=== PATIENT | male | born 1950 | race Caucasian/White ===

== ENCOUNTER 2016-07-24 13:29 | Emergency (ER) | payer OTHER ==
[2016-07-24] MEDS ORDERED: NS 0.9% 1000 ML* 1,000 ML IV ONE (14:58)
[2016-07-24] MEDS ORDERED: Diltiazem IV* 5 MG/ML 5 ML VIAL (for loading dose/IV Push) (25 MG) IV SLOW PU ONE (15:00)
[2016-07-24 15:14] LABS: Hematocrit 42 % (42-52); Hemoglobin 13.7 g/dl (14.0-18.0); Mean Corpuscular HGB Conc 32 g/dl (31-36); Mean Corpuscular Hemoglobin 31 pg (27-31); Mean Corpuscular Volume 95 fL (80-94); Mean Platelet Volume 9 um3 (7.4-10.4); Red Blood Count 4.46 10^6/ul (4.0-5.4); Red Cell Distribution Width 14 % (10.5-15); White Blood Count 9.9 10^3/ul (3.5-10.8)
[2016-07-24 15:31] LABS: Albumin 3.5 g/dL (3.2-5.2); BUN/Creatinine Ratio 18.1 (8-20); Calcium 9.2 mg/dL (8.6-10.3); EGFR African American 141.3 (>60); EGFR Non-African American 109.9 (>60); Globulin 2.9 g/dL (2-4); Magnesium 1.6 mg/dL (1.9-2.7); Total Bilirubin 0.6 mg/dL (0.2-1.0); Total Protein 6.4 g/dL (6.4-8.9)
--- NOTE | 2016-07-24 15:35 | RAD ---
HISTORY: Palpitation COMPARISONS: July 25, 2015 VIEWS: 2: Frontal dual-energy and lateral views of the chest. FINDINGS: CARDIOMEDIASTINAL SILHOUETTE: The cardiomediastinal silhouette is normal. HOME: The home are normal. PLEURA: The costophrenic angles are sharp. No pleural abnormalities are noted. LUNG PARENCHYMA: There is hyperinflation with flattening of the diaphragm and expansion of the AP diameter of the chest. There is a 0.7 cm nodular density of the left midlung field between the posterior aspects of the eighth and ninth ribs. ABDOMEN: The upper abdomen is clear. There is no subphrenic gas. BONES AND SOFT TISSUES: No bone or soft tissue abnormalities are noted. OTHER: None. IMPRESSION: 1. HYPERINFLATION, CONSISTENT WITH COPD. 2. 0.7 CM NODULE OF THE LEFT MIDLUNG. RECOMMEND FURTHER EVALUATION WITH CT OF THE CHEST IN THE NONACUTE SETTING.
[2016-07-24 15:53] LABS: T4 7.7 mcg/mL (6.09-12.23)
[2016-07-24 15:54] LABS: TSH (Thyroid Stimulating Horm) 0.51 mcIU/mL (0.34-5.60)
[2016-07-24] MEDS ORDERED: Magnesium Oxide TAB* 400 MG PO ONE (16:07)
[2016-07-24] MEDS ORDERED: Rivaroxaban TAB(*) 10 MG PO ONE (16:07)
[2016-07-24 17:01] VITALS: BP 139/100
--- NOTE | 2016-07-25 11:07 | ED ---
Khadijah Sanchez Auryana, scribed for Cameron Main MD on 07/24/16 at 1648 . Palpitations / Dysrhythmia - HPI Summary HPI Summary: 66 y/o male presents to ED with increased heart rate and atrial fibrillation. Patient arrived at the hospital today for a scheduled colonoscopy, but was brought to the ER due to increased HR. (when nurses observed patient's increased heart rate). PMHx of AFIB and COPD. Patient also has chronic SOB and cough. He denies any ABD pain and lower leg edema. Patient is on (takes) 2L Oxygen at home and (takes) is on blood thinners - reports none in last 6 days in preparation for his colonoscopy. SHx is significant for tobacco use. (Patient is a smoker.) - History of Current Complaint Chief Complaint: EDDysrhythmPalp Time Seen by Provider: 07/24/16 14:42 Hx Obtained From: Patient Onset/Duration: Sudden Onset Severity Initially: Moderate Severity Currently: Mild Character: Irregular Associated Signs & Symptoms: Shortness of Breath - CHRONIC - Allergy/Home Medications Allergies/Adverse Reactions: Allergies Allergy/AdvReac Type Severity Reaction Status Date / Time No Known Allergies Allergy Verified 07/11/15 11:13 Home Medications: Home Medications Diltiazem HCl Coated Beads [Cartia Xt] 240 mg PO DAILY 07/24/16 [History Confirmed 07/24/16] PMH/Surg Hx/FS Hx/Imm Hx Endocrine/Hematology History: Denies: Hx Diabetes, Hx Thyroid Disease Cardiovascular History: Reports: Hx Atrial Fibrillation, Hx Congestive Heart Failure Denies: Hx Peripheral Vascular Disease Respiratory History: Reports: Hx Chronic Obstructive Pulmonary Disease (COPD) - 2L O2 Cannula Musculoskeletal History: Denies: Hx Arthritis, Hx Osteoporosis Neurological History: Denies: Hx Headaches, Hx Seizures, Hx Transient Ischemic Attacks (TIA) Psychiatric History: Denies: Hx Anxiety, Hx Depression - Surgical History Surgery Procedure, Year, and Place: right knee as a child Infectious Disease History: No Infectious Disease History: Denies: Traveled Outside the [place] in Last 30 Days - Family History Known Family History: Positive: Hypertension, Diabetes, Other - Lung cancer, breast cancer - Social History Occupation: Unemployed Lives: With Family - Lives with sister Alcohol Use: None Substance Use Type: Reports: None Hx Tobacco Use: Yes Smoking Status (MU): Former Smoker Review of Systems Constitutional: Negative Negative: Fever Eyes: Negative ENT: Negative Cardiovascular: Negative Positive: Shortness Of Breath Gastrointestinal: Negative Negative: Abdominal Pain Genitourinary: Negative Musculoskeletal: Negative Negative: Edema - Lower leg Skin: Negative Neurological: Negative Psychological: Normal All Other Systems Reviewed And Are Negative: Yes Physical Exam - Summary Physical Exam Summary: VITAL SIGNS: Reviewed. GENERAL: Patient is a well-developed and thin male who is lying comfortable in the stretcher. Patient is not in any acute respiratory distress. HEAD AND FACE: No signs of trauma. No ecchymosis, hematomas or skull depressions. No sinus tenderness. EYES: PERRLA, EOMI x 2, No injected conjunctiva, no nystagmus. EARS: Hearing grossly intact. Ear canals and tympanic membranes are within normal limits. MOUTH: Oropharynx within normal limits. NECK: Supple, trachea is midline, no adenopathy, no JVD, no carotid bruit, no c- spine tenderness, neck with full ROM. CHEST: Symmetric, no tenderness at palpation LUNGS: Clear to auscultation bilaterally. No wheezing or crackles. CVS: Irregular rate and rhythm, S1 and S2 present, no murmurs or gallops appreciated. ABDOMEN: Soft, non-tender. No signs of distention. No rebound no guarding, and no masses palpated. Bowel sounds are normal. EXTREMITIES: FROM in all major joints, no edema, no cyanosis or clubbing. NEURO: Alert and oriented x 3. No acute neurological deficits. Speech is normal and follows commands. SKIN: Dry and warm Triage Information Reviewed: Yes Vital Signs On Initial Exam: Initial Vitals Temp Pulse Resp BP Pulse Ox 97.0 F 60 20 107/70 98 07/24/16 13:33 07/24/16 13:33 07/24/16 13:33 07/24/16 13:33 07/24/16 13:33 Vital Signs Reviewed: Yes - Byron Coma Scale Coma Scale Total: 15 Diagnostics - Vital Signs Vital Signs Temp Pulse Resp BP Pulse Ox 07/24/16 14:31 84 23 127/92 99 07/24/16 14:14 95 93 07/24/16 14:12 115/88 07/24/16 14:08 68 20 07/24/16 13:38 98.9 F 86 20 107/70 95 07/24/16 13:33 97.0 F 60 20 107/70 98 - Laboratory Lab Results: Lab Results 07/24/16 07/24/16 07/24/16 Range/Units 15:07 15:07 15:07 WBC 9.9 (3.5-10.8) 10^3/ul RBC 4.46 (4.0-5.4) 10^6/ul Hgb 13.7 L (14.0-18.0) g/dl Hct 42 (42-52) % MCV 95 H (80-94) fL MCH 31 (27-31) pg MCHC 32 (31-36) g/dl RDW 14 (10.5-15) % Plt Count 210 (150-450) 10^3/ul MPV 9 (7.4-10.4) um3 Neut % (Auto) 70.5 (38-83) % Lymph % (Auto) 21.4 L (25-47) % Deuel % (Auto) 7.4 (1-9) % Eos % (Auto) 0.3 (0-6) % Baso % (Auto) 0.4 (0-2) % Absolute Neuts (auto) 7.0 (1.5-7.7) 10^3/ul Absolute Lymphs (auto) 2.1 (1.0-4.8) 10^3/ul Absolute Monos (auto) 0.7 (0-0.8) 10^3/ul Absolute Eos (auto) 0 (0-0.6) 10^3/ul Absolute Basos (auto) 0 (0-0.2) 10^3/ul Absolute Nucleated RBC 0 10^3/ul Nucleated RBC % 0 Sodium 138 (133-145) mmol/L Potassium 4.0 (3.5-5.0) mmol/L Chloride 98 L (101-111) mmol/L Carbon Dioxide 36 H (22-32) mmol/L Anion Gap 4 (2-11) mmol/L BUN 13 (6-24) mg/dL Creatinine 0.72 (0.67-1.17) mg/dL Est GFR ( Amer) 141.3 (>60) Est GFR (Non-Af Amer) 109.9 (>60) BUN/Creatinine Ratio 18.1 (8-20) Glucose 86 (70-100) mg/dL Lactic Acid 1.1 (0.5-2.0) mmol/L Calcium 9.2 (8.6-10.3) mg/dL Magnesium 1.6 L (1.9-2.7) mg/dL Total Bilirubin 0.60 (0.2-1.0) mg/dL AST 21 (13-39) U/L ALT 16 (7-52) U/L Alkaline Phosphatase 66 (34-104) U/L CK-MB (CK-2) 3.2 (0.6-6.3) ng/mL Troponin I 0.00 (<0.04) ng/mL B-Natriuretic Peptide ( - 100) pg/mL Total Protein 6.4 (6.4-8.9) g/dL Albumin 3.5 (3.2-5.2) g/dL Globulin 2.9 (2-4) g/dL Albumin/Globulin Ratio 1.2 (1-3) TSH 0.51 (0.34-5.60) mcIU/mL Thyroxine (T4) 7.70 (6.09-12.23) mcg/mL 07/24/16 Range/Units 15:07 WBC (3.5-10.8) 10^3/ul RBC (4.0-5.4) 10^6/ul Hgb (14.0-18.0) g/dl Hct (42-52) % MCV (80-94) fL MCH (27-31) pg MCHC (31-36) g/dl RDW (10.5-15) % Plt Count (150-450) 10^3/ul MPV (7.4-10.4) um3 Neut % (Auto) (38-83) % Lymph % (Auto) (25-47) % Deuel % (Auto) (1-9) % Eos % (Auto) (0-6) % Baso % (Auto) (0-2) % Absolute Neuts (auto) (1.5-7.7) 10^3/ul Absolute Lymphs (auto) (1.0-4.8) 10^3/ul Absolute Monos (auto) (0-0.8) 10^3/ul Absolute Eos (auto) (0-0.6) 10^3/ul Absolute Basos (auto) (0-0.2) 10^3/ul Absolute Nucleated RBC 10^3/ul Nucleated RBC % Sodium (133-145) mmol/L Potassium (3.5-5.0) mmol/L Chloride (101-111) mmol/L Carbon Dioxide (22-32) mmol/L Anion Gap (2-11) mmol/L BUN (6-24) mg/dL Creatinine (0.67-1.17) mg/dL Est GFR ( Amer) (>60) Est GFR (Non-Af Amer) (>60) BUN/Creatinine Ratio (8-20) Glucose (70-100) mg/dL Lactic Acid (0.5-2.0) mmol/L Calcium (8.6-10.3) mg/dL Magnesium (1.9-2.7) mg/dL Total Bilirubin (0.2-1.0) mg/dL AST (13-39) U/L ALT (7-52) U/L Alkaline Phosphatase (34-104) U/L CK-MB (CK-2) (0.6-6.3) ng/mL Troponin I (<0.04) ng/mL B-Natriuretic Peptide 174 H ( - 100) pg/mL Total Protein (6.4-8.9) g/dL Albumin (3.2-5.2) g/dL Globulin (2-4) g/dL Albumin/Globulin Ratio (1-3) TSH (0.34-5.60) mcIU/mL Thyroxine (T4) (6.09-12.23) mcg/mL Result Diagrams: 07/24/16 15:07 07/24/16 15:07 Lab Statement: Any lab studies that have been ordered have been reviewed, and results considered in the medical decision making process. - Radiology CHEST XRAY Xray Interpretation: Positive (See Comments) - 1. HYPERINFLATION, CONSISTENT WITH COPD. 2. 0.7 CM NODULE OF THE LEFT MIDLUNG. RECOMMEND FURTHER EVALUATION WITH CT OF THE CHEST IN THE NONACUTE SETTING. Radiology Interpretation Completed By: Radiologist - EKG 13:43 EKG Interpretation: Atrial Fibrillation @ 129 bpm, no ST elevation Course/Dx - Course Assessment/Plan: 66 y/o male presents to ED with increased heart rate and atrial fibrillation. Patient arrived at the hospital today for a scheduled colonoscopy, but was brought to the ER due to increased HR. (when nurses observed patient's increased heart rate). PMHx of AFIB and COPD. Patient also has chronic SOB and cough. He denies any ABD pain and lower leg edema. Patient is on (takes) 2L Oxygen at home and (takes) is on blood thinners - reports none in last 6 days in preparation for his colonoscopy. SHx is significant for tobacco use. (Patient is a smoker.). Test results were WNL, except hemoglobin 13.7 and BNP 174. CXR shows no acute pathology, and a 0.7 cm nodule of the left Midlung. In the ED course the patient is dehydrated, since he has not taken fluids since yesterday because he was prepping for a colonoscopy. The patient did not take his medications this morning; therefore he was in AFIB with RVR. Patients colonoscopy was postponed, and he was sent to the ED for further assessment. HR 117 -127. PT was given IV fluids, cardizen, and symptoms improved within the hour and maintained between 70-82. At this point the patient was asymptomatic. Pt was given 1 dose of xarelto since he has not taken xarelto for the last 4 days. At this point, since the pt was asymptomatic and his AFIB was rate controlled, the patient was discharged with follow-up with PCP. - Diagnoses Differential Diagnosis/HQI/PQRI: Positive: Medication Induced, Paroxymal SVT, V- Tach, Other - A. Fib Provider Diagnoses: Atrial fibrillation - Physician Notifications Discussed Care Of Patient With: Kyleigh Us Time Discussed With Above Provider: 15:54 Discharge - Discharge Plan Condition: Stable Disposition: HOME Patient Education Materials: A-fib (Atrial Fibrillation) (ED) Referrals: Cameron Ryan MD [Primary Care Provider] - 3 Days (2-3 days) The documentation as recorded by the Khadijah yarbrough Auryana accurately reflects the service I personally performed and the decisions made by , Cameron Main MD.
== END 2016-07-24 17:46 | disposition home or self-care (01) ==
LOC: ED 13:29
DX: I48.91 Unspecified atrial fibrillation (principal); R06.02 Shortness of breath; Z87.891 Personal history of nicotine dependence; Z87.09 Personal history of other diseases of the respiratory system
CPT/HCPCS: 36415; 71020; 80053; 82553; 83605; 83735; 83880; 84436; 84443; 84484; 85025; 93005; 96374; 99283; A9270-GY

== ENCOUNTER 2017-10-02 11:07 | Inpatient (IN) | payer MEDICARE ==
[2017-10-02] MEDS ORDERED: Lactated Ringers 1000 ml Bag*IV.FLUID IV ONE (11:18)
[2017-10-02] MEDS ORDERED: Albuterol/Ipratropium NEB.SOL* Albuterol 2.5 MG/Ipratropium 0.5 MG 3 ML ONE (11:18)
[2017-10-02] MEDS ORDERED: Albuterol 2.5 MG/3 ML NEB.SOL* (0.083%) INH ONE ×2 (11:19→12:40)
[2017-10-02] MEDS ORDERED: Magnesium Sulfate 1 GM IV* 1 GM/100 ML BAG IV ONE (11:19)
[2017-10-02] MEDS ORDERED: Albuterol/Ipratropium NEB.SOL* Albuterol 2.5 MG/Ipratropium 0.5 MG 3 ML INH ONE (11:19)
[2017-10-02] MEDS ORDERED: Levofloxacin 750 MG IVPREMIX(* 750 MG/150 ML BAG IVPB ONE (11:21)
--- NOTE | 2017-10-02 11:21 | ED ---
Respiratory - HPI Summary HPI Summary: This is scribe Percy Attebery documenting for attending Lucian Kline MD. 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 Assoc. Sx: CP, SOB, speech aphasia. Denies: fever. He was experiencing SOB last night but did not present to ED, per 's request. Per EMS, he received steroids en route to ED, 2 breathing treatments and was on oxygen when EMS arrived on scene. PMHx: COPD, A-fib. He reports being hospitalized for these Sx previously. Nothing seems to alleviate the Sx. History is otherwise limited by patient's medical condition/mental status. I, Dr. Kline, personally performed the services described in this documentation as scribed in my presence and it is both accurate and complete. - History of Current Complaint Chief Complaint: EDRespiratoryDistress Stated Complaint: DIFF BREATHING Hx Obtained From: Patient Onset/Duration: Sudden Onset, Lasting Days, Still Present Current Severity: None Pain Intensity: 0 Character: Wheezing, Dyspnea at Rest Alleviating Factor(s): Nothing Associated Signs and Symptoms: SOB, Wheezing, Chest Pain Unrelated to Cough - Allergy/Home Medications Allergies/Adverse Reactions: Allergies Allergy/AdvReac Type Severity Reaction Status Date / Time No Known Allergies Allergy Verified 07/11/15 11:13 PMH/Surg Hx/FS Hx/Imm Hx Endocrine/Hematology History: Denies: Hx Diabetes, Hx Thyroid Disease Cardiovascular History: Reports: Hx Atrial Fibrillation, Hx Congestive Heart Failure, Hx Hypertension Denies: Hx Peripheral Vascular Disease Respiratory History: Reports: Hx Chronic Obstructive Pulmonary Disease (COPD) - 2L O2 Cannula, Other Respiratory Problems/Disorders Musculoskeletal History: Denies: Hx Arthritis, Hx Osteoporosis Neurological History: Denies: Hx Headaches, Hx Seizures, Hx Transient Ischemic Attacks (TIA) Psychiatric History: Denies: Hx Anxiety, Hx Depression - Surgical History Surgery Procedure, Year, and Place: right knee as a child Infectious Disease History: No Infectious Disease History: Denies: Traveled Outside the [place] in Last 30 Days - Family History Known Family History: Positive: Hypertension, Diabetes, Other - Lung cancer, breast cancer - Social History Occupation: Unemployed Lives: With Family Alcohol Use: None Substance Use Type: Reports: None Hx Tobacco Use: Yes Smoking Status (MU): Former Smoker Review of Systems Positive: Other - POS: speech aphasia.. Negative: Fever Positive: Chest Pain Positive: Shortness Of Breath All Other Systems Reviewed And Are Negative: Yes Physical Exam - Summary Physical Exam Summary: Appearance: Moderate distress. Skin: warm, dry, reflects adequate perfusion Head/face: normal Eyes: EOMI, GIBSON ENT: normal Neck: supple, non-tender Respiratory: History of resp difficulty, tachypnic, prolonged expiratory phase, diffuse wheezes. Cardiovascular: Tachycardic, irregularly irregular heart beat. Abdomen: non-tender, soft Bowel Sounds: present Musculoskeletal: normal, strength/ROM intact Neuro: Mild confusion, 1-word/short phrases Triage Information Reviewed: Yes Vital Signs On Initial Exam: Initial Vitals Temp Pulse Resp BP Pulse Ox 98.2 F 135 35 132/98 100 10/02/17 11:10 10/02/17 11:10 10/02/17 11:10 10/02/17 11:10 10/02/17 11:10 Vital Signs Reviewed: Yes Completion Of Physical Exam Limited Due To: Altered Mental Status Diagnostics - Vital Signs Vital Signs Temp Pulse Resp BP Pulse Ox 10/02/17 11:10 98.2 F 135 35 132/98 100 - Laboratory Result Diagrams: 10/02/17 11:15 10/02/17 11:15 Lab Statement: Any lab studies that have been ordered have been reviewed, and results considered in the medical decision making process. - Radiology CXR Xray Interpretation: No Acute Changes - IMPRESSION: COPD, no active cardiopulmonary disease Radiology Interpretation Completed By: Radiologist - Report has been reviewed by provider and radiologist. - EKG 1114 Cardiac Rate: Tachycardia - 128 bpm EKG Rhythm: Atrial Fibrillation ST Segment: Non-Specific EKG Interpretation: Long QT wave, baseline artifact, rapid ventreicular response. Re-Evaluation - Re-Evaluation First Eval Re-Evaluation Time: 11:40 Change: Improved Comment: Pt is improving, hypercarbic respiratory failure. Disposition - Course Course Of Treatment: Patient with hypercarbic respiratory failure with initial PCO2 of 117. Patient was not hypoxic throughout his course. As a matter of fact, they had turned up his oxygen at home and he was satting 100% on EMS arrival. He is confused on arrival. He was placed on Vapotherm at 40 L and 60 % FiO2. He quickly began to improve. His FiO2 was titrated down to 35%. His mental status continued to improve. His wheezing was diffuse and continued despite several breathing treatments. He was also given IV magnesium hydration and IV Levaquin. The ICU physician was contacted and came to the bedside to evaluate. The patient will be admitted to the ICU for ongoing therapies of his hypercarbic respiratory failure/COPD exacerbation. His ventricular rate may be requiring control but has improved significantly despite breathing treatments with IV hydration and improvement of his respiratory status. - Differential Dx - Cardiopulmonary Differential Diagnoses - Cardiopulmonary: Acute Dyspnea, Atrial Fibrillation, CAD, Cardiomyopathy, Exacerbation Of COPD, Hypokalemia, Lower Resp Infection, Pneumothorax - Diagnoses Provider Diagnoses: Atrial fibrillation with RVR, Acute hypercapnic respiratory failure, COPD with acute exacerbation, Delirium - Physician Notifications Discussed Care Of Patient With: Eduar Sawyer Time Discussed With Above Provider: 11:47 Instructed by Provider To: Other - Provider spoke with Dr. Sawyer regarding further care of patient. He was accepted for admission. - Critical Care Time Critical Care Time: 30-74 min - CCT is EXCLUSIVE of separately billable procedures. Discharge - Sign-Out/Discharge Documenting (check all that apply): Patient Departure - Discharge Plan Condition: Guarded Disposition: ADMITTED TO [facility] - Billing Disposition and Condition Condition: GUARDED Disposition: Admitted to [facility]
[2017-10-02 11:35] LABS: ABS Basophils 0 10^3/ul (0-0.2); ABS Eosinophils 0 10^3/ul (0-0.6); ABS Lymphocytes 0.7 10^3/ul (1.0-4.8); ABS Monocytes 0.6 10^3/ul (0-0.8); ABS Neutrophils 7.8 10^3/ul (1.5-7.7); ABS Nucleated RBC 0 10^3/ul; Eosinophil % 0 % (0-6); Hematocrit 43 % (42-52); Hemoglobin 14.1 g/dl (14.0-18.0); Lymphocyte % 7.2 % (25-47); Mean Corpuscular HGB Conc 32 g/dl (31-36); Mean Corpuscular Hemoglobin 32 pg (27-31); Mean Corpuscular Volume 99 fL (80-94); Mean Platelet Volume 9.5 um3 (7.4-10.4); Nucleated Red Blood Cells % 0; Platelet Count 210 10^3/ul (150-450); Red Cell Distribution Width 14 % (10.5-15); White Blood Count 9.1 10^3/ul (3.5-10.8)
[2017-10-02 11:45] LABS: INR 1.66 (0.77-1.02)
[2017-10-02 11:52] LABS: EGFR Non-African American 94.3 (>60)
--- NOTE | 2017-10-02 11:59 | RAD ---
HISTORY: Respiratory failure COMPARISONS: July 24, 2016 VIEWS: 1: frontal portable view of the chest at 11:30 AM FINDINGS: LINES AND TUBES: None. CARDIOMEDIASTINAL SILHOUETTE: The cardiomediastinal silhouette is normal for portable technique. PLEURA: The costophrenic angles are sharp. No pleural abnormalities are noted. LUNG PARENCHYMA: There is hyperinflation. ABDOMEN: The upper abdomen is clear. There is no subphrenic gas. BONES AND SOFT TISSUES: No bone or soft tissue abnormalities are noted. IMPRESSION: COPD. NO ACTIVE CARDIOPULMONARY DISEASE.
--- NOTE | 2017-10-02 12:43 | HP ---
H&P (Free Text) History and Physical: History and Physical -- Critical Care Limitations in history/physical: none HPI: 67y M w/pmhx of Severe COPD on 2-3 L home O2, Atrial fibrillation on Xarelto; comes to ER for increasing shortness of breath. States for days now has been having increasing shortness of breath. No chest pain/n/v. cough+, mild sputum only. No fever. Chills+. Sick contacts possible with small kids. no abd pain. no diarrhea. no rash/swelling. no recent hospital admissions. Takes his medications at home. Smoker+. No new medications. in ER, he was tachycardic, rapid afib, tachypneic 20-30s, sats 90s+ on NRM and then switched to 3L, BP stable, tmax 98. Very poor air movement on arrival as per staff, started on albuterol, then wheezing noted and increasing air movement on examination. CXR demonstrated no acute infiltrates/effusions/ptx. ABG demonstrated acute on chronic hypercapnea. He was started on hiflow NC, sats in mid 90s. on my exam, he is visibly tachypneic, unable to complete a sentence, short exhalations, RR 30s. less confused as per ER physician and friends at bedside. he lives with his sister at home. he states he feels a little better ROS: negative except for pertinent positives mentioned above. PMHx: Severe COPD on 2-3 L home O2, Atrial fibrillation on Xarelto PSHx: none Family History: breast cancer, lung cancer, HTN, DM Social History: Alcohol-none, Smoking-active, less now, Drug use-none; Lives with his sister Allergies: Allergies Allergy/AdvReac Type Severity Reaction Status Date / Time No Known Allergies Allergy Verified 07/11/15 11:13 Home Medications: atenolol 50mg daily, cardizem 240mg CD daily, xarelto 20mg daily, digoxin 125mcg daily, symicort, albuterol hfa Tele: afib with RVR 100-120s Vitals: Vital Signs Temp 98.2 F 10/02/17 11:10 Pulse 87 10/02/17 13:00 Resp 24 10/02/17 12:45 BP 131/74 10/02/17 12:53 Pulse Ox 93 10/02/17 13:00 Intake & Output 10/01/17 10/02/17 10/02/17 18:59 06:59 18:59 Intake Total 2330 Balance 2330 Weight 72.575 kg Intake: IV Fluids 2330 O2/Vent: hiflow 40lpm 30% Infusions: heplock Current Medications: Albuterol (Ventolin 2.5 Mg/3 Ml Neb.Alena*) 2.5 mg INH Q4H CLARA Budesonide/Formoterol Fumarate (Symbicort 80/4.5 (Nf)) 1 puff INH BID CLARA Diltiazem HCl (Cardizem Cd Cap*) 240 mg PO DAILY CLARA Methylprednisolone Sodium Succinate (Solu-Medrol 40 Mg) 40 mg IV Q8H CLARA Rivaroxaban (Xarelto(*)) 20 mg PO DAILY CLARA Terbutaline Sulfate (Brethine Inj*) 0.25 mg SUBCUT ONCE ONE Stop: 10/02/17 13:20 Physical Exam: General: awake, alert, resp distress+, no diaphoresis Head: normocephalic, atraumatic HEENT: no pallor, no icterus, moist mucous membranes Neck: soft, supple, no jvd, no stridor CVS: tachy, irregular, no murmur Resp: bilateral air entry, no rhales, bilateral diffuse wheezing++, there is insp/exp airflow, mild acc muscle use Abdomen: soft, nontender, nondistended, bowel sounds present Ext: pulses+, warm, no edema Skin: intact Neuro: awake, alert, orientedx3, moving all extremities, no gross focal deficit Labs: Laboratory Results - last 24 hr 10/02/17 10/02/17 10/02/17 11:15 11:15 11:15 WBC 9.1 RBC 4.40 Hgb 14.1 Hct 43 MCV 99 H MCH 32 H MCHC 32 RDW 14 Plt Count 210 MPV 9.5 Neut % (Auto) 86.2 H Lymph % (Auto) 7.2 L [place] % (Auto) 6.3 Eos % (Auto) 0 Baso % (Auto) 0.3 Absolute Neuts (auto) 7.8 H Absolute Lymphs (auto) 0.7 L Absolute Monos (auto) 0.6 Absolute Eos (auto) 0 Absolute Basos (auto) 0 Absolute Nucleated RBC 0 Nucleated RBC % 0 INR (Anticoag Therapy) 1.66 H APTT 36.3 Patient Temperature ABG pH ABG pH (Temp Correct) ABG pCO2 ABG pCO2 (Temp Corrct ABG pO2 ABG pO2 (Temp Correct ABG HCO3 ABG O2 Saturation ABG Base Excess Respiration Rate O2 Delivery Device Ventilator Type Vent Mode FiO2 Inspiratory Time PEEP Pressure Support Pressure Control EPAP IPAP BiPAP Sodium 140 Potassium 4.8 Chloride 94 L Carbon Dioxide 43 H* Anion Gap 3 BUN 31 H Creatinine 0.82 Est GFR ( Amer) 114.1 Est GFR (Non-Af Amer) 94.3 BUN/Creatinine Ratio 37.8 H Glucose 105 H Lactic Acid Calcium 9.3 Total Bilirubin 0.60 AST 31 ALT 31 Alkaline Phosphatase 91 Troponin I 0.01 C-Reactive Protein 73.08 H B-Natriuretic Peptide Total Protein 7.2 Albumin 3.8 Globulin 3.4 Albumin/Globulin Ratio 1.1 10/02/17 10/02/17 10/02/17 11:15 11:15 11:23 WBC RBC Hgb Hct MCV MCH MCHC RDW Plt Count MPV Neut % (Auto) Lymph % (Auto) [place] % (Auto) Eos % (Auto) Baso % (Auto) Absolute Neuts (auto) Absolute Lymphs (auto) Absolute Monos (auto) Absolute Eos (auto) Absolute Basos (auto) Absolute Nucleated RBC Nucleated RBC % INR (Anticoag Therapy) APTT Patient Temperature Not Reportable ABG pH 7.16 L* ABG pH (Temp Correct) Not Reportable ABG pCO2 117 H* ABG pCO2 (Temp Corrct Not Reportable ABG pO2 223 H ABG pO2 (Temp Correct Not Reportable ABG HCO3 31.4 H ABG O2 Saturation 99.4 H ABG Base Excess 8.3 H Respiration Rate Not Reportable O2 Delivery Device vapotherm Ventilator Type Not Reportable Vent Mode Not Reportable FiO2 60 Inspiratory Time Not Reportable PEEP Not Reportable Pressure Support Not Reportable Pressure Control Not Reportable EPAP Not Reportable IPAP Not Reportable BiPAP Not Reportable Sodium Potassium Chloride Carbon Dioxide Anion Gap BUN Creatinine Est GFR ( Amer) Est GFR (Non-Af Amer) BUN/Creatinine Ratio Glucose Lactic Acid 1.1 Calcium Total Bilirubin AST ALT Alkaline Phosphatase Troponin I C-Reactive Protein B-Natriuretic Peptide 566 H Total Protein Albumin Globulin Albumin/Globulin Ratio 10/02/17 13:15 WBC RBC Hgb Hct MCV MCH MCHC RDW Plt Count MPV Neut % (Auto) Lymph % (Auto) [place] % (Auto) Eos % (Auto) Baso % (Auto) Absolute Neuts (auto) Absolute Lymphs (auto) Absolute Monos (auto) Absolute Eos (auto) Absolute Basos (auto) Absolute Nucleated RBC Nucleated RBC % INR (Anticoag Therapy) APTT Patient Temperature Not Reportable ABG pH 7.29 L ABG pH (Temp Correct) Not Reportable ABG pCO2 89 H* ABG pCO2 (Temp Corrct Not Reportable ABG pO2 67 L ABG pO2 (Temp Correct Not Reportable ABG HCO3 34.4 H ABG O2 Saturation 95.4 ABG Base Excess 12.3 H Respiration Rate Not Reportable O2 Delivery Device vapotherm Ventilator Type Not Reportable Vent Mode Not Reportable FiO2 35 Inspiratory Time Not Reportable PEEP Not Reportable Pressure Support Not Reportable Pressure Control Not Reportable EPAP Not Reportable IPAP Not Reportable BiPAP Not Reportable Sodium Potassium Chloride Carbon Dioxide Anion Gap BUN Creatinine Est GFR ( Amer) Est GFR (Non-Af Amer) BUN/Creatinine Ratio Glucose Lactic Acid Calcium Total Bilirubin AST ALT Alkaline Phosphatase Troponin I C-Reactive Protein B-Natriuretic Peptide Total Protein Albumin Globulin Albumin/Globulin Ratio Imaging: cxr 10/02 - hyperinflated lungs, no new focal infiltrates Assessment: 67y M w/pmhx of Severe COPD on 2-3 L home O2, Atrial fibrillation on Xarelto; comes to ER for increasing shortness of breath. States for days now has been having increasing shortness of breath. Possible sick contacts at home with nieces/nephews. poor air entry and then wheezing in ER. ABG with acute on chronic hypercapnea. Suspected COPD exaccerbation. -Acute on chronic hypercapneic respiratory failure -Chronic Hypoxic Respiratory failure -Acute COPD exaccerbation -Afib with RVR Plan: Neuro- stable. not confused now, oriented x3. may have had a metabolic component due to hypercapnea initially. delirium prec. asp prec. CVS- afib with rvr. resume PO cardizem 240mg daily; hold Po atenolol 50mg for now. Start IV cardizem 10mg/hr infusion for Afib control. Bronchodilators will likely increase the rate a little. Cont rivaroxaban 20mg daily for AC. IVF as needed, appears euvolemic. follow urine output. Resp- chronic hypoxia, maintain sat 90-92%. Acute hypercapnea on chronic but more alert now. pending repeat ABG now. s/p 3-4 albuterol tx. May need NIV for increased work of breathing. cont bronchodilators q4h RTC. Solumedrol 125mg x1, then 40mg iv q8h. Terbutaline 2.5mg SC x1. No clear infiltrate/fever/wbc elevation, hold Abx. sputum culture if able. CXR repeat tomorrow if needed. ID- afebrile, wbc normal. CXR no clear focal infiltrate. sputum culture if able. hold abx. GI- NPO for now till resp status stable. PPI proph. Renal- Cr okay, K okay. no acidosis. IVF as needed. given IVF NS bolus. No bell for now. Heme- hg stbale. plt stable. INR 1.66, some coagulopathy. Cont rivaroxaban 20mg daily for Afib AC. Endo- fingersticks q6h while NPO Musculsk- pressure ulcer prophylaxis. Bedrest. Wounds- none Nutrition- NPO for now DVT prophylaxis: SCDs; Rivaroxaban GI prophylaxis: ppi Central Line: no Arterial Line: no Bell Cathetor: no Disposition: ICU Code Status: full code Total Critical Care time is 45 minutes, excluding procedures/teaching Eduar Sawyer MD [employer] (Electronically Signed)
[2017-10-02] MEDS ORDERED: methylPREDNISolone 125 MG* 2 ML VIAL IV STA (13:17)
[2017-10-02] MEDS ORDERED: Terbutaline INJ* 1 MG/ML VIAL SUBCUT ONE (13:19)
[2017-10-02] MEDS ORDERED: Albuterol 2.5 MG/3 ML NEB.SOL* (0.083%) INH SCH (14:00)
[2017-10-02] MEDS ORDERED: Diltiazem DRIP* 100 MG/100 ML ADDV.BAG IVPB SCH (14:00)
[2017-10-02] MEDS: Diltiazem CD CAP* 240 MG PO SCH (14:02)
[2017-10-02 14:28] LABS: Urine Appearance Clear; Urine Blood Negative (Negative); Urine Color Yellow; Urine Ketones 1+ (Negative); Urine Protein 1+(30 mg/dL) (Negative); Urine Red Blood Cell Absent (Absent); Urine Specific Gravity 1.023 (1.010-1.030); Urine Urobilinogen Positive (Negative); Urine White Blood Cell Absent (Absent)
[2017-10-02] MEDS: Diltiazem IV VIAL* 125 MG in NS 0.9% 100 ML* 100 ML IV SCH ×2 (15:00→21:18)
[2017-10-02] MEDS: Albuterol 2.5 MG/3 ML NEB.SOL* (0.083%) INH SCH ×3 (16:31→23:07)
[2017-10-02] MEDS ORDERED: NS 0.9% 1000 ML* 1,000 ML IV SCH (17:15)
[2017-10-02] MEDS: Mometasone/Formoter 100/5 MDI INH SCH (20:18)
[2017-10-02] MEDS: methylPREDNISolone SOD 40 MG* 1 ML VIAL IV SCH (21:13)
[2017-10-03] MEDS: Albuterol 2.5 MG/3 ML NEB.SOL* (0.083%) INH SCH ×4 (03:07→15:35)
[2017-10-03] MEDS: methylPREDNISolone SOD 40 MG* 1 ML VIAL IV SCH ×3 (05:45→21:06)
[2017-10-03 06:14] LABS: Hematocrit 35 % (42-52); Hemoglobin 11.8 g/dl (14.0-18.0); Mean Corpuscular HGB Conc 33 g/dl (31-36); Mean Corpuscular Hemoglobin 32 pg (27-31); Mean Corpuscular Volume 96 fL (80-94); Mean Platelet Volume 9.3 um3 (7.4-10.4); Platelet Count 146 10^3/ul (150-450); Red Blood Count 3.68 10^6/ul (4.00-5.40); Red Cell Distribution Width 13 % (10.5-15); White Blood Count 7.5 10^3/ul (3.5-10.8)
[2017-10-03 06:38] LABS: EGFR Non-African American 132.7 (>60)
[2017-10-03] MEDS: Mometasone/Formoter 100/5 MDI INH SCH ×2 (07:35→19:47)
[2017-10-03] MEDS: Diltiazem CD CAP* 240 MG PO SCH (08:48)
[2017-10-03] MEDS: Rivaroxaban TAB(*) 20 MG TAB PO SCH (08:48)
[2017-10-03] MEDS ORDERED: Pantoprazole IV* 40 MG IV SCH (09:00)
[2017-10-03] MEDS: Digoxin TAB* 0.125 MG PO SCH (09:32)
[2017-10-03] MEDS ORDERED: Atenolol TAB* 50 MG PO SCH (10:00)
[2017-10-03] MEDS ORDERED: Metoprolol Succinate XL TAB* 50 MG PO SCH (10:00)
[2017-10-03] MEDS: Diltiazem IV VIAL* 125 MG in NS 0.9% 100 ML* 100 ML IV SCH ×2 (10:43→21:13)
--- NOTE | 2017-10-03 11:46 | PN ---
Progress Note - Progress Note Date of Service: 10/03/17 Note: Progress Note -- Critical Care 24 hour events: -rapid afib, still on cardizem infusion -feels better; less cough, minimal sputum -still wheezing+ -afebrile -in bed, resting; some tachypnea still apparent Tele: afib with RVR 100-120s Vitals: Vital Signs Temp 99.1 F 10/03/17 08:00 Pulse 99 10/03/17 10:21 Resp 30 10/03/17 10:21 BP 140/87 10/03/17 10:21 Pulse Ox 95 10/03/17 10:21 Intake & Output 10/02/17 10/03/17 10/03/17 18:59 06:59 18:59 Intake Total 2975 788 590 Output Total 300 725 300 Balance 2675 63 290 Weight 63.4 kg 63.9 kg Intake: IV Fluids 2330 439 Magnesium Sulfate 439 Medicated IV 149 GEN - Diltiazem/Cardizem 149 Oral 645 200 590 Output: Urine 300 725 300 O2/Vent: NC 3 L Infusions: cardizem 15mg/hr Current Medications: Albuterol (Ventolin 2.5 Mg/3 Ml Neb.Alena*) 2.5 mg INH Q4H [facility] Last Admin: 10/03/17 07:32 Dose: 2.5 mg Digoxin (Lanoxin Tab*) 0.125 mg PO DAILY [facility] Last Admin: 10/03/17 09:32 Dose: 0.125 mg Diltiazem HCl (Cardizem Cd Cap*) 240 mg PO DAILY [facility] Last Admin: 10/03/17 08:48 Dose: 240 mg Diltiazem HCl 125 mg/ Sodium (Chloride) 125 mls @ 5 mls/hr IV Q24H [facility]; Protocol Last Admin: 10/03/17 10:43 Dose: 5 mls/hr Methylprednisolone Sodium Succinate (Solu-Medrol 40 Mg) 40 mg IV Q8H [facility] Last Admin: 10/03/17 05:45 Dose: 40 mg Metoprolol Succinate (Toprol Xl Tab*) 50 mg PO DAILY [facility] Last Admin: 10/03/17 09:32 Dose: 50 mg Mometasone Furoate/Formoterol Fumar (Dulera 100/5 Mdi*) 1 puff INH BID [facility] Last Admin: 10/03/17 07:35 Dose: 1 puff Pantoprazole Sodium (Protonix Tab (Nf)) 40 mg PO DAILY [facility] Rivaroxaban (Xarelto(*)) 20 mg PO DAILY [facility] Last Admin: 10/03/17 08:48 Dose: 20 mg Physical Exam: General: awake, alert, less resp distress, no diaphoresis Head: normocephalic, atraumatic HEENT: no pallor, no icterus, moist mucous membranes Neck: soft, supple, no jvd, no stridor CVS: tachy, irregular, no murmur Resp: bilateral air entry, no rhales, bilateral scattered wheezing+, no acc muscle use Abdomen: soft, nontender, nondistended, bowel sounds present Ext: pulses+, warm, no edema Skin: intact Neuro: awake, alert, orientedx3, moving all extremities, no gross focal deficit Labs: Laboratory Results - last 24 hr 10/02/17 10/02/17 10/02/17 11:15 11:15 11:15 WBC RBC Hgb Hct MCV MCH MCHC RDW Plt Count MPV Patient Temperature ABG pH ABG pH (Temp Correct) ABG pCO2 ABG pCO2 (Temp Corrct ABG pO2 ABG pO2 (Temp Correct ABG HCO3 ABG O2 Saturation ABG Base Excess Respiration Rate O2 Delivery Device Ventilator Type Vent Mode FiO2 Inspiratory Time PEEP Pressure Support Pressure Control EPAP IPAP BiPAP Sodium 140 Potassium 4.8 Chloride 94 L Carbon Dioxide 43 H* Anion Gap 3 BUN 31 H Creatinine 0.82 Est GFR ( Amer) 114.1 Est GFR (Non-Af Amer) 94.3 BUN/Creatinine Ratio 37.8 H Glucose 105 H POC Glucose (mg/dL) Hemoglobin A1c Lactic Acid 1.1 Calcium 9.3 Total Bilirubin 0.60 AST 31 ALT 31 Alkaline Phosphatase 91 Troponin I 0.01 C-Reactive Protein 73.08 H B-Natriuretic Peptide 566 H Total Protein 7.2 Albumin 3.8 Globulin 3.4 Albumin/Globulin Ratio 1.1 Urine Color Urine Appearance Urine pH Ur Specific [place] Urine Protein Urine Ketones Urine Blood Urine Nitrate Urine Bilirubin Urine Urobilinogen Ur Leukocyte Esterase Urine WBC (Auto) Urine RBC (Auto) Ur Squamous Epith Cells Urine Bacteria Hyaline Casts Urine Glucose Digoxin 1.0 10/02/17 10/02/17 10/02/17 13:15 14:00 16:13 WBC RBC Hgb Hct MCV MCH MCHC RDW Plt Count MPV Patient Temperature Not Reportable ABG pH 7.29 L ABG pH (Temp Correct) Not Reportable ABG pCO2 89 H* ABG pCO2 (Temp Corrct Not Reportable ABG pO2 67 L ABG pO2 (Temp Correct Not Reportable ABG HCO3 34.4 H ABG O2 Saturation 95.4 ABG Base Excess 12.3 H Respiration Rate Not Reportable O2 Delivery Device vapotherm Ventilator Type Not Reportable Vent Mode Not Reportable FiO2 35 Inspiratory Time Not Reportable PEEP Not Reportable Pressure Support Not Reportable Pressure Control Not Reportable EPAP Not Reportable IPAP Not Reportable BiPAP Not Reportable Sodium Potassium Chloride Carbon Dioxide Anion Gap BUN Creatinine Est GFR ( Amer) Est GFR (Non-Af Amer) BUN/Creatinine Ratio Glucose POC Glucose (mg/dL) Hemoglobin A1c Lactic Acid 2.9 H* Calcium Total Bilirubin AST ALT Alkaline Phosphatase Troponin I C-Reactive Protein B-Natriuretic Peptide Total Protein Albumin Globulin Albumin/Globulin Ratio Urine Color Yellow Urine Appearance Clear Urine pH 5.0 Ur Specific [place] 1.023 Urine Protein 1+(30 mg/dl) A Urine Ketones 1+ A Urine Blood Negative Urine Nitrate Negative Urine Bilirubin Negative Urine Urobilinogen Positive A Ur Leukocyte Esterase Negative Urine WBC (Auto) Absent Urine RBC (Auto) Absent Ur Squamous Epith Cells Present A Urine Bacteria Absent Hyaline Casts Present A Urine Glucose Negative Digoxin 10/02/17 10/02/17 10/02/17 17:10 21:21 21:24 WBC RBC Hgb Hct MCV MCH MCHC RDW Plt Count MPV Patient Temperature ABG pH ABG pH (Temp Correct) ABG pCO2 ABG pCO2 (Temp Corrct ABG pO2 ABG pO2 (Temp Correct ABG HCO3 ABG O2 Saturation ABG Base Excess Respiration Rate O2 Delivery Device Ventilator Type Vent Mode FiO2 Inspiratory Time PEEP Pressure Support Pressure Control EPAP IPAP BiPAP Sodium Potassium Chloride Carbon Dioxide Anion Gap BUN Creatinine Est GFR ( Amer) Est GFR (Non-Af Amer) BUN/Creatinine Ratio Glucose POC Glucose (mg/dL) 172 H 167 H Hemoglobin A1c Lactic Acid 1.9 Calcium Total Bilirubin AST ALT Alkaline Phosphatase Troponin I C-Reactive Protein B-Natriuretic Peptide Total Protein Albumin Globulin Albumin/Globulin Ratio Urine Color Urine Appearance Urine pH Ur Specific [place] Urine Protein Urine Ketones Urine Blood Urine Nitrate Urine Bilirubin Urine Urobilinogen Ur Leukocyte Esterase Urine WBC (Auto) Urine RBC (Auto) Ur Squamous Epith Cells Urine Bacteria Hyaline Casts Urine Glucose Digoxin 10/03/17 10/03/17 10/03/17 05:55 05:56 05:56 WBC 7.5 RBC 3.68 L Hgb 11.8 L Hct 35 L MCV 96 H MCH 32 H MCHC 33 RDW 13 Plt Count 146 L MPV 9.3 Patient Temperature Not Reportable ABG pH 7.37 ABG pH (Temp Correct) Not Reportable ABG pCO2 79 H* ABG pCO2 (Temp Corrct Not Reportable ABG pO2 97 ABG pO2 (Temp Correct Not Reportable ABG HCO3 38.1 H ABG O2 Saturation 98.5 H ABG Base Excess 16.9 H Respiration Rate Not Reportable O2 Delivery Device nasal cannula Ventilator Type Not Reportable Vent Mode Not Reportable FiO2 33 Inspiratory Time Not Reportable PEEP Not Reportable Pressure Support Not Reportable Pressure Control Not Reportable EPAP Not Reportable IPAP Not Reportable BiPAP Not Reportable Sodium 142 Potassium 4.1 Chloride 96 L Carbon Dioxide 43 H* Anion Gap 3 BUN 17 Creatinine 0.61 L Est GFR ( Amer) 160.5 Est GFR (Non-Af Amer) 132.7 BUN/Creatinine Ratio 27.9 H Glucose 142 H POC Glucose (mg/dL) Hemoglobin A1c Lactic Acid Calcium 9.0 Total Bilirubin AST ALT Alkaline Phosphatase Troponin I C-Reactive Protein B-Natriuretic Peptide Total Protein Albumin Globulin Albumin/Globulin Ratio Urine Color Urine Appearance Urine pH Ur Specific [place] Urine Protein Urine Ketones Urine Blood Urine Nitrate Urine Bilirubin Urine Urobilinogen Ur Leukocyte Esterase Urine WBC (Auto) Urine RBC (Auto) Ur Squamous Epith Cells Urine Bacteria Hyaline Casts Urine Glucose Digoxin 10/03/17 10/03/17 05:56 06:05 WBC RBC Hgb Hct MCV MCH MCHC RDW Plt Count MPV Patient Temperature ABG pH ABG pH (Temp Correct) ABG pCO2 ABG pCO2 (Temp Corrct ABG pO2 ABG pO2 (Temp Correct ABG HCO3 ABG O2 Saturation ABG Base Excess Respiration Rate O2 Delivery Device Ventilator Type Vent Mode FiO2 Inspiratory Time PEEP Pressure Support Pressure Control EPAP IPAP BiPAP Sodium Potassium Chloride Carbon Dioxide Anion Gap BUN Creatinine Est GFR ( Amer) Est GFR (Non-Af Amer) BUN/Creatinine Ratio Glucose POC Glucose (mg/dL) 148 H Hemoglobin A1c 5.4 Lactic Acid Calcium Total Bilirubin AST ALT Alkaline Phosphatase Troponin I C-Reactive Protein B-Natriuretic Peptide Total Protein Albumin Globulin Albumin/Globulin Ratio Urine Color Urine Appearance Urine pH Ur Specific [place] Urine Protein Urine Ketones Urine Blood Urine Nitrate Urine Bilirubin Urine Urobilinogen Ur Leukocyte Esterase Urine WBC (Auto) Urine RBC (Auto) Ur Squamous Epith Cells Urine Bacteria Hyaline Casts Urine Glucose Digoxin Imaging: cxr 10/02 - hyperinflated lungs, no new focal infiltrates Assessment: 67y M w/pmhx of Severe COPD on 2-3 L home O2, Atrial fibrillation on Xarelto; comes to ER for increasing shortness of breath. States for days now has been having increasing shortness of breath. Possible sick contacts at home with nieces/nephews. poor air entry and then wheezing in ER. ABG with acute on chronic hypercapnea. Suspected COPD exaccerbation. -Acute on chronic hypercapneic respiratory failure -Chronic Hypoxic Respiratory failure -Acute COPD exaccerbation -Afib with RVR Plan: Neuro- stable. oriented x3. delirium prec. asp prec. CVS- afib with rvr; cont cardizem 15mg/hr; cont PO cardizem 240mg daily; restart metoprolol 50mg XL daily, restart dig 125mcg daily. Bronchodilators will likely increase the rate a little. Cont rivaroxaban 20mg daily for AC. IVF as needed, appears euvolemic. follow urine output. Resp- chronic hypoxia, maintain sat 90-92%; back to 3L NC. ABG with improved ventilation, ph 7.36. Still with persistent wheezing, but improved, some tachypnea and minimal acc muscle use. Cont bronchodilators q4h RTC. Cont to solumedrol 40mg iv q8h. minimal sputum, afebrile. ID- afebrile, wbc normal. CXR no clear focal infiltrate 10/02. sputum culture normal colin, blood cx neg so far. no abx indicated. GI- clear liquid. PPI proph. Renal- Cr okay, K okay. no acidosis. IVF as needed. No bell for now. Heme- hg stable. plt stable. Cont rivaroxaban 20mg daily for Afib AC. Endo- fingersticks ACHS Musculsk- pressure ulcer prophylaxis. Bedrest. Wounds- none Nutrition- clear liquid diet DVT prophylaxis: SCDs; Rivaroxaban GI prophylaxis: ppi Central Line: no Arterial Line: no Bell Cathetor: no Disposition: ICU Code Status: full code Total Critical Care time is 35 minutes, excluding procedures/teaching Eduar Sawyer MD [employer] (Electronically Signed)
[2017-10-03] MEDS: Levalbuterol 1.25MG/0.5ML NEB INH SCH ×2 (19:48→22:48)
[2017-10-03] MEDS ORDERED: Melatonin 3 MG TAB PO ONE ×2 (20:50→20:52)
[2017-10-04] MEDS: Levalbuterol 1.25MG/0.5ML NEB INH SCH ×6 (03:39→23:14)
[2017-10-04] MEDS: methylPREDNISolone SOD 40 MG* 1 ML VIAL IV SCH ×2 (04:00→12:01)
[2017-10-04 06:22] LABS: Hematocrit 36 % (42-52); Hemoglobin 11.8 g/dl (14.0-18.0); Mean Corpuscular HGB Conc 33 g/dl (31-36); Mean Corpuscular Hemoglobin 32 pg (27-31); Mean Corpuscular Volume 96 fL (80-94); Mean Platelet Volume 9.6 um3 (7.4-10.4); Platelet Count 146 10^3/ul (150-450); Red Blood Count 3.71 10^6/ul (4.00-5.40); Red Cell Distribution Width 13 % (10.5-15); White Blood Count 13.5 10^3/ul (3.5-10.8)
[2017-10-04 06:41] LABS: EGFR Non-African American 137.9 (>60)
[2017-10-04] MEDS: Mometasone/Formoter 100/5 MDI INH SCH ×2 (08:33→19:18)
[2017-10-04] MEDS: Metoprolol Succinate XL TAB* 50 MG PO SCH (08:50)
[2017-10-04] MEDS: Rivaroxaban TAB(*) 20 MG TAB PO SCH (08:57)
[2017-10-04] MEDS: Omeprazole CAP* 20 MG PO SCH (08:58)
[2017-10-04] MEDS: Digoxin TAB* 0.125 MG PO SCH (08:58)
[2017-10-04] MEDS: Diltiazem CD CAP* 240 MG PO SCH (08:58)
--- NOTE | 2017-10-04 16:37 | PN ---
Date of Service: 10/04/17 Critical Care Services: Doing reasonably well. Afib controlled with IV diltiazem. Still with end- expiratory wheezes. Last PCO2 was 79 mm Hg. Vital Signs: Temp Pulse Resp BP SpO2 FiO2 98.8 F 101 21 129/88 93 35 Physical Exam: Gen:Alert, oriented. Lungs:Hyperinflation. end-exp wheezing Extremities:No cyanosis or edema Fluid Balance (Past 24 Hours): 10/04/17 06:59 Intake Total 1538 Output Total 1050 Balance 488 Weight 143 lb Intake: IV Fluids Magnesium Sulfate Medicated IV 308 GEN - Diltiazem/Cardizem 308 Oral 1230 Output: Urine 1050 Ghotra Labs: 10/04/17 10/04/17 05:53 05:53 WBC 13.5 H RBC 3.71 L Hgb 11.8 L Hct 36 L MCV 96 H MCH 32 H MCHC 33 RDW 13 Plt Count 146 L MPV 9.6 Sodium 143 Potassium 4.2 Chloride 97 L Carbon Dioxide 44 H* Anion Gap 2 BUN 23 Creatinine 0.59 L Est GFR ( Amer) 166.8 Est GFR (Non-Af Amer) 137.9 BUN/Creatinine Ratio 39.0 H Glucose 152 H POC Glucose (mg/dL) Calcium 8.9 Magnesium 1.9 Studies: None Impression: Exacerbation of COPD - slow improvement. AFib coming under control on IV diltiazem. Plan: 1. Taper IV diltiazem as tolerated. 2. Will switch steroids to PO prednisone 3. Otherwise no change in management plan.
[2017-10-04] MEDS: Diltiazem IV VIAL* 125 MG in NS 0.9% 100 ML* 100 ML IV SCH (16:44)
[2017-10-05] MEDS: Diltiazem IV VIAL* 125 MG in NS 0.9% 100 ML* 100 ML IV SCH ×2 (00:21→21:10)
[2017-10-05] MEDS: Levalbuterol 1.25MG/0.5ML NEB INH SCH ×4 (02:57→20:04)
[2017-10-05 04:18] LABS: Hematocrit 38 % (42-52); Hemoglobin 12.3 g/dl (14.0-18.0); Mean Corpuscular HGB Conc 33 g/dl (31-36); Mean Corpuscular Hemoglobin 32 pg (27-31); Mean Corpuscular Volume 97 fL (80-94); Mean Platelet Volume 9.1 um3 (7.4-10.4); Platelet Count 147 10^3/ul (150-450); Red Blood Count 3.88 10^6/ul (4.00-5.40); Red Cell Distribution Width 13 % (10.5-15)
[2017-10-05] MEDS: Mometasone/Formoter 100/5 MDI INH SCH ×2 (07:19→20:04)
[2017-10-05] MEDS ORDERED: Famotidine TAB* 20 MG PO ONE (09:45)
[2017-10-05] MEDS: Diltiazem CD CAP* 240 MG PO SCH (10:03)
[2017-10-05] MEDS: predniSONE TAB* 20 MG PO SCH (10:03)
[2017-10-05] MEDS: Metoprolol Succinate XL TAB* 50 MG PO SCH (10:03)
[2017-10-05] MEDS: Digoxin TAB* 0.125 MG PO SCH (10:04)
[2017-10-05] MEDS: Rivaroxaban TAB(*) 20 MG TAB PO SCH (10:05)
[2017-10-05] MEDS: Omeprazole CAP* 20 MG PO SCH (10:26)
--- NOTE | 2017-10-05 12:59 | PN ---
Date of Service: 10/05/17 Critical Care Services: Patient's breathing close to baseline. Now off diltiazem drip and heart rate in the low 100s. No specific complaints this AM. Vital Signs: Temp Pulse Resp BP SpO2 FiO2 98.3 F 107 26 162/102 93 35 Physical Exam: Gen:Alert, oriented, breathing comfortably Lungs: BS distant. Occsional inspiratory wheeze. No end-expiratory wheezes. No crackles Extremities:No cyanosis or edema. Fluid Balance (Past 24 Hours): 10/05/17 06:59 Intake Total 1101 Output Total 615 Balance 486 Weight 144 lb Intake: IV Fluids Magnesium Sulfate Medicated IV 204 GEN - Diltiazem/Cardizem 204 Oral 897 Output: Urine 575 Ghotra 40 Labs: 10/04/17 10/05/17 10/05/17 21:32 04:07 04:07 WBC 14.0 H Hgb 12.3 L Hct 38 L MCV 97 H Plt Count 147 L Sodium 142 Potassium 4.4 Chloride 93 L Carbon Dioxide 46 BUN 27 H Creatinine 0.68 BUN/Creatinine Ratio 39.7 H Glucose 174 H POC Glucose (mg/dL) 159 H Glucose Meter Confirm Calcium 9.1 Studies: None today Nutrition: Oral diet Impression: Exacerbation of COPD - patient showing continued (but slow) improvement. Afib now controlled on PO meds. Plan: Continue present regimen for now. Steroids should eventually be tapered off, if possible (this type of advanced COPD typically does not respond to steroids)
[2017-10-06] MEDS: Levalbuterol 1.25MG/0.5ML NEB INH SCH ×4 (01:47→17:31)
[2017-10-06 05:57] LABS: Hematocrit 40 % (42-52); Hemoglobin 12.8 g/dl (14.0-18.0); Mean Corpuscular HGB Conc 32 g/dl (31-36); Mean Corpuscular Hemoglobin 32 pg (27-31); Mean Corpuscular Volume 98 fL (80-94); Mean Platelet Volume 9.4 um3 (7.4-10.4); Platelet Count 148 10^3/ul (150-450); Red Blood Count 4.05 10^6/ul (4.00-5.40); Red Cell Distribution Width 14 % (10.5-15); White Blood Count 11.7 10^3/ul (3.5-10.8)
[2017-10-06 06:19] LABS: EGFR Non-African American 125.5 (>60)
[2017-10-06] MEDS: Mometasone/Formoter 100/5 MDI INH SCH ×2 (07:30→19:50)
--- NOTE | 2017-10-06 07:31 | PN ---
Subjective Date of Service: 10/06/17 Interval History: Pt is feeling better today than he did when he came in to the hospital but he still feels like his breathing is not quite as good as it was prior to getting sick. He states he was up and moving about some yesterday. He has not been up today to see how he feels yet. He states he is not coughing much. He denies any issues with bowel or bladder. Objective Active Medications: Aclidinium [place] (Ortiz Roberson Mdi(Nf)) puff INH BID [facility] Digoxin (Lanoxin Tab*) 0.125 mg PO DAILY [facility] Last Admin: 10/05/17 10:04 Dose: 0.125 mg Diltiazem HCl (Cardizem Cd Cap*) 240 mg PO DAILY [facility] Last Admin: 10/05/17 10:03 Dose: 240 mg Levalbuterol HCl (Xopenex 1.25 Mg/0.5 Ml Neb.Alena*) 1.25 mg INH [id number] AWAKE [facility] Last Admin: 10/06/17 01:47 Dose: Not Given Metoprolol Succinate (Toprol Xl Tab*) 75 mg PO DAILY [facility] Last Admin: 10/05/17 10:03 Dose: 75 mg Mometasone Furoate/Formoterol Fumar (Dulera 100/5 Mdi*) 1 puff INH BID [facility] Last Admin: 10/05/17 20:04 Dose: 1 puff Prednisone (Deltasone Tab*) 40 mg PO DAILY [facility] Last Admin: 10/05/17 10:03 Dose: 40 mg Rivaroxaban (Xarelto(*)) 20 mg PO DAILY [facility] Last Admin: 10/05/17 10:05 Dose: 20 mg Vital Signs - 8 hr 10/05/17 10/06/17 23:56 03:53 Temperature 98.2 F 98.4 F Pulse Rate 99 79 Respiratory 20 20 Rate Blood Pressure 146/79 124/89 (mmHg) O2 Sat by Pulse 98 100 Oximetry Oxygen Devices in Use Now: Nasal Cannula - 3L Appearance: Middle aged male sitting up in bed, NAD Eyes: No Scleral Icterus Ears/Nose/Mouth/Throat: Mucous Membranes Moist Respiratory: Symmetrical Chest Expansion and Respiratory Effort, Clear to Auscultation - diminished breath sounds in all lung vicente, no wheezing Cardiovascular: RRR, No Edema, - - diminished heart sounds Abdominal: NL Sounds; No Tenderness; No Distention Extremities: No Clubbing, Cyanosis Skin: No Nodules or Sclerosis Neurological: Alert and Oriented x 3 Result Diagrams: 10/06/17 05:35 10/06/17 05:35 Microbiology and Other Data: Microbiology 10/02/17 11:38 Aerobic Blood Culture - Preliminary Blood Venous No Growth Day 3 Anaerobic Blood Culture - Preliminary No Growth Day 3 10/02/17 11:15 Aerobic Blood Culture - Preliminary Blood Venous No Growth Day 3 Anaerobic Blood Culture - Preliminary No Growth Day 3 10/02/17 14:38 Nasal Screen MRSA (PCR) - Final Nasal Mrsa Not Detected 10/02/17 14:35 Gram Stain - Final Sputum Expectorated Assess/Plan/Problems-Billing Mr Beck is a 67 yo former smoker who has a h/o COPD and chronic hypoxic respiratory failure on 3L O2 continuously at home and afib who presented to the ER with c/o increasing SOB and was admitted to the ICU for acute on chronic hypercarbic respiratory failure secondary to a COPD exacerbation. - Patient Problems (1) Acute and chronic respiratory failure with hypercapnia Current Visit: Yes Status: Acute Code(s): J96.22 - ACUTE AND CHRONIC RESPIRATORY FAILURE WITH HYPERCAPNIA SNOMED Code(s): 2317919147042 Comment: The patient has both chronic hypoxic and hypercarbic respiratory failure. On admission he was in acute on chronic hypercarbic respiratory failure secondary to a COPD exacerbation. He did not require BiPAP but utilized vapotherm to help with the work of breathing. With steroids and standing nebs his breathing has improved. He received a single dose of levaquin. As he is improving will not resume Abx therapy. He is not quite back to baseline and has not been at his usual level of exertion. Will get the patient up and moving more today to evaluate how he is feeling. Continue xopenex and dulera. Add back LAMA (uses tudorza at home). Possibly home this afternoon or tomorrow. May consider pulmonary consult to see if he would benefit from BiPAP at home. (2) COPD exacerbation Current Visit: Yes Status: Acute Code(s): J44.1 - CHRONIC OBSTRUCTIVE PULMONARY DISEASE W (ACUTE) EXACERBATION SNOMED Code(s): 514480644308088 Comment: As above. (3) Atrial fibrillation with RVR Current Visit: Yes Status: Acute Code(s): I48.91 - UNSPECIFIED ATRIAL FIBRILLATION SNOMED Code(s): 050070681985406 Comment: HR is now controlled of the diltiazem drip. Continue diltiazem CD 240mg daily, metoprolol XL 75mg daily and digoxin 0.125mg daily. Continue xarelto. (4) DVT prophylaxis Current Visit: Yes Status: Acute Code(s): TQR8408 - SNOMED Code(s): 395620021 Comment: austen (5) Full code status Current Visit: Yes Status: Acute Code(s): Z78.9 - OTHER SPECIFIED HEALTH STATUS SNOMED Code(s): 186297039
[2017-10-06] MEDS: ACLIDINIUM MDI INH SCH ×2 (08:30→20:06)
[2017-10-06] MEDS: Diltiazem CD CAP* 240 MG PO SCH (09:31)
[2017-10-06] MEDS: Rivaroxaban TAB(*) 20 MG TAB PO SCH (09:31)
[2017-10-06] MEDS: Digoxin TAB* 0.125 MG PO SCH (09:31)
[2017-10-06] MEDS: predniSONE TAB* 20 MG PO SCH (09:31)
[2017-10-06] MEDS: Metoprolol Succinate XL TAB* 50 MG PO SCH (09:31)
[2017-10-06] MEDS: Levalbuterol 1.25MG/0.5ML NEB INH PRN (19:43)
[2017-10-07] MEDS: Levalbuterol 1.25MG/0.5ML NEB INH SCH ×2 (05:25→07:12)
[2017-10-07] MEDS: Mometasone/Formoter 100/5 MDI INH SCH ×2 (07:13→19:43)
[2017-10-07] MEDS: ACLIDINIUM MDI INH SCH ×2 (08:10→19:42)
[2017-10-07] MEDS: predniSONE TAB* 20 MG PO SCH (09:28)
[2017-10-07] MEDS: Rivaroxaban TAB(*) 20 MG TAB PO SCH (09:29)
[2017-10-07] MEDS: Metoprolol Succinate XL TAB* 50 MG PO SCH (09:29)
[2017-10-07] MEDS: Digoxin TAB* 0.125 MG PO SCH (09:30)
[2017-10-07] MEDS: Diltiazem CD CAP* 240 MG PO SCH (09:31)
--- NOTE | 2017-10-07 12:07 | PN ---
Subjective Date of Service: 10/07/17 Interval History: Pt is feeling ok but "dragging" today. He states he is about 50% back to his baseline. He has noticed wheezing today. He denies any pain. He denies any issues with bowel/bladder. Objective Active Medications: Aclidinium [place] (Tudorza Karol Mdi(Nf)) 1 puff INH BID [facility] Last Admin: 10/07/17 08:10 Dose: Not Given Digoxin (Lanoxin Tab*) 0.125 mg PO DAILY [facility] Last Admin: 10/07/17 09:30 Dose: 0.125 mg Diltiazem HCl (Cardizem Cd Cap*) 240 mg PO DAILY [facility] Last Admin: 10/07/17 09:31 Dose: 240 mg Diltiazem HCl (Cardizem Tab*) 30 mg PO ONCE ONE Stop: 10/08/17 11:57 Levalbuterol HCl (Xopenex 1.25 Mg/0.5 Ml Neb.Alena*) 1.25 mg INH Q4H PRN PRN Reason: sob Last Admin: 10/06/17 19:43 Dose: 1.25 mg Metoprolol Succinate (Toprol Xl Tab*) 75 mg PO DAILY [facility] Last Admin: 10/07/17 09:29 Dose: 75 mg Mometasone Furoate/Formoterol Fumar (Dulera 100/5 Mdi*) 1 puff INH BID [facility] Last Admin: 10/07/17 07:13 Dose: 1 puff Prednisone (Deltasone Tab*) 40 mg PO DAILY [facility] Last Admin: 10/07/17 09:28 Dose: 40 mg Rivaroxaban (Xarelto(*)) 20 mg PO DAILY [facility] Last Admin: 10/07/17 09:29 Dose: 20 mg Vital Signs - 8 hr 10/07/17 10/07/17 10/07/17 07:13 07:39 08:00 Temperature 98.4 F Pulse Rate 87 99 Respiratory 14 16 18 Rate Blood Pressure 138/79 (mmHg) O2 Sat by Pulse 100 100 Oximetry 10/07/17 09:30 Temperature Pulse Rate 108 Respiratory Rate Blood Pressure (mmHg) O2 Sat by Pulse Oximetry Oxygen Devices in Use Now: Nasal Cannula - 3L Appearance: Middle aged male lying in bed, NAD Eyes: No Scleral Icterus Ears/Nose/Mouth/Throat: Mucous Membranes Moist Respiratory: - - markedly diminished breath sounds throughout with diffuse wheezing Cardiovascular: NL Sounds; No Murmurs; No JVD, RRR Abdominal: NL Sounds; No Tenderness; No Distention Extremities: No Clubbing, Cyanosis Skin: No Nodules or Sclerosis Neurological: Alert and Oriented x 3 Result Diagrams: 10/06/17 05:35 10/06/17 05:35 Microbiology and Other Data: Microbiology 10/02/17 11:38 Aerobic Blood Culture - Preliminary Blood Venous No Growth Day 3 Anaerobic Blood Culture - Preliminary No Growth Day 3 10/02/17 11:15 Aerobic Blood Culture - Preliminary Blood Venous No Growth Day 3 Anaerobic Blood Culture - Preliminary No Growth Day 3 10/02/17 14:38 Nasal Screen MRSA (PCR) - Final Nasal Mrsa Not Detected 10/02/17 14:35 Gram Stain - Final Sputum Expectorated Assess/Plan/Problems-Billing Mr Beck is a 67 yo former smoker who has a h/o COPD and chronic hypoxic respiratory failure on 3L O2 continuously at home and afib who presented to the ER with c/o increasing SOB and was admitted to the ICU for acute on chronic hypercarbic respiratory failure secondary to a COPD exacerbation. - Patient Problems (1) Acute and chronic respiratory failure with hypercapnia Current Visit: Yes Status: Acute Code(s): J96.22 - ACUTE AND CHRONIC RESPIRATORY FAILURE WITH HYPERCAPNIA SNOMED Code(s): 5877029155251 Comment: The patient has both chronic hypoxic and hypercarbic respiratory failure. Today his breathing is worsened from yesterday. May be related to his HR being more rapid today. Will continue prednisone at current dose. Continue standing and prn nebs. If he fails to improve further may want to consider adding Abx to his regimen (only received a single dose of levaquin in the ER). (2) COPD exacerbation Current Visit: Yes Status: Acute Code(s): J44.1 - CHRONIC OBSTRUCTIVE PULMONARY DISEASE W (ACUTE) EXACERBATION SNOMED Code(s): 061988640369122 Comment: As above. (3) Atrial fibrillation with RVR Current Visit: Yes Status: Acute Code(s): I48.91 - UNSPECIFIED ATRIAL FIBRILLATION SNOMED Code(s): 665072711517301 Comment: HR is now uncontrolled in the 100-120's. Will give diltiazem 30mg po x1now and change to long acting diltiazem 300mg daily from 240mg daily. Continue current dose of metorprolol and digoxin. Continue xarelto. (4) DVT prophylaxis Current Visit: Yes Status: Acute Code(s): RGC0078 - SNOMED Code(s): 272819674 Comment: xarelto (5) Full code status Current Visit: Yes Status: Acute Code(s): Z78.9 - OTHER SPECIFIED HEALTH STATUS SNOMED Code(s): 326907285
[2017-10-07] MEDS ORDERED: Diltiazem TAB* 30 MG PO ONE (14:00)
[2017-10-08 06:45] LABS: Hematocrit 44 % (42-52); Hemoglobin 14.4 g/dl (14.0-18.0); Mean Corpuscular HGB Conc 33 g/dl (31-36); Mean Corpuscular Hemoglobin 31 pg (27-31); Mean Corpuscular Volume 95 fL (80-94); Mean Platelet Volume 9.2 um3 (7.4-10.4); Platelet Count 179 10^3/ul (150-450); Red Blood Count 4.61 10^6/ul (4.00-5.40); Red Cell Distribution Width 14 % (10.5-15); White Blood Count 20.9 10^3/ul (3.5-10.8)
[2017-10-08 06:59] LABS: EGFR Non-African American 121.1 (>60)
[2017-10-08] MEDS: ACLIDINIUM MDI INH SCH (07:15)
[2017-10-08] MEDS ORDERED: Diltiazem CD CAP* 120 MG PO SCH (09:00)
[2017-10-08] MEDS: Mometasone/Formoter 100/5 MDI INH SCH ×2 (09:26→19:28)
[2017-10-08] MEDS: Levalbuterol 1.25MG/0.5ML NEB INH PRN (09:26)
[2017-10-08] MEDS: Diltiazem CD CAP* 180 MG PO SCH (09:52)
[2017-10-08] MEDS: predniSONE TAB* 20 MG PO SCH (09:52)
[2017-10-08] MEDS: Metoprolol Succinate XL TAB* 50 MG PO SCH (09:53)
[2017-10-08] MEDS: Rivaroxaban TAB(*) 20 MG TAB PO SCH (09:54)
[2017-10-08] MEDS: Digoxin TAB* 0.125 MG PO SCH (09:54)
[2017-10-08] MEDS ORDERED: Metoprolol Tartrate IV* 1 MG/ML 5 ML VIAL IV ONE (10:20)
--- NOTE | 2017-10-08 15:49 | PN ---
Subjective Date of Service: 10/08/17 Interval History: Patient is feeling less SOB since yesterday. Denies CP, F/C, N/V, abdominal pain , dysuria, signs of BPH, dizziness, palpitations, or other pain. Patient does not use PPV at home. Wears O2 at night. Patient has seen Dr. Rodarte in the past outpatient and she did not recommend PPV for hypercapnea. Family History: Unchanged from Admission Social History: Unchanged from Admission Past Medical History: Unchanged from Admission Objective Active Medications: Aclidinium [place] (Tudorza Press Mdi(Nf)) 1 puff INH BID [facility] Last Admin: 10/08/17 07:15 Dose: Not Given Digoxin (Lanoxin Tab*) 0.125 mg PO DAILY [facility] Last Admin: 10/08/17 09:54 Dose: 0.125 mg Diltiazem HCl (Cardizem Cd Cap*) 180 mg PO DAILY [facility] Last Admin: 10/08/17 09:52 Dose: 180 mg Diltiazem HCl (Cardizem Cd Cap*) 120 mg PO 2100 [facility] Levalbuterol HCl (Xopenex 1.25 Mg/0.5 Ml Neb.Alena*) 1.25 mg INH Q4H PRN PRN Reason: sob Last Admin: 10/08/17 09:26 Dose: 1.25 mg Metoprolol Succinate (Toprol Xl Tab*) 75 mg PO DAILY [facility] Last Admin: 10/08/17 09:53 Dose: 75 mg Mometasone Furoate/Formoterol Fumar (Dulera 100/5 Mdi*) 1 puff INH BID [facility] Last Admin: 10/08/17 09:26 Dose: 1 puff Prednisone (Deltasone Tab*) 40 mg PO DAILY [facility] Last Admin: 10/08/17 09:52 Dose: 40 mg Rivaroxaban (Xarelto(*)) 20 mg PO DAILY [facility] Last Admin: 10/08/17 09:54 Dose: 20 mg Vital Signs - 8 hr 10/08/17 10/08/17 10/08/17 09:26 09:54 11:07 Temperature 98.3 F Pulse Rate 92 96 107 Respiratory 18 16 Rate Blood Pressure 129/83 (mmHg) O2 Sat by Pulse 96 92 Oximetry 10/08/17 15:29 Temperature 98.4 F Pulse Rate 114 Respiratory 22 Rate Blood Pressure 141/70 (mmHg) O2 Sat by Pulse 92 Oximetry Oxygen Devices in Use Now: Nasal Cannula Appearance: Patient is a 67yo male who appears stated age and is sitting in the bed in NAD. Eyes: No Scleral Icterus, PERRLA Ears/Nose/Mouth/Throat: NL Teeth, Lips, Gums, Clear Oropharnyx, Mucous Membranes Moist Neck: NL Appearance and Movements; NL JVP, Trachea Midline Respiratory: Symmetrical Chest Expansion and Respiratory Effort, - - Severely diminished throughout. Cardiovascular: NL Sounds; No Murmurs; No JVD, - - Slight LE edema in left greater than right foot. Tachycardic, irregular rhythm. Abdominal: NL Sounds; No Tenderness; No Distention, No Hepatosplenomegaly Lymphatic: No Cervical Adenopathy Extremities: No Edema, No Clubbing, Cyanosis Skin: No Rash or Ulcers, No Nodules or Sclerosis Neurological: Alert and Oriented x 3, NL Sensation, NL Muscle Strength and Tone - CN II-XII intact., - Result Diagrams: 10/08/17 06:28 10/08/17 06:28 Microbiology and Other Data: Microbiology 10/02/17 11:38 Aerobic Blood Culture - Preliminary Blood Venous No Growth Day 3 Anaerobic Blood Culture - Preliminary No Growth Day 3 10/02/17 11:15 Aerobic Blood Culture - Preliminary Blood Venous No Growth Day 3 Anaerobic Blood Culture - Preliminary No Growth Day 3 10/02/17 14:38 Nasal Screen MRSA (PCR) - Final Nasal Mrsa Not Detected 10/02/17 14:35 Gram Stain - Final Sputum Expectorated Assess/Plan/Problems-Billing Mr Beck is a 67 yo former smoker who has a h/o COPD and chronic hypoxic respiratory failure on 3L O2 continuously at home and afib who presented to the ER with c/o increasing SOB and was admitted to the ICU for acute on chronic hypercarbic respiratory failure secondary to a COPD exacerbation and has now been downgraded to floor status. - Patient Problems (1) Acute and chronic respiratory failure with hypercapnia Current Visit: Yes Status: Acute Code(s): J96.22 - ACUTE AND CHRONIC RESPIRATORY FAILURE WITH HYPERCAPNIA SNOMED Code(s): 7714755135230 Comment: The patient has both chronic hypoxic and hypercarbic respiratory failure. Today his breathing is improved from yesterday. Will continue prednisone at current dose. Continue standing and prn nebs. Continue maintenance inhalers. Hypercapnea stable but critically high. Titrate down O2 due to high saturations. Follow up with Dr. Rodarte outpatient to discuss BiPAP unless worsening hypercarbia. (2) Atrial fibrillation with RVR Current Visit: Yes Status: Acute Code(s): I48.91 - UNSPECIFIED ATRIAL FIBRILLATION SNOMED Code(s): 560880746021231 Comment: HR is now uncontrolled in the 100-120's up to 140s. Split diltiazem into morning and night doses Continue digoxin and Metoprolol. Continue xarelto. (3) COPD exacerbation Current Visit: Yes Status: Acute Code(s): J44.1 - CHRONIC OBSTRUCTIVE PULMONARY DISEASE W (ACUTE) EXACERBATION SNOMED Code(s): 680168720759467 Comment: As above. (4) DVT prophylaxis Current Visit: Yes Status: Acute Code(s): FDB9563 - SNOMED Code(s): 729666498 Comment: xarelto (5) Full code status Current Visit: Yes Status: Acute Code(s): Z78.9 - OTHER SPECIFIED HEALTH STATUS SNOMED Code(s): 465596027 Status and Disposition: Inpatient.
[2017-10-08] MEDS: Diltiazem CD CAP* 120 MG PO SCH (21:49)
[2017-10-09 05:39] LABS: ABS Basophils 0 10^3/ul (0-0.2); ABS Eosinophils 0 10^3/ul (0-0.6); ABS Lymphocytes 1.2 10^3/ul (1.0-4.8); ABS Monocytes 1.4 10^3/ul (0-0.8); ABS Nucleated RBC 0 10^3/ul; Eosinophil % 0.1 % (0-6); Hematocrit 42 % (42-52); Hemoglobin 14.1 g/dl (14.0-18.0); Lymphocyte % 5.8 % (25-47); Mean Corpuscular HGB Conc 33 g/dl (31-36); Mean Corpuscular Hemoglobin 32 pg (27-31); Mean Corpuscular Volume 95 fL (80-94); Mean Platelet Volume 9.7 um3 (7.4-10.4); Nucleated Red Blood Cells % 0; Platelet Count 175 10^3/ul (150-450); Red Blood Count 4.45 10^6/ul (4.00-5.40); Red Cell Distribution Width 14 % (10.5-15); White Blood Count 20.6 10^3/ul (3.5-10.8)
[2017-10-09 05:53] LABS: EGFR Non-African American 140.6 (>60)
[2017-10-09] MEDS: ACLIDINIUM MDI INH SCH ×2 (06:40→07:44)
[2017-10-09] MEDS: Mometasone/Formoter 100/5 MDI INH SCH ×2 (07:21→20:55)
[2017-10-09] MEDS: Levalbuterol 1.25MG/0.5ML NEB INH PRN (07:21)
[2017-10-09] MEDS: Metoprolol Succinate XL TAB* 50 MG PO SCH (09:55)
[2017-10-09] MEDS: predniSONE TAB* 20 MG PO SCH (09:55)
[2017-10-09] MEDS: Rivaroxaban TAB(*) 20 MG TAB PO SCH (09:56)
[2017-10-09] MEDS: Digoxin TAB* 0.125 MG PO SCH (09:56)
[2017-10-09] MEDS: Diltiazem CD CAP* 180 MG PO SCH (09:56)
--- NOTE | 2017-10-09 13:09 | PN ---
Subjective Date of Service: 10/09/17 Interval History: Patient still coughing, producing white sputum. Has been out of bed, can walk short distance to bathroom. Has home O2. Does not have home nebulizer. Denies chest pain, palpitations. Family History: Unchanged from Admission Social History: Unchanged from Admission Past Medical History: Unchanged from Admission Objective Active Medications: Aclidinium [place] (Tudorza Pressair Mdi(Nf)) 1 puff INH BID [facility] Last Admin: 10/09/17 07:44 Dose: Not Given Digoxin (Lanoxin Tab*) 0.125 mg PO DAILY [facility] Last Admin: 10/09/17 09:56 Dose: 0.125 mg Diltiazem HCl (Cardizem Cd Cap*) 180 mg PO DAILY [facility] Last Admin: 10/09/17 09:56 Dose: 180 mg Diltiazem HCl (Cardizem Cd Cap*) 120 mg PO 2100 [facility] Last Admin: 10/08/17 21:49 Dose: 120 mg Levalbuterol HCl (Xopenex 1.25 Mg/0.5 Ml Neb.Alena*) 1.25 mg INH Q4H PRN PRN Reason: sob Last Admin: 10/09/17 07:21 Dose: 1.25 mg Metoprolol Succinate (Toprol Xl Tab*) 75 mg PO DAILY [facility] Last Admin: 10/09/17 09:55 Dose: 75 mg Mometasone Furoate/Formoterol Fumar (Dulera 100/5 Mdi*) 1 puff INH BID [facility] Last Admin: 10/09/17 07:21 Dose: 1 puff Prednisone (Deltasone Tab*) 40 mg PO DAILY [facility] Last Admin: 10/09/17 09:55 Dose: 40 mg Rivaroxaban (Xarelto(*)) 20 mg PO DAILY [facility] Last Admin: 10/09/17 09:56 Dose: 20 mg Vital Signs - 8 hr 10/09/17 10/09/17 10/09/17 07:24 07:35 08:00 Temperature 36.8 C Pulse Rate 83 99 Respiratory 18 18 16 Rate Blood Pressure 136/77 (mmHg) O2 Sat by Pulse 97 98 96 Oximetry 10/09/17 09:56 Temperature Pulse Rate 118 Respiratory Rate Blood Pressure (mmHg) O2 Sat by Pulse Oximetry Oxygen Devices in Use Now: Nasal Cannula Appearance: no resp distress, coughing Eyes: PERRLA Ears/Nose/Mouth/Throat: Clear Oropharnyx Neck: Trachea Midline Respiratory: Symmetrical Chest Expansion and Respiratory Effort, - - low- pitched upper airway sounds and ronchi throughout, poor air movement Cardiovascular: NL Sounds; No Murmurs; No JVD, RRR Extremities: No Edema Neurological: Alert and Oriented x 3 Lines/Tubes/Other Access: Clean, Dry and Intact Peripheral IV Nutrition: Taking PO's Result Diagrams: 10/09/17 05:04 10/09/17 05:04 Microbiology and Other Data: Microbiology Assess/Plan/Problems-Billing Mr Beck is a 67 yo former smoker who has a h/o COPD and chronic hypoxic respiratory failure on 3L O2 continuously at home and afib who presented to the ER with c/o increasing SOB and was admitted to the ICU for acute on chronic hypercarbic respiratory failure secondary to a COPD exacerbation and has now been downgraded to floor status. - Patient Problems (1) Acute and chronic respiratory failure with hypercapnia Current Visit: Yes Status: Acute Code(s): J96.22 - ACUTE AND CHRONIC RESPIRATORY FAILURE WITH HYPERCAPNIA SNOMED Code(s): 1341509513222 Comment: - The patient has both chronic hypoxic and hypercarbic respiratory failure - bicarb decreased on BMP, avoiding repeat ABG due to DOAC. - Will continue prednisone at current dose, taper on discharge. - Continue standing and prn nebs. Continue maintenance inhalers. - Follow up with Dr. Rodarte outpatient to discuss BiPAP (2) Atrial fibrillation with RVR Current Visit: Yes Status: Acute Priority: High Code(s): I48.91 - UNSPECIFIED ATRIAL FIBRILLATION SNOMED Code(s): 028157981340076 Comment: -HR is now reasonably controlled in the 80s-110s. -Continue digoxin, diltiazem and Metoprolol. -Continue xarelto. (3) DVT prophylaxis Current Visit: Yes Status: Acute Priority: Low Code(s): NWC7742 - SNOMED Code(s): 491035594 Comment: xarelto (4) Muscular deconditioning Current Visit: No Status: Acute Priority: Medium Code(s): R29.898 - OTH SYMPTOMS AND SIGNS INVOLVING THE MUSCULOSKELETAL SYSTEM SNOMED Code(s): 199779567 Comment: - PT ordered - May need SNF placement for rehab. Status and Disposition: Inpatient. Likely discharge tomorrow.
[2017-10-09] MEDS ORDERED: Spiriva Inhaler DEVICE* 1 EACH DEVICE SCH (15:00)
[2017-10-09] MEDS: Diltiazem CD CAP* 120 MG PO SCH (20:49)
[2017-10-10] MEDS: Metoprolol Succinate XL TAB* 25 MG PO SCH (09:49)
[2017-10-10] MEDS: Digoxin TAB* 0.125 MG PO SCH (09:49)
[2017-10-10] MEDS: Diltiazem CD CAP* 180 MG PO SCH (09:49)
[2017-10-10] MEDS: predniSONE TAB* 20 MG PO SCH (09:49)
[2017-10-10] MEDS: Rivaroxaban TAB(*) 20 MG TAB PO SCH (09:49)
[2017-10-10] MEDS: Tiotropium CAP.INH* CAP.INH/18 MCG (USE ORDER SET !) INH SCH ×2 (10:19→10:36)
[2017-10-10] MEDS: Levalbuterol 1.25MG/0.5ML NEB INH PRN (10:30)
[2017-10-10] MEDS: Mometasone/Formoter 100/5 MDI INH SCH ×2 (10:35→19:52)
--- NOTE | 2017-10-10 14:38 | PN ---
Subjective Date of Service: 10/10/17 Interval History: Patient still fatigued, has trouble getting around, getting to bathroom. Dyspnea continues, cough is producing white sputum. Reports lives w/ his sister, at [facility]. She is not ready to take him home today. Family History: Unchanged from Admission Social History: Unchanged from Admission Past Medical History: Unchanged from Admission Objective Active Medications: Device (Tiotropium Inhaler Device*) 1 each .SEE ORDER .USE w/ [employer]IR[employer] [facility] Digoxin (Lanoxin Tab*) 0.125 mg PO DAILY [facility] Last Admin: 10/10/17 09:49 Dose: 0.125 mg Diltiazem HCl (Cardizem Cd Cap*) 180 mg PO DAILY [facility] Last Admin: 10/10/17 09:49 Dose: 180 mg Diltiazem HCl (Cardizem Cd Cap*) 120 mg PO 2100 [facility] Last Admin: 10/09/17 20:49 Dose: 120 mg Levalbuterol HCl (Xopenex 1.25 Mg/0.5 Ml Neb.Alena*) 1.25 mg INH Q4H PRN PRN Reason: sob Last Admin: 10/10/17 10:30 Dose: 1.25 mg Metoprolol Succinate (Toprol Xl Tab*) 75 mg PO DAILY [facility] Last Admin: 10/10/17 09:49 Dose: 75 mg Mometasone Furoate/Formoterol Fumar (Dulera 100/5 Mdi*) 1 puff INH BID [facility] Last Admin: 10/10/17 10:35 Dose: 1 puff Prednisone (Deltasone Tab*) 40 mg PO DAILY [facility] Last Admin: 10/10/17 09:49 Dose: 40 mg Rivaroxaban (Xarelto(*)) 20 mg PO DAILY [facility] Last Admin: 10/10/17 09:49 Dose: 20 mg Tiotropium [place] (Spiriva Cap.Inh*) 1 cap INH DAILY [facility] Last Admin: 10/10/17 10:36 Dose: 1 cap Vital Signs - 8 hr 10/10/17 10/10/17 10/10/17 09:49 11:34 13:30 Temperature 36.5 C Pulse Rate 91 105 Respiratory 24 20 Rate Blood Pressure 111/71 (mmHg) O2 Sat by Pulse 97 Oximetry Oxygen Devices in Use Now: Nasal Cannula Appearance: no resp distress Ears/Nose/Mouth/Throat: Clear Oropharnyx Neck: Trachea Midline Respiratory: Clear to Percussion, - - ronchi bilat throughout Cardiovascular: NL Sounds; No Murmurs; No JVD Abdominal: NL Sounds; No Tenderness; No Distention, No Hepatosplenomegaly Neurological: Alert and Oriented x 3 Lines/Tubes/Other Access: Clean, Dry and Intact Peripheral IV Nutrition: Taking PO's Result Diagrams: 10/09/17 05:04 10/09/17 05:04 Microbiology and Other Data: Microbiology 10/02/17 14:38 Nasal Nasal Screen MRSA (PCR) - Final Mrsa Not Detected Assess/Plan/Problems-Billing Mr Beck is a 67 yo former smoker who has a h/o COPD and chronic hypoxic respiratory failure on 3L O2 continuously at home and afib who presented to the ER with c/o increasing SOB and was admitted to the ICU for acute on chronic hypercarbic respiratory failure secondary to a COPD exacerbation. - Patient Problems (1) Acute and chronic respiratory failure with hypercapnia Current Visit: Yes Status: Acute Priority: High Code(s): J96.22 - ACUTE AND CHRONIC RESPIRATORY FAILURE WITH HYPERCAPNIA SNOMED Code(s): 7499742476060 Comment: - The patient has both chronic hypoxic and hypercarbic respiratory failure - bicarb decreased on BMP, avoiding repeat ABG due to DOAC. - tapering prednisone, will taper further on discharge. - Continue standing and prn nebs. Continue maintenance inhalers. - Follow up with Dr. Rodarte outpatient to discuss BiPAP (2) Atrial fibrillation with RVR Current Visit: Yes Status: Acute Priority: High Code(s): I48.91 - UNSPECIFIED ATRIAL FIBRILLATION SNOMED Code(s): 406572259410712 Comment: -HR is now reasonably controlled in the 80s-110s. -Continue digoxin, diltiazem and Metoprolol. -Continue xarelto. (3) DVT prophylaxis Current Visit: Yes Status: Acute Priority: Low Code(s): WBV3433 - SNOMED Code(s): 138774484 Comment: xarelto (4) Muscular deconditioning Current Visit: No Status: Acute Priority: Medium Code(s): R29.898 - OTH SYMPTOMS AND SIGNS INVOLVING THE MUSCULOSKELETAL SYSTEM SNOMED Code(s): 221729856 Comment: - PT ordered Status and Disposition: Inpatient. He will be ready for discharge tomorrow.
[2017-10-10] MEDS: Diltiazem CD CAP* 120 MG PO SCH (21:11)
[2017-10-11] MEDS: Mometasone/Formoter 100/5 MDI INH SCH ×2 (08:03→19:27)
[2017-10-11 08:26] LABS: EGFR Non-African American 119.1 (>60)
[2017-10-11] MEDS: Digoxin TAB* 0.125 MG PO SCH (09:13)
[2017-10-11] MEDS: Metoprolol Succinate XL TAB* 25 MG PO SCH (09:13)
[2017-10-11] MEDS: Diltiazem CD CAP* 180 MG PO SCH (09:14)
[2017-10-11] MEDS: predniSONE TAB* 20 MG PO SCH (09:14)
[2017-10-11] MEDS: Rivaroxaban TAB(*) 20 MG TAB PO SCH (09:16)
--- NOTE | 2017-10-11 11:38 | PN ---
Subjective Date of Service: 10/11/17 Interval History: feels like he is "dragging" today. Cannot elaborate on that, but feels "not good" since O2 was turned down to 1L/min. Has not been out of bed since "sometime yesterday." Still with a cough, no sputum. Family History: Unchanged from Admission Social History: Unchanged from Admission Past Medical History: Unchanged from Admission Objective Active Medications: Device (Tiotropium Inhaler Device*) 1 each .SEE ORDER .USE w/ SPIRIVA CAPS [facility] Digoxin (Lanoxin Tab*) 0.125 mg PO DAILY [facility] Last Admin: 10/11/17 09:13 Dose: 0.125 mg Diltiazem HCl (Cardizem Cd Cap*) 180 mg PO DAILY [facility] Last Admin: 10/11/17 09:14 Dose: 180 mg Diltiazem HCl (Cardizem Cd Cap*) 120 mg PO 2100 [facility] Last Admin: 10/10/17 21:11 Dose: 120 mg Levalbuterol HCl (Xopenex 1.25 Mg/0.5 Ml Neb.Alena*) 1.25 mg INH Q4H PRN PRN Reason: sob Last Admin: 10/10/17 10:30 Dose: 1.25 mg Metoprolol Succinate (Toprol Xl Tab*) 75 mg PO DAILY [facility] Last Admin: 10/11/17 09:13 Dose: 75 mg Mometasone Furoate/Formoterol Fumar (Dulera 100/5 Mdi*) 1 puff INH BID [facility] Last Admin: 10/11/17 08:03 Dose: 1 puff Prednisone (Deltasone Tab*) 30 mg PO DAILY [facility] Last Admin: 10/11/17 09:14 Dose: 30 mg Rivaroxaban (Xarelto(*)) 20 mg PO DAILY [facility] Last Admin: 10/11/17 09:16 Dose: 20 mg Vital Signs - 8 hr 10/11/17 10/11/17 10/11/17 03:53 07:23 08:00 Temperature 97.4 F 97.9 F Pulse Rate 109 70 Respiratory 20 20 16 Rate Blood Pressure 125/70 116/64 (mmHg) O2 Sat by Pulse 100 99 Oximetry 10/11/17 10/11/17 08:07 09:13 Temperature Pulse Rate 85 108 Respiratory 16 Rate Blood Pressure (mmHg) O2 Sat by Pulse 93 Oximetry Oxygen Devices in Use Now: Nasal Cannula Appearance: appears uncomfortable, no distress and no accessory respiratory muscles in use Eyes: No Scleral Icterus Ears/Nose/Mouth/Throat: NL Teeth, Lips, Gums Neck: NL Appearance and Movements; NL JVP Respiratory: Symmetrical Chest Expansion and Respiratory Effort, - - diminished breath sounds, prolonged expiratory phase Cardiovascular: NL Sounds; No Murmurs; No JVD, - - irregular rhythm Abdominal: NL Sounds; No Tenderness; No Distention Lymphatic: No Cervical Adenopathy Extremities: No Edema Skin: No Rash or Ulcers Neurological: Alert and Oriented x 3 Result Diagrams: 10/09/17 05:04 10/11/17 07:28 Microbiology and Other Data: Microbiology 10/02/17 14:38 Nasal Nasal Screen MRSA (PCR) - Final Mrsa Not Detected Assess/Plan/Problems-Billing Mr Beck is a 67 yo former smoker who has a h/o COPD and chronic hypoxic respiratory failure on 3L O2 continuously at home and afib who presented to the ER with c/o increasing SOB and was admitted to the ICU for acute on chronic hypercarbic respiratory failure secondary to a COPD exacerbation. - Patient Problems (1) Acute and chronic respiratory failure with hypercapnia Current Visit: Yes Status: Acute Priority: High Code(s): J96.22 - ACUTE AND CHRONIC RESPIRATORY FAILURE WITH HYPERCAPNIA SNOMED Code(s): 4002585341766 Comment: Worse today; increase o2 back to 2L continuously--his home dose Continue prednisone at 30mg daily Continue standing and prn nebs. Continue maintenance inhalers. Follow up with Dr. Rodarte outpatient to discuss BiPAP (2) Atrial fibrillation with RVR Current Visit: Yes Status: Acute Priority: High Code(s): I48.91 - UNSPECIFIED ATRIAL FIBRILLATION SNOMED Code(s): 558526458012328 Comment: HR is now reasonably controlled in the 80s-110s. Continue digoxin, diltiazem and Metoprolol. Continue xarelto. (3) COPD exacerbation Current Visit: Yes Status: Acute Code(s): J44.1 - CHRONIC OBSTRUCTIVE PULMONARY DISEASE W (ACUTE) EXACERBATION SNOMED Code(s): 033941771301785 Comment: continue steroids, nebs, supplemental o2 (4) Muscular deconditioning Current Visit: No Status: Acute Priority: Medium Code(s): R29.898 - OTH SYMPTOMS AND SIGNS INVOLVING THE MUSCULOSKELETAL SYSTEM SNOMED Code(s): 043189750 Comment: has not been out of bed recently and feels he is 'dragging' has gotten home PT in the past but may need snf Status and Disposition: Inpatient. Needs PT prior to discharge.
[2017-10-11] MEDS: Diltiazem CD CAP* 120 MG PO SCH (20:39)
--- NOTE | 2017-10-12 04:39 | PN ---
Progress Note - Progress Note Date of Service: 10/12/17 Note: Paged for 3 second pause. Patient on cardizem CD in AM and in PM. Discontinued his PM dose.
[2017-10-12] MEDS: predniSONE TAB* 20 MG PO SCH (07:16)
[2017-10-12] MEDS: Diltiazem CD CAP* 180 MG PO SCH (07:16)
[2017-10-12] MEDS: Rivaroxaban TAB(*) 20 MG TAB PO SCH (07:16)
[2017-10-12] MEDS: Digoxin TAB* 0.125 MG PO SCH (07:17)
[2017-10-12] MEDS: Mometasone/Formoter 100/5 MDI INH SCH ×2 (08:15→20:04)
[2017-10-12] MEDS: Metoprolol Succinate XL TAB* 25 MG PO SCH (08:59)
--- NOTE | 2017-10-12 11:50 | PN ---
Subjective Date of Service: 10/12/17 Interval History: 3 second pause noted overnight; pm cardizem held. he feels a little better this morning. walked with PT in the hallway. his son is visiting. still coughing. Family History: Unchanged from Admission Social History: Unchanged from Admission Past Medical History: Unchanged from Admission Objective Active Medications: Device (Tiotropium Inhaler Device*) 1 each .SEE ORDER .USE w/ SPIRIVA CAPS [facility] Digoxin (Lanoxin Tab*) 0.125 mg PO DAILY [facility] Last Admin: 10/12/17 07:17 Dose: 0.125 mg Diltiazem HCl (Cardizem Cd Cap*) 180 mg PO DAILY [facility] Last Admin: 10/12/17 07:16 Dose: 180 mg Diltiazem HCl (Cardizem Cd Cap*) 120 mg PO 2100 [facility] Last Admin: 10/11/17 20:39 Dose: 120 mg Levalbuterol HCl (Xopenex 1.25 Mg/0.5 Ml Neb.Alena*) 1.25 mg INH Q4H PRN PRN Reason: sob Last Admin: 10/10/17 10:30 Dose: 1.25 mg Metoprolol Succinate (Toprol Xl Tab*) 75 mg PO DAILY [facility] Last Admin: 10/12/17 08:59 Dose: 75 mg Mometasone Furoate/Formoterol Fumar (Dulera 100/5 Mdi*) 1 puff INH BID [facility] Last Admin: 10/12/17 08:15 Dose: 1 puff Prednisone (Deltasone Tab*) 30 mg PO DAILY [facility] Last Admin: 10/12/17 07:16 Dose: 30 mg Rivaroxaban (Xarelto(*)) 20 mg PO DAILY [facility] Last Admin: 10/12/17 07:16 Dose: 20 mg Vital Signs - 8 hr 10/12/17 10/12/17 10/12/17 04:09 07:17 07:21 Temperature 98.2 F Pulse Rate 39 62 Respiratory 18 16 Rate Blood Pressure 112/56 (mmHg) O2 Sat by Pulse 99 Oximetry 10/12/17 10/12/17 10/12/17 07:41 08:00 08:15 Temperature 98.7 F Pulse Rate 84 69 Respiratory 16 16 16 Rate Blood Pressure 107/60 (mmHg) O2 Sat by Pulse 98 97 Oximetry Oxygen Devices in Use Now: Nasal Cannula Appearance: alert, more comfortable than yesterday, no accessory respiratory muscles Eyes: No Scleral Icterus Ears/Nose/Mouth/Throat: NL Teeth, Lips, Gums Neck: NL Appearance and Movements; NL JVP Respiratory: - - diffuse exp wheezing, prolonged expiratory phase, rhonchi Cardiovascular: - - irregular rhythm Abdominal: NL Sounds; No Tenderness; No Distention Lymphatic: No Cervical Adenopathy Extremities: No Edema Skin: No Rash or Ulcers Neurological: Alert and Oriented x 3 Result Diagrams: 10/09/17 05:04 10/11/17 07:28 Microbiology and Other Data: Microbiology 10/02/17 14:38 Nasal Nasal Screen MRSA (PCR) - Final Mrsa Not Detected Assess/Plan/Problems-Billing Mr Beck is a 67 yo former smoker who has a h/o COPD and chronic hypoxic respiratory failure on 3L O2 continuously at home and afib who presented to the ER with c/o increasing SOB and was admitted to the ICU for acute on chronic hypercarbic respiratory failure secondary to a COPD exacerbation. - Patient Problems (1) Acute and chronic respiratory failure with hypercapnia Current Visit: Yes Status: Acute Priority: High Code(s): J96.22 - ACUTE AND CHRONIC RESPIRATORY FAILURE WITH HYPERCAPNIA SNOMED Code(s): 4089697504379 Comment: better today back on home dose of o2 at 2L/min prednisone 50mg daily Continue standing and prn nebs. Continue maintenance inhalers. Follow up with Dr. Rodarte outpatient to discuss BiPAP (2) Atrial fibrillation with RVR Current Visit: Yes Status: Acute Priority: High Code(s): I48.91 - UNSPECIFIED ATRIAL FIBRILLATION SNOMED Code(s): 130807997809998 Comment: HR is now reasonably controlled in the 80s-110s even with held cardizem dose. I suspect his CCB was needing to be titrated due to poorly controlled heartrates which worsened the pauses. continue tele. will decrease dose of pm cardizem; hopefully the pauses will decrease he is asymptomatic when pauses occur and they always are recorded during sleep Continue digoxin, diltiazem and Metoprolol. Continue xarelto. (3) COPD exacerbation Current Visit: Yes Status: Acute Code(s): J44.1 - CHRONIC OBSTRUCTIVE PULMONARY DISEASE W (ACUTE) EXACERBATION SNOMED Code(s): 495212270285458 Comment: continue steroids, nebs, supplemental o2 (4) Muscular deconditioning Current Visit: No Status: Acute Priority: Medium Code(s): R29.898 - OTH SYMPTOMS AND SIGNS INVOLVING THE MUSCULOSKELETAL SYSTEM SNOMED Code(s): 478197889 Comment: need STR Status and Disposition: awaiting STR
[2017-10-12] MEDS: Azithromycin TAB* 250 MG PO SCH (12:27)
[2017-10-12] MEDS ORDERED: Diltiazem CD CAP* 120 MG PO SCH (21:00)
[2017-10-13] MEDS: Mometasone/Formoter 100/5 MDI INH SCH (07:49)
[2017-10-13] MEDS ORDERED: predniSONE TAB* 50 MG PO SCH (09:00)
[2017-10-13] MEDS: Azithromycin TAB* 250 MG PO SCH (09:46)
[2017-10-13] MEDS: Metoprolol Succinate XL TAB* 25 MG PO SCH (09:47)
[2017-10-13] MEDS: Rivaroxaban TAB(*) 20 MG TAB PO SCH (09:48)
[2017-10-13] MEDS: Digoxin TAB* 0.125 MG PO SCH (09:48)
[2017-10-13] MEDS: Diltiazem CD CAP* 180 MG PO SCH (09:48)
--- NOTE | 2017-10-13 12:29 | DS ---
DISCHARGE SUMMARY DATE OF ADMISSION: 10/02/17 DATE OF DISCHARGE: 10/13/17 ATTENDING PHYSICIAN: Dr. Yas Alvarenga* (dictated by Elda Steve NP) PRIMARY CARE PROVIDER: Dr. Cameron Ryan PRIMARY DIAGNOSES: 1. Chronic obstructive pulmonary disease exacerbation. 2. Rapid atrial fibrillation. SECONDARY DIAGNOSES: Past medical history is significant for: 1. Chronic obstructive pulmonary disease. 2. Atrial fibrillation. STUDIES COMPLETED WHILE IN THE HOSPITAL: 1. Chest x-ray on 10/02/17. Radiologist impression: COPD, but no active cardiopulmonary disease. 2. Electrogram which showed atrial fibrillation on admission at a rate of 128. NEW MEDICATIONS: 1. Atenolol 75 mg p.o. daily (this was increased from 50 mg p.o. daily). 2. Azithromycin 250 mg p.o. daily. 3. Cardizem 120 mg p.o. at h.s. 4. Cardizem CD 180 mg p.o. every a.m. 5. Xopenex 1.25 mg nebulizer every 4 hours as needed for shortness of breath. CONTINUED HOME MEDICATIONS: 1. Xarelto 20 mg p.o. daily. 2. Digoxin 1.25 micrograms p.o. daily. 3. Aclidinium bromide 400 micrograms b.i.d. 4. Magnesium oxide 400 mg p.o. daily. HISTORY OF PRESENT ILLNESS AND HOSPITAL COURSE: Mr. Beck is a 67-year-old male with a past medical history significant for COPD and atrial fibrillation for which he currently is on Xarelto. Presented to the emergency room with increased shortness of breath on the day of admission. He has had increased shortness of breath over several days. He had no other symptoms. Denied any chest pain, nausea, vomiting. Did report cough with mild sputum only, no fevers , no chills, no recent sick contacts. He is a current smoker. On admission to the emergency room he was tachycardic in the 120s. He had very poor air movement. He was given albuterol. He did have an ABG on admission which showed acute on chronic hypercapnia and he was started on high flow O2. His sats were in the mid 90s. Throughout the hospitalization he was monitored on telemetry. His heart rate was anywhere from 80s to 110. 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 He was asymptomatic. His medications were adjusted during his hospitalization. His Cardizem CD was decreased to 120 mg p.o. at night. Today on his day of discharge the patient is feeling better. He is back to his baseline O2 of 2L nasal cannula. He does continue to state that he feels weak and does get short of breath with movement. He continues to have a productive cough with sputum. For his cough with sputum he was started on azithromycin 2 days ago; he will need to complete a 5 day course. He will have a prescription for azithromycin 250 mg p.o. daily x3 days. REVIEW OF SYSTEMS: The patient denies any chest pain or current shortness of breath. He feels that his breathing is at baseline. He does report a productive cough with clear secretions. He denies any nausea, vomiting or diarrhea. Denies any fever or chills. The patient does report that he is feeling better today. PHYSICAL EXAM: General: The patient is awake, alert and oriented x3. HEENT: Head is normocephalic, atraumatic. Mucous membranes are moist. Neck: Supple. Heart: S1, S2. Irregular rate. No murmur. Respiratory: Lungs are clear to auscultation bilaterally. There is no wheezing. He is diminished at the bilateral bases. Abdomen: Soft and nontender. Bowel sounds are present x4. Extremities: Pulses are +2, they are warm with no edema. Skin: Intact. Neuro: He is awake, alert and oriented x3. He is able to move all 4 extremities. No focal deficits are noted. Mr. Beck is stable for discharge to [place] today. Vital Signs: Blood pressure 115/64. Heart rate is 106. Respirations 18. O2 sat is 95% on 2L nasal cannula. DISCHARGE PLAN: DISPOSITION: Mr. Beck will be discharged to [place] today. ACTIVITY: As tolerated. 1. COPD exacerbation. He should continue on Xopenex 1.25 mg nebulizer every 4 hours as needed for shortness of breath. Azithromycin 250 mg p.o. daily x3 days. Prednisone taper starting at 50 mg p.o. daily x3 days and then decreasing by 10 mg every 3 days and dc after 3 days of prednisone at 10mg. He should followup with Dr. Rodarte in 4-7 days for further evaluation of his COPD and possible need for bipap at night. He should continue on Spiriva inhaler and aclidinium bromide 400 micrograms inhaled daily. Patient should continue with oxygen 2L nasal cannula 24 hours a day. 2. Rapid atrial fibrillation. Cardizem was changed to 180 mg p.o. q.a.m. and 120 mg p.o. q.p.m. Atenolol was increased to 75 mg p.o. daily. He should also continue on his Xarelto 20 mg p.o. daily. Digoxin 0.125 mg po daily. He should have a repeat digoxin level in 3 days as azithromycin can increase serum digoxin levels. FOLLOWUP: The patient should followup with Dr. Rodarte is 4-7 days He should followup with his primary care provider in 4-7 days. He should have a repeat digoxin level as azithromycin can increase the serum level of digoxin. The patient was instructed to return to the emergency room for any chest pain or increased shortness of breath not relieved with his inhalers or nebulizer treatments. This is a summarization of his hospitalization. For further details please see the obtain the complete medical record. TIME SPENT: Time spent on this discharge was approximately 60 minutes, greater than half that time was spent with the patient discussing discharge plans and instructions. CONDITION ON DISCHARGE: Stable. ELDA STEVE NP [id number]/[facility] #: [id number] MTDDonato
[2017-10-13 16:12] VITALS: BP 136/69
== END 2017-10-13 15:55 | DRG 189 ==
LOC: ED 11:07 → ICU 13:20 → MEDTELE 10-05 14:06
PROVIDERS: ADMIT Internal Medicine Critical Care Medicine; ATTEND Hospitalist
DX: J96.22 Acute and chronic respiratory failure with hypercapnia (principal); R47.01 Aphasia; J44.1 Chronic obstructive pulmonary disease with (acute) exacerbation; J96.11 Chronic respiratory failure with hypoxia; I48.91 Unspecified atrial fibrillation; I11.0 Hypertensive heart disease with heart failure; I50.9 Heart failure, unspecified; R29.898 Other symptoms and signs involving the musculoskeletal system; Z80.3 Family history of malignant neoplasm of breast; Z80.1 Family history of malignant neoplasm of trachea, bronchus and lung; Z99.81 Dependence on supplemental oxygen; Z83.3 Family history of diabetes mellitus; Z82.49 Family history of ischemic heart disease and other diseases of the circulatory system; Z87.891 Personal history of nicotine dependence; Z79.01 Long term (current) use of anticoagulants
CPT/HCPCS: 36415; 36600; 71045; 80048; 80053; 80162; 81003; 81015; 82803; 82947; 83036; 83605; 83735; 83880; 84484; 85025; 85027; 85610; 85730; 86140; 87040; 87205; 87641; 93005; 94640; 99285; 99406; A9270-GY; G8978-GP-CM; G8979-GP-CK; J2920; J2930; J3105; J3475; J3490; J7512

== ENCOUNTER 2018-03-17 10:51 | Inpatient (IN) | payer MEDICARE ==
[2018-03-17] MEDS ORDERED: methylPREDNISolone 125 MG* 2 ML VIAL ONE (11:03)
[2018-03-17] MEDS: Albuterol/Ipratropium NEB.SOL* Albuterol 2.5 MG/Ipratropium 0.5 MG 3 ML INH ONE ×2 (11:04→11:15)
[2018-03-17] MEDS ORDERED: methylPREDNISolone 125 MG* 2 ML VIAL IV ONE (11:04)
[2018-03-17] MEDS ORDERED: Albuterol/Ipratropium NEB.SOL* Albuterol 2.5 MG/Ipratropium 0.5 MG 3 ML ONE (11:05)
[2018-03-17] MEDS ORDERED: Albuterol 2.5 MG/3 ML NEB.SOL* (0.083%) INH ONE ×2 (11:05→11:40)
--- NOTE | 2018-03-17 11:14 | ED ---
Complex/Multi-Sys Presentation - HPI Summary HPI Summary: 68 year old M brought in by ambulance from home to [facility] complains of worsening shortness of breath for 2 days, respiratory arrest and cardiac arrest at 10:30 today. Symptoms aggravated by nothing. Symptoms alleviated by nothing. Upon EMS arrival to scene, patient is in respiratory distress. EMS did not intubate patient in the field. Patient was able to walk to stretcher himself before going into respiratory arrest then cardiac arrest. EMS performed CPR for 3-5 minutes beginning at 10:33, administered one round of epi. Patient returned to normal sinus rhythm in the ambulance on the way to the ED. Patient arrives to ED with breathing mask, is unresponsive, at stable BP. Patient has hx emphysema. He has home O2 at 2L/minute. - History Of Current Complaint Chief Complaint: EDCardiacArrest Hx Obtained From: EMS Onset/Duration: Sudden Onset, Gradual Onset, Lasting Minutes, Lasting Days, Still Present Timing: Constant Aggravating Factor(s): Nothing Alleviating Factor(s): Nothing - Allergies/Home Medications Allergies/Adverse Reactions: Allergies Allergy/AdvReac Type Severity Reaction Status Date / Time No Known Allergies Allergy Verified 07/11/15 11:13 Home Medications: Home Medications Aclidinium [place] [Tudorza Pressair] 400 mcg INH DAILY 03/17/18 [History Confirmed 03/17/18] Atenolol TAB* [Tenormin TAB* 50 MG] 50 mg PO DAILY 03/17/18 [History Confirmed 03/17/18] Rivaroxaban TAB(*) [Xarelto 20 mg] 20 mg PO DAILY 03/17/18 [History Confirmed ] dilTIAZem HCl [Cartia Xt] 180 mg PO DAILY 03/17/18 [History Confirmed 03/17/18] PMH/Surg Hx/FS Hx/Imm Hx Previously Healthy: No Endocrine/Hematology History: Denies: Hx Diabetes, Hx Thyroid Disease Cardiovascular History: Reports: Hx Atrial Fibrillation, Hx Congestive Heart Failure, Hx Hypertension Denies: Hx Peripheral Vascular Disease Respiratory History: Reports: Hx Chronic Obstructive Pulmonary Disease (COPD) - 2L O2 Cannula, Other Respiratory Problems/Disorders - emphysema Musculoskeletal History: Reports: Other Musculoskeletal History - baseline left leg weakness Denies: Hx Arthritis, Hx Osteoporosis Sensory History: Reports: Hx Contacts or Glasses Denies: Hx Hearing Aid Opthamlomology History: Reports: Hx Contacts or Glasses Neurological History: Denies: Hx Headaches, Hx Seizures, Hx Transient Ischemic Attacks (TIA) Psychiatric History: Denies: Hx Anxiety, Hx Depression - Surgical History Surgery Procedure, Year, and Place: right knee as a child Infectious Disease History: Unable to Obtain/Confirm Infectious Disease History: Denies: Traveled Outside the [place] in Last 30 Days - Family History Known Family History: Positive: Hypertension, Diabetes, Other - Lung cancer, breast cancer - Social History Alcohol Use: None Hx Substance Use: No Substance Use Type: Reports: None Hx Tobacco Use: Yes Smoking Status (MU): Light Every Day Tobacco Smoker Have You Smoked in the Last Year: Yes Review of Systems Negative: Fever, Chills Negative: Erythema Negative: Sore Throat Positive: Other - Cardiac arrest. Negative: Chest Pain Positive: Shortness Of Breath, Other - respiratory distress, respiratory arrest. Negative: Cough Negative: Abdominal Pain, Vomiting, Nausea Negative: dysuria, hematuria Negative: Myalgia, Edema Negative: Rash Neurological: Negative - Dizziness All Other Systems Reviewed And Are Negative: Yes Physical Exam - Summary Physical Exam Summary: Constitutional: Patient is ill-appearing Skin: Warm, Dry HENT: Normocephalic; Atraumatic Eyes: Pupils are 3-mm and sluggish Neck: Musculoskeletal ROM normal neck. (-) JVD, (-) Stridor, (-) Tracheal deviation Cardio: Rhythm regular, rate normal, Heart sounds normal; Intact distal pulses; The pedal pulses are 2+ and symmetric. Radial pulses are 2+ and symmetric. (-) Murmur Pulmonary/Chest wall: Agonal respiration, Extremely diminished lung sounds Abd: Soft, (-) epigastric tenderness, (-) Distension, (-) Guarding, (-) Rebound Musculoskeletal: (-) Edema Lymph: (-) Cervical adenopathy Neuro: Patient is unresponsive Psych: Mood and affect Normal Triage Information Reviewed: Yes Vital Signs On Initial Exam: Initial Vitals Temp Pulse Resp BP Pulse Ox 96.5 F 86 23 145/103 100 03/17/18 10:57 03/17/18 10:57 03/17/18 10:57 03/17/18 10:57 03/17/18 10:57 Vital Signs Reviewed: Yes Procedures - Intubation Time of Intubation: 10:55 Intubation Method: orotracheal Tube Size (cm): 7.5 Breath Sounds after Intubation: equal - but dim Intubation Complications: no complications Post Intubation Xray: No - Pt admitted to ICU prior to CXR being completed. X- ray and ICU will f/u. Diagnostics - Vital Signs Vital Signs Temp Pulse Resp BP Pulse Ox 03/17/18 10:57 96.5 F 86 23 145/103 100 - Laboratory Result Diagrams: 03/18/18 10:00 03/18/18 04:55 Lab Statement: Any lab studies that have been ordered have been reviewed, and results considered in the medical decision making process. - EKG 1110 Cardiac Rate: NL - 64 EKG Rhythm: Sinus Rhythm Summary of EKG Findings: This is an artifact EKG, non-STEMI Complex Multi-Symp Course/Dx Course Of Treatment: 68 y/o M brought in by amublance, presents to ED, c/o worsening shortness of breath for 2 days, respiratory arrest and cardiac arrest this morning. ABC Code called at 10:44. Patient had 3-5 minutes of CPR with ACLS drugs in the field. Per EMS, he had a brief rhythm of ventricular fibrillation in the field which converted to asystole. Patient arrives to ED in normal sinus rhythm wearing breathing mask and is unresponsive. Patient intubated without sedation at 10:55 using 7.5 tube, placed 23 cm at the lip. There were equal but diminished breath sounds bilaterally, no epigastric sounds oscillated. He has not been moving so far. Also, brought the operating room nurse, Dr. Haney, to bedside to discuss therapeutic hypothermia for patient. In ED course , patient given Duoneb. At 11:09, discussed on phone call with patients Federica about patients prognosis and current status. Patient is being admitted to ICU prior to CXR being completed. X-ray staff and operating room nurse, Dr. Haney, will be following up CXR. CXR will be done immediately upon patient arrival to ICU. Patient admitted to ICU. - Diagnoses Provider Diagnoses: Cardiac arrest, Respiratory failure During the Visit The Following Alert/Code Occurred: ABC Alert - 10:44 - Physician Notifications Discussed Care Of Patient With: Melba Haney Time Discussed With Above Provider: 11:00 Instructed by Provider To: Other - Dr. Haney, operating room nurse, agrees to admit patient. Discussed therapeutic hypothermia for patient. Discharge - Sign-Out/Discharge Documenting (check all that apply): Patient Departure - Admit - Discharge Plan Condition: Critical Disposition: ADMITTED TO [facility] - Billing Disposition and Condition Condition: CRITICAL Disposition: Admitted to [facility] - Attestation Statements Document Initiated by Scribe: Yes Documenting Scribe: Vianney Navarro Provider For Whom Scribe is Documenting (Include Credential): Patrice Cheema ED Scribe Attestation: Vianney Sanchez, scribed for Patrice Cheema ED on 03/18/18 at 1309. Scribe Documentation Reviewed: Yes Provider Attestation: The documentation as recorded by the farrahibVianney garcia accurately reflects the service I personally performed and the decisions made by Patrice sylvester ED Status of Scribe Document: Viewed
[2018-03-17 11:18] LABS: Hematocrit 42 % (42-52); Mean Corpuscular HGB Conc 31 g/dl (31-36); Mean Corpuscular Hemoglobin 31 pg (27-31); Mean Corpuscular Volume 101 fL (80-94); Mean Platelet Volume 9.1 fL (7.4-10.4); Platelet Count 305 10^3/ul (150-450); Red Blood Count 4.17 10^6/ul (4.00-5.40); Red Cell Distribution Width 15 % (10.5-15); White Blood Count 11.8 10^3/ul (3.5-10.8)
[2018-03-17 11:23] LABS: Albumin 3.2 g/dL (3.2-5.2); Albumin/Globulin Ratio 1.1 (1-3); BUN/Creatinine Ratio 38.9 (8-20); Calcium 8.9 mg/dL (8.6-10.3); EGFR African American 41.1 (>60); Total Bilirubin 0.4 mg/dL (0.2-1.0); Total Protein 6.2 g/dL (6.4-8.9)
[2018-03-17 11:26] LABS: INR 2.8 (0.77-1.02)
[2018-03-17] MEDS ORDERED: Propofol* 100 ML ONE (11:34)
[2018-03-17] MEDS ORDERED: fentaNYL* 50 MCG/ML 2 ML VIAL (100 MCG VIAL) ONE (11:34)
[2018-03-17 11:45] LABS: Troponin I 0.08 ng/mL (<0.04)
[2018-03-17 12:01] LABS: Immature Granulocytes 4 % (0-9); Lymphocytes % 25 %; Monocytes % 11 %; Neutrophil % 60 %; Nucleated Red Blood Cells/100 1 (0-0)
[2018-03-17 12:02] LABS: Polychromasia 1+
[2018-03-17 12:03] LABS: ABS Neutrophils 7.6 10^3/ul (1.5-7.7)
[2018-03-17 12:29] LABS: Potassium 5.8 mmol/L (3.5-5.0)
[2018-03-17] MEDS: Albuterol/Ipratropium NEB.SOL* Albuterol 2.5 MG/Ipratropium 0.5 MG 3 ML INH SCH ×4 (12:56→23:37)
[2018-03-17] MEDS ORDERED: Zosyn per Pharmacy* NOTE FOLLOW UP SCH (13:00)
[2018-03-17] MEDS ORDERED: Vancomycin(*) 0 MG in NS 0.9% 250 ML* 250 ML IVPB SCH (13:00)
--- NOTE | 2018-03-17 13:24 | HP ---
History of Present Illness - History of Present Illness Reason for Visit: Acute respiratory/cardiac arrest, intubation and mechanical ventilation History of Present Illness: 68 yo male with hx/o emphysema and chronic hypoxemia continuous 2LPM of supplemental O2 admitted to the ICU after being intubated in the setting of acute respiratory arrest with resultant cardiac arrest. History obtained from chart review and conversation with the sister given patient status. According to ED notes, patient was brought in by ambulance from home to [facility] with initial complains of worsening shortness of breath for 2 days. During EMS evaluation, patient became unresponsive in the setting of respiratory arrest with resultant cardiac arrest (asystole, Vfib, asytole- 1 x Epi, 5 minutes of ACLS) at 10:30 with ROSC in the ambulance. Patient was able to walk to stretcher himself before going into respiratory arrest then cardiac arrest. Patient was intubated in the ED According to sister, patient has been having difficulty with breathing for a couple of days. He was made to quit cigarettes by her 2 weeks ago due to worsening respiratory status. 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 No noted fever, cough, chest pain, changes in bowel/urinary habits, hemoptysis. 03/17/18: DOA, intubation - Past Medical History Cardiac: AFIB Pulmonary: COPD - Past Surgical History Past Surgical History: None - Past Family History Family History: Other - unable to obtain - Past Social History Smoke: # pack years Alcohol: None Drugs: None Lives: With Family Domestic Violence: Negative Review of Systems - Review of Systems Constitutional: Positive: Weakness. Negative: Fever, Chills, Sweats Respiratory: Positive: Shortness of Breath, SOB with Excertion, Wheezing. Negative: Hemoptysis, Sputum Cardiovascular: Negative: Chest Pain, Palpitations, Orthopnea Gastrointestinal: Negative: Nausea, Vomiting, Abdominal Pain, Diarrhea Genitourinary: Negative: Dysuria, Frequency Skin: Negative: Rash, Lesions Neurological: Positive: Weakness. Negative: Numbness Other: unable to obtain - Medications/Allergies Allergies/Adverse Reactions: Allergies Allergy/AdvReac Type Severity Reaction Status Date / Time No Known Allergies Allergy Verified 07/11/15 11:13 Medications: Current Medications Albuterol/Ipratropium (Duoneb (Albuterol 2.5 Mg/Ipratropium 0.5 Mg)) 1 neb INH [id number] [facility] Last Admin: 03/17/18 12:56 Dose: 1 neb Exam - Exam Vital Signs: Vital Signs (72 hours) 03/17/18 03/17/18 03/17/18 10:57 11:15 11:21 Temperature 96.5 F 96.4 F Pulse Rate 86 64 65 Respiratory 23 23 9 Rate Blood Pressure 145/103 153/78 (mmHg) O2 Sat by Pulse 100 100 100 Oximetry 03/17/18 03/17/18 11:26 11:39 Temperature 97.1 F Pulse Rate 65 Respiratory 16 16 Rate Blood Pressure 155/62 (mmHg) O2 Sat by Pulse 100 Oximetry General: No acute distress, Other - unresponsive, intubated, withdraws to pain HEENT: Atraumatic, PERRLA, Other - dry Lungs: Other - diminished breath sounds with occasional wheezes Cardiovascular: Regular rate, Normal S1, Normal S2 Abdomen: Normal bowel sounds, Soft, No tenderness, No hepatospenomegaly Extremities: No clubbing, No cyanosis, No edema Skin: No breakdown Neurological: Other - unresponsive, + gag, withdraws to pain Assessment/Plan - Assessment/Plan Assessment: 68 M with hx/o chronic tobacco use admitted with acute respiratory distress requiring intubation and mechanical ventilation # Acute respiratory failure due to hypoxemia and hypercapnea # AECOPD # PNA # Cardiac arrest # ORLY # Acute transaminitis Plan: # Acute respiratory failure due to hypoxemia and hypercapnea # AECOPD # PNA # Cardiac arrest # ORLY # Acute transaminitis - mechanical ventilation - adjust vent per blood gas - placing PICC line - attempt TTT of 36 deg C - monitor labs - bronchodilators - systemic steroids - zosyn and vancomycin DVT ppx: SQH GI ppx: H2B Full code Critical care issues: MV, unstable CC time: 75 mins
[2018-03-17] MEDS ORDERED: Piperacillin/Tazobac ADVAN(*) 3.375 GM in NS 0.9% 100 ML* 100 ML IVPB STA (13:51)
[2018-03-17] MEDS ORDERED: Vancomycin per Pharmacy* NOTE FOLLOW UP PRN (13:53)
[2018-03-17] MEDS ORDERED: Vancomycin(*) 1,000 MG in NS 0.9% 250 ML* 250 ML IVPB ONE (14:00)
[2018-03-17 14:03] LABS: BUN/Creatinine Ratio 43.2 (8-20); Calcium 8.3 mg/dL (8.6-10.3); EGFR African American 44.5 (>60); EGFR Non-African American 36.8 (>60); Magnesium 2.5 mg/dL (1.9-2.7); Phosphorus 6.5 mg/dL (2.5-5.0)
[2018-03-17 14:10] LABS: Potassium 5.2 mmol/L (3.5-5.0)
[2018-03-17] MEDS ORDERED: Metoprolol Tartrate IV* 1 MG/ML 5 ML VIAL ONE (14:12)
[2018-03-17 14:13] LABS: Troponin I 0.1 ng/mL (<0.04)
[2018-03-17 14:19] LABS: Urine Appearance Turbid; Urine Bacteria Absent (Absent); Urine Bilirubin Negative (Negative); Urine Blood 3+ (Negative); Urine Color Amber; Urine Glucose Negative (Negative); Urine Ketones Negative (Negative); Urine Nitrite Negative (Negative); Urine Protein 2+(100 mg/dL) (Negative); Urine Red Blood Cell 3+(>10/hpf) (Absent); Urine Specific Gravity 1.017 (1.010-1.030); Urine Urobilinogen Positive (Negative); Urine White Blood Cell 3+(>20/hpf) (Absent)
[2018-03-17] MEDS ORDERED: Magnesium Sulfate 1 GM IV* 1 GM/100 ML BAG IV ONE (14:19)
[2018-03-17] MEDS ORDERED: Amiodarone 150 MG IVPREMIX* 150 MG/100 ML BAG IV ONE (14:24)
[2018-03-17] MEDS ORDERED: Amiodarone 360 MG IVPREMIX* 360 MG/200 ML BAG IV ONE (14:24)
[2018-03-17] MEDS ORDERED: Albuterol 2.5 MG/3 ML NEB.SOL* (0.083%) INH PRN (14:36)
[2018-03-17 14:45] LABS: Alcohol < 10 mg/dL (<10)
[2018-03-17 14:59] LABS: Digoxin 3.3 ng/ml (0.8-2.0)
[2018-03-17 15:09] LABS: Folate 8.96 ng/mL (>3.99)
--- NOTE | 2018-03-17 15:22 | ECHO ---
Patient: LISA CALDWELL [facility] Rec#: [id number] : 1950 Date: 03/17/2018 Age: 68y Height: 175.3 cm / 69.0 in Weight: 64 kg / 141.1 lbs Sex: M BSA: 1.78 Room#: [facility] Admit Date#: 03/17/2018 Type: Inpatient Referring: Melba Haney Reading: Jam Vargas DO Parts Sales Advisor: Diana Cifuentes RDCS CC: Cameron Ryan MD Transthoracic Echocardiogram Indication: Abnormal EKG BP: 153/78 HR: 71 Rhythm: A-Fib Findings History: HTN, CHF, COPD, smoker, atrial fibrillation. Patient was sedated, intubated, and mechanically ventilated during this study. Technical Comments: The study is technically limited due to poor acoustic windows. The study is technically limited due to patient being intubated and on a ventilator. Left Ventricle: The left ventricular chamber size is normal. There is no left ventricular hypertrophy. There is normal left ventricular systolic function. The estimated ejection fraction is greater than 65%. There is septal flattening of the interventricular septum consistent with right ventricular volume or pressure overload. The assessment of diastolic function is non-diagnostic. Left Atrium: The left atrium is mildly dilated. Right Ventricle: The right ventricle is severely dilated. The right ventricular global systolic function is moderately reduced. Right Atrium: The right atrial cavity size is normal. Aortic Valve: The aortic valve is trileaflet. The aortic valve leaflets are mildly thickened. There is moderate thickening of the non coronary cusp. Systolic excursion of the aortic valve cusps is reduced. There is no evidence of aortic regurgitation. Mitral Valve: The mitral valve leaflets are mildly thickened. There is a trace of mitral regurgitation. There is no evidence of mitral stenosis. Tricuspid Valve: The tricuspid valve leaflets are normal. There is mild to moderate tricuspid regurgitation. The right ventricular systolic pressure is estimated at 46 mmHg. There is evidence of mild pulmonary hypertension. There is no tricuspid stenosis. Pulmonic Valve: The pulmonic valve structure is not well visualized. There is a trace pulmonic regurgitation. There is no pulmonic stenosis. Pericardium: There is no significant pericardial effusion. Aorta: There is no dilatation of the ascending aorta. The aortic arch is not well visualized. The aortic root is normal in size. Pulmonary Artery: The main pulmonary artery is not well visualized. Venous: Unable to accurately comment on the size collapsibility of the IVC as the patient in known to be on mechanical ventilation. Conclusions The left ventricular chamber size is normal. There is normal left ventricular systolic function. The estimated ejection fraction is 65-70% There is septal flattening of the interventricular septum consistent with right ventricular volume or pressure overload. The left atrium is mildly dilated. The right ventricle is severely dilated. The right ventricular global systolic function is moderately reduced. There is mild to moderate tricuspid regurgitation. There is evidence of mild pulmonary hypertension. Unable to evaluate aortic stenosis, qualitatively appears no more than mild Compared to prior study from 06/2015, the RV is more dilated and dysfunctional than previously Measurements Name Value Normal Range RVIDd (AP) 2D 3.6 cm (0.9 - 2.6) RVDdMajor (2D) 4.6 cm (2.2 - 4.4) RAd ISD 4CH 4.7 cm (3.4 - 4.9) RA (A4C)W 4.4 cm (2.9 - 4.6) IVSd (2D) 0.9 cm (0.6 - 1) LVPWd (2D) 1 cm (0.6 - 1) LVIDd (2D) 4 cm (3.6 - 5.4) LVIDs (2D) 2.6 cm - LV FS (2D) 35 % (25 - 45) Aortic Annulus 2.1 cm (1.4 - 2.6) Ao root diameter (2D) 3.5 cm (2.1 - 3.5) Ascending Ao 3.4 cm (2.1 - 3.4) LA dimension (AP) 2D 2.9 cm (2.3 - 3.8) LAd ISD 4CH 5.3 cm (2.9 - 5.3) LA ISD 4CH W 5.3 cm (2.5 - 4.5) Name Value Normal Range MV E-wave Vmax 0.7 m/sec - MV deceleration time 236 msec - MV A-wave Vmax 0.6 m/sec - MV E:A ratio 1.2 ratio - LV septal e' Vmax 0.06 m/sec - LV lateral e' Vmax 0.1 m/sec - LV E:e' septal ratio 11.7 ratio - LV E:e' lateral ratio 7 ratio - Name Value Normal Range AV Vmax 0.9 m/sec - AV VTI 15 cm - AV peak gradient 4 mmHg - AV mean gradient 2 mmHg - LVOT diameter 2.1 cm - LVOT Vmax 0.7 m/sec - LVOT VTI 9 cm - LVOT peak gradient 2 mmHg - LVOT mean gradient 1 mmHg - Name Value Normal Range TR Vmax 3.1 m/sec - TR peak gradient 38 mmHg - RAP 8 mmHg - RVSP 46 mmHg - Name Value Normal Range PV Vmax 1.1 m/sec - PV VTI 5 cm -
[2018-03-17] MEDS ORDERED: NS 0.9% 500 ML* 500 ML IV ONE (15:58)
[2018-03-17] MEDS ORDERED: Metoprolol Tartrate IV* 1 MG/ML 5 ML VIAL IV ONE (16:00)
[2018-03-17] MEDS ORDERED: Calcium Gluconate INJ* 1 GM in NS 0.9% 50 ML* 50 ML IVPB ONE (16:28)
[2018-03-17] MEDS: Azithromycin IV(*) 500 MG in NS 0.9% 250 ML* 250 ML IVPB SCH (18:30)
[2018-03-17] MEDS ORDERED: Amiodarone 360 MG IVPREMIX* 360 MG/200 ML BAG IV SCH (20:24)
[2018-03-17] MEDS: methylPREDNISolone SOD 40 MG* 1 ML VIAL IV SCH (20:54)
[2018-03-17] MEDS: ZOSYN 3.375 GM Q8H per EXTENDED INFUSION IVPB SCH ×2 (20:54)
[2018-03-17] MEDS: fentaNYL* 50 MCG/ML 2 ML VIAL (100 MCG VIAL) IV PRN (22:29)
[2018-03-17] MEDS: CHLORHEXADINE (PERIDEX) VENT ORAL CARE TOPICAL SCH (22:30)
[2018-03-17] MEDS ORDERED: levETIRAcetam IV* 500 MG/5 ML VIAL IVPB SCH (22:30)
[2018-03-17] MEDS: levETIRAcetam 500 MG IVPREMIX* 500 MG/100 ML BAG IV SCH (22:38)
[2018-03-17] MEDS: Propofol* 100 ML IV SCH (22:46)
[2018-03-17 23:12] LABS: Hematocrit 41 % (42-52); Hemoglobin 13.1 g/dl (14.0-18.0)
[2018-03-18] MEDS: fentaNYL* 50 MCG/ML 2 ML VIAL (100 MCG VIAL) IV PRN ×4 (00:48→19:27)
[2018-03-18 01:58] LABS: Influenza A Molecular NEGATIVE (Negative); Influenza B Molecular NEGATIVE (Negative)
[2018-03-18 02:01] LABS: Barbiturates Urine Screen None Detected (None Detect); Benzodiazepine Urine Screen None Detected (None Detect); Urine Cannabinoids Screen Presumptive Positive (None Detect)
[2018-03-18] MEDS: Midazolam* 1 MG/ML 2 ML VIAL (2 MG) IV PRN (02:17)
[2018-03-18] MEDS: CHLORHEXADINE (PERIDEX) VENT ORAL CARE TOPICAL SCH ×6 (02:17→23:01)
[2018-03-18] MEDS ORDERED: NS 0.9% 500 ML* 500 ML IV ONE (02:51)
[2018-03-18] MEDS ORDERED: Vancomycin(*) 1,000 MG in NS 0.9% 250 ML* 250 ML IVPB SCH (03:00)
[2018-03-18] MEDS: Albuterol/Ipratropium NEB.SOL* Albuterol 2.5 MG/Ipratropium 0.5 MG 3 ML INH SCH ×6 (03:36→23:24)
[2018-03-18] MEDS: ZOSYN 3.375 GM Q8H per EXTENDED INFUSION IVPB SCH ×6 (04:10→20:03)
[2018-03-18] MEDS: methylPREDNISolone SOD 40 MG* 1 ML VIAL IV SCH ×3 (04:10→20:03)
[2018-03-18] MEDS: Propofol* 100 ML IV SCH ×4 (05:04→23:00)
[2018-03-18 05:10] LABS: INR 1.56 (0.77-1.02)
[2018-03-18 05:21] LABS: Albumin 2.9 g/dL (3.2-5.2); Albumin/Globulin Ratio 1.1 (1-3); BUN/Creatinine Ratio 49.2 (8-20); EGFR African American 65.7 (>60); EGFR Non-African American 54.3 (>60); Globulin 2.6 g/dL (2-4); Potassium 3.7 mmol/L (3.5-5.0); Total Bilirubin 0.8 mg/dL (0.2-1.0); Total Protein 5.5 g/dL (6.4-8.9)
[2018-03-18 06:06] LABS: Magnesium 2.5 mg/dL (1.9-2.7); Phosphorus 2.7 mg/dL (2.5-5.0)
[2018-03-18] MEDS: Meperidine Ampule* 100 MG/2 ML AMPUL IV SLOW PU PRN (07:36)
--- NOTE | 2018-03-18 09:17 | PN ---
Date of Service: 03/18/18 Critical Care Services: 68 yo male with hx/o emphysema due to tobacco use and chronic hypoxemia continuous 2LPM of supplemental O2 being managed in the ICU after being intubated in the setting of acute respiratory arrest with resultant cardiac arrest. Acute issues: Acute encephalopathy with GCS ~3T, mechanical ventilation, AF, GIB 24 h/overnight events: CT head concerning for anoxic brain injury, neuro exam concerning for: absent gag, no response to painful stim, unequal pupil 03/17/18: DOA, intubation Vital Signs: Temp Pulse Resp BP SpO2 FiO2 97.0 F 100 18 108/79 98 30 03/18/18 08:33 03/18/18 09:01 03/18/18 08:00 03/18/18 09:00 03/18/18 09:01 03/18 04:00 Physical Exam: General: No acute distress. Unresponsive, intubated, sedated on propofol. RASS -4- -5. Coffee ground emesis in NGT and subglottic HEENT: Atraumatic, right pupil 1mm and reactive to light, left pupil 3 mm sluggishly reactive to light. Dry mucous membranes. Lungs: diminished breath sounds, no wheezes Cardiovascular: +S1, +S2, tachycardic, faintly palpable pulse Abdomen: Normal bowel sounds, Soft, No tenderness, No hepatospenomegaly Extremities: No clubbing, No cyanosis, No edema Skin: No breakdown but dry skin Neurological: No response to verbal or painful stimuli, - gag. On propofol therefore not optimally accessed Fluid Balance (Past 24 Hours): I= O= Net Intake & Output 03/16/18 03/17/18 03/18/18 03/19/18 06:59 06:59 06:59 06:59 Intake Total 1912.7 Output Total 884 100 Balance 1028.7 -100 Weight 131 lb 4.184 oz Intake: IV Fluids 1272.7 NS 1272.7 IVPB 502 ABX 337 Calcium Gluconate 60 Keppra 105 Medicated IV 138 CC - Propofol/Diprivan 138 Output: Ghotra 884 100 ADLs: Meal Record Start: 03/17/18 11: 26 Freq: 09,13,18 Status: Active Protocol: Created 03/17/18 11:26 System (Rec: 03/17/18 11:26 System [id number]) Document 03/17/18 13:00 [id number] (Rec: 03/17/18 17:45 [id number] ICU-M33) Document 03/17/18 18:00 [id number] (Rec: 03/17/18 19:34 [id number] ICU-C16) Intake and Output Start: 03/17/18 11: 00 Freq: Status: Active Protocol: Created 03/17/18 11:00 System (Rec: 03/17/18 11:00 System [id number]) Intake and Output Start: 03/17/18 11: 26 Freq: Q1HR Status: Active Protocol: Created 03/17/18 11:26 System (Rec: 03/17/18 11:26 System [id number]) Document 03/17/18 12:00 [id number] (Rec: 03/17/18 16:22 [id number] ICU-C16) Document 03/17/18 13:00 [id number] (Rec: 03/17/18 16:22 [id number] ICU-C16) Document 03/17/18 14:00 [id number] (Rec: 03/17/18 16:22 [id number] ICU-C16) Document 03/17/18 15:00 [id number] (Rec: 03/17/18 16:22 [id number] ICU-C16) Document 03/17/18 17:00 [id number] (Rec: 03/17/18 19:16 [id number] ICU-C16) Document 03/17/18 19:00 [id number] (Rec: 03/17/18 19:16 [id number] ICU-C16) Document 03/17/18 20:00 [id number] (Rec: 03/17/18 21:11 [id number] ICU-L03) Document 03/17/18 21:00 [id number] (Rec: 03/17/18 21:11 [id number] ICU-L03) Document 03/17/18 22:00 [id number] (Rec: 03/17/18 22:27 [id number] ICU-M33) Document 03/17/18 23:00 [id number] (Rec: 03/17/18 23:08 [id number] ICU-M33) Document 03/18/18 00:00 [id number] (Rec: 03/18/18 00:38 [id number] ICU-L03) Document 03/18/18 01:00 [id number] (Rec: 03/18/18 01:02 [id number] ICU-L03) Document 03/18/18 02:00 [id number] (Rec: 03/18/18 03:12 [id number] ICU-L03) Document 03/18/18 03:00 [id number] (Rec: 03/18/18 03:13 [id number] ICU-L03) Document 03/18/18 04:00 [id number] (Rec: 03/18/18 04:34 [id number] ICU-L03) Document 03/18/18 05:00 [id number] (Rec: 03/18/18 05:01 [id number] ICU-M33) Document 03/18/18 06:00 [id number] (Rec: 03/18/18 06:08 [id number] ICU-L03) Document 03/18/18 07:00 [id number] (Rec: 03/18/18 07:42 [id number] ICU-M33) Document 03/18/18 07:50 [id number] (Rec: 03/18/18 07:50 [id number] ICU-M33) Labs: Laboratory Results - last 24 hr 03/17/18 03/17/18 03/17/18 10:55 10:55 10:55 WBC 11.8 H RBC 4.17 Hgb 13.0 L Hct 42 MCV 101 H MCH 31 MCHC 31 RDW 15 Plt Count 305 MPV 9.1 Neut % (Auto) Not Reportable Lymph % (Auto) Not Reportable [place] % (Auto) Not Reportable Eos % (Auto) Not Reportable Baso % (Auto) Not Reportable Absolute Neuts (auto) Not Reportable Absolute Lymphs (auto) Not Reportable Absolute Monos (auto) Not Reportable Absolute Eos (auto) Not Reportable Absolute Basos (auto) Not Reportable Absolute Nucleated RBC Not Reportable Immature Gran % 4 Neutrophils % 60 Band Neutrophils % 4 Lymphocytes % 25 Monocytes % 11 Nucleated RBC % Not Reportable Abs Neuts (Manual) 7.6 Abs Lymphs (Manual) 2.9 Abs Monocytes (Manual) 1.3 H Nucleated RBCs/100 WBC 1 H Normal RBC Morphology Not Reportable Polychromasia 1+ INR (Anticoag Therapy) Patient Temperature ABG pH ABG pH (Temp Correct) ABG pCO2 ABG pCO2 (Temp Corrct ABG pO2 ABG pO2 (Temp Correct ABG HCO3 ABG O2 Saturation ABG Base Excess Respiration Rate O2 Delivery Device Ventilator Type Vent Mode FiO2 Inspiratory Time PEEP Pressure Support Pressure Control EPAP IPAP BiPAP Sodium 135 Potassium 5.8 H Chloride 92 L Carbon Dioxide 30 Anion Gap 13 H BUN 77 H Creatinine 1.98 H Est GFR ( Amer) 41.1 Est GFR (Non-Af Amer) 34.0 BUN/Creatinine Ratio 38.9 H Glucose 129 H Lactic Acid 8.8 H* Calcium 8.9 Ionized Calcium Phosphorus Magnesium Total Bilirubin 0.40 AST 214 H ALT 288 H Alkaline Phosphatase 71 Total Creatine Kinase Troponin I 0.08 H* B-Natriuretic Peptide Total Protein 6.2 L Albumin 3.2 Globulin 3.0 Albumin/Globulin Ratio 1.1 Vitamin B12 Folate Urine Color Urine Appearance Urine pH Ur Specific [place] Urine Protein Urine Ketones Urine Blood Urine Nitrate Urine Bilirubin Urine Urobilinogen Ur Leukocyte Esterase Urine WBC (Auto) Urine RBC (Auto) Urine Bacteria Urine Glucose Digoxin Urine Opiates Screen Ur Barbiturates Screen Ur Phencyclidine Scrn Ur Amphetamines Screen U Benzodiazepines Scrn Urine Cocaine Screen U Cannabinoids Screen Serum Alcohol Influenza A (Rapid) Influenza B (Rapid) 03/17/18 03/17/18 03/17/18 10:55 10:55 12:25 WBC RBC Hgb Hct MCV MCH MCHC RDW Plt Count MPV Neut % (Auto) Lymph % (Auto) [place] % (Auto) Eos % (Auto) Baso % (Auto) Absolute Neuts (auto) Absolute Lymphs (auto) Absolute Monos (auto) Absolute Eos (auto) Absolute Basos (auto) Absolute Nucleated RBC Immature Gran % Neutrophils % Band Neutrophils % Lymphocytes % Monocytes % Nucleated RBC % Abs Neuts (Manual) Abs Lymphs (Manual) Abs Monocytes (Manual) Nucleated RBCs/100 WBC Normal RBC Morphology Polychromasia INR (Anticoag Therapy) 2.80 H Patient Temperature Not Reportable ABG pH 7.15 L* ABG pH (Temp Correct) Not Reportable ABG pCO2 85 H* ABG pCO2 (Temp Corrct Not Reportable ABG pO2 191 H ABG pO2 (Temp Correct Not Reportable ABG HCO3 23.7 ABG O2 Saturation 99.8 H ABG Base Excess -1.6 Respiration Rate Not Reportable O2 Delivery Device vent Ventilator Type Not Reportable Vent Mode Not Reportable FiO2 50 Inspiratory Time Not Reportable PEEP Not Reportable Pressure Support Not Reportable Pressure Control Not Reportable EPAP Not Reportable IPAP Not Reportable BiPAP Not Reportable Sodium Potassium Chloride Carbon Dioxide Anion Gap BUN Creatinine Est GFR ( Amer) Est GFR (Non-Af Amer) BUN/Creatinine Ratio Glucose Lactic Acid Calcium Ionized Calcium Phosphorus Magnesium Total Bilirubin AST ALT Alkaline Phosphatase Total Creatine Kinase Troponin I B-Natriuretic Peptide > 1300 H Total Protein Albumin Globulin Albumin/Globulin Ratio Vitamin B12 Folate Urine Color Urine Appearance Urine pH Ur Specific [place] Urine Protein Urine Ketones Urine Blood Urine Nitrate Urine Bilirubin Urine Urobilinogen Ur Leukocyte Esterase Urine WBC (Auto) Urine RBC (Auto) Urine Bacteria Urine Glucose Digoxin Urine Opiates Screen Ur Barbiturates Screen Ur Phencyclidine Scrn Ur Amphetamines Screen U Benzodiazepines Scrn Urine Cocaine Screen U Cannabinoids Screen Serum Alcohol Influenza A (Rapid) Influenza B (Rapid) 03/17/18 03/17/18 03/17/18 13:20 13:20 13:20 WBC RBC Hgb Hct MCV MCH MCHC RDW Plt Count MPV Neut % (Auto) Lymph % (Auto) [place] % (Auto) Eos % (Auto) Baso % (Auto) Absolute Neuts (auto) Absolute Lymphs (auto) Absolute Monos (auto) Absolute Eos (auto) Absolute Basos (auto) Absolute Nucleated RBC Immature Gran % Neutrophils % Band Neutrophils % Lymphocytes % Monocytes % Nucleated RBC % Abs Neuts (Manual) Abs Lymphs (Manual) Abs Monocytes (Manual) Nucleated RBCs/100 WBC Normal RBC Morphology Polychromasia INR (Anticoag Therapy) Patient Temperature ABG pH ABG pH (Temp Correct) ABG pCO2 ABG pCO2 (Temp Corrct ABG pO2 ABG pO2 (Temp Correct ABG HCO3 ABG O2 Saturation ABG Base Excess Respiration Rate O2 Delivery Device Ventilator Type Vent Mode FiO2 Inspiratory Time PEEP Pressure Support Pressure Control EPAP IPAP BiPAP Sodium 135 Potassium 5.2 H Chloride 95 L Carbon Dioxide 31 Anion Gap 9 BUN 80 H Creatinine 1.85 H Est GFR ( Amer) 44.5 Est GFR (Non-Af Amer) 36.8 BUN/Creatinine Ratio 43.2 H Glucose 103 H Lactic Acid 2.1 H* Calcium 8.3 L Ionized Calcium 0.99 L Phosphorus 6.5 H Magnesium 2.5 Total Bilirubin AST ALT Alkaline Phosphatase Total Creatine Kinase 180 Troponin I 0.10 H* B-Natriuretic Peptide Total Protein Albumin Globulin Albumin/Globulin Ratio Vitamin B12 Folate Urine Color Urine Appearance Urine pH Ur Specific [place] Urine Protein Urine Ketones Urine Blood Urine Nitrate Urine Bilirubin Urine Urobilinogen Ur Leukocyte Esterase Urine WBC (Auto) Urine RBC (Auto) Urine Bacteria Urine Glucose Digoxin Urine Opiates Screen Ur Barbiturates Screen Ur Phencyclidine Scrn Ur Amphetamines Screen U Benzodiazepines Scrn Urine Cocaine Screen U Cannabinoids Screen Serum Alcohol Influenza A (Rapid) Influenza B (Rapid) 03/17/18 03/17/18 03/17/18 13:45 13:45 13:45 WBC RBC Hgb Hct MCV MCH MCHC RDW Plt Count MPV Neut % (Auto) Lymph % (Auto) [place] % (Auto) Eos % (Auto) Baso % (Auto) Absolute Neuts (auto) Absolute Lymphs (auto) Absolute Monos (auto) Absolute Eos (auto) Absolute Basos (auto) Absolute Nucleated RBC Immature Gran % Neutrophils % Band Neutrophils % Lymphocytes % Monocytes % Nucleated RBC % Abs Neuts (Manual) Abs Lymphs (Manual) Abs Monocytes (Manual) Nucleated RBCs/100 WBC Normal RBC Morphology Polychromasia INR (Anticoag Therapy) Patient Temperature ABG pH 7.15 L* ABG pH (Temp Correct) ABG pCO2 86 H* ABG pCO2 (Temp Corrct ABG pO2 135 H ABG pO2 (Temp Correct ABG HCO3 23.9 ABG O2 Saturation 99.4 H ABG Base Excess -1.3 Respiration Rate O2 Delivery Device Ventilator Type Vent Mode FiO2 Inspiratory Time PEEP Pressure Support Pressure Control EPAP IPAP BiPAP Sodium Potassium Chloride Carbon Dioxide Anion Gap BUN Creatinine Est GFR ( Amer) Est GFR (Non-Af Amer) BUN/Creatinine Ratio Glucose Lactic Acid Calcium Ionized Calcium Phosphorus Magnesium Total Bilirubin AST ALT Alkaline Phosphatase Total Creatine Kinase Troponin I B-Natriuretic Peptide Total Protein Albumin Globulin Albumin/Globulin Ratio Vitamin B12 > 1450 H Folate 8.96 Urine Color [place] Urine Appearance Turbid Urine pH 5.0 Ur Specific [place] 1.017 Urine Protein 2+(100 mg/dl) A Urine Ketones Negative Urine Blood 3+ A Urine Nitrate Negative Urine Bilirubin Negative Urine Urobilinogen Positive A Ur Leukocyte Esterase Negative Urine WBC (Auto) 3+(>20/hpf) A Urine RBC (Auto) 3+(>10/hpf) A Urine Bacteria Absent Urine Glucose Negative Digoxin 3.3 H* Urine Opiates Screen Ur Barbiturates Screen Ur Phencyclidine Scrn Ur Amphetamines Screen U Benzodiazepines Scrn Urine Cocaine Screen U Cannabinoids Screen Serum Alcohol < 10 Influenza A (Rapid) Influenza B (Rapid) 03/17/18 03/17/18 03/17/18 16:25 18:30 19:25 WBC RBC Hgb Hct MCV MCH MCHC RDW Plt Count MPV Neut % (Auto) Lymph % (Auto) [place] % (Auto) Eos % (Auto) Baso % (Auto) Absolute Neuts (auto) Absolute Lymphs (auto) Absolute Monos (auto) Absolute Eos (auto) Absolute Basos (auto) Absolute Nucleated RBC Immature Gran % Neutrophils % Band Neutrophils % Lymphocytes % Monocytes % Nucleated RBC % Abs Neuts (Manual) Abs Lymphs (Manual) Abs Monocytes (Manual) Nucleated RBCs/100 WBC Normal RBC Morphology Polychromasia INR (Anticoag Therapy) Patient Temperature Not Reportable ABG pH 7.20 L 7.23 L ABG pH (Temp Correct) Not Reportable ABG pCO2 80 H* 71 H ABG pCO2 (Temp Corrct Not Reportable ABG pO2 92 75 L ABG pO2 (Temp Correct Not Reportable ABG HCO3 25.6 25.0 ABG O2 Saturation 97.7 95.0 ABG Base Excess 0.9 0.2 Respiration Rate Not Reportable O2 Delivery Device vent Ventilator Type Not Reportable Vent Mode Not Reportable FiO2 35 Inspiratory Time Not Reportable PEEP Not Reportable Pressure Support Not Reportable Pressure Control Not Reportable EPAP Not Reportable IPAP Not Reportable BiPAP Not Reportable Sodium Potassium Chloride Carbon Dioxide Anion Gap BUN Creatinine Est GFR ( Amer) Est GFR (Non-Af Amer) BUN/Creatinine Ratio Glucose Lactic Acid Calcium Ionized Calcium Phosphorus Magnesium Total Bilirubin AST ALT Alkaline Phosphatase Total Creatine Kinase Troponin I 0.06 H* B-Natriuretic Peptide Total Protein Albumin Globulin Albumin/Globulin Ratio Vitamin B12 Folate Urine Color Urine Appearance Urine pH Ur Specific [place] Urine Protein Urine Ketones Urine Blood Urine Nitrate Urine Bilirubin Urine Urobilinogen Ur Leukocyte Esterase Urine WBC (Auto) Urine RBC (Auto) Urine Bacteria Urine Glucose Digoxin Urine Opiates Screen Ur Barbiturates Screen Ur Phencyclidine Scrn Ur Amphetamines Screen U Benzodiazepines Scrn Urine Cocaine Screen U Cannabinoids Screen Serum Alcohol Influenza A (Rapid) Influenza B (Rapid) 03/17/18 03/17/18 03/18/18 23:05 23:52 01:30 WBC RBC Hgb 13.1 L Hct 41 L MCV MCH MCHC RDW Plt Count MPV Neut % (Auto) Lymph % (Auto) [place] % (Auto) Eos % (Auto) Baso % (Auto) Absolute Neuts (auto) Absolute Lymphs (auto) Absolute Monos (auto) Absolute Eos (auto) Absolute Basos (auto) Absolute Nucleated RBC Immature Gran % Neutrophils % Band Neutrophils % Lymphocytes % Monocytes % Nucleated RBC % Abs Neuts (Manual) Abs Lymphs (Manual) Abs Monocytes (Manual) Nucleated RBCs/100 WBC Normal RBC Morphology Polychromasia INR (Anticoag Therapy) Patient Temperature Not Reportable ABG pH 7.27 L ABG pH (Temp Correct) Not Reportable ABG pCO2 69 H ABG pCO2 (Temp Corrct Not Reportable ABG pO2 97 ABG pO2 (Temp Correct Not Reportable ABG HCO3 27.0 ABG O2 Saturation 99.1 H ABG Base Excess 2.7 H Respiration Rate 18 O2 Delivery Device vent Ventilator Type 450 Vent Mode Cmv FiO2 30 Inspiratory Time 0.85 PEEP 3 Pressure Support Not Reportable Pressure Control Not Reportable EPAP Not Reportable IPAP Not Reportable BiPAP Not Reportable Sodium Potassium Chloride Carbon Dioxide Anion Gap BUN Creatinine Est GFR ( Amer) Est GFR (Non-Af Amer) BUN/Creatinine Ratio Glucose Lactic Acid Calcium Ionized Calcium Phosphorus Magnesium Total Bilirubin AST ALT Alkaline Phosphatase Total Creatine Kinase Troponin I B-Natriuretic Peptide Total Protein Albumin Globulin Albumin/Globulin Ratio Vitamin B12 Folate Urine Color Urine Appearance Urine pH Ur Specific [place] Urine Protein Urine Ketones Urine Blood Urine Nitrate Urine Bilirubin Urine Urobilinogen Ur Leukocyte Esterase Urine WBC (Auto) Urine RBC (Auto) Urine Bacteria Urine Glucose Digoxin Urine Opiates Screen None detected Ur Barbiturates Screen None detected Ur Phencyclidine Scrn None detected Ur Amphetamines Screen None detected U Benzodiazepines Scrn None detected Urine Cocaine Screen None detected U Cannabinoids Screen Presumptive positive A Serum Alcohol Influenza A (Rapid) Influenza B (Rapid) 03/18/18 03/18/18 03/18/18 01:46 04:55 04:55 WBC RBC Hgb Hct MCV MCH MCHC RDW Plt Count MPV Neut % (Auto) Lymph % (Auto) [place] % (Auto) Eos % (Auto) Baso % (Auto) Absolute Neuts (auto) Absolute Lymphs (auto) Absolute Monos (auto) Absolute Eos (auto) Absolute Basos (auto) Absolute Nucleated RBC Immature Gran % Neutrophils % Band Neutrophils % Lymphocytes % Monocytes % Nucleated RBC % Abs Neuts (Manual) Abs Lymphs (Manual) Abs Monocytes (Manual) Nucleated RBCs/100 WBC Normal RBC Morphology Polychromasia INR (Anticoag Therapy) Patient Temperature ABG pH ABG pH (Temp Correct) ABG pCO2 ABG pCO2 (Temp Corrct ABG pO2 ABG pO2 (Temp Correct ABG HCO3 ABG O2 Saturation ABG Base Excess Respiration Rate O2 Delivery Device Ventilator Type Vent Mode FiO2 Inspiratory Time PEEP Pressure Support Pressure Control EPAP IPAP BiPAP Sodium Potassium Chloride Carbon Dioxide Anion Gap BUN Creatinine Est GFR ( Amer) Est GFR (Non-Af Amer) BUN/Creatinine Ratio Glucose Lactic Acid 1.0 Calcium Ionized Calcium Phosphorus Magnesium Total Bilirubin AST ALT Alkaline Phosphatase Total Creatine Kinase Troponin I B-Natriuretic Peptide Total Protein Albumin Globulin Albumin/Globulin Ratio Vitamin B12 Folate Urine Color Urine Appearance Urine pH Ur Specific [place] Urine Protein Urine Ketones Urine Blood Urine Nitrate Urine Bilirubin Urine Urobilinogen Ur Leukocyte Esterase Urine WBC (Auto) Urine RBC (Auto) Urine Bacteria Urine Glucose Digoxin 1.3 Urine Opiates Screen Ur Barbiturates Screen Ur Phencyclidine Scrn Ur Amphetamines Screen U Benzodiazepines Scrn Urine Cocaine Screen U Cannabinoids Screen Serum Alcohol Influenza A (Rapid) Negative Influenza B (Rapid) Negative 03/18/18 03/18/18 04:55 04:55 WBC RBC Hgb Hct MCV MCH MCHC RDW Plt Count MPV Neut % (Auto) Lymph % (Auto) [place] % (Auto) Eos % (Auto) Baso % (Auto) Absolute Neuts (auto) Absolute Lymphs (auto) Absolute Monos (auto) Absolute Eos (auto) Absolute Basos (auto) Absolute Nucleated RBC Immature Gran % Neutrophils % Band Neutrophils % Lymphocytes % Monocytes % Nucleated RBC % Abs Neuts (Manual) Abs Lymphs (Manual) Abs Monocytes (Manual) Nucleated RBCs/100 WBC Normal RBC Morphology Polychromasia INR (Anticoag Therapy) 1.56 H Patient Temperature ABG pH ABG pH (Temp Correct) ABG pCO2 ABG pCO2 (Temp Corrct ABG pO2 ABG pO2 (Temp Correct ABG HCO3 ABG O2 Saturation ABG Base Excess Respiration Rate O2 Delivery Device Ventilator Type Vent Mode FiO2 Inspiratory Time PEEP Pressure Support Pressure Control EPAP IPAP BiPAP Sodium 139 Potassium 3.7 D Chloride 100 L Carbon Dioxide 31 Anion Gap 8 BUN 65 H Creatinine 1.32 H Est GFR ( Amer) 65.7 Est GFR (Non-Af Amer) 54.3 BUN/Creatinine Ratio 49.2 H Glucose 99 Lactic Acid Calcium 8.0 L Ionized Calcium Phosphorus 2.7 Magnesium 2.5 Total Bilirubin 0.80 AST 153 H ALT 245 H Alkaline Phosphatase 56 Total Creatine Kinase Troponin I B-Natriuretic Peptide Total Protein 5.5 L Albumin 2.9 L Globulin 2.6 Albumin/Globulin Ratio 1.1 Vitamin B12 Folate Urine Color Urine Appearance Urine pH Ur Specific [place] Urine Protein Urine Ketones Urine Blood Urine Nitrate Urine Bilirubin Urine Urobilinogen Ur Leukocyte Esterase Urine WBC (Auto) Urine RBC (Auto) Urine Bacteria Urine Glucose Digoxin Urine Opiates Screen Ur Barbiturates Screen Ur Phencyclidine Scrn Ur Amphetamines Screen U Benzodiazepines Scrn Urine Cocaine Screen U Cannabinoids Screen Serum Alcohol Influenza A (Rapid) Influenza B (Rapid) Studies: CXR 03/17/18: Hyperinflated lung vicente, b/l UL interstitial opacities. CT Head 03/17/18: Measurable distinction between [place] and white matter with very subtle loss of GW matter differentiation. Nutrition: NPO Impression: 68 yo male with hx/o emphysema due to tobacco use and chronic hypoxemia continuous 2LPM of supplemental O2 being managed in the ICU after being intubated in the setting of acute respiratory arrest with resultant cardiac arrest with current concerns for anoxic brain injury # Acute respiratory failure due to hypoxemia and hypercapnea # AECOPD # PNA # Cardiac arrest # Acute encephalopathy # GI bleed # AFib # ORLY # Acute transaminitis Plan: # Acute encephalopathy suspect prolonged time of hypoxemia CT brain suggestive of possible early anoxic brain injury Did not tolerate coming off sedation - continue with Target temperature of 36 deg for total of 24 hours - Continue to target RASS 0 - -1 - Target CPOT </= 2 - shivering prevention with propofol, fentanyl, demerol - EEG as per neuro - keppra started 03/17 for shivering vs sz vs. clonus - Prn APAP for pain and fever - avoid fever # Acute respiratory failure due to hypoxemia and hypercapnea # AECOPD # PNA - pending Rcx - influenza negative - MRSA negative - discontinue vanc. Continue with zosyn and azithro - vent changes as per ABG - ABG pending - systemic steroids, bronchodilators, abx # Cardiac arrest Echo reviewed and no acute RWMA appreciated Likely precipitated by hypoxemia # Suspect PH based on TTE # AFib rate not controlled -start amio bolus followed by gtt -Will target K+ >/=4, Mg >/=2 - KCL 40 meq IV x 1 today # GI bleed INR improved 2.8-->1.56 - PPI bid - check CBC - Hold enteral feed due to concerns with GIB # Acute transaminitis likely due to ischemia improving # ORLY improving Cr 1.9--<1.3 likely pre-renal DVT ppx: SCD, pharmacologic held in setting of acute GIB GI ppx: H2B Full code Critical care issues: MV, unstable Critical Care Time: 45 minutes
[2018-03-18] MEDS: levETIRAcetam 500 MG IVPREMIX* 500 MG/100 ML BAG IV SCH ×2 (09:28→21:35)
[2018-03-18] MEDS ORDERED: Amiodarone 150 MG IVPREMIX* 150 MG/100 ML BAG IV ONE (09:53)
[2018-03-18] MEDS ORDERED: Amiodarone 360 MG IVPREMIX* 360 MG/200 ML BAG IV ONE (10:10)
[2018-03-18] MEDS: KCL 20 MEQ/100 ML IVPREMIX* 20 MEQ/100 ML BAG IV SCH ×2 (10:18→12:26)
[2018-03-18 10:20] LABS: Hematocrit 38 % (42-52); Hemoglobin 13.5 g/dl (14.0-18.0); Mean Corpuscular HGB Conc 35 g/dl (31-36); Mean Corpuscular Hemoglobin 34 pg (27-31); Mean Corpuscular Volume 97 fL (80-94); Mean Platelet Volume 9.9 fL (7.4-10.4); Platelet Count 228 10^3/ul (150-450); Red Blood Count 3.95 10^6/ul (4.00-5.40); Red Cell Distribution Width 14 % (10.5-15); White Blood Count 16.3 10^3/ul (3.5-10.8)
[2018-03-18 12:15] LABS: ABS Basophils 0.1 10^3/ul (0-0.2); ABS Eosinophils 0 10^3/ul (0-0.6); ABS Lymphocytes 0.9 10^3/ul (1.0-4.8); ABS Monocytes 0.5 10^3/ul (0-0.8); ABS Neutrophils 14.8 10^3/ul (1.5-7.7)
[2018-03-18 12:20] LABS: Immature Granulocytes 12 % (0-9); Lymphocytes % 4 %; Metamyelocytes % 1 % (0-2); Neutrophil % 84 %
[2018-03-18 12:23] LABS: ABS Neutrophils 15.65 10^3/ul (1.5-7.7)
[2018-03-18] MEDS ORDERED: NS 0.9% 1000 ML** 1,000 ML IV ONE (12:33)
--- NOTE | 2018-03-18 13:44 | CONS ---
CONSULTATION REPORT: PATIENT OF: Dr. Haney. DATE OF CONSULT: 03/18/18 HISTORY OF PRESENT ILLNESS: This 68-year-old man whose history is from the chart and from the sister, he has had an apparently 80-wcpq-blhv history of smoking and has chronic COPD and chronic hypoxemia and has oxygen at home. He was short of breath for the past 2 days' time with some tiredness and because of worsening breathing, was brought to the ER. During the EMS evaluation, he became unresponsive with a respiratory arrest that has resulted in cardiac arrest including asystole, VFib, and 5 minutes of ACLS at 10:30 yesterday. He had been able to walk to the stretcher before going into this arrest and he was intubated in the ED. 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 There has been no recent fever, cough, chest pain, or change in bowel or bladder according to the history. There is no surgical history. He does not drink. He has had some use of drugs in the past, but sister does not think currently. MEDICATIONS: Medicines at home include: 1. Atenolol 50 mg daily. 2. Xarelto 20 mg daily. 3. Mag oxide 400 mg daily. 4. Diltiazem 140 daily. 5. Tudorza 400 mcg inhalations daily. 6. Symbicort 2 puffs INH b.i.d. daily. Current medicines include: 1. Albuterol 2.5 p.r.n. 2. DuoNeb 1 neb p.r.n. 3. Amiodarone. 4. Fentanyl 15 mcg IV p.r.n. shivering. 5. Keppra 500 twice a day. 6. Methylprednisolone 40 mg IV q.8 hours. 7. Propofol drip. 8. Piperacillin/tazobactam. ALLERGIES: He has no known allergies. FAMILY HISTORY: There is a family history of breast cancer, lung cancer, hypertension, diabetes. REVIEW OF SYSTEMS: Unobtainable from the patient who is intubated on propofol. He is on a cooling protocol. PHYSICAL EXAM: On exam, temperature 97, pulse 116, respirations 19, blood pressure 110/77. He is unresponsive. He has a left pupil with 2.5 mm and reactive, right pupil is 1 mm and not reactive. This apparently has been the case noted yesterday at least by some of his care providers including his nurses throughout the hospitalization. He has had no prior eye surgery. but he is on propofol. Apparently when he was off propofol earlier, he moved both sides and had some shivering. Reflexes were mute. Chest: Clear. Cardiovascular: Regular rate and rhythm. Abdomen: Soft. DIAGNOSTIC STUDIES/LAB DATA: I reviewed his CT scan and agree that there is loss of differentiation between the florence and white matter and this could represent diffuse cerebral ischemia. He had blood gases that included initial blood gas a couple of hours after his arrest with a pH of 7.15, pCO2 of 85, pO2 of 191. Most recent blood gas yesterday night was 7.27, CO2 69, pO2 97. His white count was 16.3, hematocrit 38, platelet count 228. INR 1.56, initially 2.8. CMP today includes chloride of 100, bicarb of 31, BUN 65, creatinine 1.32. It had been creatinine 1.85 and a BUN of 80 yesterday. Blood sugar 99, lactic acid 1 now, it had been 2.1 and then initially 8.8. His LFTs include AST of 153, ALT of 245. BNP greater than 1300. His UA yesterday had a specific gravity of 1.017, protein of 2.1, 3+ whites, 3+ reds. Toxicology was presumptively positive for cannabinoids, digoxin was 3.3. Flu titers were negative. IMPRESSION AND PLAN: I discussed with Yonas's ICU doctor and his sister that he sustained a significant cardiorespiratory arrest with a significant metabolic acidosis as well as most likely an increase in his CO2. His first blood gas was done hours later. This is concerning that he could have permanent brain damage, it is possible that the findings on the CT scan are the early signs of that; however, it is too soon to know how this will play out over time and so he will need to be followed clinically and with repeat CT scans. We are going to get an EEG today. We will stop the propofol briefly to screen for subclinical seizures, but I do not think it is likely. He has asymmetric pupils , but had a CT scan that did not show any clear signs of herniation when this was occurring. We will repeat the CT scan tomorrow morning barring clinical changes. If depending on his clinical course, an MRI scan might provide further detail, but would not change our current management at this time and we will consider obtaining that in the future as need be. Dr. Philippe will be assuming his care beginning this evening. Thank you for sharing his case. [id number]/[facility] #: [id number] MTDDonato
--- NOTE | 2018-03-18 16:17 | EEG ---
ELECTROENCEPHALOGRAPHY: DATE OF STUDY: - ROOM #ICU-03 DATE OF DICTATION: 03/18/18 PATIENT OF: Demetrius Terry. 03/18/18 CLINICAL PROBLEM: This is a 68-year-old man being evaluated following hypoxic ischemic insult following a cardiopulmonary arrest. The patient has been cool, but is having shivers and this study was done to evaluate background and assess for subclinical seizures. MEDICATIONS: Include: 1. Propofol, which was stopped for this test. 2. Vancomycin. 3. Versed. 4. Demerol. 5. Fentanyl. 6. Ventolin. 7. Protonix. 8. Keppra. 9. Methylprednisolone. 10. Amiodarone. 11. Azithromycin. 12. Zosyn. 13. DuoNeb. 14. Heparin. REPORT: With the patient intubated, background cerebral activity reaches moderate amplitude diffuse 6 Hz rhythm. For much of the tracing, there was muscle movement artifact, but portions of background can be seen and there were no clear-cut epileptiform potentials. There was no evidence of subclinical seizures. CLINICAL IMPRESSION: This EEG is abnormal because of diffuse slowing of background consistent with an encephalopathy, but nonspecific as to etiology. Medications that the patient is consuming may be contributing to some of this slowing. [id number]/[facility] #: [id number] [facility]PITALDonato
[2018-03-18] MEDS: Amiodarone 360 MG IVPREMIX* 360 MG/200 ML BAG IV SCH (16:34)
[2018-03-18] MEDS: Azithromycin IV(*) 500 MG in NS 0.9% 250 ML* 250 ML IVPB SCH (16:38)
[2018-03-18] MEDS: Pantoprazole IV* 40 MG IV SCH (21:35)
[2018-03-19] MEDS ORDERED: NS 0.9% 1000 ML** 1,000 ML IV SCH (02:45)
[2018-03-19] MEDS: fentaNYL* 50 MCG/ML 2 ML VIAL (100 MCG VIAL) IV PRN ×2 (02:46→09:44)
[2018-03-19] MEDS: CHLORHEXADINE (PERIDEX) VENT ORAL CARE TOPICAL SCH ×6 (02:46→21:59)
[2018-03-19] MEDS: Propofol* 100 ML IV SCH ×3 (02:53→15:57)
[2018-03-19] MEDS: Albuterol/Ipratropium NEB.SOL* Albuterol 2.5 MG/Ipratropium 0.5 MG 3 ML INH SCH ×6 (03:23→22:55)
[2018-03-19] MEDS: methylPREDNISolone SOD 40 MG* 1 ML VIAL IV SCH ×3 (04:11→19:50)
[2018-03-19] MEDS: Amiodarone 360 MG IVPREMIX* 360 MG/200 ML BAG IV SCH (04:11)
[2018-03-19] MEDS: ZOSYN 3.375 GM Q8H per EXTENDED INFUSION IVPB SCH ×6 (04:11→19:52)
[2018-03-19 06:52] LABS: Albumin 2.7 g/dL (3.2-5.2); Calcium 8.4 mg/dL (8.6-10.3); EGFR African American 81.9 (>60); EGFR Non-African American 67.7 (>60); Globulin 2.7 g/dL (2-4); Total Bilirubin 0.7 mg/dL (0.2-1.0); Total Protein 5.4 g/dL (6.4-8.9)
[2018-03-19] MEDS: Acetaminophen ADULT LIQ* 650 MG/20.3 ML UDC NG TUBE PRN (08:30)
[2018-03-19] MEDS: levETIRAcetam 500 MG IVPREMIX* 500 MG/100 ML BAG IV SCH ×2 (09:37→19:55)
[2018-03-19] MEDS: Pantoprazole IV* 40 MG IV SCH ×2 (09:37→19:51)
[2018-03-19] MEDS: Midazolam* 1 MG/ML 2 ML VIAL (2 MG) IV PRN (09:55)
[2018-03-19] MEDS ORDERED: Polyethylene Glycol 3350* 17 GM PACKET PO PRN (09:58)
[2018-03-19] MEDS: Dexmedetomidine* 400 MCG in NS 0.9% 100 ML* 96 ML IVPB SCH ×2 (10:50→23:23)
[2018-03-19] MEDS: Meperidine Ampule* 100 MG/2 ML AMPUL IV SLOW PU PRN (11:11)
--- NOTE | 2018-03-19 11:23 | PN ---
Date of Service: 03/19/18 Critical Care Services: 68 yo male with hx/o emphysema due to tobacco use and chronic hypoxemia continuous 2LPM of supplemental O2 being managed in the ICU after being intubated in the setting of acute respiratory arrest with resultant cardiac arrest. 24 h/overnight events: No improvement in mental status(GCS ~3T). He becomes hypertensive/tachycardic when attempting SWT. Bleeding in the NGT/Subglottic improved. CT head repeated today. EEG yesterday. Rewarmed starting 03/18 1500. Was on propofol overnight. Started precedex today 03/17/18: DOA, intubation. TTM at 36 deg C 03/18/18: rewarmed Vital Signs: Temp Pulse Resp BP SpO2 FiO2 98.4 F 139 28 148/106 95 30 03/19/18 11:00 03/19/18 11:00 03/19/18 11:11 03/19/18 11:00 03/19/18 11:00 03/19 07:38 Physical Exam: General: No acute distress. Unresponsive, intubated, sedated on propofol. RASS -4- -5. HEENT: Atraumatic, right pupil 1mm/left pupil 2 mm both reactive to light. Lungs: diminished breath sounds, no wheezes Cardiovascular: +S1, +S2, tachycardic, faintly palpable pulse Abdomen: Normal bowel sounds, Soft, No tenderness, No hepatospenomegaly Extremities: No clubbing, No cyanosis, No edema Skin: No breakdown but dry skin Neurological: No response to verbal or painful stimuli, - gag. On propofol therefore not optimally accessed Fluid Balance (Past 24 Hours): I= O= Net Intake & Output 03/17/18 03/18/18 03/19/18 03/20/18 06:59 06:59 06:59 06:59 Intake Total 1912.7 3587.3 0 Output Total 884 1239 490 Balance 1028.7 2348.3 -490 Weight 131 lb 4.184 oz 136 lb 14.513 oz Intake: IV Fluids 1272.7 2017.3 ABX 71 Keppra 100 NS 1272.7 1846.3 IVPB 502 623 ABX 337 523 Calcium Gluconate 60 Keppra 105 100 Medicated IV 138 947 CC - Amiodarone 517 CC - Propofol/Diprivan 138 430 Oral 0 0 Output: NG Tube Drainage Amount 400 400 Urine 45 Ghotra 884 794 90 ADLs: Meal Record Start: 03/17/18 11: 26 Freq: 09,13,18 Status: Active Protocol: Created 03/17/18 11:26 System (Rec: 03/17/18 11:26 System ICU-M33) Document 03/17/18 13:00 [id number] (Rec: 03/17/18 17:45 [id number] ICU-M33) Document 03/17/18 18:00 [id number] (Rec: 03/17/18 19:34 [id number] ICU-C16) Document 03/18/18 09:00 [id number] (Rec: 03/18/18 09:24 [id number] ICU-M33) Document 03/18/18 13:00 [id number] (Rec: 03/18/18 13:09 RBM2362 ICU-C16) Document 03/18/18 18:00 IZN8976 (Rec: 03/18/18 18:29 [id number] ICU-C15) Intake and Output Start: 03/17/18 11: 00 Freq: Status: Active Protocol: Created 03/17/18 11:00 System (Rec: 03/17/18 11:00 System [id number]) Intake and Output Start: 03/17/18 11: 26 Freq: Q1HR Status: Active Protocol: Created 03/17/18 11:26 System (Rec: 03/17/18 11:26 System ICU-M33) Document 03/17/18 12:00 UDZ2225 (Rec: 03/17/18 16:22 [id number] ICU-C16) Document 03/17/18 13:00 ORI4838 (Rec: 03/17/18 16:22 [id number] ICU-C16) Document 03/17/18 14:00 ZPH5714 (Rec: 03/17/18 16:22 RJY2648 ICU-C16) Document 03/17/18 15:00 QIH1075 (Rec: 03/17/18 16:22 ZOC1169 ICU-C16) Document 03/17/18 17:00 SZR6695 (Rec: 03/17/18 19:16 UBR6809 ICU-C16) Document 03/17/18 19:00 UXY1127 (Rec: 03/17/18 19:16 EGZ3639 ICU-C16) Document 03/17/18 20:00 RKB9041 (Rec: 03/17/18 21:11 XJN2485 ICU-L03) Document 03/17/18 21:00 RMS8909 (Rec: 03/17/18 21:11 TDE4080 ICU-L03) Document 03/17/18 22:00 JAT1698 (Rec: 03/17/18 22:27 AOC0101 ICU-M33) Document 03/17/18 23:00 FGI8818 (Rec: 03/17/18 23:08 LCN2500 ICU-M33) Document 03/18/18 00:00 GAE0412 (Rec: 03/18/18 00:38 WEH4078 ICU-L03) Document 03/18/18 01:00 BFR3208 (Rec: 03/18/18 01:02 BCO1632 ICU-L03) Document 03/18/18 02:00 RXQ4726 (Rec: 03/18/18 03:12 IDU4820 ICU-L03) Document 03/18/18 03:00 DQQ6200 (Rec: 03/18/18 03:13 AAF1705 ICU-L03) Document 03/18/18 04:00 UKD9496 (Rec: 03/18/18 04:34 SOU8001 ICU-L03) Document 03/18/18 05:00 OCF3557 (Rec: 03/18/18 05:01 SZL4824 ICU-M33) Document 03/18/18 06:00 MVN6858 (Rec: 03/18/18 06:08 XZO4911 ICU-L03) Document 03/18/18 07:00 KBA1042 (Rec: 03/18/18 07:42 MOE6765 ICU-M33) Document 03/18/18 07:50 PWP3616 (Rec: 03/18/18 07:50 CQD4879 ICU-M33) Document 03/18/18 09:00 LRV5779 (Rec: 03/18/18 09:23 FFT2116 ICU-M33) Document 03/18/18 10:00 ZMW0151 (Rec: 03/18/18 10:21 JRI7329 ICU-M33) Document 03/18/18 11:00 PAC4195 (Rec: 03/18/18 11:14 EIW9914 ICU-C16) Document 03/18/18 12:00 ULC5402 (Rec: 03/18/18 12:37 ZFR6745 ICU-C16) Document 03/18/18 13:00 XQP1419 (Rec: 03/18/18 13:20 ONB3480 ICU-C16) Document 03/18/18 14:00 MPJ5761 (Rec: 03/18/18 14:58 KFY9092 ICU-M33) Document 03/18/18 15:00 LON8631 (Rec: 03/18/18 17:42 WBQ6681 ICU-C15) Document 03/18/18 16:05 PAU2288 (Rec: 03/18/18 18:24 KJS1942 ICU-C15) Document 03/18/18 17:00 DXT6289 (Rec: 03/18/18 18:27 ICE8541 ICU-C15) Document 03/18/18 18:00 NKB2011 (Rec: 03/18/18 18:29 OOP9853 ICU-C15) Document 03/18/18 19:00 AIG4489 (Rec: 03/18/18 20:00 ZVE5038 ICU-M33) Document 03/18/18 20:00 XXF3570 (Rec: 03/18/18 20:00 ORV8984 ICU-M33) Document 03/18/18 21:00 HNW5563 (Rec: 03/18/18 21:00 XAG6451 ICU-L03) Document 03/18/18 22:00 TOA5715 (Rec: 03/18/18 22:04 PJA3449 ICU-M33) Document 03/18/18 23:00 EUR2586 (Rec: 03/18/18 23:03 HAP2870 ICU-M33) Document 03/19/18 00:00 VAA7339 (Rec: 03/19/18 00:12 UKC6670 ICU-L03) Document 03/19/18 01:00 CJH8013 (Rec: 03/19/18 01:01 PUG1177 ICU-L03) Document 03/19/18 02:00 GOV9288 (Rec: 03/19/18 02:05 EWV1087 ICU-L03) Document 03/19/18 03:00 RAQ8514 (Rec: 03/19/18 03:02 GYX8756 ICU-M33) Document 03/19/18 04:00 TXE0466 (Rec: 03/19/18 04:28 QAF6717 ICU-L03) Document 03/19/18 05:00 PWT9240 (Rec: 03/19/18 05:15 QYO6013 ICU-L03) Document 03/19/18 06:00 DWN7108 (Rec: 03/19/18 06:21 WYN2030 ICU-M33) Document 03/19/18 07:00 [id number] (Rec: 03/19/18 08:25 UNK1107 ICU-C15) Document 03/19/18 08:00 UZL3784 (Rec: 03/19/18 08:25 SXQ1873 ICU-C15) Document 03/19/18 09:00 SLS1457 (Rec: 03/19/18 09:37 [id number] ICU-M33) Labs: Laboratory Results - last 24 hr 03/18/18 03/18/18 03/18/18 10:00 13:15 13:58 WBC 16.3 H RBC 3.95 L Hgb 13.5 L Hct 38 L MCV 97 H MCH 34 H MCHC 35 RDW 14 Plt Count 228 MPV 9.9 Absolute Neuts (auto) 14.8 H Absolute Lymphs (auto) 0.9 L Absolute Monos (auto) 0.5 Absolute Eos (auto) 0 Absolute Basos (auto) 0.1 Immature Gran % 12 H Neutrophils % 84 Band Neutrophils % 11 H Lymphocytes % 4 Metamyelocytes % 1 Abs Neuts (Manual) 15.65 H Abs Lymphs (Manual) 0.652 L Abs Monocytes (Manual) 0 Normal RBC Morphology Normal Hem Pathologist Commnt Fibrinogen < 205.7 Patient Temperature Not Reportable ABG pH 7.31 L ABG pH (Temp Correct) Not Reportable ABG pCO2 71 H ABG pCO2 (Temp Corrct Not Reportable ABG pO2 81 ABG pO2 (Temp Correct Not Reportable ABG HCO3 30.1 ABG O2 Saturation 96.3 ABG Base Excess 6.8 H Respiration Rate 18 O2 Delivery Device vent Ventilator Type 450 Vent Mode Not Reportable FiO2 30 Inspiratory Time Not Reportable PEEP 5 Pressure Support Not Reportable Pressure Control Not Reportable EPAP Not Reportable IPAP Not Reportable BiPAP Not Reportable Sodium Potassium Chloride Carbon Dioxide Anion Gap BUN Creatinine Est GFR ( Amer) Est GFR (Non-Af Amer) BUN/Creatinine Ratio Glucose Calcium Total Bilirubin AST ALT Alkaline Phosphatase Total Protein Albumin Globulin Albumin/Globulin Ratio 03/18/18 03/19/18 21:45 06:30 WBC RBC Hgb Hct MCV MCH MCHC RDW Plt Count MPV Absolute Neuts (auto) Absolute Lymphs (auto) Absolute Monos (auto) Absolute Eos (auto) Absolute Basos (auto) Immature Gran % Neutrophils % Band Neutrophils % Lymphocytes % Metamyelocytes % Abs Neuts (Manual) Abs Lymphs (Manual) Abs Monocytes (Manual) Normal RBC Morphology Hem Pathologist Commnt Fibrinogen 362.3 Patient Temperature ABG pH ABG pH (Temp Correct) ABG pCO2 ABG pCO2 (Temp Corrct ABG pO2 ABG pO2 (Temp Correct ABG HCO3 ABG O2 Saturation ABG Base Excess Respiration Rate O2 Delivery Device Ventilator Type Vent Mode FiO2 Inspiratory Time PEEP Pressure Support Pressure Control EPAP IPAP BiPAP Sodium 140 Potassium 4.0 Chloride 100 L Carbon Dioxide 33 H Anion Gap 7 BUN 48 H Creatinine 1.09 Est GFR ( Amer) 81.9 Est GFR (Non-Af Amer) 67.7 BUN/Creatinine Ratio 44.0 H Glucose 167 H Calcium 8.4 L Total Bilirubin 0.70 AST 94 H ALT 199 H Alkaline Phosphatase 59 Total Protein 5.4 L Albumin 2.7 L Globulin 2.7 Albumin/Globulin Ratio 1.0 Studies: CXR 03/19/18: hyperinflated lung vicente. ETT 4 cm above the antonina. No acute cardiopulmonary disease appreciated CXR 03/17/18: Hyperinflated lung vicente, b/l UL interstitial opacities. CT head 03/19/18: Reduction in differentiation bw the GW matter similar to previous CT brain CT Head 03/17/18: Measurable distinction between florence and white matter with very subtle loss of GW matter differentiation. EEG 03/18/18: Abnormal due to diffuse slowing of background consitent with encephalopathy but nonspecific Nutrition: start TF 03/19/18 Impression: 68 yo male with hx/o emphysema due to tobacco use and chronic hypoxemia continuous 2LPM of supplemental O2 being managed in the ICU after being intubated in the setting of acute respiratory arrest with resultant cardiac arrest with current concerns for anoxic brain injury # Acute respiratory failure due to hypoxemia and hypercapnea # AECOPD # PNA # Cardiac arrest # Acute encephalopathy concern for anoxic brain injury # GI bleed # AFib # ORLY # Acute transaminitis # Leukocytois Plan: # Acute encephalopathy with concern for JAMESON suspect prolonged time of hypoxemia CT brain 48 hours apart (03/17, 03/19) suggestive of possible anoxic brain injury EEG concerning for diffuse slowing Patient has not tolerated coming off sedation - Continue to target RASS 0 - -1 - Target CPOT </= 2 - shivering prevention with propofol, fentanyl, demerol - will start precedex in an attempt to further minimize sedation and analgesia - continue with keppra (started 03/17) for seizure ppx - Prn APAP for pain and fever - avoid fever - neuro input appreciated - consider MRI head based on neuro # Acute respiratory failure due to hypoxemia and hypercapnea # AECOPD # PNA Rcx + Haemophilus influenza influenza negative, MRSA negative - Continue with zosyn and azithro - vent changes as per ABG - ABG pending - systemic steroids, bronchodilators, abx # Cardiac arrest Echo reviewed and no acute RWMA appreciated Likely precipitated by hypoxemia # Suspect PH based on TTE # AFib with RVR rate not controlled -amio bolus followed by gtt started 03/18 - will start scheduled metoprolol 25 mg Q8H via NGT and prn IV metoprolol -Target K+ >/=4, Mg >/=2 # GI bleed INR improved 2.8-->1.56 bleeding seems to be controlled - PPI bid 03/18 - check CBC - start TF 03/18 # Acute transaminitis likely due to ischemia improving # ORLY improving Cr 1.9--<1.3-->1.0 likely pre-renal # Leukocytois Infectious vs reactive vs steroid induced reculture if febrile or WBC continues to increase DVT ppx: SCD,SQH GI ppx: H2B Prognosis: appears to be poor Full code Critical care issues: MV, unstable Critical Care Time: 45 minutes
[2018-03-19] MEDS ORDERED: NS 0.9% 1000 ML** 1,000 ML IV ONE (12:11)
[2018-03-19] MEDS: Metoprolol Tartrate TAB* 25 MG PO SCH ×2 (13:32→19:51)
[2018-03-19] MEDS: Heparin VIAL(*) 5000 UNITS/ML VIAL (FIVE THOUSAND) SUBCUT SCH ×2 (13:32→21:58)
[2018-03-19] MEDS ORDERED: Vancomycin Trough Check NOTE FOLLOW UP ONE (14:30)
[2018-03-19] MEDS: Azithromycin IV(*) 500 MG in NS 0.9% 250 ML* 250 ML IVPB SCH (15:44)
--- NOTE | 2018-03-19 17:19 | CONS ---
NEUROLOGY CONSULTATION FOLLOWUP NOTE: DATE OF CONSULT: 03/19/18 CONTROL CLERK HEAD: Dr. Haney. LOCATION: He is in ICU bed 3. CHIEF COMPLAINT: Status post cardiopulmonary arrest. INTERVAL HISTORY: Since yesterday, Mr. Beck has been taken out of hypothermia and looking at thi s vitals his temperature was 95.2 by Ghotra probe at 3:45 in the morning on 03/18/18, it was next raf rded of 97 by Ghotra probe at 08:30 in the morning on 03/18/18, it was 98.1 by 03/18/18 at 12:45 in th e afternoon. He has been on propofol on and off largely to control tachycardia or tachypnea. The family has not no ticed any spontaneous movements. His nurse, Juan, notes that he sometimes gags when suctioned an d sometimes does not. He has not had any recorded episodes of significant hypoxia or hypotension in the last 24 to 48 hours. MEDICATIONS: Medications are reviewed and he did have propofol restarted shortly before I arrived. I asked him to be turned off after evaluate him. He otherwise remains on: 1. Amiodarone. 2. Inhalers. 3. Azithromycin 250 mg every 24 hours. 4. Dexmedetomidine infusion. 5. Fentanyl p.r.n. shivering. 6. I was told he received some opiates in the last hour and half. 7. He is on Keppra 500 mg IV twice a day. 8. He remains on methylprednisolone 40 mg IV q.8 hours. 9. Metoprolol IV p.r.n. 10. Metoprolol 25 mg p.o. q.8 hours. 11. Protonix IV 40 mg IV daily. 12. Zosyn q.8 hours. PHYSICAL EXAM: Most Recent Vitals: Temperature 98.4 orally, heart rates running 130 to 150 on the m onitor, respiratory rate is up to at 28 when he is not on propofol, oxygen saturations 95% at 11 this morning. Heart tones are distant and sounds somewhat irregular. Neck is supple. Neurological Exam: Pupils are tiny, barely 2 mm and are symmetric. They both react to light to perh aps 1.5 mm. Eyes are divergent with the left eye deviated somewhat laterally. I could not obtain an y vestibulo-ocular reflex movements. I was able to see his left fundus and he does have a sharp disc in the left eye, but I could not see the right fundus adequately. He has a very weak corneal reflex es bilaterally. I could not get a nasal tickle response. With a deep nail bed pressure to his limbs , I was able to elicit bilateral facial movements including some jaw movements and tongue protrusion. Muscle tone is generally flaccid. With deep nail bed pressure to the right upper extremity, there is extensor posturing of the upper extremities and no lower extremity movement. With deep nail pressur e to the left upper extremity, he flexed of the left arm only and what appear to be somewhat of withd constanza and there was an increase in facial movements. There was some shoulder shrugging. With deep n ail bed pressure to the lower extremities again, there was some upper extremity shrugging and some fl exion of the right arm and extension at the shoulder. There is a slight flexion withdrawal of each l imb of the lower extremities with a deep nail bed pressure. There was no response to plantar stimula tion. DIAGNOSTIC STUDIES/LAB DATA: Laboratory date is reviewed. He had a CT scan of the brain yesterday a nd again today interpreted as showing some loss of differentiation of florence white matter junction. Th e scans are a little bit contaminated by movement to my assessment. There is no evidence of hypoden sities or hemorrhages and no major signs of cerebral edema. Other laboratory data notable for chemistries today with a chloride of 100 and carbon dioxide 33. BU N went from 65 yesterday to 48 today and creatinine went from 1.3 to 1.09 today. Glucose this mornin g is 167. His liver enzymes came down from yesterday with AST 153 on 03/18/18 and 94 today; ALT 245 on 03/18/18 and 199 today. An EEG done yesterday interpreted by Dr. Bebeto Terry, as showing diffuse slowing. Impression is that of encephalopathy, status post cardiopulmonary arrest. He is a little over 24 angeline rs post hypothermia. At this point, there is some movement of his limbs and facial musculature. His EEG shows slowing, but nothing ominous. His CT scan is interpreted as showing some loss of florence whi te matter differentiation, but to my review does not show any major signs of cerebral edema. IMPRESSION AND PLAN: It is too early to have a firm prognosis as to his likely neurological outcome. He will need to be followed daily and have a neurological exam with the propofol turned off when po ssible. We may repeat his EEG and CT of the brain on Wednesday, depending upon how he is doing clinical ly. I have discussed my impression with patient's sister, who is at the bed side as well as several family members. Also, discussed my impression with Dr. Haney. [id number]/[facility] #: [id number]
[2018-03-19 17:47] LABS: Hematocrit 37 % (42-52); Hemoglobin 11.6 g/dl (14.0-18.0); Mean Corpuscular HGB Conc 31 g/dl (31-36); Mean Corpuscular Hemoglobin 31 pg (27-31); Mean Corpuscular Volume 98 fL (80-94); Mean Platelet Volume 8.9 fL (7.4-10.4); Platelet Count 173 10^3/ul (150-450); Red Blood Count 3.79 10^6/ul (4.00-5.40); Red Cell Distribution Width 15 % (10.5-15); White Blood Count 16.9 10^3/ul (3.5-10.8)
[2018-03-19 18:53] LABS: ABS Basophils 0 10^3/ul (0-0.2); ABS Eosinophils 0 10^3/ul (0-0.6); ABS Lymphocytes 0.3 10^3/ul (1.0-4.8); ABS Monocytes 0.4 10^3/ul (0-0.8); ABS Neutrophils 16.2 10^3/ul (1.5-7.7); ABS Nucleated RBC 0.1 10^3/ul; Eosinophil % 0 %; Lymphocyte % 1.9 %; Nucleated Red Blood Cells % 0.9
[2018-03-19] MEDS: Docusate LIQ* 100 MG/10 ML UDC PO SCH (19:51)
[2018-03-19] MEDS: Senna TAB PO SCH (19:53)
[2018-03-20] MEDS: Albuterol/Ipratropium NEB.SOL* Albuterol 2.5 MG/Ipratropium 0.5 MG 3 ML INH SCH ×6 (02:59→22:58)
[2018-03-20] MEDS: ZOSYN 3.375 GM Q8H per EXTENDED INFUSION IVPB SCH ×6 (05:40→20:24)
[2018-03-20] MEDS: methylPREDNISolone SOD 40 MG* 1 ML VIAL IV SCH ×2 (05:40→17:35)
[2018-03-20] MEDS: CHLORHEXADINE (PERIDEX) VENT ORAL CARE TOPICAL SCH ×6 (05:40→23:17)
[2018-03-20] MEDS: Metoprolol Tartrate TAB* 25 MG PO SCH (05:41)
[2018-03-20] MEDS: Heparin VIAL(*) 5000 UNITS/ML VIAL (FIVE THOUSAND) SUBCUT SCH ×3 (07:20→21:26)
[2018-03-20 08:07] LABS: Albumin 2.8 g/dL (3.2-5.2); Calcium 8.5 mg/dL (8.6-10.3); Total Bilirubin 0.6 mg/dL (0.2-1.0)
[2018-03-20] MEDS: Metoprolol Tartrate IV* 1 MG/ML 5 ML VIAL IV PRN ×2 (08:11→14:49)
[2018-03-20] MEDS: Docusate LIQ* 100 MG/10 ML UDC PO SCH ×2 (08:11→21:32)
[2018-03-20] MEDS: Pantoprazole IV* 40 MG IV SCH ×2 (08:11→21:27)
[2018-03-20 08:13] LABS: Albumin/Globulin Ratio 1.2 (1-3); BUN/Creatinine Ratio 38.5 (8-20); EGFR African American 94.8 (>60); EGFR Non-African American 78.4 (>60); Globulin 2.4 g/dL (2-4); Total Protein 5.2 g/dL (6.4-8.9)
[2018-03-20 08:39] LABS: Hematocrit 37 % (42-52); Hemoglobin 11.8 g/dl (14.0-18.0); Mean Corpuscular HGB Conc 32 g/dl (31-36); Mean Corpuscular Hemoglobin 31 pg (27-31); Mean Corpuscular Volume 97 fL (80-94); Mean Platelet Volume 8.5 fL (7.4-10.4); Platelet Count 159 10^3/ul (150-450); Red Blood Count 3.84 10^6/ul (4.00-5.40); Red Cell Distribution Width 15 % (10.5-15); White Blood Count 19.5 10^3/ul (3.5-10.8)
[2018-03-20 09:03] LABS: Urine Appearance Cloudy; Urine Bacteria Absent (Absent); Urine Bilirubin Negative (Negative); Urine Blood 3+ (Negative); Urine Color Yellow; Urine Glucose Negative (Negative); Urine Ketones Negative (Negative); Urine Nitrite Negative (Negative); Urine Protein 1+(30 mg/dL) (Negative); Urine Red Blood Cell 3+(>10/hpf) (Absent); Urine Urobilinogen Positive (Negative); Urine White Blood Cell 3+(>20/hpf) (Absent)
[2018-03-20] MEDS ORDERED: NS 0.9% 1000 ML** 1,000 ML IV SCH (09:15)
[2018-03-20] MEDS: levETIRAcetam 500 MG IVPREMIX* 500 MG/100 ML BAG IV SCH ×2 (09:20→21:22)
--- NOTE | 2018-03-20 09:21 | PN ---
Date of Service: 03/20/18 - [facility] note Critical Care Services: Pt seen and examined at bedside, pt remains sedated on propofol and precedex. No acute events o/n. UO is dark , UA was sent Slight improvement in neurological status Had episodes of tachycardia yesterday, was started on metoprolol. Has gag response to suctioning Vital Signs: Temp Pulse Resp BP SpO2 FiO2 98.1 F 119 20 142/94 100 30 03/20/18 07:31 03/20/18 07:37 03/20/18 07:37 03/20/18 07:31 03/20/18 07:37 03/20 07:37 Physical Exam: Gen: Pt is sedated, on vent HEENT: PERRLA Lungs: Diminished air entery b/l, scattered wheeze+ Cardiac: S1, S2+, tachycardic Abdomen:Soft, BS+ Extremities: No edema Neuro:Sedated, unable to perform complete neuro exam Skin: No rash Fluid Balance (Past 24 Hours): N=3119 O= 1280 Net 1396 Intake & Output 03/18/18 03/19/18 03/20/18 03/21/18 06:59 06:59 06:59 06:59 Intake Total 1912.7 3587.3 2676.2 Output Total 884 1239 1280 100 Balance 1028.7 2348.3 1396.2 -100 Weight 131 lb 4.184 oz 136 lb 14.513 oz 141 lb 15.643 oz Intake: IV Fluids 1272.7 2017.3 1461 ABX 71 108 Keppra 100 105 NS 1272.7 1846.3 1248 IVPB 502 623 543 ABX 337 523 Calcium Gluconate 60 Keppra 105 100 NS 543 Medicated IV 138 947 322.2 CC - Amiodarone 517 171.9 CC - Dexmedetomidine/ 53 Precedex CC - Propofol/Diprivan 138 430 97.3 Oral 0 0 Tube Feeding 320 Tube Feeding Flush Amount 30 Output: NG Tube Drainage Amount 400 400 Urine 45 155 Ghotra 884 794 725 100 Labs: Laboratory Results - last 24 hr 03/19/18 03/19/18 03/20/18 12:07 14:45 06:50 WBC 16.9 H RBC 3.79 L Hgb 11.6 L Hct 37 L MCV 98 H MCH 31 MCHC 31 RDW 15 Plt Count 173 MPV 8.9 Neut % (Auto) 95.4 Lymph % (Auto) 1.9 [place] % (Auto) 2.5 Eos % (Auto) 0 Baso % (Auto) 0.2 Absolute Neuts (auto) 16.2 H Absolute Lymphs (auto) 0.3 L Absolute Monos (auto) 0.4 Absolute Eos (auto) 0 Absolute Basos (auto) 0 Absolute Nucleated RBC 0.1 Nucleated RBC % 0.9 Patient Temperature Not Reportable ABG pH 7.39 ABG pH (Temp Correct) Not Reportable ABG pCO2 62 H ABG pCO2 (Temp Corrct Not Reportable ABG pO2 86 ABG pO2 (Temp Correct Not Reportable ABG HCO3 32.8 H ABG O2 Saturation 97.9 ABG Base Excess 10.1 H Respiration Rate Not Reportable O2 Delivery Device [facility] vent Ventilator Type Not Reportable Vent Mode Not Reportable FiO2 30 Inspiratory Time Not Reportable PEEP Not Reportable Pressure Support Not Reportable Pressure Control Not Reportable EPAP Not Reportable IPAP Not Reportable BiPAP Not Reportable Sodium 146 H Potassium 4.0 Chloride 105 Carbon Dioxide 36 H Anion Gap 5 BUN 37 H Creatinine 0.96 Est GFR ( Amer) 94.8 Est GFR (Non-Af Amer) 78.4 BUN/Creatinine Ratio 38.5 H Glucose 113 H Calcium 8.5 L Total Bilirubin 0.60 AST 74 H ALT 179 H Alkaline Phosphatase 60 Total Creatine Kinase Total Protein 5.2 L Albumin 2.8 L Globulin 2.4 Albumin/Globulin Ratio 1.2 Urine Color Urine Appearance Urine pH Ur Specific [place] Urine Protein Urine Ketones Urine Blood Urine Nitrate Urine Bilirubin Urine Urobilinogen Ur Leukocyte Esterase Urine WBC (Auto) Urine RBC (Auto) Urine Bacteria Urine Glucose Urine Ascorbic Acid 03/20/18 03/20/18 03/20/18 08:25 08:25 08:40 WBC 19.5 H RBC 3.84 L Hgb 11.8 L Hct 37 L MCV 97 H MCH 31 MCHC 32 RDW 15 Plt Count 159 MPV 8.5 Neut % (Auto) Lymph % (Auto) [place] % (Auto) Eos % (Auto) Baso % (Auto) Absolute Neuts (auto) Absolute Lymphs (auto) Absolute Monos (auto) Absolute Eos (auto) Absolute Basos (auto) Absolute Nucleated RBC Nucleated RBC % Patient Temperature ABG pH ABG pH (Temp Correct) ABG pCO2 ABG pCO2 (Temp Corrct ABG pO2 ABG pO2 (Temp Correct ABG HCO3 ABG O2 Saturation ABG Base Excess Respiration Rate O2 Delivery Device Ventilator Type Vent Mode FiO2 Inspiratory Time PEEP Pressure Support Pressure Control EPAP IPAP BiPAP Sodium Potassium Chloride Carbon Dioxide Anion Gap BUN Creatinine Est GFR ( Amer) Est GFR (Non-Af Amer) BUN/Creatinine Ratio Glucose Calcium Total Bilirubin AST ALT Alkaline Phosphatase Total Creatine Kinase 147 Total Protein Albumin Globulin Albumin/Globulin Ratio Urine Color Yellow Urine Appearance Cloudy Urine pH 6.0 Ur Specific [place] 1.030 Urine Protein 1+(30 mg/dl) A Urine Ketones Negative Urine Blood 3+ A Urine Nitrate Negative Urine Bilirubin Negative Urine Urobilinogen Positive A Ur Leukocyte Esterase Trace A Urine WBC (Auto) 3+(>20/hpf) A Urine RBC (Auto) 3+(>10/hpf) A Urine Bacteria Absent Urine Glucose Negative Urine Ascorbic Acid * A Studies: CXR 03/19: ETT+, no acute opacities CT brain:? evidence of loss of white and florence differentiation Nutrition: Tube feeds, added free water through PEG Impression: 68 y o m with h/o COPD with worsening SOB for few weeks prior to admission, BIB EMS for evaluation of SOB, pt apparently walked to stretcher and then became unresponsive, had cardiac arrest- asystoly/V.fib/asystoly, epi X1, CPR for 5 min with ROSC in ambulance. Pt was admitted in ED and was admitted to ICU. Pt was started on hypothermia protocol, rewarming completed at 3 pm 03/19/18. Pt with concerns with anoxic encephalopthy. Pt with slight improvement in mental status, target temperature being maintained. 1. S/p cardiac arrest with RPSC, hypothermia protocol 2. Hypoxic and hypercapnic resp failure 3. Encephalopathy 4. COPD exacerbation 5.PNA 6. GI bleed with no drop in H&H 7.A.fib with RVR 8. Hematuria, had elevated INR on admission 9. ORLY- Resolved 10. Elevated troponins sec to CPR 11. Elevated transaminases-sec to cardiac arrest Plan: 1. Neuro: Sedation vacation today to be able to assess neuro status. c/w precedex and Fentanyl prn for pain. Will keep off Propofol if pt tolerates. CT brain concerning for hypoxic encephalopathy, too early to assess neuro status as pt is not 76 hrs post rewarming. Has gag relex. Keep HOB elevated at 30. Will need f/u CT brain in am. Neurology f/u 2. Resp: COPD on home O2 with hypercapnic and hypoxic resp failure sec to acute COPD exacerbation. Improving. Vent settings acceptable. Weaning trail. Pulm toilet. c/w nebs. On abx for PNA. Less likely to be PE as pt on thereupeutic INR on admission. Has evidence of pulm HTN sec to h/o hypoxia and COPD. Will titrate steroids to 40mg q 12. 3. CVS: A.fib with RVR, rate slowed down, metoprolol dose increased, also receiving prn. On Coumadin at home, hled sec to concern with GI bleed. Off Amio drip. 4. GI: Tolerating tube feeds. No evidence of ongoing GI bleed. c/w free water through OGT. Gi ppx. Acute transaminitis improving 5. Haem: Leucocytosis trending up- sepsis versus steroids. H&H dropped since admission, stable now. Platelet count dropping. Baseline platelet count around 160, might have been elevated on admission due to sepsis and hemoconcentration. Will monitor closely. 6. ID: H.influenza PNA+, on Azithromycin day#4/5 and Zosyn day#4. Will deescalate abx once susceptibilities available. Low grade fever, will maintain normothermia to preserve cerebral function. Will reculture if temp elevated. 7.Renal: ORLY resolved, UA repeated- blood noted, CK within normal limits. c/w IV fluids, Coumadin being held, INR trending down. No acute bleeding. c/w IVF, UO 30-40cc/hr. Ghotra to avoid skin breakdown and for hemodynamic monitoring. 8. Psychosocial: Will update sister when arrives DVT/GI px IV access: Peripheral Critical Care Time: 40 min
[2018-03-20 09:34] LABS: ABS Basophils 0 10^3/ul (0-0.2); ABS Eosinophils 0 10^3/ul (0-0.6); ABS Lymphocytes 0.5 10^3/ul (1.0-4.8); ABS Monocytes 0.5 10^3/ul (0-0.8); ABS Neutrophils 18.5 10^3/ul (1.5-7.7); ABS Nucleated RBC 0.1 10^3/ul; Eosinophil % 0 %; Lymphocyte % 2.6 %; Nucleated Red Blood Cells % 0.7
[2018-03-20] MEDS: fentaNYL* 50 MCG/ML 2 ML VIAL (100 MCG VIAL) IV PRN ×3 (09:59→14:49)
[2018-03-20] MEDS: Metoprolol Tartrate TAB* 50 mg PO SCH ×2 (10:00→21:34)
[2018-03-20] MEDS: Midazolam* 1 MG/ML 2 ML VIAL (2 MG) IV PRN (11:10)
[2018-03-20] MEDS: Dexmedetomidine* 400 MCG in NS 0.9% 100 ML* 96 ML IVPB SCH ×2 (12:13→21:39)
[2018-03-20] MEDS ORDERED: Metoprolol Tartrate IV* 1 MG/ML 5 ML VIAL IV STA (12:40)
[2018-03-20] MEDS: Acetaminophen ADULT LIQ* 650 MG/20.3 ML UDC NG TUBE PRN (14:18)
[2018-03-20] MEDS ORDERED: hydrALAZINE IV* 20 MG/ML VIAL IV SLOW PU STA (15:18)
[2018-03-20] MEDS: Azithromycin IV(*) 500 MG in NS 0.9% 250 ML* 250 ML IVPB SCH (15:32)
[2018-03-20] MEDS: Propofol* 100 ML IV SCH (17:34)
[2018-03-20] MEDS: Diltiazem TAB* 30 MG PO SCH ×2 (17:35→23:17)
--- NOTE | 2018-03-20 20:19 | CONS ---
NEUROLOGY FOLLOWUP NOTE: DATE OF FOLLOWUP: 03/20/18 SPECIAL AGENT IN CHARGE: Dr. Rodarte. LOCATION: He is an inpatient, ICU bed 3. CHIEF COMPLAINT: Cardiopulmonary arrest, encephalopathy. INTERVAL HISTORY: Since yesterday, Yonas reportedly is a little more responsive. I evaluated him when he is still on propofol and I am not able to get much out of him, see my exam below. MEDICATIONS: Medications are reviewed and he is on: 1. Propofol 20 mcg. 2. Zosyn. 3. Protonix 40 mg IV b.i.d. 4. Metoprolol 50 mg q.12 hours. 5. Methylprednisolone 40 mg IV q.12 hours. 6. Keppra 500 mg IV b.i.d. 7. Subcutaneous heparin q.8 hours. 8. Dexmedetomidine. 9. Albuterol inhalers. PHYSICAL EXAM: He is 99.9 by Ghotra probe, blood pressure running 148/94, heart rate running about 100 to 110. Respiratory rate is 18 and oxygen saturation is 100%. On examination, he is intubated. He is on propofol. There are no spontaneous movements. Heart tones are distant and irregular. Neck is supple. Pupils are tiny, at most 2 mm, react to light to perhaps 1-3/4 mm. The left eye is slightly divergent. There are no spontaneous eye movements. There is no response to visual threat. There are no vestibular ocular reflexes. There is no facial movement. Limbs are flaccid. There is no response to deep pain. He is areflexic. DIAGNOSTIC STUDIES/LAB DATA: Laboratory data from today notable for a CBC with a white blood cell count elevated to 19.5 with absolute neutrophils up to 18.5. Hemoglobin is stable and platelet count is 159,000. Urinalysis from today notable for 1+ protein, 3+ blood, 3+ white blood cells and 3+ red blood cells. Urobilinogen is positive and leukocyte esterase is trace. No other new laboratory studies. IMPRESSION AND PLAN: Impression is that of hypoxic ischemic encephalopathy. Dr. Rodarte's note indicates that he was more responsive when he was off propofol. Prognosis remains uncertain. Tomorrow, we will plan on obtaining an EEG and repeat CAT scan of the brain. Dr. Rogel will be on service tomorrow and will reevaluate him. [id number]/[facility] #: [id number] [facility]
[2018-03-20] MEDS: Senna TAB PO SCH (21:34)
[2018-03-21] MEDS: Propofol* 100 ML IV SCH ×2 (01:34→10:11)
[2018-03-21] MEDS: Albuterol/Ipratropium NEB.SOL* Albuterol 2.5 MG/Ipratropium 0.5 MG 3 ML INH SCH ×6 (03:01→23:21)
[2018-03-21] MEDS: ZOSYN 3.375 GM Q8H per EXTENDED INFUSION IVPB SCH ×2 (04:46)
[2018-03-21] MEDS: CHLORHEXADINE (PERIDEX) VENT ORAL CARE TOPICAL SCH ×6 (04:46→22:25)
[2018-03-21] MEDS: Heparin VIAL(*) 5000 UNITS/ML VIAL (FIVE THOUSAND) SUBCUT SCH ×3 (06:55→21:24)
[2018-03-21] MEDS: methylPREDNISolone SOD 40 MG* 1 ML VIAL IV SCH (06:55)
[2018-03-21] MEDS: Diltiazem TAB* 30 MG PO SCH ×3 (06:55→18:01)
[2018-03-21] MEDS: Dexmedetomidine* 400 MCG in NS 0.9% 100 ML* 96 ML IVPB SCH ×3 (07:39→21:20)
[2018-03-21] MEDS: levETIRAcetam 500 MG IVPREMIX* 500 MG/100 ML BAG IV SCH ×2 (08:25→20:10)
[2018-03-21] MEDS: Docusate LIQ* 100 MG/10 ML UDC PO SCH ×2 (08:25→20:09)
[2018-03-21] MEDS: Pantoprazole IV* 40 MG IV SCH (08:25)
[2018-03-21] MEDS: Metoprolol Tartrate TAB* 50 mg PO SCH ×2 (08:27→20:15)
[2018-03-21 10:01] LABS: Hematocrit 37 % (42-52); Hemoglobin 11.8 g/dl (14.0-18.0); Mean Corpuscular HGB Conc 32 g/dl (31-36); Mean Corpuscular Hemoglobin 31 pg (27-31); Mean Corpuscular Volume 97 fL (80-94); Mean Platelet Volume 8.3 fL (7.4-10.4); Platelet Count 158 10^3/ul (150-450); Red Blood Count 3.81 10^6/ul (4.00-5.40); Red Cell Distribution Width 15 % (10.5-15); White Blood Count 17.4 10^3/ul (3.5-10.8)
[2018-03-21 10:26] LABS: Albumin 2.8 g/dL (3.2-5.2); Albumin/Globulin Ratio 1.1 (1-3); BUN/Creatinine Ratio 33.7 (8-20); Calcium 8.1 mg/dL (8.6-10.3); EGFR Non-African American 79.3 (>60); Globulin 2.5 g/dL (2-4); Potassium 4.2 mmol/L (3.5-5.0); Total Bilirubin 0.5 mg/dL (0.2-1.0); Total Protein 5.3 g/dL (6.4-8.9)
[2018-03-21 10:28] LABS: CKMB ng/mL 1.4 ng/mL (0.6-6.3)
[2018-03-21 10:33] LABS: INR 1.14 (0.77-1.02)
--- NOTE | 2018-03-21 11:06 | PN ---
Progress Note - Progress Note Date of Service: 03/21/18 Note: Progress Note -- Critical Care 24 hour events/significant events: -no event overngiht -on propofol and precedex for sedation -BP stable, off pressors -HR controlled, BP 120-140s -awakens slowly, doesnt follow commands yet -tmax 99.7 Tele: afib Vitals: Vital Signs Temp 99.1 F 03/21/18 11:01 Pulse 109 03/21/18 11:01 Resp 18 03/21/18 09:00 BP 127/74 03/21/18 11:00 Pulse Ox 96 03/21/18 11:01 Intake & Output 03/20/18 03/21/18 03/21/18 18:59 06:59 18:59 Intake Total 1047.2 2893 Output Total 545 450 150 Balance 502.2 2443 -150 Weight 65.9 kg Intake: IV Fluids 514.6 1239 ABX 138 195 Keppra 99.2 NS 277.4 1044 IVPB 417 ABX 375 NS 42 Medicated IV 95.6 287 CC - Dexmedetomidine/ 76.4 172 Precedex CC - Propofol/Diprivan 19.2 115 Tube Feeding 437 650 Tube Feeding Flush Amount 300 Output: Ghotra 545 450 150 O2/Vent: AC 30% 18/500/+5 Infusions: propofol, precedex Medications: Acetaminophen (Tylenol Adult Liq*) 650 mg NG TUBE Q4H PRN PRN Reason: TEMPERATURE Last Admin: 03/20/18 14:18 Dose: 650 mg Albuterol (Ventolin 2.5 Mg/3 Ml Neb.Alena*) 2.5 mg INH Q2H PRN PRN Reason: SOB/WHEEZING Last Admin: 03/17/18 14:25 Dose: 2.5 mg Albuterol/Ipratropium (Duoneb (Albuterol 2.5 Mg/Ipratropium 0.5 Mg)) 1 neb INH [id number] AWAKE CLARA Last Admin: 03/21/18 10:43 Dose: 1 neb Chlorhexidine Gluconate (Peridex Mouth Wash 0.12%*) 15 ml TOPICAL Q4H CLARA Last Admin: 03/21/18 10:10 Dose: 15 ml Diltiazem HCl (Cardizem Tab*) 30 mg PO Q6HR CLARA Last Admin: 03/21/18 06:55 Dose: 30 mg Docusate Sodium (Colace Liq*) 100 mg PO BID [facility], [facility] Last Admin: 03/21/18 08:25 Dose: 100 mg Fentanyl Citrate (Fentanyl*) 50 mcg IV Q2H PRN PRN Reason: SHIVERING Last Admin: 03/20/18 14:49 Dose: 50 mcg Heparin Sodium (Porcine) (Heparin Flush Picc/Ml/Cvc(*)) 1 - 3 ml FLUSH 0600, 1800 [facility], [facility]; Protocol Last Admin: 03/21/18 05:29 Dose: Not Given Heparin Sodium (Porcine) (Heparin Vial(*)) 5,000 units SUBCUT Q8HR [facility], [facility]1983 Last Admin: 03/21/18 06:55 Dose: 5,000 units Propofol (Diprivan*) 100 mls @ 6.804 mls/hr IV .(Initial Rate) [facility], [facility]1983; Protocol Last Admin: 03/21/18 10:11 Dose: 10.3 mls/hr Levetiracetam (Keppra Iv Premix*) 500 mg in 100 mls @ 400 mls/hr IV BID [facility], [facility]1983 Last Admin: 03/21/18 08:25 Dose: 400 mls/hr Dexmedetomidine HCl 400 mcg/ (Sodium Chloride) 100 mls @ 3.1 mls/hr IVPB Q24H [facility], [facility]; Protocol Last Admin: 03/21/18 07:39 Dose: 10.9 mls/hr Ceftriaxone Sodium 1 gm/ (Sodium Chloride) 50 mls @ 200 mls/hr IVPB Q24H [facility]1983 Stop: 03/24/18 12:59 Methylprednisolone Sodium Succinate (Solu-Medrol 40 Mg) 40 mg IV Q12H [facility] Last Admin: 03/21/18 06:55 Dose: 40 mg Metoprolol Tartrate (Lopressor Iv*) 5 mg IV Q6H PRN PRN Reason: HEART RATE/PULSE Last Admin: 03/20/18 14:49 Dose: 5 mg Metoprolol Tartrate (Lopressor Tab*) 50 mg PO Q12HR [facility] Last Admin: 03/21/18 08:27 Dose: 50 mg Pantoprazole Sodium (Protonix Iv*) 40 mg IV BID [facility] Last Admin: 03/21/18 08:25 Dose: 40 mg Polyethylene Glycol/Electrolytes (Miralax*) 17 gm PO DAILY PRN PRN Reason: CONSTIPATION Senna (Senokot Tab*) 1 tab PO BEDTIME CLARA Last Admin: 03/20/18 21:34 Dose: 1 tab Physical Exam: General: intubated, on sedation, moves spontaneously when seen in AM but not following commands, no distress, no diaphoresis Head: normocephalic, atraumatic HEENT: no pallor, no icterus, moist mucous membranes Neck: soft, supple, no jvd CVS: normal rate, irregular, no murmur Resp: bilateral air entry, no rhales/wheeze/rhonchi, no acc muscle use Abdomen: soft, nontender, nondistended, bowel sounds+ Ext: pulses+, warm, no edema Skin: intact Neuro: sedated but trying to open eyes, doesnt follow commands, brain stem reflexes were intact, pupisl 2mm and reactive, moves all ext spontaneously Labs: Laboratory Results - last 24 hr 03/21/18 03/21/18 03/21/18 09:50 09:50 10:17 WBC 17.4 H RBC 3.81 L Hgb 11.8 L Hct 37 L MCV 97 H MCH 31 MCHC 32 RDW 15 Plt Count 158 MPV 8.3 INR (Anticoag Therapy) 1.14 H Patient Temperature ABG pH ABG pH (Temp Correct) ABG pCO2 ABG pCO2 (Temp Corrct ABG pO2 ABG pO2 (Temp Correct ABG HCO3 ABG O2 Saturation ABG Base Excess Respiration Rate O2 Delivery Device Ventilator Type Vent Mode FiO2 Inspiratory Time PEEP Pressure Support Pressure Control EPAP IPAP BiPAP Sodium 145 Potassium 4.2 Chloride 109 Carbon Dioxide 34 H Anion Gap 2 BUN 32 H Creatinine 0.95 Est GFR ( Amer) 96.0 Est GFR (Non-Af Amer) 79.3 BUN/Creatinine Ratio 33.7 H Glucose 148 H Calcium 8.1 L Total Bilirubin 0.50 AST 47 H ALT 132 H Alkaline Phosphatase 48 CK-MB (CK-2) 1.4 Total Protein 5.3 L Albumin 2.8 L Globulin 2.5 Albumin/Globulin Ratio 1.1 03/21/18 10:50 WBC RBC Hgb Hct MCV MCH MCHC RDW Plt Count MPV INR (Anticoag Therapy) Patient Temperature Not Reportable ABG pH 7.39 ABG pH (Temp Correct) Not Reportable ABG pCO2 56 H ABG pCO2 (Temp Corrct Not Reportable ABG pO2 196 H ABG pO2 (Temp Correct Not Reportable ABG HCO3 30.5 ABG O2 Saturation 100.0 H ABG Base Excess 7.1 H Respiration Rate 18 O2 Delivery Device [facility] vent Ventilator Type 450 Vent Mode cmv FiO2 30 Inspiratory Time Not Reportable PEEP 5 Pressure Support Not Reportable Pressure Control Not Reportable EPAP Not Reportable IPAP Not Reportable BiPAP Not Reportable Sodium Potassium Chloride Carbon Dioxide Anion Gap BUN Creatinine Est GFR ( Amer) Est GFR (Non-Af Amer) BUN/Creatinine Ratio Glucose Calcium Total Bilirubin AST ALT Alkaline Phosphatase CK-MB (CK-2) Total Protein Albumin Globulin Albumin/Globulin Ratio Imaging: cxr 03/21 - hyperiniflated, ett above antonina, no infltrate/effusion Assessment: 68y M w/pmhx of Afib on Xarelto, COPD, Chronic hypoxia on home O2 2L ; admitted 03/17 for acute respiratory distress form home, had increasing dyspnea for weeks, recentl stopped smoking. INcreased dyspnea for 2 days as per history, then went unresponsive, respiratory arrest leading to cardiac arrest. ROSC achieved enroute, arrest occurred in front of EMS while about to be transported. He is s/p Hypothermia protocol for cardiac arrest. Initial CT brain demonstrated some possible durbin white changes, but unclear if sig edema. -Respiratory and Cardiac Arrest, out of hospital -Acute on chronic hypoxic respiratory failure -Suspected hypoxic-anoxic encephalopathy -Acute COPD exaccerbation -Haemophilus pneumonia -Afib with RVR -ORLY -Ischemic Hepatitis Plan: Neuro- sluggish response but reflexes intact; holding all sedation today. Neuro following, plan for EEG todya off sedation to eval for any seizures. Previous CT with improved edema on 03/19. Plan for repeat CT brain tomorrow. May even consider MRI if still sedated. -on keppra 500mg IV bid -sedation weaning daily, avoid BDZ, neurochecks CVS- BP stable, no pressors. -AFib rate controlled, cont cardizem 30mg q6h, Metoprolol 50mg q12h, metoprolol q6h prn. No AC for now, unclear if bleed prior. -Hg stable 11-12. Resp- on AC; ABG reviewed; CXR without infitlrate. Sputum with haemiphilus. Minimal secretions. CPAP today. Weaning for extubation adequate mental stauts. NO wheezing heard, will dec solumedrol 40mg daily. Bronchodilators PRN. VAP bundle. ID- afebrile. wbc 17, elevated. CXR clear now. Sputum with haemophilus+, likely was bronchitis/pneumonia. On Steroids now also which may elevated WBC counts. Change zosyn/aithro to Ceftriaxone IV (day #5), likely to be sensitive to 3rd gen cephalosporin. GI- NGT feeds, Jevity 1.2 @ 60cc/hr. Free water 150cc q6h via NGT. No further evidence of Gi bleed, hg stable. Dec PPI to IV dialy for now. Renal- ORLY resolved, likely ischemic from shock/arrest. Making urine, positive balance. D/C NS follow urine output. K okay. Check Mg tomorrow. Ghotra+ Heme- hg stable 11-12. No active bleeding noted. Plt okay. HOlding off AC for now. SCDs+ Endo- fingerstick prn. Musculsk- pressure ulcer prophylaxis. Bedrest. Wounds- none Nutrition- NGT feeds DVT prophylaxis: SCD GI prophylaxis: PPI Central Line: Right PICC Arterial Line: no Ghotra Cathetor: yes Disposition: Patient requires Critical Care/ICU for respiratory failure, cardiac arrest, encephalopathy Patient clinical status: stable Code Status: full code Total Critical Care time is 35 minutes, excluding procedures/teaching Eduar Sawyer MD Job Setter (Electronically Signed)
--- NOTE | 2018-03-21 12:25 | PN ---
Subjective Date of Service: 03/21/18 Length of Stay: 4 Days Neurology is following for evaluation and management recommendation of encephalopathy. Interval History: Review of the medical history: The patient is a 68-year-old man who presented to [facility] on 03/17/2018 with sudden onset unresponsive event related to a cardiopulmonary arrest. He was found in asystole. He had to receive ACLS for approximately 5 minutes before ROSC. It was thought that given his respiratory status, smoking history, and history of COPD that it was a respiratory driven cardiac arrest. He was evaluated by Dr. Terry and then followed-up by Dr. Philippe for suspected hypoxic-ischemic brain injury. He was reported to have slight improvement in neurological status by Dr. Vargas yesterday. He did undergo hypothermia protocol and was started to rewarm on 03/19/[address] head from 03/19/2018 was reviewed. There is no evidence of severe cerebral hypoxia (intact florence-white matter junction and no clear evidence of cerebral edema). S: Review of Systems: Denied CP, SOB, or palpitations. Objective Active Medications: Acetaminophen (Tylenol Adult Liq*) 650 mg NG TUBE Q4H PRN PRN Reason: TEMPERATURE Last Admin: 03/20/18 14:18 Dose: 650 mg Albuterol (Ventolin 2.5 Mg/3 Ml Neb.Alena*) 2.5 mg INH Q2H PRN PRN Reason: SOB/WHEEZING Last Admin: 03/17/18 14:25 Dose: 2.5 mg Albuterol/Ipratropium (Duoneb (Albuterol 2.5 Mg/Ipratropium 0.5 Mg)) 1 neb INH [id number] AWAKE [facility] Last Admin: 03/21/18 10:43 Dose: 1 neb Chlorhexidine Gluconate (Peridex Mouth Wash 0.12%*) 15 ml TOPICAL Q4H CLARA Last Admin: 03/21/18 10:10 Dose: 15 ml Diltiazem HCl (Cardizem Tab*) 30 mg PO Q6HR [facility] Last Admin: 03/21/18 06:55 Dose: 30 mg Docusate Sodium (Colace Liq*) 100 mg PO BID [facility] Last Admin: 03/21/18 08:25 Dose: 100 mg Fentanyl Citrate (Fentanyl*) 50 mcg IV Q2H PRN PRN Reason: SHIVERING Last Admin: 03/20/18 14:49 Dose: 50 mcg Heparin Sodium (Porcine) (Heparin Flush Picc/Ml/Cvc(*)) 1 - 3 ml FLUSH 0600, 1800 [facility]; Protocol Last Admin: 03/21/18 05:29 Dose: Not Given Heparin Sodium (Porcine) (Heparin Vial(*)) 5,000 units SUBCUT Q8HR [facility] Last Admin: 03/21/18 06:55 Dose: 5,000 units Propofol (Diprivan*) 100 mls @ 6.804 mls/hr IV .(Initial Rate) [facility]; Protocol Last Admin: 03/21/18 10:11 Dose: 10.3 mls/hr Levetiracetam (Keppra Iv Premix*) 500 mg in 100 mls @ 400 mls/hr IV BID [facility] Last Admin: 03/21/18 08:25 Dose: 400 mls/hr Dexmedetomidine HCl 400 mcg/ (Sodium Chloride) 100 mls @ 3.1 mls/hr IVPB Q24H [facility]; Protocol Last Admin: 03/21/18 07:39 Dose: 10.9 mls/hr Ceftriaxone Sodium 1 gm/ (Sodium Chloride) 50 mls @ 200 mls/hr IVPB Q24H [facility] Stop: 03/24/18 12:59 Methylprednisolone Sodium Succinate (Solu-Medrol 40 Mg) 40 mg IV Q12H [facility] Last Admin: 03/21/18 06:55 Dose: 40 mg Metoprolol Tartrate (Lopressor Iv*) 5 mg IV Q6H PRN PRN Reason: HEART RATE/PULSE Last Admin: 03/20/18 14:49 Dose: 5 mg Metoprolol Tartrate (Lopressor Tab*) 50 mg PO Q12HR [facility] Last Admin: 03/21/18 08:27 Dose: 50 mg Pantoprazole Sodium (Protonix Iv*) 40 mg IV BID [facility] Last Admin: 03/21/18 08:25 Dose: 40 mg Polyethylene Glycol/Electrolytes (Miralax*) 17 gm PO DAILY PRN PRN Reason: CONSTIPATION Senna (Senokot Tab*) 1 tab PO BEDTIME [facility] Last Admin: 03/20/18 21:34 Dose: 1 tab Vital Signs 03/20/18 03/20/18 03/20/18 12:15 12:30 12:32 Temperature 100.0 F 99.9 F 99.9 F Pulse Rate 100 104 100 Respiratory Rate Blood Pressure 165/115 160/105 (mmHg) O2 Sat by Pulse 99 99 99 Oximetry 03/20/18 03/20/18 03/20/18 12:45 13:00 13:01 Temperature 99.9 F 99.9 F 99.9 F Pulse Rate 85 92 99 Respiratory 18 Rate Blood Pressure 162/101 166/99 (mmHg) O2 Sat by Pulse 98 100 100 Oximetry 03/20/18 03/20/18 03/20/18 13:15 13:24 13:25 Temperature 99.9 F 99.9 F 99.9 F Pulse Rate 106 115 105 Respiratory Rate Blood Pressure 164/104 161/109 164/112 (mmHg) O2 Sat by Pulse 100 100 100 Oximetry 03/20/18 03/20/18 03/20/18 13:30 13:37 13:45 Temperature 99.9 F 99.9 F 99.9 F Pulse Rate 94 109 100 Respiratory Rate Blood Pressure 169/110 159/108 165/107 (mmHg) O2 Sat by Pulse 100 100 100 Oximetry 03/20/18 03/20/18 03/20/18 13:48 13:52 14:00 Temperature 99.9 F 99.9 F 99.9 F Pulse Rate 102 102 105 Respiratory 18 Rate Blood Pressure 166/110 164/107 163/106 (mmHg) O2 Sat by Pulse 100 100 100 Oximetry 03/20/18 03/20/18 03/20/18 14:01 14:02 14:15 Temperature 99.9 F 99.9 F 100.0 F Pulse Rate 90 102 106 Respiratory Rate Blood Pressure 163/111 157/104 (mmHg) O2 Sat by Pulse 100 100 100 Oximetry 03/20/18 03/20/18 03/20/18 14:30 14:41 14:45 Temperature 99.9 F 99.9 F 99.9 F Pulse Rate 106 111 107 Respiratory Rate Blood Pressure 165/110 165/111 161/108 (mmHg) O2 Sat by Pulse 100 100 100 Oximetry 03/20/18 03/20/18 03/20/18 14:49 14:52 15:00 Temperature 99.9 F 99.9 F Pulse Rate 96 105 Respiratory 18 Rate Blood Pressure 157/111 150/111 (mmHg) O2 Sat by Pulse 100 100 Oximetry 03/20/18 03/20/18 03/20/18 15:01 15:15 15:25 Temperature 99.9 F 99.9 F Pulse Rate 96 103 103 Respiratory 18 Rate Blood Pressure 170/117 (mmHg) O2 Sat by Pulse 100 100 100 Oximetry 03/20/18 03/20/18 03/20/18 15:30 15:36 15:38 Temperature 99.9 F 99.9 F 99.9 F Pulse Rate 94 101 108 Respiratory 18 Rate Blood Pressure 170/104 141/109 162/101 (mmHg) O2 Sat by Pulse 100 100 100 Oximetry 03/20/18 03/20/18 03/20/18 15:42 15:45 16:00 Temperature 99.9 F 99.7 F 99.7 F Pulse Rate 101 102 104 Respiratory 18 Rate Blood Pressure 151/95 139/90 111/64 (mmHg) O2 Sat by Pulse 100 99 99 Oximetry 03/20/18 03/20/18 03/20/18 16:01 16:15 16:27 Temperature 99.7 F 99.5 F 99.7 F Pulse Rate 125 125 108 Respiratory Rate Blood Pressure 105/59 122/78 (mmHg) O2 Sat by Pulse 99 98 100 Oximetry 03/20/18 03/20/18 03/20/18 16:30 16:45 17:00 Temperature 99.7 F 99.7 F 99.5 F Pulse Rate 106 118 105 Respiratory 18 Rate Blood Pressure 123/76 118/73 116/79 (mmHg) O2 Sat by Pulse 100 99 98 Oximetry 03/20/18 03/20/18 03/20/18 17:01 17:15 17:30 Temperature 99.5 F 99.5 F 99.7 F Pulse Rate 116 110 95 Respiratory Rate Blood Pressure 118/84 116/76 (mmHg) O2 Sat by Pulse 98 98 100 Oximetry 03/20/18 03/20/18 03/20/18 17:45 18:00 18:01 Temperature 99.5 F 99.3 F 99.5 F Pulse Rate 99 100 108 Respiratory 18 Rate Blood Pressure 119/72 127/80 (mmHg) O2 Sat by Pulse 97 97 97 Oximetry 03/20/18 03/20/18 03/20/18 18:15 18:30 18:45 Temperature 99.3 F 99.3 F 99.3 F Pulse Rate 93 100 104 Respiratory Rate Blood Pressure 123/77 132/84 132/77 (mmHg) O2 Sat by Pulse 97 97 97 Oximetry 03/20/18 03/20/18 03/20/18 18:55 19:00 19:15 Temperature 99.1 F 99.1 F Pulse Rate 98 94 102 Respiratory 18 18 Rate Blood Pressure 120/80 130/81 (mmHg) O2 Sat by Pulse 97 98 99 Oximetry 03/20/18 03/20/18 03/20/18 19:30 19:45 20:00 Temperature 99.1 F 99.1 F 99.0 F Pulse Rate 107 96 107 Respiratory 18 Rate Blood Pressure 132/83 128/88 137/80 (mmHg) O2 Sat by Pulse 99 99 98 Oximetry 03/20/18 03/20/18 03/20/18 20:15 20:30 20:45 Temperature 99.0 F 99.0 F 99.0 F Pulse Rate 108 109 102 Respiratory Rate Blood Pressure 140/80 140/87 139/88 (mmHg) O2 Sat by Pulse 98 98 98 Oximetry 03/20/18 03/20/18 03/20/18 21:00 21:15 21:30 Temperature 99.0 F 99.0 F 99.0 F Pulse Rate 104 90 108 Respiratory 20 Rate Blood Pressure 145/91 141/94 147/89 (mmHg) O2 Sat by Pulse 98 98 98 Oximetry 03/20/18 03/20/18 03/20/18 21:45 22:00 22:15 Temperature 99.0 F 99.0 F 99.0 F Pulse Rate 101 101 109 Respiratory 20 Rate Blood Pressure 145/95 134/93 150/103 (mmHg) O2 Sat by Pulse 99 99 100 Oximetry 03/20/18 03/20/18 03/20/18 22:30 22:45 22:58 Temperature 99.0 F 99.0 F Pulse Rate 102 99 112 Respiratory 20 Rate Blood Pressure 147/96 114/68 (mmHg) O2 Sat by Pulse 100 100 96 Oximetry 03/20/18 03/20/18 03/20/18 23:00 23:10 23:15 Temperature 98.8 F 99.3 F 99.3 F Pulse Rate 134 103 106 Respiratory 20 Rate Blood Pressure 89/65 104/66 100/56 (mmHg) O2 Sat by Pulse 96 97 96 Oximetry 03/20/18 03/20/18 03/21/18 23:30 23:45 00:00 Temperature 99.3 F 99.7 F 99.7 F Pulse Rate 110 103 108 Respiratory 20 Rate Blood Pressure 115/70 115/79 100/70 (mmHg) O2 Sat by Pulse 94 99 97 Oximetry 03/21/18 03/21/18 03/21/18 00:15 00:30 00:45 Temperature 99.9 F 99.9 F 100.0 F Pulse Rate 102 104 104 Respiratory Rate Blood Pressure 113/74 106/67 116/72 (mmHg) O2 Sat by Pulse 95 93 93 Oximetry 03/21/18 03/21/18 03/21/18 01:00 01:15 01:30 Temperature 100.0 F 100.0 F 100.0 F Pulse Rate 89 97 96 Respiratory 20 Rate Blood Pressure 116/80 118/68 122/84 (mmHg) O2 Sat by Pulse 97 97 97 Oximetry 03/21/18 03/21/18 03/21/18 01:45 02:00 02:15 Temperature 99.9 F 99.9 F 99.9 F Pulse Rate 89 93 103 Respiratory 20 Rate Blood Pressure 126/81 132/85 135/84 (mmHg) O2 Sat by Pulse 97 99 99 Oximetry 03/21/18 03/21/18 03/21/18 02:30 02:45 03:00 Temperature 99.9 F 99.9 F Pulse Rate 91 104 Respiratory 18 Rate Blood Pressure 130/87 140/85 (mmHg) O2 Sat by Pulse 99 85 Oximetry 03/21/18 03/21/18 03/21/18 03:01 03:11 03:15 Temperature 99.9 F 99.7 F Pulse Rate 102 110 115 Respiratory 18 Rate Blood Pressure 99/63 106/73 (mmHg) O2 Sat by Pulse 98 94 99 Oximetry 03/21/18 03/21/18 03/21/18 03:30 03:45 04:00 Temperature 99.5 F 99.3 F 99.1 F Pulse Rate 110 107 99 Respiratory 18 Rate Blood Pressure 107/70 126/81 130/81 (mmHg) O2 Sat by Pulse 96 96 96 Oximetry 03/21/18 03/21/18 03/21/18 04:15 04:30 04:45 Temperature 99.1 F 99.0 F 99.0 F Pulse Rate 97 94 104 Respiratory Rate Blood Pressure 131/92 135/94 140/92 (mmHg) O2 Sat by Pulse 96 96 95 Oximetry 03/21/18 03/21/18 03/21/18 05:00 05:15 05:30 Temperature 99.1 F 99.1 F 99.0 F Pulse Rate 88 90 93 Respiratory 18 Rate Blood Pressure 148/95 151/102 151/95 (mmHg) O2 Sat by Pulse 96 96 96 Oximetry 03/21/18 03/21/18 03/21/18 05:45 06:00 06:15 Temperature 99.0 F 99.0 F 98.8 F Pulse Rate 88 84 104 Respiratory 18 Rate Blood Pressure 149/96 148/95 134/89 (mmHg) O2 Sat by Pulse 97 97 100 Oximetry 03/21/18 03/21/18 03/21/18 06:30 06:45 07:00 Temperature 98.8 F 98.8 F 98.8 F Pulse Rate 106 107 115 Respiratory 18 Rate Blood Pressure 104/71 111/74 122/84 (mmHg) O2 Sat by Pulse 96 96 100 Oximetry 03/21/18 03/21/18 03/21/18 07:01 07:15 07:27 Temperature 98.8 F 98.8 F Pulse Rate 101 104 118 Respiratory 18 Rate Blood Pressure 113/82 (mmHg) O2 Sat by Pulse 100 98 100 Oximetry 03/21/18 03/21/18 03/21/18 07:30 07:45 08:00 Temperature 98.8 F 98.8 F 98.8 F Pulse Rate 115 99 99 Respiratory 18 Rate Blood Pressure 117/79 117/79 130/87 (mmHg) O2 Sat by Pulse 100 97 94 Oximetry 03/21/18 03/21/18 03/21/18 08:01 08:15 08:30 Temperature 98.8 F 98.6 F 98.6 F Pulse Rate 94 103 95 Respiratory Rate Blood Pressure 132/79 143/104 (mmHg) O2 Sat by Pulse 97 94 94 Oximetry 03/21/18 03/21/18 03/21/18 08:45 09:00 09:01 Temperature 98.6 F 98.4 F 98.4 F Pulse Rate 101 93 91 Respiratory 18 Rate Blood Pressure 146/101 148/107 (mmHg) O2 Sat by Pulse 93 94 94 Oximetry 03/21/18 03/21/18 03/21/18 09:15 09:16 09:30 Temperature 98.2 F 98.2 F 98.2 F Pulse Rate 95 97 100 Respiratory Rate Blood Pressure 151/102 149/101 153/99 (mmHg) O2 Sat by Pulse 94 94 95 Oximetry 03/21/18 03/21/18 03/21/18 09:46 10:00 10:01 Temperature 98.2 F 98.4 F 98.4 F Pulse Rate 101 106 113 Respiratory Rate Blood Pressure 127/83 115/82 (mmHg) O2 Sat by Pulse 95 95 95 Oximetry 03/21/18 03/21/18 03/21/18 10:15 10:17 10:30 Temperature 98.6 F 98.6 F 98.8 F Pulse Rate 101 104 110 Respiratory Rate Blood Pressure 123/83 121/79 121/81 (mmHg) O2 Sat by Pulse 99 98 96 Oximetry 03/21/18 03/21/18 03/21/18 10:45 11:00 11:01 Temperature 99.0 F 99.1 F 99.1 F Pulse Rate 108 98 109 Respiratory Rate Blood Pressure 121/81 127/74 (mmHg) O2 Sat by Pulse 97 96 96 Oximetry Intake and Output Last 24 Hours 03/19/18 03/20/18 03/21/18 03/22/18 06:59 06:59 06:59 06:59 Intake Total 3587.3 2676.2 3940.2 Output Total 1239 1280 995 150 Balance 2348.3 1396.2 2945.2 -150 Weight 136 lb 14.513 oz 141 lb 15.643 oz 145 lb 4.554 oz Intake: IV Fluids 2017.3 1461 1753.6 ABX 71 108 333 Keppra 100 105 99.2 NS 1846.3 1248 1321.4 IVPB 623 543 417 ABX 523 375 Keppra 100 NS 543 42 Medicated IV 947 322.2 382.6 CC - Amiodarone 517 171.9 CC - Dexmedetomidine/ 53 248.4 Precedex CC - Propofol/Diprivan 430 97.3 134.2 Oral 0 0 Tube Feeding 320 1087 Tube Feeding Flush Amount 30 300 Output: NG Tube Drainage Amount 400 400 Urine 45 155 [place] 794 725 995 150 Oxygen Devices in Use Now: Mechanical Ventilator Neurology Exam: General: Awake, Alert, Oriented x3 HEENT: Normocephalic/atraumatic, sclera anicteric, mucous membranes moist Neck: Supple Chest: Clear to auscultation bilaterally Cardiovascular: Regular rate and rhythm without murmurs, rubs, gallops Abdomen: Soft, nontender/nondistended Extremities: No clubbing, cyanosis, or edema Neurological Findings: Awake, Alert, Oriented x3 Speech: fluent without dysrhythmia, repetition intact Cranial Nerve: PEERL, EOM intact, VFF, no nystagmus, face symmetric bilaterally , facial sensation intact, hearing intact to finger rub bilaterally, palate elevates symmetrically, tongue midline, SCM and Trapezius s/s. Motor: s/s throughout, proximal and distal extremities x4 tone/bulk normal Sensation: intact to LT/PP bilaterally upper and lower extremities Deep Tendon Reflex: 2+ symmetric in the upper/lower extremities, Babinski - down going Finger to nose, rapid alternating movements intact without tremor, no dysdiadochokinesia Gait: intact with good arm swing and stride Result Diagrams: 03/21/18 09:50 03/21/18 09:50 Microbiology and Other Data: Microbiology 03/20/18 08:40 Urine Culture - Final Urine No Growth (<1,000 CFU/mL) 03/18/18 11:05 Aerobic Blood Culture - Preliminary Blood Line No Growth Day 3 Anaerobic Blood Culture - Preliminary No Growth Day 3 03/18/18 11:00 Aerobic Blood Culture - Preliminary Blood Line No Growth Day 3 Anaerobic Blood Culture - Preliminary No Growth Day 3 03/17/18 13:20 Aerobic Blood Culture - Preliminary Blood Line No Growth Day 3 Anaerobic Blood Culture - Preliminary No Growth Day 3 03/17/18 12:12 Gram Stain - Final Sputum Sputum Culture - Final Haemophilus Influenzae Normal Carley 03/18/18 01:30 Urine Culture - Final Urine No Growth (<1,000 CFU/mL) 03/18/18 01:30 Influenza Types A,B Antigen - Final Nasal Specimen received for Influenza A/B Molecular testing 03/17/18 11:45 Nasal Screen MRSA (PCR) - Final Nasal Mrsa Not Detected
[2018-03-21] MEDS: Metoprolol Tartrate IV* 1 MG/ML 5 ML VIAL IV PRN (13:25)
[2018-03-21] MEDS: cefTRIAXone(*) 1 GM in NS 0.9% 50 ML* 50 ML IVPB SCH (13:30)
[2018-03-21] MEDS ORDERED: Diltiazem IV* 5 MG/ML 5 ML VIAL (for loading dose/IV Push) (25 MG) IV SLOW PU ONE (13:45)
[2018-03-21 15:12] LABS: Influenza Virus Type A IgM Ab <1:10 (<1:10); Influenza Virus Type B IgG Ab >=1:1280 (<1:10); Influenza Virus Type B IgM Ab <1:10 (<1:10)
[2018-03-21] MEDS: Diltiazem IV VIAL* 125 MG in NS 0.9% 100 ML* 100 ML IV SCH (15:12)
[2018-03-21] MEDS: Senna TAB PO SCH (20:09)
[2018-03-21] MEDS: Acetaminophen ADULT LIQ* 650 MG/20.3 ML UDC NG TUBE PRN (20:09)
--- NOTE | 2018-03-21 20:18 | EEG ---
ELECTROENCEPHALOGRAPHY REPORT: DATE OF STUDY: 03/21/18 - ROOM #ICU-03 DATE READ: 03/21/18. ORDERED BY: Ramone Philippe MD CLINICAL PROBLEM: Mr. Beck is a 68-year-old man who had a cardiopulmonary arrest, status post hypoxic ischemic encephalopathy. This EEG was obtained to evaluate for any epileptiform abnormalities or electrographic seizures. MEDICATIONS: 1. DuoNeb. 2. Colace. 3. Keppra. 4. Lopressor. 5. Protonix. 6. Precedex. 7. Cardizem. 8. Zosyn. 9. Heparin. 10. Zithromax. 11. Senokot. 12. Solu-Medrol. 13. Tylenol. 14. Ventolin. 15. Fentanyl. 16. MiraLAX. CLINICAL STATE: Awake. REPORT: The background lacked organization with clearly defined anterior- posterior voltage and frequency gradients. There is a discernible posterior dominant rhythm of about 7 Hz that was poor sustained. The remaining background consisted of diffuse medium amplitude polymorphic 2-5 Hz delta and theta range slowing. At times, the delta slowing became sharply contoured and took on a triphasic diffuse morphology. There was emergence of some faster frequencies with verbal and tactile stimulation. Hyperventilation and photic stimulation were not performed. Single electrode EKG was detached due to sweat artifact. Throughout the recording, there were no electrographic seizures. CLINICAL IMPRESSION: This is an abnormal waking EEG due to the presence of diffuse, but reactive slowing. These findings are suggestive of a mild- moderate nonspecific diffuse encephalopathy that can be seen in the setting of toxic metabolic disturbance, hypoxic ischemic encephalopathy, or as a result of post- sedation effect. [id number]/[facility] #: [id number] [facility]
[2018-03-22] MEDS: Diltiazem TAB* 30 MG PO SCH ×5 (00:54→23:58)
[2018-03-22] MEDS: fentaNYL* 50 MCG/ML 2 ML VIAL (100 MCG VIAL) IV PRN ×4 (01:21→21:26)
[2018-03-22] MEDS: Diltiazem IV VIAL* 125 MG in NS 0.9% 100 ML* 100 ML IV SCH ×2 (03:27→15:05)
[2018-03-22] MEDS: CHLORHEXADINE (PERIDEX) VENT ORAL CARE TOPICAL SCH ×6 (03:49→23:58)
[2018-03-22] MEDS: Albuterol/Ipratropium NEB.SOL* Albuterol 2.5 MG/Ipratropium 0.5 MG 3 ML INH SCH ×6 (03:52→23:47)
[2018-03-22] MEDS: Heparin VIAL(*) 5000 UNITS/ML VIAL (FIVE THOUSAND) SUBCUT SCH ×3 (05:57→21:17)
[2018-03-22 07:06] LABS: Hematocrit 35 % (42-52); Mean Corpuscular HGB Conc 32 g/dl (31-36); Mean Corpuscular Hemoglobin 32 pg (27-31); Mean Corpuscular Volume 99 fL (80-94); Mean Platelet Volume 8.6 fL (7.4-10.4); Platelet Count 124 10^3/ul (150-450); Red Blood Count 3.51 10^6/ul (4.00-5.40); Red Cell Distribution Width 15 % (10.5-15); White Blood Count 17.1 10^3/ul (3.5-10.8)
[2018-03-22 07:16] LABS: INR 1.11 (0.77-1.02)
[2018-03-22 07:25] LABS: Calcium 8.5 mg/dL (8.6-10.3); EGFR African American 102.2 (>60); EGFR Non-African American 84.4 (>60); Magnesium 2.3 mg/dL (1.9-2.7)
[2018-03-22] MEDS: levETIRAcetam 500 MG IVPREMIX* 500 MG/100 ML BAG IV SCH ×2 (08:51→21:15)
[2018-03-22] MEDS: Metoprolol Tartrate TAB* 50 mg PO SCH ×2 (08:55→21:16)
[2018-03-22] MEDS: Docusate LIQ* 100 MG/10 ML UDC PO SCH ×2 (08:55→21:16)
[2018-03-22] MEDS ORDERED: methylPREDNISolone SOD 40 MG* 1 ML VIAL IV SCH (09:00)
[2018-03-22] MEDS ORDERED: Pantoprazole IV* 40 MG IV SCH (09:00)
[2018-03-22] MEDS: D5W 1000 ML BAG* 1,000 ML IV SCH ×2 (09:50→19:55)
[2018-03-22] MEDS: Dexmedetomidine* 400 MCG in NS 0.9% 100 ML* 96 ML IVPB SCH (10:04)
[2018-03-22] MEDS ORDERED: Bisacodyl SUPP* 10 MG SUPP PR ONE (11:39)
--- NOTE | 2018-03-22 11:41 | PN ---
Progress Note - Progress Note Date of Service: 03/22/18 Note: Progress Note -- Critical Care 24 hour events/significant events: -no event overngiht -off all sedation -awakens, looks around, moving spontaneously but doesnt follow any commands for me -no distress, calm on spontaneous mode on ventilator -BP stable, off pressors -HR controlled 90s; on cardizem infusion for rapid afib -BP stable -tmax 100 Tele: afib Vitals: Vital Signs Temp 99.0 F 03/22/18 10:01 Pulse 90 03/22/18 10:01 Resp 21 03/22/18 10:00 BP 129/85 03/22/18 10:00 Pulse Ox 96 03/22/18 10:01 Intake & Output 03/21/18 03/22/18 03/22/18 18:59 06:59 18:59 Intake Total 697.7 699 Output Total 630 465 285 Balance 67.7 234 -285 Weight 66.678 kg Intake: IV Fluids 472 239 NS 472 239 IVPB 60 210 ABX 60 Keppra 210 Medicated IV 165.7 130 CC - Dexmedetomidine/ 70 15 Precedex CC - Propofol/Diprivan 68.7 GEN - Diltiazem/Cardizem 27 115 Tube Feeding Flush Amount 120 Output: Ghotra 630 465 285 O2/Vent: Spont 30% Infusions: started d5w 100cc/hr Medications: Acetaminophen (Tylenol Adult Liq*) 650 mg NG TUBE Q4H PRN PRN Reason: TEMPERATURE Last Admin: 03/21/18 20:09 Dose: 650 mg Albuterol (Ventolin 2.5 Mg/3 Ml Neb.Alena*) 2.5 mg INH Q2H PRN PRN Reason: SOB/WHEEZING Last Admin: 03/17/18 14:25 Dose: 2.5 mg Albuterol/Ipratropium (Duoneb (Albuterol 2.5 Mg/Ipratropium 0.5 Mg)) 1 neb INH [id number] AWAKE [facility] Last Admin: 03/22/18 07:29 Dose: 1 neb Chlorhexidine Gluconate (Peridex Mouth Wash 0.12%*) 15 ml TOPICAL Q4H [facility] Last Admin: 03/22/18 05:57 Dose: 15 ml Diltiazem HCl (Diltiazem Iv*) 10 mg IV SLOW PU ONCE ONE Last Admin: 03/21/18 15:03 Dose: 10 mg Diltiazem HCl (Cardizem Tab*) 60 mg PO Q6HR [facility] Docusate Sodium (Colace Liq*) 100 mg PO BID [facility] Last Admin: 03/22/18 08:55 Dose: 100 mg Fentanyl Citrate (Fentanyl*) 50 mcg IV Q2H PRN PRN Reason: SHIVERING Last Admin: 03/22/18 06:04 Dose: 50 mcg Heparin Sodium (Porcine) (Heparin Flush Picc/Ml/Cvc(*)) 1 - 3 ml FLUSH 0600, 1800 [facility]; Protocol Last Admin: 03/22/18 06:07 Dose: Not Given Heparin Sodium (Porcine) (Heparin Vial(*)) 5,000 units SUBCUT Q8HR [facility] Last Admin: 03/22/18 05:57 Dose: 5,000 units Levetiracetam (Keppra Iv Premix*) 500 mg in 100 mls @ 400 mls/hr IV BID [facility] Last Admin: 03/22/18 08:51 Dose: 400 mls/hr Dexmedetomidine HCl 400 mcg/ (Sodium Chloride) 100 mls @ 3.1 mls/hr IVPB Q24H [facility]; Protocol Last Admin: 03/22/18 10:04 Dose: Not Given Ceftriaxone Sodium 1 gm/ (Sodium Chloride) 50 mls @ 200 mls/hr IVPB Q24H [facility] Stop: 03/24/18 12:59 Last Admin: 03/21/18 13:30 Dose: 200 mls/hr Diltiazem HCl 125 mg/ Sodium (Chloride) 125 mls @ 10 mls/hr IV Q12H [facility]; Protocol Last Admin: 03/22/18 03:27 Dose: 7.5 mls/hr Dextrose (D5w 1000 Ml Bag*) 1,000 mls @ 100 mls/hr IV PER RATE [facility] Stop: 03/23/18 05:59 Last Admin: 03/22/18 09:50 Dose: 100 mls/hr Methylprednisolone Sodium Succinate (Solu-Medrol 40 Mg) 40 mg IV DAILY [facility] Last Admin: 03/22/18 08:50 Dose: 40 mg Metoprolol Tartrate (Lopressor Iv*) 5 mg IV Q6H PRN PRN Reason: HEART RATE/PULSE Last Admin: 03/21/18 13:25 Dose: 5 mg Metoprolol Tartrate (Lopressor Tab*) 50 mg PO Q12HR [facility] Last Admin: 03/22/18 08:55 Dose: 50 mg Pantoprazole Sodium (Protonix Iv*) 40 mg IV DAILY [facility] Last Admin: 03/22/18 08:48 Dose: 40 mg Polyethylene Glycol/Electrolytes (Miralax*) 17 gm PO DAILY PRN PRN Reason: CONSTIPATION Senna (Senokot Tab*) 1 tab PO BEDTIME [facility] Last Admin: 03/21/18 20:09 Dose: 1 tab Physical Exam: General: intubated, awake, doesnt follow commands, moves spontaneously , no distress, no diaphoresis Head: normocephalic, atraumatic HEENT: no pallor, no icterus, moist mucous membranes Neck: soft, supple, no jvd CVS: normal rate, irregular, no murmur Resp: bilateral air entry, no rhales/wheeze/rhonchi, no acc muscle use Abdomen: soft, nontender, nondistended, bowel sounds+ Ext: pulses+, warm, no edema Skin: intact Neuro: awake, not alert, doesnt follow commands, less restless today; unable to determine orientation; brain stem reflexes intact, pupils 2mm and reactive, moves all ext spontaneously Labs: Laboratory Results - last 24 hr 03/17/18 03/22/18 03/22/18 13:45 06:15 06:15 WBC 17.1 H RBC 3.51 L Hgb 11.0 L Hct 35 L MCV 99 H MCH 32 H MCHC 32 RDW 15 Plt Count 124 L MPV 8.6 INR (Anticoag Therapy) Sodium 147 H Potassium 4.0 Chloride 108 Carbon Dioxide 37 H Anion Gap 2 BUN 36 H Creatinine 0.90 Est GFR ( Amer) 102.2 Est GFR (Non-Af Amer) 84.4 BUN/Creatinine Ratio 40.0 H Glucose 121 H Calcium 8.5 L Magnesium 2.3 Influenza Type A IgG 1:640 A Influenza Type A IgM <1:10 Influenza Type B IgG >=1:1280 A Influenza Type B IgM <1:10 03/22/18 06:15 WBC RBC Hgb Hct MCV MCH MCHC RDW Plt Count MPV INR (Anticoag Therapy) 1.11 H Sodium Potassium Chloride Carbon Dioxide Anion Gap BUN Creatinine Est GFR ( Amer) Est GFR (Non-Af Amer) BUN/Creatinine Ratio Glucose Calcium Magnesium Influenza Type A IgG Influenza Type A IgM Influenza Type B IgG Influenza Type B IgM Imaging: cxr 03/21 - hyperiniflated, ett above antonina, no infltrate/effusion Assessment: 68y M w/pmhx of Afib on Xarelto, COPD, Chronic hypoxia on home O2 2L ; admitted 03/17 for acute respiratory distress form home, had increasing dyspnea for weeks, recentl stopped smoking. INcreased dyspnea for 2 days as per history, then went unresponsive, respiratory arrest leading to cardiac arrest. ROSC achieved enroute, arrest occurred in front of EMS while about to be transported. He is s/p Hypothermia protocol for cardiac arrest. Initial CT brain demonstrated some possible durbin white changes, but unclear if sig edema. -Respiratory and Cardiac Arrest, out of hospital -Acute on chronic hypoxic respiratory failure -Suspected hypoxic-anoxic encephalopathy -Acute COPD exaccerbation -Haemophilus pneumonia -Afib with RVR -ORLY -Ischemic Hepatitis Plan: Neuro- sluggish response but reflexes intact; cont to hold all sedation. PRN precedex only if needed. Neuro following, EEG 03/22 with diffuse slowly -Previous CT with improved edema on 03/19. Plan for repeat CT brain today. May even consider MRI at some point if need be. -on keppra 500mg IV bid -avoid BDZ, neurochecks CVS- BP stable, no pressors. -start d5w 100cc/hr for hypernatremia -AFib rate controlled, incr cardizem 60mg q6h, cont Metoprolol 50mg q12h, metoprolol q6h prn. No AC for now, unclear if bleed prior. -Hg stable 11-12. Resp- on CPAP doing well; CXR without infitlrate. Sputum with haemiphilus. Minimal secretions. Weaning may be delayed given poor ability to follow commands , unclear his ability to clear secretions on his own. Beatris consider trial of extubation later today. No wheezing; cont solumedrol taper for another 72 hours. Bronchodilators PRN. VAP bundle. ID- afebrile. wbc 17 still, elevated. CXR clear. Sputum with haemophilus+, likely was bronchitis/pneumonia. On Steroids now, tapering. Cont Ceftriaxone IV (day #6/7). GI- NGT feeds, Jevity 1.2 @ 60cc/hr. D5W IV started for hypernatremia, will eventually add only free water tomororw. No further evidence of Gi bleed, hg stable. change PPI to H2b BID. KUB today, some mild distension. dulcolax x1 10mg. Renal- ORLY resolved, likely ischemic from shock/arrest. Making urine, positive balance. Hypernatremia noted; start d5w 100cc/hr, re-eval after 24 hours and prob change to enteral free water. K okay. Ghotra+ Heme- hg stable -12. No active bleeding noted. Plt okay. SCDs+ Endo- fingerstick prn. Musculsk- pressure ulcer prophylaxis. Bedrest. Wounds- none Nutrition- NGT feeds DVT prophylaxis: SCD GI prophylaxis: h2b bid Central Line: Right PICC Arterial Line: no Ghotra Cathetor: yes Disposition: Patient requires Critical Care/ICU for respiratory failure, cardiac arrest, encephalopathy Patient clinical status: stable Code Status: full code Total Critical Care time is 35 minutes, excluding procedures/teaching Eduar Sawyer MD [employer] (Electronically Signed)
[2018-03-22] MEDS: cefTRIAXone(*) 1 GM in NS 0.9% 50 ML* 50 ML IVPB SCH (12:20)
--- NOTE | 2018-03-22 17:07 | PN ---
Subjective Date of Service: 03/22/18 Length of Stay: 5 Days Neurology is following for evaluation and management recommendation for encephalopathy. Interval History: He seems to be more awake but does not follow command. According to the bedside nurse, he does track when she walks around the room at times. There has been no reported seizures. Review of Systems: Patient cannot participate in a ROS. Objective Active Medications: Acetaminophen (Tylenol Adult Liq*) 650 mg NG TUBE Q4H PRN PRN Reason: TEMPERATURE Last Admin: 03/21/18 20:09 Dose: 650 mg Albuterol (Ventolin 2.5 Mg/3 Ml Neb.Alena*) 2.5 mg INH Q2H PRN PRN Reason: SOB/WHEEZING Last Admin: 03/17/18 14:25 Dose: 2.5 mg Albuterol/Ipratropium (Duoneb (Albuterol 2.5 Mg/Ipratropium 0.5 Mg)) 1 neb INH [id number] AWAKE [facility] Last Admin: 03/22/18 14:30 Dose: 1 neb Chlorhexidine Gluconate (Peridex Mouth Wash 0.12%*) 15 ml TOPICAL Q4H [facility] Last Admin: 03/22/18 13:26 Dose: 15 ml Diltiazem HCl (Diltiazem Iv*) 10 mg IV SLOW PU ONCE ONE Last Admin: 03/21/18 15:03 Dose: 10 mg Diltiazem HCl (Cardizem Tab*) 60 mg PO Q6HR [facility] Last Admin: 03/22/18 11:28 Dose: 60 mg Docusate Sodium (Colace Liq*) 100 mg PO BID [facility] Last Admin: 03/22/18 08:55 Dose: 100 mg Famotidine (Pepcid Tab*) 20 mg PO BID [facility] Fentanyl Citrate (Fentanyl*) 50 mcg IV Q2H PRN PRN Reason: SHIVERING Last Admin: 03/22/18 06:04 Dose: 50 mcg Heparin Sodium (Porcine) (Heparin Flush Picc/Ml/Cvc(*)) 1 - 3 ml FLUSH 0600, 1800 [facility]; Protocol Last Admin: 03/22/18 06:07 Dose: Not Given Heparin Sodium (Porcine) (Heparin Vial(*)) 5,000 units SUBCUT Q8HR [facility] Last Admin: 03/22/18 13:23 Dose: 5,000 units Levetiracetam (Keppra Iv Premix*) 500 mg in 100 mls @ 400 mls/hr IV BID [facility] Last Admin: 03/22/18 08:51 Dose: 400 mls/hr Dexmedetomidine HCl 400 mcg/ (Sodium Chloride) 100 mls @ 3.1 mls/hr IVPB Q24H [facility]; Protocol Last Admin: 03/22/18 10:04 Dose: Not Given Ceftriaxone Sodium 1 gm/ (Sodium Chloride) 50 mls @ 200 mls/hr IVPB Q24H [facility] Stop: 03/24/18 12:59 Last Admin: 03/22/18 12:20 Dose: 200 mls/hr Diltiazem HCl 125 mg/ Sodium (Chloride) 125 mls @ 10 mls/hr IV Q12H [facility]; Protocol Last Admin: 03/22/18 15:05 Dose: Not Given Dextrose (D5w 1000 Ml Bag*) 1,000 mls @ 100 mls/hr IV PER RATE [facility] Stop: 03/23/18 05:59 Last Admin: 03/22/18 09:50 Dose: 100 mls/hr Methylprednisolone Sodium Succinate (Solu-Medrol 40 Mg) 20 mg IV DAILY [facility] Stop: 03/25/18 09:01 Metoprolol Tartrate (Lopressor Iv*) 5 mg IV Q6H PRN PRN Reason: HEART RATE/PULSE Last Admin: 03/21/18 13:25 Dose: 5 mg Metoprolol Tartrate (Lopressor Tab*) 50 mg PO Q12HR [facility] Last Admin: 03/22/18 08:55 Dose: 50 mg Polyethylene Glycol/Electrolytes (Miralax*) 17 gm PO DAILY PRN PRN Reason: CONSTIPATION Senna (Senokot Tab*) 1 tab PO BEDTIME [facility] Last Admin: 03/21/18 20:09 Dose: 1 tab Vital Signs 03/22/18 03/22/18 03/22/18 15:15 15:30 15:46 Temperature 99.3 F 99.3 F 99.5 F Pulse Rate 93 105 110 Respiratory Rate Blood Pressure 127/98 145/96 151/91 (mmHg) O2 Sat by Pulse 97 97 97 Oximetry 03/22/18 03/22/18 16:00 16:01 Temperature 99.5 F 99.5 F Pulse Rate 107 104 Respiratory 10 Rate Blood Pressure 142/101 (mmHg) O2 Sat by Pulse 97 97 Oximetry Oxygen Devices in Use Now: Mechanical Ventilator Neurology Exam: General: Ill appearing man in no acute distress. HEENT: Normocephalic/atraumatic, sclera anicteric, mucous membranes moist Neck: Supple Cardiovascular: Regular rate and rhythm without murmurs, rubs, gallops Extremities: No clubbing, cyanosis, or edema Neurological Findings: Intubated man in no distress. He is not on sedation. He opens eyes spontaneously but not consistently to command. He does not follow command. PERRL, corneal, nasal stimulation, and gag reflexes are intact. He grimaced but did not localize or reach examiner to nasal stimulation. Motor: flaccid throughout. Grimaced and had elbow flexion to distal noxious stimuli. Reflexes: 0 throughout. Mute plantar response Result Diagrams: 03/22/18 06:15 03/22/18 06:15 Microbiology and Other Data: Microbiology 03/20/18 08:40 Urine Culture - Final Urine No Growth (<1,000 CFU/mL) 03/18/18 11:05 Aerobic Blood Culture - Preliminary Blood Line No Growth Day 3 Anaerobic Blood Culture - Preliminary No Growth Day 3 03/18/18 11:00 Aerobic Blood Culture - Preliminary Blood Line No Growth Day 3 Anaerobic Blood Culture - Preliminary No Growth Day 3 03/17/18 13:20 Aerobic Blood Culture - Preliminary Blood Line No Growth Day 3 Anaerobic Blood Culture - Preliminary No Growth Day 3 03/17/18 12:12 Gram Stain - Final Sputum Sputum Culture - Final Haemophilus Influenzae Normal Carley 03/18/18 01:30 Urine Culture - Final Urine No Growth (<1,000 CFU/mL) 03/18/18 01:30 Influenza Types A,B Antigen - Final Nasal Specimen received for Influenza A/B Molecular testing 03/17/18 11:45 Nasal Screen MRSA (PCR) - Final Nasal Mrsa Not Detected Assessment/Plan Mr. Yonas Beck is a 68-year-old man with long history of tobacco abuse and COPD who presented with witnessed cardiopulomonary arrest and suspected mild anoxic brain injury. 1. acute hypoxic-ischemic encephalopathy- suspect a mild to moderate severity. He underwent therapeutic hypothermia. The unchanged CT head without contrast completed on 03/19/2018 suggests against a severe anoxic brain injury as I would expect to see more edema and possible herniation. He has intact brainstem function and reported examination finding of appropriate response by the nurse today (examiner was unable to reproduce the results). 2. Possible hypoactive delirium related to encephalopathy Recommendations: - Consider starting low dose Seroquel 12.5 mg at night to help with sleep. - If he does not improve from the cognitive standpoint, then an MRI brain without contrast would be the best next study to help with assessing the degree of brain injury. - Neuro checks every 1 hour - Continue levetiracetam 500 mg IV twice daily. - Continue supportive care Time spent: 20 minutes. D/w ICU team.
[2018-03-22] MEDS: QUEtiapine TAB* 25 MG PO SCH (18:10)
[2018-03-22] MEDS: Famotidine TAB* 20 MG PO SCH (21:16)
[2018-03-22] MEDS: Senna TAB PO SCH (21:16)
[2018-03-23] MEDS: Diltiazem IV VIAL* 125 MG in NS 0.9% 100 ML* 100 ML IV SCH ×3 (00:11→16:23)
[2018-03-23] MEDS: CHLORHEXADINE (PERIDEX) VENT ORAL CARE TOPICAL SCH ×6 (01:20→22:01)
[2018-03-23] MEDS: fentaNYL* 50 MCG/ML 2 ML VIAL (100 MCG VIAL) IV PRN ×11 (01:20→23:21)
[2018-03-23] MEDS: Albuterol/Ipratropium NEB.SOL* Albuterol 2.5 MG/Ipratropium 0.5 MG 3 ML INH SCH ×3 (03:59→11:03)
[2018-03-23] MEDS: Diltiazem TAB* 30 MG PO SCH ×3 (05:00→16:52)
[2018-03-23] MEDS: Heparin VIAL(*) 5000 UNITS/ML VIAL (FIVE THOUSAND) SUBCUT SCH (05:59)
[2018-03-23 06:03] LABS: Hematocrit 33 % (42-52); Hemoglobin 10.7 g/dl (14.0-18.0); Mean Corpuscular HGB Conc 32 g/dl (31-36); Mean Corpuscular Hemoglobin 31 pg (27-31); Mean Corpuscular Volume 97 fL (80-94); Platelet Count 107 10^3/ul (150-450); Red Blood Count 3.43 10^6/ul (4.00-5.40); Red Cell Distribution Width 15 % (10.5-15); White Blood Count 15.4 10^3/ul (3.5-10.8)
[2018-03-23 06:18] LABS: BUN/Creatinine Ratio 38.9 (8-20); Blood Urea Nitrogen 28 mg/dL (6-24); CO2 Carbon Dioxide 38 mmol/L (22-32); Calcium 7.9 mg/dL (8.6-10.3); Chloride 100 mmol/L (101-111); EGFR African American 132.2 (>60); EGFR Non-African American 109.2 (>60); Glucose 125 mg/dL (70-100); Magnesium 2.2 mg/dL (1.9-2.7); Potassium 3.7 mmol/L (3.5-5.0); Sodium 138 mmol/L (135-145)
[2018-03-23 06:19] LABS: INR 1.07 (0.77-1.02)
[2018-03-23] MEDS: methylPREDNISolone SOD 40 MG* 1 ML VIAL IV SCH (07:51)
[2018-03-23] MEDS: levETIRAcetam 500 MG IVPREMIX* 500 MG/100 ML BAG IV SCH ×2 (07:51→20:01)
[2018-03-23] MEDS: Dexmedetomidine* 400 MCG in NS 0.9% 100 ML* 96 ML IVPB SCH ×2 (10:29→23:00)
[2018-03-23] MEDS ORDERED: Potassium Chloride LIQUID* 20 MEQ PACKET PO ONE (11:19)
--- NOTE | 2018-03-23 11:24 | PN ---
Progress Note - Progress Note Date of Service: 03/23/18 Note: Progress Note -- Critical Care 24 hour events/significant events: -no event overngiht -off all sedation -awakens, looks around, moving spontaneously but doesnt follow any commands -no distress, calm -BP stable, off pressors -HR controlled 90s; on cardizem infusion 2.5 for rapid afib -BP stable -tmax 99, decreasing Tele: afib Vitals: Vital Signs Temp 99.1 F 03/23/18 10:01 Pulse 105 03/23/18 11:09 Resp 18 03/23/18 11:09 BP 142/89 03/23/18 10:00 Pulse Ox 98 03/23/18 11:09 Intake & Output 03/22/18 03/23/18 03/23/18 18:59 06:59 18:59 Intake Total 2928.1 2702 Output Total 797 576 240 Balance 2131.1 2126 -240 Weight 71.5 kg Intake: IV Fluids 500.3 1310 ABX 69 D5W 405 1310 Keppra 26.3 IVPB 146 104 ABX 48 Keppra 98 104 Medicated IV 44.8 72 GEN - Diltiazem/Cardizem 44.8 72 Tube Feeding 1792 841 Tube Feeding Flush Amount 325 375 NG Tube Irrigate Amount 120 Output: Ghotra 797 576 240 Other: Date of Last Bowel 03/23/18 Movement # Bowel Movements 1 Estimated Stool Amount Small O2/Vent: AC mode Infusions: cardizem infusion, d5w Medications: Acetaminophen (Tylenol Adult Liq*) 650 mg NG TUBE Q4H PRN PRN Reason: TEMPERATURE Last Admin: 03/21/18 20:09 Dose: 650 mg Albuterol (Ventolin 2.5 Mg/3 Ml Neb.Alena*) 2.5 mg INH Q2H PRN PRN Reason: SOB/WHEEZING Last Admin: 03/17/18 14:25 Dose: 2.5 mg Albuterol/Ipratropium (Duoneb (Albuterol 2.5 Mg/Ipratropium 0.5 Mg)) 1 neb INH [id number] AWAKE [facility] Last Admin: 03/23/18 11:03 Dose: 1 neb Chlorhexidine Gluconate (Peridex Mouth Wash 0.12%*) 15 ml TOPICAL Q4H [facility] Last Admin: 03/23/18 05:59 Dose: 15 ml Diltiazem HCl (Diltiazem Iv*) 10 mg IV SLOW PU ONCE ONE Last Admin: 03/21/18 15:03 Dose: 10 mg Diltiazem HCl (Cardizem Tab*) 60 mg PO Q6HR [facility] Last Admin: 03/23/18 05:00 Dose: 60 mg Docusate Sodium (Colace Liq*) 100 mg PO BID [facility] Last Admin: 03/22/18 21:16 Dose: 100 mg Famotidine (Pepcid Tab*) 20 mg PO BID [facility] Last Admin: 03/22/18 21:16 Dose: 20 mg Fentanyl Citrate (Fentanyl*) 50 mcg IV Q2H PRN PRN Reason: SHIVERING Last Admin: 03/23/18 09:24 Dose: 50 mcg Heparin Sodium (Porcine) (Heparin Flush Picc/Ml/Cvc(*)) 1 - 3 ml FLUSH 0600, 1800 [facility]; Protocol Last Admin: 03/23/18 05:59 Dose: Not Given Heparin Sodium (Porcine) (Heparin Vial(*)) 5,000 units SUBCUT Q8HR [facility] Last Admin: 03/23/18 05:59 Dose: 5,000 units Levetiracetam (Keppra Iv Premix*) 500 mg in 100 mls @ 400 mls/hr IV BID [facility] Last Admin: 03/23/18 07:51 Dose: 400 mls/hr Dexmedetomidine HCl 400 mcg/ (Sodium Chloride) 100 mls @ 3.1 mls/hr IVPB Q24H [facility]; Protocol Last Admin: 03/23/18 10:29 Dose: Not Given Ceftriaxone Sodium 1 gm/ (Sodium Chloride) 50 mls @ 200 mls/hr IVPB Q24H [facility] Stop: 03/24/18 12:59 Last Admin: 03/22/18 12:20 Dose: 200 mls/hr Diltiazem HCl 125 mg/ Sodium (Chloride) 125 mls @ 10 mls/hr IV Q12H [facility]; Protocol Last Admin: 03/23/18 03:00 Dose: Not Given Methylprednisolone Sodium Succinate (Solu-Medrol 40 Mg) 20 mg IV DAILY [facility] Stop: 03/25/18 09:01 Last Admin: 03/23/18 07:51 Dose: 20 mg Metoprolol Tartrate (Lopressor Iv*) 5 mg IV Q6H PRN PRN Reason: HEART RATE/PULSE Last Admin: 03/21/18 13:25 Dose: 5 mg Metoprolol Tartrate (Lopressor Tab*) 50 mg PO Q12HR [facility] Last Admin: 03/22/18 21:16 Dose: 50 mg Polyethylene Glycol/Electrolytes (Miralax*) 17 gm PO DAILY PRN PRN Reason: CONSTIPATION Quetiapine Fumarate (Seroquel Tab*) 25 mg PO DAILY [facility] Last Admin: 03/22/18 18:10 Dose: 25 mg Senna (Senokot Tab*) 1 tab PO BEDTIME [facility] Last Admin: 03/22/18 21:16 Dose: 1 tab Physical Exam: General: intubated, awake, doesnt follow commands, moves spontaneously , no distress, no diaphoresis Head: normocephalic, atraumatic HEENT: no pallor, no icterus, moist mucous membranes Neck: soft, supple, no jvd CVS: normal rate, irregular, no murmur Resp: bilateral air entry, no rhales/wheeze/rhonchi, no acc muscle use Abdomen: soft, nontender, nondistended, bowel sounds+ Ext: pulses+, warm, no edema Skin: intact Neuro: awake, not alert, doesnt follow commands, less restless today; unable to determine orientation; brain stem reflexes intact, pupils 2mm and reactive, moves all ext spontaneously Labs: Laboratory Results - last 24 hr 03/23/18 03/23/18 03/23/18 05:50 05:50 05:50 WBC 15.4 H RBC 3.43 L Hgb 10.7 L Hct 33 L MCV 97 H MCH 31 MCHC 32 RDW 15 Plt Count 107 L MPV 9.0 INR (Anticoag Therapy) 1.07 H Sodium 138 D Potassium 3.7 Chloride 100 L Carbon Dioxide 38 H BUN 28 H Creatinine 0.72 Est GFR ( Amer) 132.2 Est GFR (Non-Af Amer) 109.2 BUN/Creatinine Ratio 38.9 H Glucose 125 H Calcium 7.9 L Magnesium 2.2 Imaging: cxr / - hyperiniflated, ett above antonina, no infltrate/effusion Assessment: 68y M w/pmhx of Afib on Xarelto, COPD, Chronic hypoxia on home O2 2L ; admitted 03/17 for acute respiratory distress form home, had increasing dyspnea for weeks, recentl stopped smoking. INcreased dyspnea for 2 days as per history, then went unresponsive, respiratory arrest leading to cardiac arrest. ROSC achieved enroute, arrest occurred in front of EMS while about to be transported. He is s/p Hypothermia protocol for cardiac arrest. Initial CT brain demonstrated some possible durbin white changes, but unclear if sig edema. -Respiratory and Cardiac Arrest, out of hospital -Acute on chronic hypoxic respiratory failure -Suspected hypoxic-anoxic encephalopathy -Acute COPD exaccerbation -Haemophilus pneumonia -Afib with RVR -ORLY -Ischemic Hepatitis Plan: Neuro- sluggish response but reflexes intact; cont to hold all sedation. PRN precedex only if needed. Neuro following, EEG 03/22 with diffuse slowly -Previous CT with improved edema on 03/19. Awake but not responding. EEG last 03/21 with slowing. Neuro reviewed, will consider MRI brain if no change by tomorrow for further prognostication. -cont keppra 500mg IV bid -avoid BDZ, neurochecks CVS- BP stable, no pressors. -off d5w, Na improved -AFib rate controlled, incr cardizem 90mg q6h, cont Metoprolol 50mg q8h, metoprolol q6h prn. No AC for now, unclear if bleed prior. -Hg stable 11-12. Resp- on AC mode; trial CPAP daily. CXr repeat today given some increased secretions, r/o infiltrate. Sputum with haemiphilus. -Weaning may be delayed given poor ability to follow commands, unclear his ability to clear secretions on his own. -No wheezing; cont solumedrol taper for another 48 hours. Bronchodilators PRN. VAP bundle. ID- afebrile, tmax 99.1, lower. wbc 15 still, elevated. CXR today. Sputum with haemophilus+, likely was bronchitis/pneumonia. On Steroids tapering. Cont Ceftriaxone IV (day #08/21), d/c after today. GI- NGT feeds, Jevity 1.2 @ 60cc/hr. d5w off. Add free water to TF. No further evidence of Gi bleed, hg stable. H2b BID. KUB with some distended loops, BM+ though. Renal- ORLY resolved, likely ischemic from shock/arrest. Making urine, positive balance. Hypernatremia better, off D5w. hypokalemia, 40meq via NGT. Ghotra+ Heme- hg stable 10s. No active bleeding noted. Plt drop to 107, d/c heparin sq. Unclear reason for sudden drop, heparin sq started 2/2, when it seems downtrend already was present, if further drop may have to consider HIT. d/c any offending agents, on last dose cephalosporin IV. no ppi. SCDs+ Endo- fingerstick prn. Musculsk- pressure ulcer prophylaxis. Bedrest. Wounds- none Nutrition- NGT feeds DVT prophylaxis: SCD GI prophylaxis: h2b bid Central Line: Right PICC Arterial Line: no Ghotra Cathetor: yes Disposition: Patient requires Critical Care/ICU for respiratory failure, cardiac arrest, encephalopathy Patient clinical status: stable Code Status: full code Total Critical Care time is 35 minutes, excluding procedures/teaching Eduar Sawyer MD [employer] (Electronically Signed)
[2018-03-23] MEDS ORDERED: Metoprolol Tartrate TAB* 50 mg PO SCH (12:00)
[2018-03-23] MEDS: Docusate LIQ* 100 MG/10 ML UDC PO SCH ×2 (13:27→20:01)
[2018-03-23] MEDS: cefTRIAXone(*) 1 GM in NS 0.9% 50 ML* 50 ML IVPB SCH (13:27)
[2018-03-23] MEDS: Famotidine TAB* 20 MG PO SCH ×2 (13:27→20:01)
[2018-03-23] MEDS ORDERED: Albuterol 2.5 MG/3 ML NEB.SOL* (0.083%) INH PRN (13:40)
[2018-03-23] MEDS: QUEtiapine TAB* 25 MG PO SCH (13:41)
[2018-03-23] MEDS ORDERED: Glycopyrrolate IV* 0.2 MG/ML 1 ML VIAL IV SLOW PU ONE (18:24)
[2018-03-23] MEDS ORDERED: Furosemide IV* 10 MG/ML 2 ML VIAL (20 MG) IV ONE (18:25)
[2018-03-23] MEDS: Senna TAB PO SCH (20:01)
[2018-03-24] MEDS: Diltiazem TAB* 30 MG PO SCH ×5 (02:30→23:27)
[2018-03-24] MEDS: CHLORHEXADINE (PERIDEX) VENT ORAL CARE TOPICAL SCH ×4 (02:30→12:42)
[2018-03-24] MEDS: fentaNYL* 50 MCG/ML 2 ML VIAL (100 MCG VIAL) IV PRN (02:55)
[2018-03-24] MEDS: Diltiazem IV VIAL* 125 MG in NS 0.9% 100 ML* 100 ML IV SCH ×2 (03:21→16:04)
[2018-03-24 05:48] LABS: Hematocrit 35 % (42-52); Hemoglobin 11.1 g/dl (14.0-18.0); Mean Corpuscular HGB Conc 32 g/dl (31-36); Mean Corpuscular Hemoglobin 31 pg (27-31); Mean Corpuscular Volume 98 fL (80-94); Mean Platelet Volume 8.9 fL (7.4-10.4); Platelet Count 105 10^3/ul (150-450); Red Blood Count 3.55 10^6/ul (4.00-5.40); Red Cell Distribution Width 15 % (10.5-15); White Blood Count 11.3 10^3/ul (3.5-10.8)
[2018-03-24 05:54] LABS: INR 1.06 (0.77-1.02)
[2018-03-24] MEDS ORDERED: Glycopyrrolate IV* 0.2 MG/ML 1 ML VIAL IV SLOW PU ONE (06:00)
[2018-03-24 06:04] LABS: BUN/Creatinine Ratio 40.6 (8-20); Calcium 8.5 mg/dL (8.6-10.3); EGFR African American 138.8 (>60); EGFR Non-African American 114.7 (>60); Magnesium 2.1 mg/dL (1.9-2.7); Potassium 3.9 mmol/L (3.5-5.0)
[2018-03-24] MEDS: Famotidine TAB* 20 MG PO SCH ×2 (07:21→20:51)
[2018-03-24] MEDS: Docusate LIQ* 100 MG/10 ML UDC PO SCH (07:21)
[2018-03-24] MEDS: methylPREDNISolone SOD 40 MG* 1 ML VIAL IV SCH (07:21)
[2018-03-24] MEDS: levETIRAcetam 500 MG IVPREMIX* 500 MG/100 ML BAG IV SCH ×2 (07:21→21:14)
[2018-03-24] MEDS: Metoprolol Tartrate TAB* 50 mg PO SCH ×2 (07:22→20:50)
[2018-03-24] MEDS: QUEtiapine TAB* 25 MG PO SCH (07:22)
[2018-03-24] MEDS: Dexmedetomidine* 400 MCG in NS 0.9% 100 ML* 96 ML IVPB SCH (08:13)
[2018-03-24] MEDS: Metoprolol Tartrate IV* 1 MG/ML 5 ML VIAL IV PRN ×2 (12:39→21:15)
[2018-03-24] MEDS ORDERED: Furosemide IV* 10 MG/ML 2 ML VIAL (20 MG) IV ONE (12:56)
--- NOTE | 2018-03-24 12:57 | PN ---
Progress Note - Progress Note Date of Service: 03/24/18 Note: Progress Note -- Critical Care 24 hour events/significant events: -no event overngiht --off sedation -following commands -afebrile -placed on CPAP this morning, feeds held; did well on 11/19, then 09/19; extubated to aerosol mask successfully, no distress since -voice is very hoarse Tele: afib Vitals: Vital Signs Temp 98.1 F 03/24/18 12:30 Pulse 93 03/24/18 12:30 Resp 30 03/24/18 12:30 BP 117/75 03/24/18 12:30 Pulse Ox 94 03/24/18 12:30 Intake & Output 03/23/18 03/24/18 03/24/18 18:59 06:59 18:59 Intake Total 273 432 Output Total 735 2024 770 Balance -468 -1592 -770 Weight 68.4 kg Intake: IV Fluids 98 159 NS 98 159 IVPB 150 100 ABX 50 Keppra 100 100 Medicated IV 25 79 CC - Dexmedetomidine/ 65 Precedex GEN - Diltiazem/Cardizem 25 14 Tube Feeding 94 Output: Ghotra 735 2024 770 Other: Date of Last Bowel 03/23/18 Movement # Bowel Movements 1 Estimated Stool Amount Small O2/Vent: AC mode -> spontaneous - > 3L NC Infusions: heplock Medications: Acetaminophen (Tylenol Adult Liq*) 650 mg NG TUBE Q4H PRN PRN Reason: TEMPERATURE Last Admin: 03/21/18 20:09 Dose: 650 mg Albuterol (Ventolin 2.5 Mg/3 Ml Neb.Alena*) 2.5 mg INH Q6H PRN PRN Reason: SOB/WHEEZING Diltiazem HCl (Diltiazem Iv*) 10 mg IV SLOW PU ONCE ONE Last Admin: 03/21/18 15:03 Dose: 10 mg Diltiazem HCl (Cardizem Tab*) 60 mg PO Q6HR CLARA Last Admin: 03/24/18 12:42 Dose: Not Given Docusate Sodium (Colace Cap*) 100 mg PO BID PRN PRN Reason: CONSTIPATION Famotidine (Pepcid Tab*) 20 mg PO BID CLARA Last Admin: 03/24/18 07:21 Dose: 20 mg Heparin Sodium (Porcine) (Heparin Flush Picc/Ml/Cvc(*)) 1 - 3 ml FLUSH 0600, 1800 [facility]; Protocol Last Admin: 03/24/18 06:27 Dose: Not Given Levetiracetam (Keppra Iv Premix*) 500 mg in 100 mls @ 400 mls/hr IV BID [facility] Last Admin: 03/24/18 07:21 Dose: 400 mls/hr Ceftriaxone Sodium 1 gm/ (Sodium Chloride) 50 mls @ 200 mls/hr IVPB Q24H [facility] Stop: 03/24/18 12:59 Last Admin: 03/23/18 13:27 Dose: 200 mls/hr Diltiazem HCl 125 mg/ Sodium (Chloride) 125 mls @ 10 mls/hr IV Q12H [facility]; Protocol Last Admin: 03/24/18 03:21 Dose: Not Given Magnesium Sulfate 2 gm/ Sodium (Chloride) 104 mls @ 104 mls/hr IV ONCE ONE Stop: 03/24/18 13:44 Methylprednisolone Sodium Succinate (Solu-Medrol 40 Mg) 20 mg IV DAILY [facility] Stop: 03/25/18 09:01 Last Admin: 03/24/18 07:21 Dose: 20 mg Metoprolol Tartrate (Lopressor Iv*) 5 mg IV Q6H PRN PRN Reason: HEART RATE/PULSE Last Admin: 03/24/18 12:39 Dose: 5 mg Metoprolol Tartrate (Lopressor Tab*) 50 mg PO Q12H [facility] Last Admin: 03/24/18 07:22 Dose: 50 mg Polyethylene Glycol/Electrolytes (Miralax*) 17 gm PO DAILY PRN PRN Reason: CONSTIPATION Quetiapine Fumarate (Seroquel Tab*) 25 mg PO DAILY [facility] Last Admin: 03/24/18 07:22 Dose: 25 mg Senna (Senokot Tab*) 1 tab PO BEDTIME [facility] Last Admin: 03/23/18 20:01 Dose: 1 tab Physical Exam: General: was intubated; followed all commands; extubated, awake, no distress, no diaphoresis Head: normocephalic, atraumatic HEENT: no pallor, no icterus, moist mucous membranes Neck: soft, supple, no jvd, no stridor CVS: normal rate, irregular, no murmur Resp: bilateral air entry, no rhales/wheeze/rhonchi, no acc muscle use Abdomen: soft, nontender, nondistended, bowel sounds+ Ext: pulses+, warm, no edema Skin: intact Neuro: awake, alert, follows commands, moves all ext spontaneously Labs: Laboratory Results - last 24 hr 03/24/18 03/24/18 03/24/18 05:20 05:20 05:20 WBC 11.3 H RBC 3.55 L Hgb 11.1 L Hct 35 L MCV 98 H MCH 31 MCHC 32 RDW 15 Plt Count 105 L MPV 8.9 INR (Anticoag Therapy) 1.06 H Sodium 140 Potassium 3.9 Chloride 96 L Carbon Dioxide 42 H* Anion Gap 2 BUN 28 H Creatinine 0.69 Est GFR ( Amer) 138.8 Est GFR (Non-Af Amer) 114.7 BUN/Creatinine Ratio 40.6 H Glucose 96 Calcium 8.5 L Magnesium 2.1 Imaging: cxr 03/21 - hyperiniflated, ett above antonina, no infltrate/effusion Assessment: 68y M w/pmhx of Afib on Xarelto, COPD, Chronic hypoxia on home O2 2L ; admitted 03/17 for acute respiratory distress form home, had increasing dyspnea for weeks, recentl stopped smoking. INcreased dyspnea for 2 days as per history, then went unresponsive, respiratory arrest leading to cardiac arrest. ROSC achieved enroute, arrest occurred in front of EMS while about to be transported. He is s/p Hypothermia protocol for cardiac arrest. Initial CT brain demonstrated some possible durbin white changes, but unclear if sig edema. -Respiratory and Cardiac Arrest, out of hospital -Acute on chronic hypoxic respiratory failure -Suspected hypoxic-anoxic encephalopathy -Acute COPD exaccerbation -Haemophilus pneumonia -Afib with RVR -ORLY -Ischemic Hepatitis Plan: Neuro- -mentation better; alert, follows commands. cont to eval daily. off sedation. on seroquel low dose. -like to have some low bit of encephalopathy from cardiac arrest -Previous CT with improved edema on 03/19. Awake but not responding. EEG last 03/21 with slowing. Neuro reviewed, will consider MRI brain if no change by tomorrow for further prognostication. -cont keppra 500mg IV bid -avoid BDZ, neurochecks q4h CVS- BP stable, no pressors. -AFib rate controlled, cardizem 90mg q6h, Metoprolol 50mg q8h, metoprolol q6h prn. May need IV cardizem till able to take PO now, cont PRN metoprolol IV -Hg stable 11-12. Resp- -did well on CPAP, extubated , on NC now. no distress. weak cough but holding airway, speaking a bit. -CXR 03/24 without gross infiltrate. -minimal secretions suctioned today. had 2 doses glyccpyroilate and IV lasix x1 yesterday which probably helped. -No wheezing; cont solumedrol taper for another 1day. Bronchodilators PRN. ID- afebrile, tmax 99.1. wbc 11. CXR without much gross infiltrate. Tapering steroids. -Sputum with haemophilus+, likely was bronchitis/pneumonia. Completed Ceftriaxone IV 7 days. Monitor off Abx GI- NGT out. NPO now. Swallow bedside eval in evening. Formal swallow eval tomorrow. cont colace. Renal- ORLY resolved, likely ischemic from shock/arrest. Making urine, neg balance after lasix x1; repeat lasix today 20mg IV x1. Hypernatremia resolved. K okay. Mg 2.1, replete IV 2gm. Ghotra+ Heme- hg stable 11. No active bleeding noted. Plt 100s. Unclear reason for sudden drop, heparin sq started 2/2, when it seems downtrend already was present , if further drop may have to consider HIT. d/c any offending agents, completed CTX, no ppi. SCDs+ Endo- fingerstick prn. Musculsk- pressure ulcer prophylaxis. Bedrest, oob to chair later today if possible Wounds- none Nutrition- NPO, swallow eval DVT prophylaxis: SCD GI prophylaxis: h2b bid Central Line: Right PICC Arterial Line: no Ghotra Cathetor: yes Disposition: Patient requires Critical Care/ICU for respiratory failure, cardiac arrest, encephalopathy Patient clinical status: stable Code Status: full code Total Critical Care time is 35 minutes, excluding procedures/teaching Eduar Sawyer MD Retail Pharmacy Technician (Electronically Signed)
[2018-03-24] MEDS ORDERED: Magnesium Sulfate 2 GM IV* 2 GM/50 ML BAG IVPB ONE (14:00)
--- NOTE | 2018-03-24 14:42 | PN ---
Subjective Date of Service: 03/24/18 Length of Stay: 7 Days Neurology is following for encephalopathy. Interval History: He is awake and responsive. The team is getting ready to extubate. Review of Systems: He denied any headache, visual disturbance, or focal weakness/paresthesia. Objective Active Medications: Acetaminophen (Tylenol Adult Liq*) 650 mg NG TUBE Q4H PRN PRN Reason: TEMPERATURE Last Admin: 03/21/18 20:09 Dose: 650 mg Albuterol (Ventolin 2.5 Mg/3 Ml Neb.Alena*) 2.5 mg INH Q6H PRN PRN Reason: SOB/WHEEZING Diltiazem HCl (Diltiazem Iv*) 10 mg IV SLOW PU ONCE ONE Last Admin: 03/21/18 15:03 Dose: 10 mg Diltiazem HCl (Cardizem Tab*) 60 mg PO Q6HR CLARA Last Admin: 03/24/18 12:42 Dose: Not Given Docusate Sodium (Colace Cap*) 100 mg PO BID PRN PRN Reason: CONSTIPATION Famotidine (Pepcid Tab*) 20 mg PO BID [facility] Last Admin: 03/24/18 07:21 Dose: 20 mg Heparin Sodium (Porcine) (Heparin Flush Picc/Ml/Cvc(*)) 1 - 3 ml FLUSH 0600, 1800 [facility]; Protocol Last Admin: 03/24/18 06:27 Dose: Not Given Levetiracetam (Keppra Iv Premix*) 500 mg in 100 mls @ 400 mls/hr IV BID CLARA Last Admin: 03/24/18 07:21 Dose: 400 mls/hr Diltiazem HCl 125 mg/ Sodium (Chloride) 125 mls @ 10 mls/hr IV Q12H [facility]; Protocol Last Admin: 03/24/18 03:21 Dose: Not Given Magnesium Sulfate (Magnesium Sulfate 2 Gm Iv*) 2 gm in 50 mls @ 50 mls/hr IVPB ONCE ONE Stop: 03/24/18 14:59 Methylprednisolone Sodium Succinate (Solu-Medrol 40 Mg) 20 mg IV DAILY [facility] Stop: 03/25/18 09:01 Last Admin: 03/24/18 07:21 Dose: 20 mg Metoprolol Tartrate (Lopressor Iv*) 5 mg IV Q6H PRN PRN Reason: HEART RATE/PULSE Last Admin: 03/24/18 12:39 Dose: 5 mg Metoprolol Tartrate (Lopressor Tab*) 50 mg PO Q12H [facility] Last Admin: 03/24/18 07:22 Dose: 50 mg Polyethylene Glycol/Electrolytes (Miralax*) 17 gm PO DAILY PRN PRN Reason: CONSTIPATION Quetiapine Fumarate (Seroquel Tab*) 12.5 mg PO DAILY [facility] Senna (Senokot Tab*) 1 tab PO BEDTIME [facility] Last Admin: 03/23/18 20:01 Dose: 1 tab Vital Signs 03/24/18 03/24/18 03/24/18 12:00 12:30 13:00 Temperature 98.1 F 98.1 F 98.2 F Pulse Rate 91 93 98 Respiratory 21 30 20 Rate Blood Pressure 133/98 117/75 97/65 (mmHg) O2 Sat by Pulse 94 94 97 Oximetry Intake and Output Last 24 Hours 03/22/18 03/23/18 03/24/18 03/25/18 06:59 06:59 06:59 06:59 Intake Total 1396.7 5630.1 705 Output Total 1095 1373 2760 770 Balance 301.7 4257.1 -2054 -770 Weight 147 lb 0.013 oz 157 lb 10.088 oz 150 lb 12.739 oz Intake: IV Fluids 711 1810.3 257 ABX 69 D5W 1715 Keppra 26.3 NS 711 257 IVPB 270 250 250 ABX 60 48 50 Keppra 210 202 200 Medicated IV 295.7 116.8 104 CC - Dexmedetomidine/ 85 65 Precedex CC - Propofol/Diprivan 68.7 GEN - Diltiazem/Cardizem 142 116.8 39 Tube Feeding 2633 94 Tube Feeding Flush Amount 120 700 NG Tube Irrigate Amount 120 Output: Ghotra 1095 1373 2760 770 Other: Date of Last Bowel 03/23/18 Movement # Bowel Movements 1 Estimated Stool Amount Small Oxygen Devices in Use Now: Nasal Cannula Neurology Exam: General: Ill appearing man in no acute distress. HEENT: Normocephalic/atraumatic, sclera anicteric, mucous membranes moist Neck: Supple Cardiovascular: Regular rate and rhythm without murmurs, rubs, gallops Extremities: No clubbing, cyanosis, or edema Neurological Findings: Intubated man in no distress. He is not on sedation. He opens eyes spontaneously. He follows command. GCS 11t. PERRL, corneal, nasal stimulation, and gag reflexes are intact. Motor: he moves both upper and lower extremities to command. He gave me thumbs up bilaterally. He cannot elevate the legs or arms high enough off the bed ( was recently on Precedex). Reflexes: 0 throughout. Mute plantar response Result Diagrams: 03/24/18 05:20 03/24/18 05:20 Microbiology and Other Data: Microbiology 03/20/18 08:40 Urine Culture - Final Urine No Growth (<1,000 CFU/mL) 03/18/18 11:05 Aerobic Blood Culture - Preliminary Blood Line No Growth Day 3 Anaerobic Blood Culture - Preliminary No Growth Day 3 03/18/18 11:00 Aerobic Blood Culture - Preliminary Blood Line No Growth Day 3 Anaerobic Blood Culture - Preliminary No Growth Day 3 03/17/18 13:20 Aerobic Blood Culture - Preliminary Blood Line No Growth Day 3 Anaerobic Blood Culture - Preliminary No Growth Day 3 03/17/18 12:12 Gram Stain - Final Sputum Sputum Culture - Final Haemophilus Influenzae Normal Carley 03/18/18 01:30 Urine Culture - Final Urine No Growth (<1,000 CFU/mL) 03/18/18 01:30 Influenza Types A,B Antigen - Final Nasal Specimen received for Influenza A/B Molecular testing 03/17/18 11:45 Nasal Screen MRSA (PCR) - Final Nasal Mrsa Not Detected Assessment/Plan Mr. Yonas Beck is a 68-year-old man with long history of tobacco abuse and COPD who presented with witnessed cardiopulomonary arrest and suspected mild anoxic brain injury. 1. acute hypoxic-ischemic encephalopathy- Mild severity. He is slowly recovering and is appropriate at this time. Will hopefully be extubated today. He may have memory and motor impairment following the injury. 2. Possible hypoactive delirium related to encephalopathy- improved. Recommendations: - Wean off levetiracetam by decreasing the dose to 250 mg twice daily for 3 days , then 250 daily for one day, then discontinue. - PT/OT/HOGSHEAD OPENER evaluate and treat post extubation. - He will need short term rehabilitation. Neurology will sign off. Please contact me for any questions or concerns. Time spent: 20 minutes. D/w ICU team.
[2018-03-24] MEDS: Senna TAB PO SCH (20:51)
[2018-03-25] MEDS: Metoprolol Tartrate IV* 1 MG/ML 5 ML VIAL IV PRN (02:12)
[2018-03-25] MEDS: Diltiazem IV VIAL* 125 MG in NS 0.9% 100 ML* 100 ML IV SCH ×2 (03:08→16:46)
[2018-03-25] MEDS: Diltiazem TAB* 30 MG PO SCH ×4 (05:17→17:22)
[2018-03-25 05:41] LABS: Hematocrit 36 % (42-52); Hemoglobin 11.7 g/dl (14.0-18.0); Mean Corpuscular HGB Conc 32 g/dl (31-36); Mean Corpuscular Hemoglobin 31 pg (27-31); Mean Corpuscular Volume 96 fL (80-94); Platelet Count 143 10^3/ul (150-450); Red Blood Count 3.78 10^6/ul (4.00-5.40); Red Cell Distribution Width 15 % (10.5-15); White Blood Count 20.3 10^3/ul (3.5-10.8)
[2018-03-25 06:43] LABS: Potassium 3.4 mmol/L (3.5-5.0)
[2018-03-25 06:49] LABS: BUN/Creatinine Ratio 33.8 (8-20); EGFR African American 122.3 (>60); EGFR Non-African American 101.1 (>60)
[2018-03-25] MEDS: methylPREDNISolone SOD 40 MG* 1 ML VIAL IV SCH (07:43)
[2018-03-25] MEDS: Famotidine TAB* 20 MG PO SCH ×2 (07:44→19:56)
[2018-03-25] MEDS: Metoprolol Tartrate TAB* 50 mg PO SCH ×3 (07:44→19:56)
[2018-03-25] MEDS: QUEtiapine TAB* 25 MG PO SCH (07:45)
[2018-03-25] MEDS: levETIRAcetam 500 MG IVPREMIX* 500 MG/100 ML BAG IV SCH ×2 (07:50→19:56)
[2018-03-25] MEDS ORDERED: Docusate CAP* 100 MG PO PRN (09:00)
--- NOTE | 2018-03-25 17:32 | PN ---
Progress Note - Progress Note Date of Service: 03/25/18 Note: Progress Note -- Critical Care 24 hour events/significant events: -extubated yesterday; doing well overnight -no fevers, awake, alert, hard of hearing, some disorientation problems noted -moves all ext -sitting in chair today -passed swallow eval Tele: afib Vitals: Vital Signs Temp 98.4 F 03/25/18 16:30 Pulse 113 03/25/18 16:01 Resp 21 03/25/18 16:30 BP 148/85 03/25/18 16:30 Pulse Ox 94 03/25/18 16:01 Intake & Output 03/24/18 03/25/18 03/25/18 18:59 06:59 18:59 Intake Total 451 274 Output Total 20040 1052 [facility]1728 -489 -778 Intake: IV Fluids 98 348 0 Keppra 100 Magnesium 100 0 NS 98 148 IVPB 150 60 Keppra 100 Magnesium 50 NS 60 Medicated IV 29 103 CC - Dexmedetomidine/ 29 Precedex GEN - Diltiazem/Cardizem 103 Oral 0 Tube Feeding 94 NG Tube Irrigate Amount 120 Output: NG Tube Drainage Amount 400 Bell 2004 940 652 Other: Date of Last Bowel 03/23/18 Movement # Bowel Movements 1 Estimated Stool Amount Small O2/Vent: 4L NC Infusions: heplock Medications: Acetaminophen (Tylenol Adult Liq*) 650 mg NG TUBE Q4H PRN PRN Reason: TEMPERATURE Last Admin: 03/21/18 20:09 Dose: 650 mg Albuterol (Ventolin 2.5 Mg/3 Ml Neb.Alena*) 2.5 mg INH Q6H PRN PRN Reason: SOB/WHEEZING Diltiazem HCl (Diltiazem Iv*) 10 mg IV SLOW PU ONCE ONE Last Admin: 03/21/18 15:03 Dose: 10 mg Diltiazem HCl (Cardizem Tab*) 60 mg PO Q6HR CLARA Last Admin: 03/25/18 12:14 Dose: 60 mg Docusate Sodium (Colace Cap*) 100 mg PO BID PRN PRN Reason: CONSTIPATION Famotidine (Pepcid Tab*) 20 mg PO BID CLARA Last Admin: 03/25/18 07:44 Dose: 20 mg Heparin Sodium (Porcine) (Heparin Flush Picc/Ml/Cvc(*)) 1 - 3 ml FLUSH 0600, 1800 [facility]; Protocol Last Admin: 03/25/18 05:18 Dose: Not Given Levetiracetam (Keppra Iv Premix*) 500 mg in 100 mls @ 400 mls/hr IV BID [facility] Last Admin: 03/25/18 07:50 Dose: 400 mls/hr Diltiazem HCl 125 mg/ Sodium (Chloride) 125 mls @ 10 mls/hr IV Q12H [facility]; Protocol Last Admin: 03/25/18 16:46 Dose: Not Given Metoprolol Tartrate (Lopressor Iv*) 5 mg IV Q6H PRN PRN Reason: HEART RATE/PULSE Last Admin: 03/25/18 02:12 Dose: 5 mg Metoprolol Tartrate (Lopressor Tab*) 50 mg PO Q12H [facility] Last Admin: 03/25/18 07:44 Dose: 50 mg Polyethylene Glycol/Electrolytes (Miralax*) 17 gm PO DAILY PRN PRN Reason: CONSTIPATION Quetiapine Fumarate (Seroquel Tab*) 12.5 mg PO DAILY [facility] Last Admin: 03/25/18 07:45 Dose: 12.5 mg Senna (Senokot Tab*) 1 tab PO BEDTIME [facility] Last Admin: 03/24/18 20:51 Dose: Not Given Physical Exam: General: awake, alert, no distress Head: normocephalic, atraumatic HEENT: no pallor, no icterus, moist mucous membranes Neck: soft, supple, no jvd, no stridor CVS: normal rate, irregular, no murmur Resp: bilateral air entry, no rhales/wheeze/rhonchi, no acc muscle use Abdomen: soft, nontender, nondistended, bowel sounds+ Ext: pulses+, warm, no edema Skin: intact Neuro: awake, alert, follows commands, oriented x1, moves all ext spontaneously Labs: Laboratory Results - last 24 hr 03/25/18 03/25/18 05:30 05:30 WBC 20.3 H RBC 3.78 L Hgb 11.7 L Hct 36 L MCV 96 H MCH 31 MCHC 32 RDW 15 Plt Count 143 L MPV 9.0 Sodium 144 Potassium 3.4 L Chloride 96 L Carbon Dioxide 43 H* Anion Gap 5 BUN 26 H Creatinine 0.77 Est GFR ( Amer) 122.3 Est GFR (Non-Af Amer) 101.1 BUN/Creatinine Ratio 33.8 H Glucose 92 Calcium 9.0 Imaging: cxr 03/21 - hyperiniflated, ett above antonina, no infltrate/effusion cxr 03/24 - chronic lung disease stigmate, no sig effusion/infiltrate Assessment: 68y M w/pmhx of Afib on Xarelto, COPD, Chronic hypoxia on home O2 2L ; admitted 03/17 for acute respiratory distress form home, had increasing dyspnea for weeks, recentl stopped smoking. INcreased dyspnea for 2 days as per history, then went unresponsive, respiratory arrest leading to cardiac arrest. ROSC achieved enroute, arrest occurred in front of EMS while about to be transported. He is s/p Hypothermia protocol for cardiac arrest. Initial CT brain demonstrated some possible durbin white changes, but unclear if sig edema. -Respiratory and Cardiac Arrest, out of hospital -Acute on chronic hypoxic respiratory failure -Suspected hypoxic-anoxic encephalopathy -Acute COPD exaccerbation -Haemophilus pneumonia -Afib with RVR -ORLY -Ischemic Hepatitis Plan: Neuro- -mentation better, some confusion and disorientation -discussed with family that this may be on spectrum of hypoxic brain injury from cardiac arrest -passed swalloow, speaks, nonfocal findings on exam -Previous CT with improved edema on 03/19. EEG last 03/21 with slowing. Neuro reviewed; no further workup needed. -cont keppra 500mg IV bid, cont as outpatient, wean outpatient -avoid BDZ, neurochecks q4h CVS- -BP stable, no pressors. -AFib rate controlled, cardizem 90mg q6h, Metoprolol 50mg q8h, metoprolol q6h prn. -will need Anticoagulation restarted, likely xarelto PO again prior to discharge , can probably resume over the weekend -Hg stable 11-12. Resp- -NC, no distress; no cough/sputum -CXR tomorrow as followup -Bronchodilators PRN. ID- afebrile. wbc 20. Unclear why wbc increased. no resp distress/secretions, BP stable. CXR tomorrow. Off steroids. -Sputum with haemophilus+, likely was bronchitis/pneumonia. Completed Ceftriaxone IV 7 days. Monitor off Abx GI- swallow passed, mechanical soft diet rec. start cardiac diet mech soft. cont colace. Renal- ORLY resolved, likely ischemic from shock/arrest. Making urine, neg balance. PRN lasix. Mild hypernatremia, encourage more free water. Can d/c bell tomorrow. Heme- hg stable 11. No active bleeding noted. Plt incr to 140s. Likely to restart AC for Afib this weekend. SCDs+ Endo- fingerstick prn. Musculsk- pressure ulcer prophylaxis. oob to chair. pt/ot Wounds- none Nutrition- [facility] soft diet DVT prophylaxis: SCD GI prophylaxis: h2b bid Central Line: Right PICC Arterial Line: no Bell Cathetor: yes Disposition: patietn stable for transfer to medical floor Patient clinical status: stable Code Status: full code Eduar Sawyer MD Director Trade (Electronically Signed)
[2018-03-25] MEDS: Senna TAB PO SCH (19:57)
[2018-03-25] MEDS: Acetaminophen ADULT LIQ* 650 MG/20.3 ML UDC NG TUBE PRN (20:02)
[2018-03-25] MEDS ORDERED: Melatonin 3 MG TAB PO PRN (22:05)
[2018-03-26] MEDS: Diltiazem TAB* 30 MG PO SCH ×4 (05:08→17:37)
[2018-03-26 06:09] LABS: Hematocrit 37 % (42-52); Mean Corpuscular HGB Conc 33 g/dl (31-36); Mean Corpuscular Hemoglobin 32 pg (27-31); Mean Corpuscular Volume 97 fL (80-94); Mean Platelet Volume 9.3 fL (7.4-10.4); Platelet Count 146 10^3/ul (150-450); Red Cell Distribution Width 15 % (10.5-15); White Blood Count 14.1 10^3/ul (3.5-10.8)
[2018-03-26 06:14] LABS: BUN/Creatinine Ratio 34.7 (8-20); Calcium 8.7 mg/dL (8.6-10.3); EGFR African American 126.1 (>60); EGFR Non-African American 104.2 (>60)
[2018-03-26] MEDS: levETIRAcetam 500 MG IVPREMIX* 500 MG/100 ML BAG IV SCH (08:36)
[2018-03-26] MEDS: QUEtiapine TAB* 25 MG PO SCH (08:36)
[2018-03-26] MEDS: Famotidine TAB* 20 MG PO SCH ×2 (08:36→20:43)
[2018-03-26] MEDS: Metoprolol Tartrate TAB* 50 mg PO SCH ×2 (08:37→20:43)
[2018-03-26] MEDS ORDERED: Piperacillin/Tazobac ADVAN(*) 3.375 GM in NS 0.9% 100 ML* 100 ML IVPB ONE ×2 (09:19→09:22)
[2018-03-26] MEDS ORDERED: Vancomycin(*) 1,500 MG in NS 0.9% 250 ML* 250 ML IVPB ONE (09:20)
[2018-03-26] MEDS ORDERED: Vancomycin(*) 1,500 MG in NS 0.9% 250 ML* 250 ML IVPB SCH (10:00)
[2018-03-26] MEDS ORDERED: Zosyn per Pharmacy* NOTE FOLLOW UP SCH ×3 (10:00)
[2018-03-26] MEDS ORDERED: Vancomycin per Pharmacy* NOTE FOLLOW UP PRN (11:43)
[2018-03-26] MEDS: levETIRAcetam IV* 750 MG in NS 0.9% 100 ML* 100 ML IVPB SCH ×2 (12:03→22:06)
[2018-03-26] MEDS: HYDROmorphone INJ1* 1 MG/ML SYRINGE IV SLOW PU PRN ×2 (13:35→22:48)
[2018-03-26] MEDS: Diltiazem IV* 5 MG/ML 5 ML VIAL (for loading dose/IV Push) (25 MG) IV SLOW PU SCH ×2 (14:14→20:56)
--- NOTE | 2018-03-26 15:13 | PN ---
Subjective Date of Service: 03/26/18 Interval History: Pt seen and examined immediately after call from RN about pt having facial twitching and eyes rolling back. Reported event estimated to have only lasted half a minute and has already resolved upon my arrival. Pt appeared confused and unable to answer any of my questions, w/c per RN is a change; although have not been able to expound on answers, was at least able to answer simple yes or no questions prior to this event. Meds and labs reviewed. CC: N/A ROS: Unable to reliably obtain 14 point ROS PHYSICAL EXAM: GEN APPEARANCE: Awake, not in acute distress HEENT: NC/AT, PERRLA, moist oral mucosa, (-) throat erythema NECK: Soft, supple, (-) cervical LAD, (-)JVD HEART: S1S2 WNL, RRR, No MRG CHEST: CTA, BL, GAE, No W/R/R ABD: Soft, ND/NT, NABS 4x Q EXT: No C/C/E SKIN: Warm to touch PSYCH: No active psychosis, hallucinations, depression, SI/HI Objective Active Medications: Acetaminophen (Tylenol Adult Liq*) 650 mg NG TUBE Q4H PRN PRN Reason: TEMPERATURE Last Admin: 03/25/18 20:02 Dose: 650 mg Albuterol (Ventolin 2.5 Mg/3 Ml Neb.Alena*) 2.5 mg INH Q6H PRN PRN Reason: SOB/WHEEZING Diltiazem HCl (Diltiazem Iv*) 10 mg IV SLOW PU ONCE ONE Last Admin: 03/21/18 15:03 Dose: 10 mg Diltiazem HCl (Cardizem Tab*) 60 mg PO Q6HR [facility] Last Admin: 03/26/18 13:22 Dose: Not Given Diltiazem HCl (Diltiazem Iv*) 5 mg IV SLOW PU Q6H [facility] Last Admin: 03/26/18 14:14 Dose: 5 mg Docusate Sodium (Colace Cap*) 100 mg PO BID PRN PRN Reason: CONSTIPATION Famotidine (Pepcid Tab*) 20 mg PO BID [facility] Last Admin: 03/26/18 08:36 Dose: 20 mg Heparin Sodium (Porcine) (Heparin Flush Picc/Ml/Cvc(*)) 1 - 3 ml FLUSH 0600, 1800 [facility]; Protocol Last Admin: 03/26/18 05:20 Dose: 2 ml Hydromorphone HCl (Dilaudid Inj1s*) 0.5 mg IV SLOW PU Q6H PRN PRN Reason: PAIN Last Admin: 03/26/18 13:35 Dose: 0.5 mg Levetiracetam 750 mg/ Sodium (Chloride) 107.5 mls @ 440 mls/hr IVPB Q12H [facility] Last Admin: 03/26/18 12:03 Dose: 440 mls/hr Piperacillin Sod/Tazobactam (Sod 3.375 gm/ Sodium Chloride) 100 mls @ 25 mls/ hr IVPB Q8H [facility] Vancomycin HCl 750 mg/ Sodium (Chloride) 250 mls @ 166.667 mls/hr IVPB Q8H [facility] Melatonin (Melatonin) 3 mg PO BEDTIME PRN; Protocol PRN Reason: SLEEP Last Admin: 03/25/18 22:19 Dose: 3 mg Metoprolol Tartrate (Lopressor Iv*) 5 mg IV Q6H PRN PRN Reason: HEART RATE/PULSE Last Admin: 03/25/18 02:12 Dose: 5 mg Metoprolol Tartrate (Lopressor Tab*) 50 mg PO Q12H [facility] Last Admin: 03/26/18 08:37 Dose: 50 mg Pharmacy Consult (Zosyn Per Pharmacy*) 1 note FOLLOW UP .ZOSYN PER PHARMACY [facility] Pharmacy Consult (Vancomycin Per Pharmacy*) 1 note FOLLOW UP . PRN PRN Reason: PER PROTOCOL Pharmacy Profile Note (Vancomycin Trough Check) 1 note FOLLOW UP 0800 ONE Stop: 03/28/18 08:01 Polyethylene Glycol/Electrolytes (Miralax*) 17 gm PO DAILY PRN PRN Reason: CONSTIPATION Senna (Senokot Tab*) 1 tab PO BEDTIME [facility] Last Admin: 03/25/18 19:57 Dose: 1 tab Vital Signs - 8 hr 03/26/18 03/26/18 03/26/18 07:18 08:18 13:35 Temperature 97.4 F Pulse Rate 119 Respiratory 18 24 Rate Blood Pressure 140/82 (mmHg) O2 Sat by Pulse 96 Oximetry 03/26/18 14:57 Temperature Pulse Rate Respiratory 16 Rate Blood Pressure (mmHg) O2 Sat by Pulse Oximetry Oxygen Devices in Use Now: Nasal Cannula Result Diagrams: 03/26/18 05:30 03/26/18 05:30 Microbiology and Other Data: Microbiology 03/20/18 08:40 Urine Culture - Final Urine No Growth (<1,000 CFU/mL) 03/18/18 11:05 Aerobic Blood Culture - Preliminary Blood Line No Growth Day 3 Anaerobic Blood Culture - Preliminary No Growth Day 3 03/18/18 11:00 Aerobic Blood Culture - Preliminary Blood Line No Growth Day 3 Anaerobic Blood Culture - Preliminary No Growth Day 3 03/17/18 13:20 Aerobic Blood Culture - Preliminary Blood Line No Growth Day 3 Anaerobic Blood Culture - Preliminary No Growth Day 3 03/17/18 12:12 Gram Stain - Final Sputum Sputum Culture - Final Haemophilus Influenzae Normal [facility] 03/18/18 01:30 Urine Culture - Final Urine No Growth (<1,000 CFU/mL) 03/18/18 01:30 Influenza Types A,B Antigen - Final Nasal Specimen received for Influenza A/B Molecular testing 03/17/18 11:45 Nasal Screen MRSA (PCR) - Final Nasal Mrsa Not Detected Assess/Plan/Problems-Billing Mr. Yonas Beck is a 68-year-old man with long history of tobacco abuse and COPD who presented with witnessed cardiopulomonary arrest and suspected mild anoxic brain injury. 1. acute hypoxic-ischemic encephalopathy- Mild severity. He is slowly recovering and is appropriate at this time. Will hopefully be extubated today. He may have memory and motor impairment following the injury. 2. Possible hypoactive delirium related to encephalopathy- improved. Recommendations: - Wean off levetiracetam by decreasing the dose to 250 mg twice daily for 3 days , then 250 daily for one day, then discontinue. - PT/OT/STOCK HANGER evaluate and treat post extubation. - He will need short term rehabilitation. Neurology will sign off. Please contact me for any questions or concerns. Time spent: 20 minutes. D/w ICU team. - Patient Problems (1) Seizure Current Visit: Yes Status: Acute Code(s): R56.9 - UNSPECIFIED CONVULSIONS SNOMED Code(s): 41523786 Comment: -Likely cause of above symptoms with what appears to be post-ictal confusion -Likely due to anoxic brain injury, given pt does not appear to have hx of seizures based on documentations reviewed and my discussion w/Dr. Schreiber -Repeat CT of head NAD -Serum prolactin WNL -D/W Dr. Schreiber -Will D/C Quetiapine given pt already lethargic and lowers seizure threshold and only low dose -Increase Keppra as suggested by Dr. Schreiber -Pt also appears to have PNA on repeated CXR w/c may further lower seizure threshold, please see discussion below (2) HCAP (healthcare-associated pneumonia) Current Visit: Yes Status: Acute Code(s): J18.9 - PNEUMONIA, UNSPECIFIED ORGANISM SNOMED Code(s): 241980417 Comment: -Repeated blood Cx and will await results -Placed on Zosyn and Vanco (3) Respiratory arrest Current Visit: Yes Status: Acute Code(s): R09.2 - RESPIRATORY ARREST SNOMED Code(s): 11133938 Comment: -May possibly have been due to Hemophilus PBA and thought to may have led to cardiac arrest leading to hospitalization (4) Atrial fibrillation with RVR Current Visit: No Status: Acute Priority: High Code(s): I48.91 - UNSPECIFIED ATRIAL FIBRILLATION SNOMED Code(s): 094497496509316 Comment: -Continue Metoprolol and Diltiazem PRN IV; may take PO if able (5) Coughing Current Visit: Yes Status: Acute Code(s): R05 - COUGH SNOMED Code(s): 54488045 Comment: #Frequent coughing: -Observed by RN to be happening earlier while eating breakfast although supposedly has passed swallow eval in ICU -Requested re-eval by speech but maybe due to HCAP as discussed above (6) DVT prophylaxis Current Visit: No Status: Acute Priority: Low Code(s): LEL4501 - SNOMED Code(s): 562480525 Comment: -Pt only on SCDs -Unclear why pt not on pharmacologic DVT proph---will place pt on SQ Heparin Status and Disposition: -Awaiting PT/OT eval
[2018-03-26] MEDS: ZOSYN 3.375 GM Q8H per EXTENDED INFUSION IVPB SCH ×2 (20:28)
[2018-03-26] MEDS: Senna TAB PO SCH (20:43)
[2018-03-26] MEDS: Heparin VIAL(*) 5000 UNITS/ML VIAL (FIVE THOUSAND) SUBCUT SCH (21:02)
[2018-03-26] MEDS: Metoprolol Tartrate IV* 1 MG/ML 5 ML VIAL IV PRN (22:42)
[2018-03-27] MEDS: Diltiazem TAB* 30 MG PO SCH ×4 (00:57→17:03)
[2018-03-27] MEDS: Vancomycin(*) 750 MG in NS 0.9% 250 ML* 250 ML IVPB SCH ×3 (00:57→15:37)
[2018-03-27] MEDS: Diltiazem IV* 5 MG/ML 5 ML VIAL (for loading dose/IV Push) (25 MG) IV SLOW PU SCH ×3 (00:57→07:33)
[2018-03-27] MEDS: ZOSYN 3.375 GM Q8H per EXTENDED INFUSION IVPB SCH ×6 (03:54→19:27)
[2018-03-27] MEDS: Metoprolol Tartrate IV* 1 MG/ML 5 ML VIAL IV PRN (03:55)
[2018-03-27] MEDS ORDERED: Digoxin IV* 0.5 MG/2 ML AMP (0.25 MG/ML) IV SLOW PU ONE (05:17)
[2018-03-27 05:49] LABS: Hematocrit 38 % (42-52); Hemoglobin 12.3 g/dl (14.0-18.0); Mean Corpuscular HGB Conc 32 g/dl (31-36); Mean Corpuscular Hemoglobin 31 pg (27-31); Mean Corpuscular Volume 98 fL (80-94); Mean Platelet Volume 8.8 fL (7.4-10.4); Platelet Count 168 10^3/ul (150-450); Red Blood Count 3.91 10^6/ul (4.00-5.40); Red Cell Distribution Width 15 % (10.5-15); White Blood Count 13.4 10^3/ul (3.5-10.8)
[2018-03-27] MEDS: Heparin VIAL(*) 5000 UNITS/ML VIAL (FIVE THOUSAND) SUBCUT SCH ×3 (05:50→22:39)
[2018-03-27 06:08] LABS: Albumin 2.9 g/dL (3.2-5.2); Albumin/Globulin Ratio 1.3 (1-3); BUN/Creatinine Ratio 28.8 (8-20); Calcium 8.7 mg/dL (8.6-10.3); EGFR Non-African American 96.7 (>60); Globulin 2.2 g/dL (2-4); Magnesium 1.9 mg/dL (1.9-2.7); Phosphorus 2.2 mg/dL (2.5-5.0); Potassium 3.3 mmol/L (3.5-5.0); Total Bilirubin 0.6 mg/dL (0.2-1.0); Total Protein 5.1 g/dL (6.4-8.9)
[2018-03-27] MEDS: HYDROmorphone INJ1* 1 MG/ML SYRINGE IV SLOW PU PRN ×2 (06:27→12:00)
[2018-03-27] MEDS: Famotidine TAB* 20 MG PO SCH ×2 (08:36→20:35)
[2018-03-27] MEDS: Metoprolol Tartrate TAB* 50 mg PO SCH ×3 (08:36→19:33)
[2018-03-27] MEDS ORDERED: KCL 20 MEQ/100 ML IVPREMIX* 20 MEQ/100 ML BAG IV ONE (10:00)
[2018-03-27] MEDS ORDERED: Potassium Phosphate IV* 15 MMOLE in NS 0.9% 250 ML* 250 ML IVPB ONE (10:00)
[2018-03-27] MEDS ORDERED: Albuterol 2.5 MG/3 ML NEB.SOL* (0.083%) INH PRN (10:13)
[2018-03-27] MEDS ORDERED: predniSONE TAB* 20 MG PO ONE (10:15)
[2018-03-27] MEDS: levETIRAcetam IV* 750 MG in NS 0.9% 100 ML* 100 ML IVPB SCH ×2 (10:45→22:39)
[2018-03-27] MEDS: Furosemide IV* 10 MG/ML VIAL (40 MG) IV SCH ×2 (10:45→20:35)
[2018-03-27] MEDS: predniSONE TAB* 10 MG PO SCH (11:20)
[2018-03-27] MEDS: Albuterol/Ipratropium NEB.SOL* Albuterol 2.5 MG/Ipratropium 0.5 MG 3 ML INH SCH ×4 (11:23→20:10)
[2018-03-27] MEDS ORDERED: Diltiazem IV* 5 MG/ML 5 ML VIAL (for loading dose/IV Push) (25 MG) IV SLOW PU PRN (11:52)
--- NOTE | 2018-03-27 15:28 | PN ---
Subjective Date of Service: 03/27/18 Interval History: Pt seen and examined. Meds and labs reviewed. CC: SOB ROS: Denied WEBBER/dizziness, F/C, N/V, CP, SOB, increased cough, sputum production , abd pain, diarrhea, constipation, dysuria, myalgias, arthralgias, throat pain , and new skin lesions. The rest of the 14 point ROS are unremarkable. PHYSICAL EXAM: GEN APPEARANCE: Awake, not in acute distress; Pt now able to answer yes/no questions and able to answer simple questions appropriately, as long as questions w/no significant challenge to his memory are asked; not oriented x3 HEENT: NC/AT, PERRLA, moist oral mucosa, (-) throat erythema NECK: Soft, supple, (-) cervical LAD, (+)JVD, (+)HJR HEART: S1S2 WNL, RRR, No MRG CHEST: CTA, BL, GAE, No W/R/R ABD: Soft, ND/NT, NABS 4x Q EXT: No C/C/E SKIN: Warm to touch PSYCH: No active psychosis, hallucinations, depression, SI/HI Objective Active Medications: Acetaminophen (Tylenol Adult Liq*) 650 mg NG TUBE Q4H PRN PRN Reason: TEMPERATURE Last Admin: 03/25/18 20:02 Dose: 650 mg Albuterol (Ventolin 2.5 Mg/3 Ml Neb.Alena*) 2.5 mg INH Q2H PRN PRN Reason: SOB/WHEEZING Albuterol/Ipratropium (Duoneb (Albuterol 2.5 Mg/Ipratropium 0.5 Mg)) 1 neb INH [id number] AWAKE [facility] Last Admin: 03/27/18 15:17 Dose: Not Given Diltiazem HCl (Diltiazem Iv*) 10 mg IV SLOW PU ONCE ONE Last Admin: 03/21/18 15:03 Dose: 10 mg Diltiazem HCl (Cardizem Tab*) 60 mg PO Q6HR [facility] Last Admin: 03/27/18 11:20 Dose: 60 mg Diltiazem HCl (Diltiazem Iv*) 5 mg IV SLOW PU Q6H PRN PRN Reason: TACHYCARDIA Docusate Sodium (Colace Cap*) 100 mg PO BID PRN PRN Reason: CONSTIPATION Famotidine (Pepcid Tab*) 20 mg PO BID [facility] Last Admin: 03/27/18 08:36 Dose: Not Given Furosemide (Lasix Iv*) 40 mg IV BID [facility] Last Admin: 03/27/18 10:45 Dose: 40 mg Heparin Sodium (Porcine) (Heparin Flush Picc/Ml/Cvc(*)) 1 - 3 ml FLUSH 0600, 1800 [facility]; Protocol Last Admin: 03/27/18 06:33 Dose: 2 ml Heparin Sodium (Porcine) (Heparin Vial(*)) 5,000 units SUBCUT Q8HR [facility] Last Admin: 03/27/18 13:05 Dose: 5,000 units Hydromorphone HCl (Dilaudid Inj1s*) 0.5 mg IV SLOW PU Q6H PRN PRN Reason: PAIN Last Admin: 03/27/18 12:00 Dose: 0.5 mg Levetiracetam 750 mg/ Sodium (Chloride) 107.5 mls @ 440 mls/hr IVPB Q12H [facility] Last Admin: 03/27/18 10:45 Dose: 440 mls/hr Piperacillin Sod/Tazobactam (Sod 3.375 gm/ Sodium Chloride) 100 mls @ 25 mls/ hr IVPB Q8H [facility] Last Admin: 03/27/18 11:20 Dose: 25 mls/hr Vancomycin HCl 750 mg/ Sodium (Chloride) 250 mls @ 166.667 mls/hr IVPB Q8H [facility] Last Admin: 03/27/18 07:33 Dose: 166.667 mls/hr Potassium Phosphate 15 mmole/ (Sodium Chloride) 255 mls @ 42 mls/hr IVPB ONCE ONE Stop: 03/27/18 16:04 Last Admin: 03/27/18 10:29 Dose: 42 mls/hr Melatonin (Melatonin) 3 mg PO BEDTIME PRN; Protocol PRN Reason: SLEEP Last Admin: 03/25/18 22:19 Dose: 3 mg Metolazone (Zaroxolyn Tab*) 5 mg PO DAILY@0830 [facility] Metoprolol Tartrate (Lopressor Iv*) 5 mg IV Q6H PRN PRN Reason: HEART RATE/PULSE Last Admin: 03/27/18 03:55 Dose: 5 mg Metoprolol Tartrate (Lopressor Tab*) 50 mg PO Q12H [facility] Last Admin: 03/27/18 09:16 Dose: 50 mg Pharmacy Consult (Zosyn Per Pharmacy*) 1 note FOLLOW UP .ZOSYN PER PHARMACY [facility] Pharmacy Consult (Vancomycin Per Pharmacy*) 1 note FOLLOW UP . PRN PRN Reason: PER PROTOCOL Pharmacy Profile Note (Vancomycin Trough Check) 1 note FOLLOW UP 0800 ONE Stop: 03/28/18 08:01 Polyethylene Glycol/Electrolytes (Miralax*) 17 gm PO DAILY PRN PRN Reason: CONSTIPATION Prednisone (Deltasone Tab*) 50 mg PO DAILY [facility]; Taper Stop: 04/01/18 10:59 Last Admin: 03/27/18 11:20 Dose: 50 mg Senna (Senokot Tab*) 1 tab PO BEDTIME [facility] Last Admin: 03/26/18 20:43 Dose: Not Given Vital Signs - 8 hr 03/27/18 03/27/18 03/27/18 07:33 08:00 08:57 Temperature 98.2 F Pulse Rate 139 Respiratory 20 22 22 Rate Blood Pressure 128/78 (mmHg) O2 Sat by Pulse 99 Oximetry 03/27/18 03/27/18 03/27/18 10:52 11:26 12:00 Temperature 96.9 F Pulse Rate 105 Respiratory 18 16 22 Rate Blood Pressure 138/90 (mmHg) O2 Sat by Pulse 100 16 Oximetry 03/27/18 13:02 Temperature Pulse Rate Respiratory 18 Rate Blood Pressure (mmHg) O2 Sat by Pulse Oximetry Oxygen Devices in Use Now: Nasal Cannula Result Diagrams: 03/27/18 05:26 03/27/18 05:26 Microbiology and Other Data: Microbiology 03/20/18 08:40 Urine Culture - Final Urine No Growth (<1,000 CFU/mL) 03/18/18 11:05 Aerobic Blood Culture - Preliminary Blood Line No Growth Day 3 Anaerobic Blood Culture - Preliminary No Growth Day 3 03/18/18 11:00 Aerobic Blood Culture - Preliminary Blood Line No Growth Day 3 Anaerobic Blood Culture - Preliminary No Growth Day 3 03/17/18 13:20 Aerobic Blood Culture - Preliminary Blood Line No Growth Day 3 Anaerobic Blood Culture - Preliminary No Growth Day 3 03/17/18 12:12 Gram Stain - Final Sputum Sputum Culture - Final Haemophilus Influenzae Normal [facility] 03/18/18 01:30 Urine Culture - Final Urine No Growth (<1,000 CFU/mL) 03/18/18 01:30 Influenza Types A,B Antigen - Final Nasal Specimen received for Influenza A/B Molecular testing 03/17/18 11:45 Nasal Screen MRSA (PCR) - Final Nasal Mrsa Not Detected Assess/Plan/Problems-Billing Mr. Yonas Beck is a 68-year-old man with long history of tobacco abuse and COPD who presented with witnessed cardiopulomonary arrest and suspected mild anoxic brain injury. 1. acute hypoxic-ischemic encephalopathy- Mild severity. He is slowly recovering and is appropriate at this time. Will hopefully be extubated today. He may have memory and motor impairment following the injury. 2. Possible hypoactive delirium related to encephalopathy- improved. Recommendations: - Wean off levetiracetam by decreasing the dose to 250 mg twice daily for 3 days , then 250 daily for one day, then discontinue. - PT/OT/COMMUNICATIONS EQUIPMENT OPERATOR evaluate and treat post extubation. - He will need short term rehabilitation. Neurology will sign off. Please contact me for any questions or concerns. Time spent: 20 minutes. D/w ICU team. - Patient Problems (1) CHF exacerbation Current Visit: Yes Status: Acute Code(s): I50.9 - HEART FAILURE, UNSPECIFIED SNOMED Code(s): 69653985 Comment: -Diastolic -Likely exacerbated due to pt not able to take PO meds yesterday including Diltiazem in the setting of new HCAP that led to A. fib w/RVR in 130s -Pt also has known mild pulmonary HTN and mod; likely due to known COPD -2D echo (02/27/18): EF = 65-70% w/septal flattening consistent w/ RV volume overload -Pt now more awake and able to tolerate PO challenge and improved HR w/this -Will give 40 mg IV Lasix BID w/Metolazone (2) HCAP (healthcare-associated pneumonia) Current Visit: Yes Status: Acute Code(s): J18.9 - PNEUMONIA, UNSPECIFIED ORGANISM SNOMED Code(s): 197145173 Comment: -Repeat Blood Cx (03/26): (-) x 1 day -Continue Zosyn and Vanco -qSOFA =2; thus, will place pt on Prednisone rapid taper especially given hx of COPD (3) Seizure Current Visit: Yes Status: Acute Code(s): R56.9 - UNSPECIFIED CONVULSIONS SNOMED Code(s): 87027499 Comment: -Has no previous hx and was witnessed by staff; only occurred 1x yesterday AM and no reported recurrence since -Likely due to anoxic brain injury, given pt does not appear to have hx of seizures based on documentations reviewed and my discussion w/Dr. Schreiber -Repeat CT of head NAD -Serum prolactin WNL -D/W Dr. Schreiber (03/26) -Continue to hold Quetiapine given it lowers seizure threshold and only low dose ; pt otherwise easily redirectable -Continue Kepra at 750 mg IV BID (4) Respiratory arrest Current Visit: Yes Status: Acute Code(s): R09.2 - RESPIRATORY ARREST SNOMED Code(s): 50298543 Comment: -May possibly have been due to Hemophilus PNA and thought to may have led to cardiac arrest leading to hospitalization (5) Atrial fibrillation with RVR Current Visit: No Status: Acute Priority: High Code(s): I48.91 - UNSPECIFIED ATRIAL FIBRILLATION SNOMED Code(s): 026894634961138 Comment: -Continue Metoprolol and Diltiazem PRN IV; may take PO if able (6) Coughing Current Visit: Yes Status: Acute Code(s): R05 - COUGH SNOMED Code(s): 65847231 Comment: #Frequent coughing: -Observed by RN to be happening yesterday AM while eating breakfast yesterday although has passed swallow eval in ICU -Likely due to new HCAP as discussed -Appears to have resolved and able to tolerate PO challenge w/mech ground and honey thick liquids (7) DVT prophylaxis Current Visit: No Status: Acute Priority: Low Code(s): [id number] - SNOMED Code(s): 479705862 Comment: -Pt only on SCDs -Unclear why pt not on pharmacologic DVT proph---will place pt on SQ Heparin Status and Disposition: -Appreciate PT input; per PT: Pt currently is a jocelyn lift for transfers, presents with weakness of Andrey LE's and is unable to ambulate at this time -Will discuss any needs and/or placement if any prior to planned D/C -Possible D/C in 2-3 days
[2018-03-27] MEDS: Metolazone TAB* 5 MG PO SCH (15:37)
[2018-03-27] MEDS: traZODone TAB* 50 MG TAB PO SCH ×2 (20:33→22:12)
[2018-03-27] MEDS: Senna TAB PO SCH (20:34)
[2018-03-28] MEDS: Vancomycin(*) 750 MG in NS 0.9% 250 ML* 250 ML IVPB SCH ×2 (00:35→08:36)
[2018-03-28] MEDS: Diltiazem TAB* 30 MG PO SCH ×4 (00:35→17:11)
[2018-03-28] MEDS: Albuterol/Ipratropium NEB.SOL* Albuterol 2.5 MG/Ipratropium 0.5 MG 3 ML INH SCH ×4 (01:30→19:15)
[2018-03-28] MEDS: ZOSYN 3.375 GM Q8H per EXTENDED INFUSION IVPB SCH ×4 (02:49→11:53)
[2018-03-28] MEDS: Heparin VIAL(*) 5000 UNITS/ML VIAL (FIVE THOUSAND) SUBCUT SCH ×3 (05:56→22:48)
[2018-03-28 06:13] LABS: Hematocrit 37 % (42-52); Hemoglobin 11.9 g/dl (14.0-18.0); Mean Corpuscular HGB Conc 33 g/dl (31-36); Mean Corpuscular Hemoglobin 31 pg (27-31); Mean Corpuscular Volume 96 fL (80-94); Mean Platelet Volume 8.7 fL (7.4-10.4); Platelet Count 178 10^3/ul (150-450); Red Blood Count 3.82 10^6/ul (4.00-5.40); Red Cell Distribution Width 15 % (10.5-15); White Blood Count 11.8 10^3/ul (3.5-10.8)
[2018-03-28 06:29] LABS: ALT 47 U/L (7-52); AST 30 U/L (13-39); Albumin 3.1 g/dL (3.2-5.2); Albumin/Globulin Ratio 1.3 (1-3); Alkaline Phosphatase 52 U/L (34-104); BUN/Creatinine Ratio 18.6 (8-20); Blood Urea Nitrogen 19 mg/dL (6-24); Calcium 9.2 mg/dL (8.6-10.3); Chloride 86 mmol/L (101-111); EGFR African American 88.4 (>60); EGFR Non-African American 73.1 (>60); Globulin 2.4 g/dL (2-4); Glucose 91 mg/dL (70-100); Magnesium 1.5 mg/dL (1.9-2.7); Phosphorus 2.7 mg/dL (2.5-5.0); Potassium 2.8 mmol/L (3.5-5.0); Sodium 143 mmol/L (135-145); Total Protein 5.5 g/dL (6.4-8.9)
[2018-03-28 06:48] LABS: CO2 Carbon Dioxide 50 mmol/L (22-32)
[2018-03-28] MEDS ORDERED: Potassium Chlor TAB* 20 MEQ TAB.ER PO ONE (07:11)
[2018-03-28] MEDS ORDERED: Vancomycin Trough Check NOTE FOLLOW UP ONE (08:00)
[2018-03-28] MEDS: Metoprolol Tartrate IV* 1 MG/ML 5 ML VIAL IV PRN (08:03)
[2018-03-28] MEDS: Metoprolol Tartrate TAB* 50 mg PO SCH ×2 (08:37→20:02)
[2018-03-28] MEDS: Metolazone TAB* 5 MG PO SCH (08:38)
[2018-03-28] MEDS: Famotidine TAB* 20 MG PO SCH ×2 (08:38→22:47)
[2018-03-28] MEDS: predniSONE TAB* 10 MG PO SCH (08:39)
[2018-03-28] MEDS: Furosemide IV* 10 MG/ML VIAL (40 MG) IV SCH (08:42)
[2018-03-28] MEDS: Diltiazem IV* 5 MG/ML 5 ML VIAL (for loading dose/IV Push) (25 MG) IV SLOW PU PRN (09:59)
[2018-03-28] MEDS ORDERED: Magnesium Sulf 4 GM/100 ML IV* 4,000 MG/100 ML BAG IVPB ONE (10:03)
[2018-03-28] MEDS ORDERED: Potassium Chlor TAB* 20 MEQ TAB.ER PO STA (10:03)
[2018-03-28] MEDS ORDERED: NS 0.9% 100 ML* 100 ML ONE ×2 (11:25)
[2018-03-28] MEDS: levETIRAcetam IV* 750 MG in NS 0.9% 100 ML* 100 ML IVPB SCH ×2 (11:42→22:40)
[2018-03-28] MEDS ORDERED: Iodixanol* (CONTRAST) 320 MG/ML 100 ML SDV IV ONE (12:10)
[2018-03-28] MEDS: HYDROmorphone INJ1* 1 MG/ML SYRINGE IV SLOW PU PRN (12:57)
[2018-03-28] MEDS: Acetylcysteine CAP (RENAL)* 600 MG PO SCH ×2 (14:32→22:47)
[2018-03-28] MEDS ORDERED: LORazepam TAB(*) 0.5 MG PO PRN (15:03)
--- NOTE | 2018-03-28 17:05 | PN ---
Subjective Date of Service: 03/28/18 Interval History: Pt seen and examined. Meds and labs reviewed. CC: Although pt did not initially complain of pain when asked, staff observed pt appeared to be wincing when moved and when asked again if he has any back pain, he answered in the affirmative. Given Dilaudid, and his agitation further improved as his pain became more controlled. ROS: Denied WEBBER/dizziness, F/C, N/V, CP, SOB, increased cough, sputum production , abd pain, diarrhea, constipation, dysuria, myalgias, arthralgias, throat pain , and new skin lesions. The rest of the 14 point ROS are unremarkable. PHYSICAL EXAM: GEN APPEARANCE: Awake, not in acute distress HEENT: NC/AT, PERRLA, moist oral mucosa, (-) throat erythema NECK: Soft, supple, (-) cervical LAD, (+)JVD improved, (-)HJR HEART: S1S2 WNL, RRR, No MRG CHEST: CTA, BL, GAE, No W/R/R ABD: Soft, ND/NT, NABS 4x Q EXT: No C/C/E SKIN: Warm to touch PSYCH: No active psychosis, hallucinations, depression, SI/HI Objective Active Medications: Acetaminophen (Tylenol Adult Liq*) 650 mg NG TUBE Q4H PRN PRN Reason: TEMPERATURE Last Admin: 03/25/18 20:02 Dose: 650 mg Acetylcysteine (Acetylcysteine Cap (Renal)*) 1,200 mg PO BID [facility] Stop: 03/29/18 21:01 Last Admin: 03/28/18 14:32 Dose: 1,200 mg Albuterol (Ventolin 2.5 Mg/3 Ml Neb.Alena*) 2.5 mg INH Q2H PRN PRN Reason: SOB/WHEEZING Albuterol/Ipratropium (Duoneb (Albuterol 2.5 Mg/Ipratropium 0.5 Mg)) 1 neb INH [id number] AWAKE [facility] Last Admin: 03/28/18 12:26 Dose: 1 neb Diltiazem HCl (Diltiazem Iv*) 10 mg IV SLOW PU ONCE ONE Last Admin: 03/21/18 15:03 Dose: 10 mg Diltiazem HCl (Cardizem Tab*) 60 mg PO Q6HR [facility] Last Admin: 03/28/18 11:30 Dose: 60 mg Diltiazem HCl (Diltiazem Iv*) 10 mg IV SLOW PU Q6H PRN PRN Reason: TACHYCARDIA Last Admin: 03/28/18 09:59 Dose: 10 mg Docusate Sodium (Colace Cap*) 100 mg PO BID PRN PRN Reason: CONSTIPATION Famotidine (Pepcid Tab*) 20 mg PO BID [facility] Last Admin: 03/28/18 08:38 Dose: 20 mg Heparin Sodium (Porcine) (Heparin Flush Picc/Ml/Cvc(*)) 1 - 3 ml FLUSH 0600, 1800 [facility]; Protocol Last Admin: 03/28/18 05:56 Dose: 1 ml Heparin Sodium (Porcine) (Heparin Vial(*)) 5,000 units SUBCUT Q8HR [facility] Last Admin: 03/28/18 14:32 Dose: 5,000 units Hydromorphone HCl (Dilaudid Inj1s*) 0.5 mg IV SLOW PU Q6H PRN PRN Reason: PAIN Last Admin: 03/28/18 12:57 Dose: 0.5 mg Levetiracetam 750 mg/ Sodium (Chloride) 107.5 mls @ 440 mls/hr IVPB Q12H [facility] Last Admin: 03/28/18 11:42 Dose: 440 mls/hr Doxycycline Hyclate 100 mg/ (Sodium Chloride) 250 mls @ 250 mls/hr IVPB Q12H [facility] Lorazepam (Ativan Tab(*)) 0.5 mg PO Q6H PRN PRN Reason: ANXIETY Melatonin (Melatonin) 3 mg PO BEDTIME PRN; Protocol PRN Reason: SLEEP Last Admin: 03/25/18 22:19 Dose: 3 mg Metoprolol Tartrate (Lopressor Iv*) 5 mg IV Q6H PRN PRN Reason: HEART RATE/PULSE Last Admin: 03/28/18 08:03 Dose: 5 mg Metoprolol Tartrate (Lopressor Tab*) 50 mg PO Q12H [facility] Last Admin: 03/28/18 08:37 Dose: 50 mg Polyethylene Glycol/Electrolytes (Miralax*) 17 gm PO DAILY PRN PRN Reason: CONSTIPATION Last Admin: 03/28/18 11:29 Dose: 17 gm Prednisone (Deltasone Tab*) 40 mg PO DAILY [facility]; Taper Stop: 04/01/18 10:59 Last Admin: 03/28/18 08:39 Dose: 50 mg Senna (Senokot Tab*) 1 tab PO BEDTIME [facility] Last Admin: 03/27/18 20:34 Dose: 1 tab Torsemide (Demadex*) 20 mg PO DAILY [facility] Trazodone HCl (Desyrel Tab*) 25 mg PO BEDTIME [facility] Last Admin: 03/27/18 22:12 Dose: Not Given Vital Signs - 8 hr 03/28/18 03/28/18 03/28/18 10:50 11:37 12:26 Temperature 98.8 F 98.0 F Pulse Rate 109 120 89 Respiratory 24 18 Rate Blood Pressure 117/80 148/94 (mmHg) O2 Sat by Pulse 98 98 Oximetry 03/28/18 03/28/18 03/28/18 12:57 14:22 14:29 Temperature Pulse Rate 110 Respiratory 30 22 Rate Blood Pressure 121/87 (mmHg) O2 Sat by Pulse 100 Oximetry Oxygen Devices in Use Now: Nasal Cannula Result Diagrams: 03/28/18 05:46 03/28/18 05:46 Microbiology and Other Data: Microbiology 03/20/18 08:40 Urine Culture - Final Urine No Growth (<1,000 CFU/mL) 03/18/18 11:05 Aerobic Blood Culture - Preliminary Blood Line No Growth Day 3 Anaerobic Blood Culture - Preliminary No Growth Day 3 03/18/18 11:00 Aerobic Blood Culture - Preliminary Blood Line No Growth Day 3 Anaerobic Blood Culture - Preliminary No Growth Day 3 03/17/18 13:20 Aerobic Blood Culture - Preliminary Blood Line No Growth Day 3 Anaerobic Blood Culture - Preliminary No Growth Day 3 03/17/18 12:12 Gram Stain - Final Sputum Sputum Culture - Final Haemophilus Influenzae Normal [facility] 03/18/18 01:30 Urine Culture - Final Urine No Growth (<1,000 CFU/mL) 03/18/18 01:30 Influenza Types A,B Antigen - Final Nasal Specimen received for Influenza A/B Molecular testing 03/17/18 11:45 Nasal Screen MRSA (PCR) - Final Nasal Mrsa Not Detected Assess/Plan/Problems-Billing Mr. Yonas Beck is a 68-year-old man with long history of tobacco abuse and COPD who presented with witnessed cardiopulomonary arrest and suspected mild anoxic brain injury. 1. acute hypoxic-ischemic encephalopathy- Mild severity. He is slowly recovering and is appropriate at this time. Will hopefully be extubated today. He may have memory and motor impairment following the injury. 2. Possible hypoactive delirium related to encephalopathy- improved. Recommendations: - Wean off levetiracetam by decreasing the dose to 250 mg twice daily for 3 days , then 250 daily for one day, then discontinue. - PT/OT/CARDROOM MANAGER evaluate and treat post extubation. - He will need short term rehabilitation. Neurology will sign off. Please contact me for any questions or concerns. Time spent: 20 minutes. D/w ICU team. - Patient Problems (1) Metabolic alkalosis Current Visit: Yes Status: Acute Code(s): E87.3 - ALKALOSIS SNOMED Code(s) : 6560203 Comment: -No concomitant respiratory alkalosis and what one would expect primary metabolic alkalosis due to diuresis/contraction alkalosis -Urine Cl- consistent w/above impression -Given clinical improvement of CHF, will de-escalate therapy and D/C Lasix and Metolazone and to start Torsemide in AM (2) CHF exacerbation Current Visit: Yes Status: Acute Code(s): I50.9 - HEART FAILURE, UNSPECIFIED SNOMED Code(s): 33379630 Comment: -Diastolic -Likely exacerbated due to pt not able to take PO meds on 03/26 including Diltiazem in the setting of new HCAP that led to A. fib w/RVR in 130s -Given worsening metabolic acidosis likely due to contraction alkalosis, but primarily due to clinical improvement and improved lung image by CT, will D/C Lasix and Metolazone and start pt on low dose Torsemide given mild tachy upon initial improvement -Pt also has known mild pulmonary HTN and mod; likely due to known COPD -2D echo (02/27/18): EF = 65-70% w/septal flattening consistent w/ RV volume overload -Pt now more awake and able to tolerate PO challenge and improved HR w/this -Please see above discussion (3) Back pain Current Visit: Yes Status: Acute Code(s): M54.9 - DORSALGIA, UNSPECIFIED SNOMED Code(s): 149372459 Comment: -Possibly due Decubitus skin, stg #1 as observed by staff earlier on movement -Will obtain thoracic and lumbar imaging to further evaluate for subluxation and /or fractures, and/or OA abnormalities -Continue PRN pain meds (4) HCAP (healthcare-associated pneumonia) Current Visit: Yes Status: Acute Code(s): J18.9 - PNEUMONIA, UNSPECIFIED ORGANISM SNOMED Code(s): 059384048 Comment: -Repeat Blood Cx (03/26): (-) x 2 days -D/C Zosyn and Vanco and start pt on Doxycycline x 7 more days -qSOFA =2; thus, will place pt on Prednisone rapid taper especially given hx of COPD, as ordered (5) Seizure Current Visit: Yes Status: Acute Code(s): R56.9 - UNSPECIFIED CONVULSIONS SNOMED Code(s): 60665403 Comment: -Has no previous hx and was witnessed by staff; only occurred 1x on 03/26/18 in AM and no reported recurrence since -Likely due to anoxic brain injury, given pt does not appear to have hx of seizures based on documentations reviewed and my discussion w/Dr. Schreiber -Repeat CT of head NAD -Serum prolactin WNL -D/W Dr. Schreiber (03/26) -Continue to hold Quetiapine given it lowers seizure threshold and only low dose ; pt otherwise easily redirectable -Continue Kepra at 750 mg IV BID (6) Respiratory arrest Current Visit: Yes Status: Acute Code(s): R09.2 - RESPIRATORY ARREST SNOMED Code(s): 15677441 Comment: -May possibly have been due to Hemophilus PNA and thought to may have led to cardiac arrest leading to hospitalization (7) Atrial fibrillation with RVR Current Visit: No Status: Acute Priority: High Code(s): I48.91 - UNSPECIFIED ATRIAL FIBRILLATION SNOMED Code(s): 150155099642461 Comment: -Continue Metoprolol and Diltiazem PRN IV; may take PO if able (8) Coughing Current Visit: Yes Status: Acute Code(s): R05 - COUGH SNOMED Code(s): 64655910 Comment: #Frequent coughing: -Observed by RN to be happening yesterday AM while eating breakfast yesterday although has passed swallow eval in ICU -Likely due to new HCAP as discussed -Appears to have resolved and able to tolerate PO challenge w/mech ground and honey thick liquids -Appreciate re-eval by speech therapy and may start pt on thin liquids in 2 days if continues to improve (9) DVT prophylaxis Current Visit: No Status: Acute Priority: Low Code(s): OFT5524 - SNOMED Code(s): 183169362 Comment: -Continue Heparin SQq8H and SCDs Status and Disposition: -Appreciate PT input; per PT: Pt currently is a jocelyn lift for transfers, presents with weakness of Andrey LE's and is unable to ambulate at this time -Will discuss any needs and/or placement if any prior to planned D/C -Possible D/C in 2-3 days
[2018-03-28] MEDS: DOXYcycline IV* 100 MG in NS 0.9% 250 ML* 250 ML IVPB SCH (17:10)
[2018-03-28] MEDS ORDERED: Vancomycin(*) 750 MG in NS 0.9% 250 ML* 250 ML IVPB SCH (18:00)
[2018-03-28] MEDS: traZODone TAB* 50 MG TAB PO SCH (22:46)
[2018-03-28] MEDS: Senna TAB PO SCH (22:46)
[2018-03-29] MEDS: Diltiazem TAB* 30 MG PO SCH ×2 (00:15→05:33)
[2018-03-29] MEDS: Albuterol/Ipratropium NEB.SOL* Albuterol 2.5 MG/Ipratropium 0.5 MG 3 ML INH SCH (01:15)
[2018-03-29] MEDS: DOXYcycline IV* 100 MG in NS 0.9% 250 ML* 250 ML IVPB SCH ×2 (05:29→16:24)
[2018-03-29] MEDS: Heparin VIAL(*) 5000 UNITS/ML VIAL (FIVE THOUSAND) SUBCUT SCH ×3 (05:32→22:06)
[2018-03-29 05:45] LABS: Hematocrit 39 % (42-52); Hemoglobin 13.1 g/dl (14.0-18.0); Mean Corpuscular HGB Conc 33 g/dl (31-36); Mean Corpuscular Hemoglobin 32 pg (27-31); Mean Corpuscular Volume 96 fL (80-94); Mean Platelet Volume 8.7 fL (7.4-10.4); Platelet Count 194 10^3/ul (150-450); Red Blood Count 4.11 10^6/ul (4.00-5.40); Red Cell Distribution Width 15 % (10.5-15)
[2018-03-29 06:05] LABS: BUN/Creatinine Ratio 15.5 (8-20); Blood Urea Nitrogen 15 mg/dL (6-24); Calcium 9.5 mg/dL (8.6-10.3); Chloride 85 mmol/L (101-111); EGFR African American 93.7 (>60); EGFR Non-African American 77.4 (>60); Glucose 89 mg/dL (70-100); Potassium 3.3 mmol/L (3.5-5.0); Sodium 139 mmol/L (135-145)
[2018-03-29 06:25] LABS: CO2 Carbon Dioxide 48 mmol/L (22-32)
[2018-03-29] MEDS ORDERED: predniSONE TAB* 20 MG PO ONE (08:06)
--- NOTE | 2018-03-29 08:41 | PN ---
Subjective Date of Service: 03/29/18 Interval History: Pt not able to make his needs known. Objective Active Medications: Acetazolamide Sodium (Diamox Vial*) 500 mg IV PUSH BID [facility] Albuterol (Ventolin 2.5 Mg/3 Ml Neb.Alena*) 2.5 mg INH Q2H PRN PRN Reason: SOB/WHEEZING Diltiazem HCl (Diltiazem Iv*) 10 mg IV SLOW PU ONCE ONE Last Admin: 03/21/18 15:03 Dose: 10 mg Diltiazem HCl (Diltiazem Iv*) 10 mg IV SLOW PU Q6H PRN PRN Reason: TACHYCARDIA Last Admin: 03/28/18 09:59 Dose: 10 mg Heparin Sodium (Porcine) (Heparin Flush Picc/Ml/Cvc(*)) 1 - 3 ml FLUSH 0600, 1800 [facility]; Protocol Last Admin: 03/29/18 05:31 Dose: 1 ml Heparin Sodium (Porcine) (Heparin Vial(*)) 5,000 units SUBCUT Q8HR [facility] Last Admin: 03/29/18 05:32 Dose: 5,000 units Doxycycline Hyclate 100 mg/ (Sodium Chloride) 250 mls @ 250 mls/hr IVPB Q12H [facility] Last Admin: 03/29/18 05:29 Dose: 250 mls/hr Levetiracetam 500 mg/ Sodium (Chloride) 105 mls @ 440 mls/hr IVPB Q12H [facility] Lorazepam (Ativan Tab(*)) 0.5 mg PO Q6H PRN PRN Reason: ANXIETY Methylprednisolone Sodium Succinate (Solu-Medrol 40 Mg) 40 mg IV ONCE ONE Stop: 03/29/18 09:01 Methylprednisolone Sodium Succinate (Solu-Medrol 40 Mg) 30 mg IV ONCE ONE Stop: 03/30/18 09:01 Metoprolol Tartrate (Lopressor Iv*) 5 mg IV Q6H PRN PRN Reason: HEART RATE/PULSE Last Admin: 03/28/18 08:03 Dose: 5 mg Metoprolol Tartrate (Lopressor Tab*) 50 mg PO Q12H [facility] Last Admin: 03/28/18 20:02 Dose: 50 mg Metoprolol Tartrate (Lopressor Iv*) 5 mg IV Q4H [facility] Polyethylene Glycol/Electrolytes (Miralax*) 17 gm PO DAILY PRN PRN Reason: CONSTIPATION Last Admin: 03/28/18 11:29 Dose: 17 gm Potassium Chloride (Klor Con Er Tab*) 10 meq PO TID [facility] Senna (Senokot Tab*) 1 tab PO BEDTIME [facility] Last Admin: 03/28/18 22:46 Dose: 1 tab Spironolactone (Aldactone Tab*) 25 mg PO DAILY [facility] Trazodone HCl (Desyrel Tab*) 25 mg PO BEDTIME [facility] Last Admin: 03/28/18 22:46 Dose: 25 mg Vital Signs - 8 hr 03/29/18 03/29/18 03/29/18 03:48 04:05 08:00 Temperature 98.1 F Pulse Rate 108 Respiratory 22 22 Rate Blood Pressure 140/86 144/96 (mmHg) O2 Sat by Pulse 99 Oximetry Oxygen Devices in Use Now: Nasal Cannula Appearance: Lethargic and passive. Partly up in bed. Looks comfortable. Eyes: No Scleral Icterus Neck: NL Appearance and Movements; NL JVP, No Thyroid Enlargement, Masses Respiratory: Symmetrical Chest Expansion and Respiratory Effort, Clear to Auscultation, Clear to Percussion Cardiovascular: NL Sounds; No Murmurs; No JVD, No Edema, - - irreg Abdominal: NL Sounds; No Tenderness; No Distention, No Hepatosplenomegaly, - Extremities: No Edema, No Clubbing, Cyanosis, - Skin: No Rash or Ulcers, No Nodules or Sclerosis, - Neurological: NL Sensation - Unable to answermost questions. Passive. No tremor. Result Diagrams: 03/29/18 05:18 03/29/18 05:18 Microbiology and Other Data: Microbiology 03/20/18 08:40 Urine Culture - Final Urine No Growth (<1,000 CFU/mL) 03/18/18 11:05 Aerobic Blood Culture - Preliminary Blood Line No Growth Day 3 Anaerobic Blood Culture - Preliminary No Growth Day 3 03/18/18 11:00 Aerobic Blood Culture - Preliminary Blood Line No Growth Day 3 Anaerobic Blood Culture - Preliminary No Growth Day 3 03/17/18 13:20 Aerobic Blood Culture - Preliminary Blood Line No Growth Day 3 Anaerobic Blood Culture - Preliminary No Growth Day 3 03/17/18 12:12 Gram Stain - Final Sputum Sputum Culture - Final Haemophilus Influenzae Normal [facility] 03/18/18 01:30 Urine Culture - Final Urine No Growth (<1,000 CFU/mL) 03/18/18 01:30 Influenza Types A,B Antigen - Final Nasal Specimen received for Influenza A/B Molecular testing 03/17/18 11:45 Nasal Screen MRSA (PCR) - Final Nasal Mrsa Not Detected Assess/Plan/Problems-Billing Mr. Yonas Beck is a 68-year-old man with long history of tobacco abuse and COPD who presented with witnessed cardiopulomonary arrest and suspected mild anoxic brain injury. 1. acute hypoxic-ischemic encephalopathy- Mild severity. He is slowly recovering and is appropriate at this time. Will hopefully be extubated today. He may have memory and motor impairment following the injury. 2. Possible hypoactive delirium related to encephalopathy- improved. Recommendations: - Wean off levetiracetam by decreasing the dose to 250 mg twice daily for 3 days , then 250 daily for one day, then discontinue. - PT/OT/VALIDATION LEADER evaluate and treat post extubation. - He will need short term rehabilitation. Neurology will sign off. Please contact me for any questions or concerns. Time spent: 20 minutes. D/w ICU team. - Patient Problems (1) Encephalopathy Current Visit: Yes Status: Acute Code(s): G93.40 - ENCEPHALOPATHY, UNSPECIFIED SNOMED Code(s): 17902582 Comment: ? due to anoxic brain damage, drug effect (levetriacetam, steroids, other). Tapering steroids to off in a few days, reduce levetiracetem to 500 mg IV q 12 hr. EEG 03/29 pending. Ammonia level 03/30. Fariba lift, hands in mitts. Will discuss CPR and comfort care with family. (2) Metabolic alkalosis Current Visit: Yes Status: Acute Code(s): E87.3 - ALKALOSIS SNOMED Code(s) : 6600231 Comment: Stop diuretics, very large neg fluid balance recently. Start IV acetazolamide 03/29. BMP 03/30. (3) HCAP (healthcare-associated pneumonia) Current Visit: Yes Status: Acute Code(s): J18.9 - PNEUMONIA, UNSPECIFIED ORGANISM SNOMED Code(s): 366883413 Comment: Doxycycline last day 04/04. Taper IV methylprednisolone. (4) Seizure Current Visit: Yes Status: Acute Code(s): R56.9 - UNSPECIFIED CONVULSIONS SNOMED Code(s): 28472617 Comment: Has no previous hx and was witnessed by staff; only occurred 1x on 03/26/18 in AM and no reported recurrence since -Likely due to anoxic brain injury. Reduce Kepra to 500 mg IV BID on 03/[address] Schreiber. (5) Atrial fibrillation with RVR Current Visit: No Status: Acute Priority: High Code(s): I48.91 - UNSPECIFIED ATRIAL FIBRILLATION SNOMED Code(s): 273306682779708 Comment: Scheduled IV metoprolol until safe to give po meds. ST swallow eval requested. (6) CHF exacerbation Current Visit: Yes Status: Acute Code(s): I50.9 - HEART FAILURE, UNSPECIFIED SNOMED Code(s): 24816250 Comment: Diastolic. No diuretics for now, has low total intake. Replace KCL. BMP 03/30. (7) Muscular deconditioning Current Visit: No Status: Acute Priority: Medium Code(s): R29.898 - OTH SYMPTOMS AND SIGNS INVOLVING THE MUSCULOSKELETAL SYSTEM SNOMED Code(s): 916798967 Comment: need STR. Fariba lift. Status and Disposition: -Appreciate PT input; per PT: Pt currently is a fariba lift for transfers, presents with weakness of Andrey LE's and is unable to ambulate at this time -Will discuss any needs and/or placement if any prior to planned D/C -Possible D/C in 2-3 days
[2018-03-29] MEDS ORDERED: Spironolactone TAB* 25 MG PO SCH (09:00)
[2018-03-29] MEDS ORDERED: acetaZOLAMIDE TAB* 250 MG PO SCH (09:00)
[2018-03-29] MEDS ORDERED: ACETAZOLAMIDE IV PUSH SCH (09:00)
[2018-03-29] MEDS ORDERED: methylPREDNISolone SOD 40 MG* 1 ML VIAL IV ONE (09:00)
[2018-03-29] MEDS ORDERED: Potassium Chlor TAB* 10 MEQ TAB.ER PO SCH (09:00)
[2018-03-29] MEDS ORDERED: Torsemide TAB* 20 MG PO SCH (09:00)
[2018-03-29 09:18] LABS: BUN/Creatinine Ratio 16.1 (8-20); Blood Urea Nitrogen 15 mg/dL (6-24); Calcium 9.3 mg/dL (8.6-10.3); Chloride 86 mmol/L (101-111); EGFR African American 98.4 (>60); EGFR Non-African American 81.3 (>60); Glucose 89 mg/dL (70-100); Potassium 3.2 mmol/L (3.5-5.0); Sodium 139 mmol/L (135-145)
[2018-03-29 09:36] LABS: CO2 Carbon Dioxide 47 mmol/L (22-32)
[2018-03-29] MEDS: Metoprolol Tartrate IV* 1 MG/ML 5 ML VIAL IV SCH ×4 (09:43→22:06)
[2018-03-29] MEDS: levETIRAcetam IV* 500 MG in NS 0.9% 100 ML* 100 ML IVPB SCH ×2 (09:44→22:15)
[2018-03-29] MEDS: KCL 10 MEQ/50 ML IVPREMIX* 10 MEQ/50 ML BAG IV SCH ×3 (09:45→22:15)
[2018-03-29 09:47] LABS: Prealbumin 15 mg/dL (18-38)
[2018-03-29] MEDS: Metoprolol Tartrate TAB* 50 mg PO SCH ×2 (10:15→21:44)
[2018-03-29] MEDS: acetaZOLAMIDE VIAL* 500 MG VIAL IV PUSH SCH ×2 (10:32→22:06)
[2018-03-29] MEDS: Diltiazem IV* 5 MG/ML 5 ML VIAL (for loading dose/IV Push) (25 MG) IV SLOW PU PRN (14:12)
[2018-03-29] MEDS: Metoprolol Tartrate IV* 1 MG/ML 5 ML VIAL IV PRN (14:30)
[2018-03-29] MEDS: traZODone TAB* 50 MG TAB PO SCH (21:43)
[2018-03-29] MEDS: Senna TAB PO SCH (21:45)
[2018-03-30] MEDS: Metoprolol Tartrate IV* 1 MG/ML 5 ML VIAL IV SCH ×3 (02:27→09:02)
[2018-03-30] MEDS: KCL 10 MEQ/50 ML IVPREMIX* 10 MEQ/50 ML BAG IV SCH ×4 (02:27→20:29)
[2018-03-30] MEDS ORDERED: Vancomycin Trough Check NOTE FOLLOW UP ONE (05:30)
[2018-03-30] MEDS: DOXYcycline IV* 100 MG in NS 0.9% 250 ML* 250 ML IVPB SCH ×2 (06:01→18:03)
[2018-03-30] MEDS: Heparin VIAL(*) 5000 UNITS/ML VIAL (FIVE THOUSAND) SUBCUT SCH ×3 (06:03→20:35)
--- NOTE | 2018-03-30 08:28 | EEG ---
ELECTROENCEPHALOGRAPHY: DATE OF SERVICE: 03/29/18 - ROOM #438 REQUESTING PHYSICIAN: Dr. Kyleigh Us. HISTORY OF PRESENT ILLNESS: Mr. Yonas Beck is a 68-year-old gentleman admitted to [address] [place] [address] on 03/17/18 after a cardiac respiratory arrest with intubation and mechanical ventilation. The patient has a past medical history of seizures and is taking Keppra; however, there has been no known seizures since admission. On 03/28/18, at around 1552, the patient was noted to be yelling out his name repeatedly. When asked how the patient was feeling, he stated "no good." EEG was requested to evaluate for seizures. DESCRIPTION OF THE RECORD: This was a 16-channel EEG. In the beginning of the record, the background rhythm was slow in the theta range, symmetric between hemispheres. There was superimposed movement artifact noted, which affected EEG as well as EKG lead. As the record continued, there was frequent muscle and movement artifact. While this was occurring, some cerebral leads were clear and no evidence of epileptiform activity was noted. Before and after the movement artifact, there was no change in the background activity. As the record continued, the background activity remained symmetric. During most of the recording, it was mostly theta activity with superimposed movement artifact. There was no clear evidence of sharp or spike wave activity. IMPRESSION: This was an abnormal EEG. There was diffuse slowing with study limited by movement artifact. There was no evidence of epileptiform activity. [id number]/[facility] #: [id number] MTDD
[2018-03-30] MEDS: levETIRAcetam IV* 500 MG in NS 0.9% 100 ML* 100 ML IVPB SCH (08:42)
[2018-03-30] MEDS: acetaZOLAMIDE VIAL* 500 MG VIAL IV PUSH SCH (08:46)
[2018-03-30] MEDS: Metoprolol Tartrate TAB* 50 mg PO SCH ×2 (08:47→19:45)
[2018-03-30] MEDS ORDERED: methylPREDNISolone SOD 40 MG* 1 ML VIAL IV ONE (09:00)
[2018-03-30] MEDS: Metoprolol Tartrate IV* 1 MG/ML 5 ML VIAL IV PRN (11:02)
[2018-03-30] MEDS ORDERED: predniSONE TAB* 10 MG PO ONE (13:37)
--- NOTE | 2018-03-30 13:44 | PN ---
Subjective Date of Service: 03/30/18 Interval History: Patient not able to make his needs known. Objective Active Medications: Acetazolamide Sodium (Diamox Vial*) 500 mg IV PUSH BID [facility] Last Admin: 03/30/18 08:46 Dose: 500 mg Albuterol (Ventolin 2.5 Mg/3 Ml Neb.Alena*) 2.5 mg INH Q2H PRN PRN Reason: SOB/WHEEZING Diltiazem HCl (Diltiazem Iv*) 10 mg IV SLOW PU ONCE ONE Last Admin: 03/21/18 15:03 Dose: 10 mg Diltiazem HCl (Diltiazem Iv*) 10 mg IV SLOW PU Q6H PRN PRN Reason: TACHYCARDIA Last Admin: 03/29/18 14:12 Dose: 10 mg Heparin Sodium (Porcine) (Heparin Flush Picc/Ml/Cvc(*)) 1 - 3 ml FLUSH 0600, 1800 [facility]; Protocol Last Admin: 03/30/18 06:03 Dose: 2 ml Heparin Sodium (Porcine) (Heparin Vial(*)) 5,000 units SUBCUT Q8HR [facility] Last Admin: 03/30/18 06:03 Dose: 5,000 units Doxycycline Hyclate 100 mg/ (Sodium Chloride) 250 mls @ 250 mls/hr IVPB Q12H [facility] Last Admin: 03/30/18 06:01 Dose: 250 mls/hr Potassium Chloride (Potassium Chloride 10 Meq/50 Ml Ivpremix*) 10 meq in 50 mls @ 50 mls/hr IV Q6H [facility] Last Admin: 03/30/18 08:45 Dose: 50 mls/hr Levetiracetam (Keppra Iv Premix*) 500 mg in 100 mls @ 400 mls/hr IVPB 0830, 2030 [facility] Lorazepam (Ativan Tab(*)) 0.5 mg PO Q6H PRN PRN Reason: ANXIETY Metoprolol Tartrate (Lopressor Tab*) 50 mg PO Q12H [facility] Last Admin: 03/30/18 08:47 Dose: 50 mg Polyethylene Glycol/Electrolytes (Miralax*) 17 gm PO DAILY PRN PRN Reason: CONSTIPATION Last Admin: 03/28/18 11:29 Dose: 17 gm Prednisone (Deltasone Tab*) 20 mg PO DAILY [facility] Senna (Senokot Tab*) 1 tab PO BEDTIME [facility] Last Admin: 03/29/18 21:45 Dose: 1 tab Trazodone HCl (Desyrel Tab*) 25 mg PO BEDTIME [facility] Last Admin: 03/29/18 21:43 Dose: 25 mg Vital Signs - 8 hr 03/30/18 03/30/18 08:00 08:41 Temperature 99.0 F Pulse Rate 105 96 Respiratory 22 Rate Blood Pressure 142/71 (mmHg) O2 Sat by Pulse 100 Oximetry Oxygen Devices in Use Now: None Appearance: Alert, partly up in bed. Hands in mitts. Somewhat restless. Eyes: No Scleral Icterus Respiratory: Symmetrical Chest Expansion and Respiratory Effort, Clear to Auscultation, Clear to Percussion Cardiovascular: - - irreg Extremities: No Edema, No Clubbing, Cyanosis, - Skin: No Rash or Ulcers, No Nodules or Sclerosis, - Neurological: NL Sensation - MARQUEZ. No tremor. Can say his first name, doesn't answer any other questions. Result Diagrams: 03/29/18 05:18 03/30/18 15:10 Microbiology and Other Data: Microbiology 03/20/18 08:40 Urine Culture - Final Urine No Growth (<1,000 CFU/mL) 03/18/18 11:05 Aerobic Blood Culture - Preliminary Blood Line No Growth Day 3 Anaerobic Blood Culture - Preliminary No Growth Day 3 03/18/18 11:00 Aerobic Blood Culture - Preliminary Blood Line No Growth Day 3 Anaerobic Blood Culture - Preliminary No Growth Day 3 03/17/18 13:20 Aerobic Blood Culture - Preliminary Blood Line No Growth Day 3 Anaerobic Blood Culture - Preliminary No Growth Day 3 03/17/18 12:12 Gram Stain - Final Sputum Sputum Culture - Final Haemophilus Influenzae Normal Carley 03/18/18 01:30 Urine Culture - Final Urine No Growth (<1,000 CFU/mL) 03/18/18 01:30 Influenza Types A,B Antigen - Final Nasal Specimen received for Influenza A/B Molecular testing 03/17/18 11:45 Nasal Screen MRSA (PCR) - Final Nasal Mrsa Not Detected Assess/Plan/Problems-Billing Mr. Yonas Beck is a 68-year-old man with long history of tobacco abuse and COPD who presented with witnessed cardiopulomonary arrest and suspected mild anoxic brain injury. 1. acute hypoxic-ischemic encephalopathy- Mild severity. He is slowly recovering and is appropriate at this time. Will hopefully be extubated today. He may have memory and motor impairment following the injury. 2. Possible hypoactive delirium related to encephalopathy- improved. Recommendations: - Wean off levetiracetam by decreasing the dose to 250 mg twice daily for 3 days , then 250 daily for one day, then discontinue. - PT/OT/LOGGING ASSISTANT evaluate and treat post extubation. - He will need short term rehabilitation. Neurology will sign off. Please contact me for any questions or concerns. Time spent: 20 minutes. D/w ICU team. - Patient Problems (1) Encephalopathy Current Visit: Yes Status: Acute Code(s): G93.40 - ENCEPHALOPATHY, UNSPECIFIED SNOMED Code(s): 01851447 Comment: ? due to anoxic brain damage, drug effect (levetriacetam, steroids, other). Tapering steroids to off in a few days, reduced levetiracetem to 500 mg IV q 12 hr on03/29. EEG 03/29 showed diffuse slowing, no epileptiform activity. Ammonia level 03/30 is 47. Fariba lift, hands in mitts. Will discuss CPR and comfort care with family if/when available. (2) Metabolic alkalosis Current Visit: Yes Status: Acute Code(s): E87.3 - ALKALOSIS SNOMED Code(s) : 6752638 Comment: Stop diuretics, very large neg fluid balance recently. Started IV acetazolamide 500 mg IV bid on 03/29. CO2 down to 34 on 03/30, change acetazolamide to 500 mg IV daily. (3) HCAP (healthcare-associated pneumonia) Current Visit: Yes Status: Acute Code(s): J18.9 - PNEUMONIA, UNSPECIFIED ORGANISM SNOMED Code(s): 483881016 Comment: Doxycycline last day 04/04. Taper IV methylprednisolone. (4) Seizure Current Visit: Yes Status: Acute Code(s): R56.9 - UNSPECIFIED CONVULSIONS SNOMED Code(s): 12066747 Comment: Has no previous hx and was witnessed by staff; only occurred 1x on 03/26/18 in AM and no reported recurrence since -Likely due to anoxic brain injury. Reduced Kepra to 500 mg IV BID on 03/[address] Schreiber. (5) Atrial fibrillation with RVR Current Visit: No Status: Acute Priority: High Code(s): I48.91 - UNSPECIFIED ATRIAL FIBRILLATION SNOMED Code(s): 173208370943850 Comment: Resume po metoprolol as passed ST swallow eval. (6) CHF exacerbation Current Visit: Yes Status: Acute Code(s): I50.9 - HEART FAILURE, UNSPECIFIED SNOMED Code(s): 69477348 Comment: Diastolic. No diuretics for now, has low total intake. Replace KCL. BMP 03/30. (7) Muscular deconditioning Current Visit: No Status: Acute Priority: Medium Code(s): R29.898 - OTH SYMPTOMS AND SIGNS INVOLVING THE MUSCULOSKELETAL SYSTEM SNOMED Code(s): 796136669 Comment: need STR. Fariba lift. (8) Malnutrition Current Visit: Yes Status: Acute Code(s): E46 - UNSPECIFIED PROTEIN-CALORIE MALNUTRITION SNOMED Code(s): 63703076 Comment: Prealbumin 15 on 03/30/18. Calorie count 03/29 580. Status and Disposition: -Appreciate PT input; per PT: Pt currently is a fariba lift for transfers, presents with weakness of Andrey LE's and is unable to ambulate at this time -Will discuss any needs and/or placement if any prior to planned D/C -Possible D/C in 2-3 days
--- NOTE | 2018-03-30 15:21 | PN ---
Progress Note - Progress Note Date of Service: 03/30/18 Note: Spoke with pt's sister will meet tomorrow around 2pm.
[2018-03-30 15:39] LABS: BUN/Creatinine Ratio 27.3 (8-20); Calcium 9.3 mg/dL (8.6-10.3); Potassium 3.7 mmol/L (3.5-5.0)
[2018-03-30] MEDS: levETIRAcetam 500 MG IVPREMIX* 500 MG/100 ML BAG IVPB SCH (19:45)
[2018-03-30] MEDS: Senna TAB PO SCH (20:35)
[2018-03-30] MEDS: traZODone TAB* 50 MG TAB PO SCH (20:36)
[2018-03-31] MEDS: KCL 10 MEQ/50 ML IVPREMIX* 10 MEQ/50 ML BAG IV SCH ×3 (02:59→19:32)
[2018-03-31] MEDS: DOXYcycline IV* 100 MG in NS 0.9% 250 ML* 250 ML IVPB SCH (04:31)
[2018-03-31] MEDS: Heparin VIAL(*) 5000 UNITS/ML VIAL (FIVE THOUSAND) SUBCUT SCH ×3 (05:05→21:33)
[2018-03-31] MEDS: Metoprolol Tartrate TAB* 50 mg PO SCH ×2 (08:57→17:35)
[2018-03-31] MEDS: predniSONE TAB* 10 MG PO SCH (08:57)
[2018-03-31] MEDS ORDERED: acetaZOLAMIDE VIAL* 500 MG VIAL IV PUSH SCH (09:00)
[2018-03-31] MEDS: levETIRAcetam 500 MG IVPREMIX* 500 MG/100 ML BAG IVPB SCH ×2 (09:13→21:29)
--- NOTE | 2018-03-31 15:07 | CONSULT ---
Palliative / Hospice Consult Ordering Provider: Gregg Ryan-PCP - Subjective Code Status: Full Code Advance Directives Location: No Advance Directives - History or Present Illness History or Present Illness: 68 yo male with SOB x 2days had cardiac arrest in the ambulance on the way to the ER. His PMH is significant for COPD on O2, HTN, CHF and Afib. He was in the ICU for several days and developed encephalopathy, GI bleed, ischemic hepatitis , seizure, and pneumonia. He was transferred to the floor. He will need 24hr care so they are looking into SNF. He is not a candidate for rehab therapy. His BUN/Cr 30/1.10 efgr 67, tprot 5.5, alb 3.1 and prealb 15, BNP 529, ECHO EF 65-70 % but does have RV dilated overload. He was hospitalized 10/02- for COPD & ER visit 07/24/17 for Afib. Long time smoker ex ETOH user non drug user. Not but has 2 adopted children Lab Values: Abnormal Lab Results 03/30/18 15:10 Sodium 137 Potassium 3.7 Chloride 98 L Carbon Dioxide 34 H Anion Gap 5 BUN 30 H Creatinine 1.10 Est GFR ( Amer) 81.0 Est GFR (Non-Af Amer) 67.0 BUN/Creatinine Ratio 27.3 H Glucose 110 H Calcium 9.3 Laboratory Last Values WBC 13.0 10^3/ul (3.5-10.8) H 03/29/18 05:18 RBC 4.11 10^6/ul (4.00-5.40) 03/29/18 05:18 Hgb 13.1 g/dl (14.0-18.0) L 03/29/18 05:18 Hct 39 % (42-52) L 03/29/18 05:18 MCV 96 fL (80-94) H 03/29/18 05:18 MCH 32 pg (27-31) H 03/29/18 05:18 MCHC 33 g/dl (31-36) 03/29/18 05:18 RDW 15 % (10.5-15) 03/29/18 05:18 Plt Count 194 10^3/ul (150-450) 03/29/18 05:18 MPV 8.7 fL (7.4-10.4) 03/29/18 05:18 Neut % (Auto) 94.8 % 03/20/18 08:25 Lymph % (Auto) 2.6 % 03/20/18 08:25 Lewis % (Auto) 2.4 % 03/20/18 08:25 Eos % (Auto) 0 % 03/20/18 08:25 Baso % (Auto) 0.2 % 03/20/18 08:25 Absolute Neuts (auto) 18.5 10^3/ul (1.5-7.7) H 03/20/18 08:25 Absolute Lymphs (auto) 0.5 10^3/ul (1.0-4.8) L 03/20/18 08:25 Absolute Monos (auto) 0.5 10^3/ul (0-0.8) 03/20/18 08:25 Absolute Eos (auto) 0 10^3/ul (0-0.6) 03/20/18 08:25 Absolute Basos (auto) 0 10^3/ul (0-0.2) 03/20/18 08:25 Absolute Nucleated RBC 0.1 10^3/ul 03/20/18 08:25 Immature Gran % 12 % (0-9) H 03/18/18 10:00 Neutrophils % 84 % 03/18/18 10:00 Band Neutrophils % 11 % (0-8) H 03/18/18 10:00 Lymphocytes % 4 % 03/18/18 10:00 Monocytes % 11 % 03/17/18 10:55 Metamyelocytes % 1 % (0-2) 03/18/18 10:00 Nucleated RBC % 0.7 03/20/18 08:25 Abs Neuts (Manual) 15.65 10^3/ul (1.5-7.7) H 03/18/18 10:00 Abs Lymphs (Manual) 0.652 10^3/ul (1.0-4.8) L 03/18/18 10:00 Abs Monocytes (Manual) 0 10^3/ul (0-0.8) 03/18/18 10:00 Nucleated RBCs/100 WBC 1 (0-0) H 03/17/18 10:55 Normal RBC Morphology Normal (Normal) 03/18/18 10:00 Polychromasia 1+ 03/17/18 10:55 Hem Pathologist Commnt 03/18/18 10:00 INR (Anticoag Therapy) 1.06 (0.77-1.02) H 03/24/18 05:20 Fibrinogen 362.3 mg/dL (110.8-404.3) 03/18/18 21:45 Patient Temperature Not Reportable 03/28/18 10:30 ABG pH 7.58 (7.35-7.45) H 03/28/18 11:05 ABG pH (Temp Correct) Not Reportable 03/28/18 10:30 ABG pCO2 58 mmHg (35-45) H 03/28/18 11:05 ABG pCO2 (Temp Corrct Not Reportable 03/28/18 10:30 ABG pO2 59 mmHg (80-100) L* 03/28/18 11:05 ABG pO2 (Temp Correct Not Reportable 03/28/18 10:30 ABG HCO3 46.5 mmol/L (19-31) H* 03/28/18 11:05 ABG O2 Saturation 93.4 % (94.0-98.0) L 03/28/18 11:05 ABG Base Excess 27.9 mmol/L (-2.0-2.0) H 03/28/18 11:05 Respiration Rate Not Reportable 03/28/18 10:30 O2 Delivery Device 2.5 03/28/18 10:30 Ventilator Type Not Reportable 03/28/18 10:30 Vent Mode Not Reportable 03/28/18 10:30 FiO2 Not Reportable 03/28/18 10:30 Inspiratory Time Not Reportable 03/28/18 10:30 PEEP Not Reportable 03/28/18 10:30 Pressure Support Not Reportable 03/28/18 10:30 Pressure Control Not Reportable 03/28/18 10:30 EPAP Not Reportable 03/28/18 10:30 IPAP Not Reportable 03/28/18 10:30 BiPAP Not Reportable 03/28/18 10:30 Sodium 137 mmol/L (135-145) 03/30/18 15:10 Potassium 3.7 mmol/L (3.5-5.0) 03/30/18 15:10 Chloride 98 mmol/L (101-111) L 03/30/18 15:10 Carbon Dioxide 34 mmol/L (22-32) H 03/30/18 15:10 Anion Gap 5 mmol/L (2-11) 03/30/18 15:10 BUN 30 mg/dL (6-24) H 03/30/18 15:10 Creatinine 1.10 mg/dL (0.67-1.17) 03/30/18 15:10 Est GFR ( Amer) 81.0 (>60) 03/30/18 15:10 Est GFR (Non-Af Amer) 67.0 (>60) 03/30/18 15:10 BUN/Creatinine Ratio 27.3 (8-20) H 03/30/18 15:10 Glucose 110 mg/dL (70-100) H 03/30/18 15:10 Lactic Acid 1.0 mmol/L (0.5-2.0) 03/18/18 04:55 Calcium 9.3 mg/dL (8.6-10.3) 03/30/18 15:10 Ionized Calcium 0.99 mmol/L (1.16-1.32) L 03/17/18 13:20 Phosphorus 2.7 mg/dL (2.5-5.0) 03/28/18 05:46 Magnesium 2.0 mg/dL (1.9-2.7) 03/29/18 05:18 Total Bilirubin 0.70 mg/dL (0.2-1.0) 03/28/18 05:46 AST 30 U/L (13-39) 03/28/18 05:46 ALT 47 U/L (7-52) 03/28/18 05:46 Alkaline Phosphatase 52 U/L (34-104) 03/28/18 05:46 Ammonia 47 mcmol/L (16-53) 03/29/18 08:42 Total Creatine Kinase 147 U/L (10-223) 03/20/18 08:25 CK-MB (CK-2) 1.4 ng/mL (0.6-6.3) 03/21/18 09:50 Troponin I 0.06 ng/mL (<0.04) H* 03/17/18 19:25 B-Natriuretic Peptide 529 pg/mL (<=100) H 03/28/18 05:46 Total Protein 5.5 g/dL (6.4-8.9) L 03/28/18 05:46 Albumin 3.1 g/dL (3.2-5.2) L 03/28/18 05:46 Globulin 2.4 g/dL (2-4) 03/28/18 05:46 Albumin/Globulin Ratio 1.3 (1-3) 03/28/18 05:46 Prealbumin 15 mg/dL (18-38) L 03/29/18 08:42 Vitamin B12 > 1450 pg/mL (180-914) H 03/17/18 13:45 Folate 8.96 ng/mL (>3.99) 03/17/18 13:45 Prolactin 7.7 ng/mL (1.0-20.0) 03/26/18 10:59 Urine Color Yellow 03/20/18 08:40 Urine Appearance Cloudy 03/20/18 08:40 Urine pH 6.0 (5-9) 03/20/18 08:40 Ur Specific [place] 1.030 (1.010-1.030) 03/20/18 08:40 Urine Protein 1+(30 mg/dl) (Negative) A 03/20/18 08:40 Urine Ketones Negative (Negative) 03/20/18 08:40 Urine Blood 3+ (Negative) A 03/20/18 08:40 Urine Nitrate Negative (Negative) 03/20/18 08:40 Urine Bilirubin Negative (Negative) 03/20/18 08:40 Urine Urobilinogen Positive (Negative) A 03/20/18 08:40 Ur Leukocyte Esterase Trace (Negative) A 03/20/18 08:40 Urine WBC (Auto) 3+(>20/hpf) (Absent) A 03/20/18 08:40 Urine RBC (Auto) 3+(>10/hpf) (Absent) A 03/20/18 08:40 Urine Bacteria Absent (Absent) 03/20/18 08:40 Ur Chloride Concentrat 154 mmol/L 03/28/18 13:06 Urine Glucose Negative (Negative) 03/20/18 08:40 Urine Ascorbic Acid * (Negative) A 03/20/18 08:40 Vancomycin Trough 7.9 mcg/mL 03/30/18 03:48 Digoxin 1.3 ng/ml (0.8-2.0) 03/18/18 04:55 Urine Opiates Screen None detected (None Detect) 03/18/18 01:30 Ur Barbiturates Screen None detected (None Detect) 03/18/18 01:30 Ur Phencyclidine Scrn None detected (None Detect) 03/18/18 01:30 Ur Amphetamines Screen None detected (None Detect) 03/18/18 01:30 U Benzodiazepines Scrn None detected (None Detect) 03/18/18 01:30 Urine Cocaine Screen None detected (None Detect) 03/18/18 01:30 U Cannabinoids Screen Presumptive positive (None Detect) A 03/18/18 01:30 Serum Alcohol < 10 mg/dL (<10) 03/17/18 13:45 Influenza A (Rapid) Negative (Negative) 03/18/18 01:46 Influenza Type A IgG 1:640 (<1:10) A 03/17/18 13:45 Influenza Type A IgM <1:10 (<1:10) 03/17/18 13:45 Influenza B (Rapid) Negative (Negative) 03/18/18 01:46 Influenza Type B IgG >=1:1280 (<1:10) A 03/17/18 13:45 Influenza Type B IgM <1:10 (<1:10) 03/17/18 13:45 - Objective Active Medications: Acetazolamide Sodium (Diamox Vial*) 500 mg IV PUSH DAILY [facility]ARA Last Admin: 03/31/18 09:06 Dose: 500 mg Albuterol (Ventolin 2.5 Mg/3 Ml Neb.Alena*) 2.5 mg INH Q2H PRN PRN Reason: SOB/WHEEZING Heparin Sodium (Porcine) (Heparin Flush Picc/Ml/Cvc(*)) 1 - 3 ml FLUSH 0600, 1800 CLARA; Protocol Last Admin: 03/31/18 05:51 Dose: 2 ml Heparin Sodium (Porcine) (Heparin Vial(*)) 5,000 units SUBCUT Q8HR [facility]ARA Last Admin: 03/31/18 13:14 Dose: 5,000 units Levetiracetam (Keppra Iv Premix*) 500 mg in 100 mls @ 400 mls/hr IVPB 0830, 2030 CLARA Last Admin: 03/31/18 09:13 Dose: 400 mls/hr Lorazepam (Ativan Tab(*)) 0.5 mg PO Q6H PRN PRN Reason: ANXIETY Metoprolol Tartrate (Lopressor Tab*) 50 mg PO Q12H [facility] Last Admin: 03/31/18 08:57 Dose: 50 mg Polyethylene Glycol/Electrolytes (Miralax*) 17 gm PO DAILY PRN PRN Reason: CONSTIPATION Last Admin: 03/28/18 11:29 Dose: 17 gm Prednisone (Deltasone Tab*) 20 mg PO DAILY [facility] Last Admin: 03/31/18 08:57 Dose: 20 mg Senna (Senokot Tab*) 1 tab PO BEDTIME [facility] Last Admin: 03/30/18 20:35 Dose: 1 tab Trazodone HCl (Desyrel Tab*) 25 mg PO BEDTIME [facility] Last Admin: 03/30/18 20:36 Dose: 25 mg Vital Signs: Vital Signs: Temp Pulse Resp BP Pulse Ox 98.5 F 102 16 137/75 94 03/31/18 10:57 03/31/18 10:57 03/31/18 08:00 03/31/18 10:57 03/31/18 10:57 Patient Weight: Weight 68.4 kg Intake and Output: Intake & Output 03/29/18 03/30/18 03/31/18 04/01/18 06:59 06:59 06:59 06:59 Intake Total 1524 455 696 630 Output Total 4600 2400 2380 630 Balance -3076 -1945 -1684 0 Intake: IV Fluids 365 235 691 ABX 250 ABX - VANCOMYCIN 350 205 Keppra 15 213 Potassium 30 228 IVPB 109 100 Keppra 109 Potassium 100 Oral 1050 120 5 630 Output: Urine 750 Ghotra 3850 2400 2380 630 Other: Estimated Void Medium # Bowel Movements 0 Estimated Stool Amount Small Small ADLs: Meal Record Start: 03/17/18 11: 26 Freq: 09,13,18 Status: Inactive Protocol: Created 03/17/18 11:26 System (Rec: 03/17/18 11:26 System ICU-M33) Document 03/17/18 13:00 RGC9025 (Rec: 03/17/18 17:45 ZQS9137 ICU-M33) Document 03/17/18 18:00 BUI4006 (Rec: 03/17/18 19:34 TRK5390 ICU-C16) Document 03/18/18 09:00 MNB7606 (Rec: 03/18/18 09:24 XXJ7501 ICU-M33) Document 03/18/18 13:00 SMJ0160 (Rec: 03/18/18 13:09 KGZ4447 ICU-C16) Document 03/18/18 18:00 NZT2982 (Rec: 03/18/18 18:29 UFX9283 ICU-C15) Document 03/19/18 09:00 BHY1280 (Rec: 03/19/18 14:35 PPU6870 ICU-C15) Document 03/19/18 13:00 SGO6747 (Rec: 03/19/18 15:24 DDW1411 ICU-C15) Document 03/19/18 18:00 KQY7884 (Rec: 03/19/18 18:05 TIZ4674 ICU-C15) Document 03/21/18 09:00 OLT1022 (Rec: 03/21/18 09:16 LTY1765 ICU-C15) Document 03/21/18 13:00 JEW5474 (Rec: 03/21/18 14:03 PWP1296 ICU-C15) Document 03/21/18 18:00 GSK4342 (Rec: 03/21/18 18:54 XHD3758 ICU-C15) Document 03/22/18 09:00 BQE1791 (Rec: 03/22/18 09:36 AFI9398 ICU-C16) Document 03/22/18 13:00 WEJ1517 (Rec: 03/22/18 13:22 IQO2377 ICU-C16) Document 03/22/18 17:57 IME1950 (Rec: 03/22/18 17:58 ZEA9982 ICU-C16) Document 03/23/18 08:19 HEW2634 (Rec: 03/23/18 08:19 LJF7384 ICU-C16) Document 03/23/18 13:00 HKO9476 (Rec: 03/23/18 13:10 VHQ1633 ICU-C16) Document 03/23/18 17:15 QSH2224 (Rec: 03/23/18 17:15 NJO0542 ICU-C16) Document 03/24/18 08:03 FXM5805 (Rec: 03/24/18 08:03 DII1803 ICU-C16) Document 03/24/18 13:00 PKK6450 (Rec: 03/24/18 13:27 AKY0171 ICU-C16) Document 03/24/18 17:37 MSU1284 (Rec: 03/24/18 17:37 YVH3576 ICU-C16) Document 03/25/18 09:00 BNQ2749 (Rec: 03/25/18 09:26 JFL1900 ICU-C10) Document 03/25/18 13:00 SFE8529 (Rec: 03/25/18 13:55 VLI3137 ICU-L03) Document 03/25/18 18:00 VGK7007 (Rec: 03/25/18 18:14 YZL5301 ICU-L03) ADLs: Meal Record Start: 03/25/18 18: 52 Freq: Status: Active Protocol: Created 03/25/18 18:52 FWZ6110 (Rec: 03/25/18 18:52 ADG3847 TELE-C02) Document 03/26/18 09:00 POK5532 (Rec: 03/26/18 14:22 YSW6597 TELE-C11) Document 03/26/18 14:00 NYP4880 (Rec: 03/26/18 14:26 DFE8133 TELE-C11) Document 03/26/18 18:00 IOD6622 (Rec: 03/26/18 22:09 AVA5701 TELE-C01) Document 03/27/18 13:57 WHA6292 (Rec: 03/27/18 13:58 DRV5140 TELE-C10) Document 03/28/18 10:21 IKX3155 (Rec: 03/28/18 10:24 XKS5315 TELE-C07) ADLs: Meal Record Start: 03/26/18 08: 20 Freq: DAILY@0900,1400,1800 Status: Active Protocol: Created 03/26/18 08:20 MPM2065 (Rec: 03/26/18 08:20 ZWE3489 TELE-C03) Document 03/26/18 09:00 LTA8553 (Rec: 03/26/18 14:22 UIK7006 TELE-C11) Document 03/26/18 14:00 ICW0970 (Rec: 03/26/18 14:26 JJF5197 TELE-C11) Document 03/26/18 18:00 KSO8231 (Rec: 03/26/18 22:09 GZX1079 TELE-C01) Document 03/27/18 09:00 ELM5000 (Rec: 03/27/18 10:08 OTO2140 TELE-C11) Document 03/27/18 18:00 DNX0309 (Rec: 03/27/18 18:48 QNQ1197 TELE-C01) Document 03/28/18 09:00 WXF9175 (Rec: 03/28/18 10:07 TJB4790 TELE-C10) Document 03/28/18 14:00 BND7242 (Rec: 03/28/18 15:08 EXU6134 TELE-C13) Document 03/28/18 18:00 XOL4413 (Rec: 03/28/18 23:03 PXZ2120 TELE-C08) Document 03/29/18 14:00 LOL5186 (Rec: 03/29/18 14:27 NZC7807 TELE-C11) Document 03/30/18 09:00 YYS5996 (Rec: 03/30/18 12:23 WXY2767 TELE-C03) Document 03/30/18 13:31 ATT3327 (Rec: 03/30/18 13:31 BQB3301 TELE-C08) Document 03/30/18 18:00 EBE6595 (Rec: 03/30/18 21:09 HWC7581 TELE-C08) Document 03/31/18 10:25 GPC5664 (Rec: 03/31/18 10:25 MXU2372 TELE-C11) Document 03/31/18 13:14 SDO0606 (Rec: 03/31/18 13:14 IOI6236 TELE-C09) Intake and Output Start: 03/17/18 11: 00 Freq: Status: Active Protocol: Created 03/17/18 11:00 System (Rec: 03/17/18 11:00 System EDRM-C14) Intake and Output Start: 03/17/18 11: 26 Freq: Q1HR Status: Inactive Protocol: Created 03/17/18 11:26 System (Rec: 03/17/18 11:26 System ICU-M33) Document 03/17/18 12:00 UJW0018 (Rec: 03/17/18 16:22 IBK1871 ICU-C16) Document 03/17/18 13:00 TJS6050 (Rec: 03/17/18 16:22 CHV5901 ICU-C16) Document 03/17/18 14:00 FYQ5841 (Rec: 03/17/18 16:22 HWN8171 ICU-C16) Document 03/17/18 15:00 HZG2092 (Rec: 03/17/18 16:22 FPG8150 ICU-C16) Document 03/17/18 17:00 KHY9335 (Rec: 03/17/18 19:16 JXE9448 ICU-C16) Document 03/17/18 19:00 FHZ9155 (Rec: 03/17/18 19:16 GTL3874 ICU-C16) Document 03/17/18 20:00 LSS1648 (Rec: 03/17/18 21:11 FMM8507 ICU-L03) Document 03/17/18 21:00 ZRP6498 (Rec: 03/17/18 21:11 TLN4027 ICU-L03) Document 03/17/18 22:00 JSB3174 (Rec: 03/17/18 22:27 WYM6538 ICU-M33) Document 03/17/18 23:00 KIP2402 (Rec: 03/17/18 23:08 FQV6458 ICU-M33) Document 03/18/18 00:00 NAS7222 (Rec: 03/18/18 00:38 XPM4426 ICU-L03) Document 03/18/18 01:00 CPV2001 (Rec: 03/18/18 01:02 TCU8561 ICU-L03) Document 03/18/18 02:00 JLE6506 (Rec: 03/18/18 03:12 KPY7694 ICU-L03) Document 03/18/18 03:00 XRI4028 (Rec: 03/18/18 03:13 UAD8742 ICU-L03) Document 03/18/18 04:00 AFZ8279 (Rec: 03/18/18 04:34 DTX6366 ICU-L03) Document 03/18/18 05:00 BHZ7298 (Rec: 03/18/18 05:01 RNE2621 ICU-M33) Document 03/18/18 06:00 FOC9829 (Rec: 03/18/18 06:08 KMT8036 ICU-L03) Document 03/18/18 07:00 MBI7774 (Rec: 03/18/18 07:42 CVG8027 ICU-M33) Document 03/18/18 07:50 SXO7998 (Rec: 03/18/18 07:50 KFB2079 ICU-M33) Document 03/18/18 09:00 MSM9692 (Rec: 03/18/18 09:23 HDL3928 ICU-M33) Document 03/18/18 10:00 IYZ2312 (Rec: 03/18/18 10:21 YAP5769 ICU-M33) Document 03/18/18 11:00 LDR1756 (Rec: 03/18/18 11:14 RTD7926 ICU-C16) Document 03/18/18 12:00 PCY4313 (Rec: 03/18/18 12:37 JWS5291 ICU-C16) Document 03/18/18 13:00 MRF6540 (Rec: 03/18/18 13:20 QPF3174 ICU-C16) Document 03/18/18 14:00 MPB5838 (Rec: 03/18/18 14:58 BVC5812 ICU-M33) Document 03/18/18 15:00 HLX8561 (Rec: 03/18/18 17:42 INL4983 ICU-C15) Document 03/18/18 16:05 TXY5754 (Rec: 03/18/18 18:24 NLH9745 ICU-C15) Document 03/18/18 17:00 JIZ7359 (Rec: 03/18/18 18:27 HDK7347 ICU-C15) Document 03/18/18 18:00 AIA7710 (Rec: 03/18/18 18:29 VHR8490 ICU-C15) Document 03/18/18 19:00 ZAM1535 (Rec: 03/18/18 20:00 BUC7914 ICU-M33) Document 03/18/18 20:00 GEX5356 (Rec: 03/18/18 20:00 NMI5711 ICU-M33) Document 03/18/18 21:00 FRW7467 (Rec: 03/18/18 21:00 TLH7573 ICU-L03) Document 03/18/18 22:00 OHS4360 (Rec: 03/18/18 22:04 HAS8499 ICU-M33) Document 03/18/18 23:00 IYO5367 (Rec: 03/18/18 23:03 YHC5719 ICU-M33) Document 03/19/18 00:00 AED7275 (Rec: 03/19/18 00:12 MYO0824 ICU-L03) Document 03/19/18 01:00 ETF0566 (Rec: 03/19/18 01:01 FMW9452 ICU-L03) Document 03/19/18 02:00 GMK1716 (Rec: 03/19/18 02:05 WMA7028 ICU-L03) Document 03/19/18 03:00 KQM7394 (Rec: 03/19/18 03:02 YZS7049 ICU-M33) Document 03/19/18 04:00 YPW5336 (Rec: 03/19/18 04:28 GUM2630 ICU-L03) Document 03/19/18 05:00 UOP3961 (Rec: 03/19/18 05:15 FXT7887 ICU-L03) Document 03/19/18 06:00 GVL4632 (Rec: 03/19/18 06:21 YKW2923 ICU-M33) Document 03/19/18 07:00 KXE9166 (Rec: 03/19/18 08:25 FDO9033 ICU-C15) Document 03/19/18 08:00 UOC5359 (Rec: 03/19/18 08:25 MPU3964 ICU-C15) Document 03/19/18 09:00 QZV7888 (Rec: 03/19/18 09:37 SGY1997 ICU-M33) Document 03/19/18 10:00 IPQ0084 (Rec: 03/19/18 14:36 TMN8872 ICU-C15) Document 03/19/18 11:00 OWM5033 (Rec: 03/19/18 14:36 LPU4290 ICU-C15) Document 03/19/18 12:00 VOQ4932 (Rec: 03/19/18 14:36 ORG4250 ICU-C15) Document 03/19/18 13:00 GPS5455 (Rec: 03/19/18 15:06 ATK6836 ICU-C15) Document 03/19/18 14:00 OGA6062 (Rec: 03/19/18 15:06 HRE2707 ICU-C15) Document 03/19/18 15:00 JZX8245 (Rec: 03/19/18 15:06 CHB8656 ICU-C15) Document 03/19/18 16:00 DGM0389 (Rec: 03/19/18 17:19 PMJ9978 ICU-C15) Document 03/19/18 17:00 HUO4738 (Rec: 03/19/18 17:19 GNZ1396 ICU-C15) Document 03/19/18 18:00 BQR1183 (Rec: 03/19/18 18:05 RXT3937 ICU-C15) Document 03/19/18 19:00 EAC7500 (Rec: 03/19/18 20:21 FBF7921 ICU-M33) Document 03/19/18 20:00 MNC4377 (Rec: 03/19/18 20:21 EUO6707 ICU-M33) Document 03/19/18 21:00 HZV5502 (Rec: 03/19/18 22:20 SNZ0882 ICU-M33) Document 03/19/18 22:00 FFW6362 (Rec: 03/19/18 22:20 ECR2187 ICU-M33) Document 03/19/18 23:00 OXP9909 (Rec: 03/20/18 00:07 HXB1108 ICU-L03) Document 03/20/18 00:00 FLP4934 (Rec: 03/20/18 00:07 ULK7348 ICU-L03) Document 03/20/18 01:00 ZGC2641 (Rec: 03/20/18 01:28 HWE2445 ICU-L03) Document 03/20/18 02:00 MOU5199 (Rec: 03/20/18 06:12 XIR0430 ICU-M33) Document 03/20/18 03:00 ALL3798 (Rec: 03/20/18 06:12 IYV4534 ICU-M33) Document 03/20/18 04:00 SDB2025 (Rec: 03/20/18 06:12 TPJ2873 ICU-M33) Document 03/20/18 05:00 CVA2759 (Rec: 03/20/18 06:12 LMJ9260 ICU-M33) Document 03/20/18 06:11 WZN7866 (Rec: 03/20/18 06:12 SJX4070 ICU-M33) Document 03/20/18 07:00 IRW4960 (Rec: 03/20/18 08:41 VEW5546 ICU-M33) Document 03/20/18 08:00 ZYP5335 (Rec: 03/20/18 08:41 QIG8419 ICU-M33) Document 03/20/18 09:00 UZL2572 (Rec: 03/20/18 09:48 GAH9690 ICU-M33) Document 03/20/18 10:00 ECH0579 (Rec: 03/20/18 11:09 AUL0312 ICU-M33) Document 03/20/18 11:00 YYT9502 (Rec: 03/20/18 11:09 PMA4028 ICU-M33) Document 03/20/18 12:00 UTC4650 (Rec: 03/20/18 14:01 XPR9222 ICU-C15) Document 03/20/18 13:00 BSX1493 (Rec: 03/20/18 14:01 UKC8728 ICU-C15) Document 03/20/18 14:00 NEV3419 (Rec: 03/20/18 14:09 DOJ5784 ICU-M33) Document 03/20/18 15:00 SQP5950 (Rec: 03/20/18 15:00 EOD5919 ICU-M33) Document 03/20/18 16:00 AZA0927 (Rec: 03/20/18 16:17 IOK3099 ICU-M33) Document 03/20/18 17:00 GDK9314 (Rec: 03/20/18 18:14 TVU3946 ICU-C15) Document 03/20/18 18:00 SRW8716 (Rec: 03/20/18 18:50 YCF3403 ICU-C15) Document 03/20/18 23:10 CHX0628 (Rec: 03/20/18 23:10 HNA5467 ICU-M33) Document 03/21/18 00:00 FQT7134 (Rec: 03/21/18 03:26 LME8442 ICU-C15) Document 03/21/18 01:00 QOJ4086 (Rec: 03/21/18 03:26 PYV7111 ICU-C15) Document 03/21/18 02:00 TMO9498 (Rec: 03/21/18 03:26 ABD8910 ICU-C15) Document 03/21/18 03:00 GCB3293 (Rec: 03/21/18 03:26 IID8654 ICU-C15) Document 03/21/18 04:00 ZSW4274 (Rec: 03/21/18 06:18 EJL6772 ICU-C15) Document 03/21/18 05:00 VCV4891 (Rec: 03/21/18 06:18 ZRM3221 ICU-C15) Document 03/21/18 06:00 OHD8718 (Rec: 03/21/18 06:18 MUT3451 ICU-C15) Document 03/21/18 07:00 OZY4261 (Rec: 03/21/18 09:03 RJE6343 ICU-C15) Document 03/21/18 08:00 ZTI6552 (Rec: 03/21/18 09:03 TQM3411 ICU-C15) Document 03/21/18 10:00 AMK7096 (Rec: 03/21/18 10:11 BZH2069 ICU-M33) Document 03/21/18 11:00 PLI0735 (Rec: 03/21/18 14:03 DCG7605 ICU-C15) Document 03/21/18 12:00 LRB4976 (Rec: 03/21/18 14:03 QCD1704 ICU-C15) Document 03/21/18 13:00 BMI3434 (Rec: 03/21/18 14:03 RZX0086 ICU-C15) Document 03/21/18 14:00 HYP0629 (Rec: 03/21/18 14:03 UCF9945 ICU-C15) Document 03/21/18 15:00 EMR0648 (Rec: 03/21/18 18:50 RHV8488 ICU-C15) Document 03/21/18 16:00 DXN0097 (Rec: 03/21/18 18:50 ZOM8609 ICU-C15) Document 03/21/18 17:00 DWH8160 (Rec: 03/21/18 19:00 RFW4136 ICU-C15) Document 03/21/18 18:00 KCW5812 (Rec: 03/21/18 19:00 WUL7198 ICU-C15) Document 03/21/18 20:00 MQI3256 (Rec: 03/21/18 20:31 QRH0907 ICU-C25) Document 03/21/18 21:00 HRO7435 (Rec: 03/21/18 21:23 JAL4291 ICU-M33) Document 03/21/18 22:00 SVR2061 (Rec: 03/21/18 22:33 AIA0163 ICU-M33) Document 03/22/18 00:00 FPT0585 (Rec: 03/22/18 00:05 GMB1541 ICU-C25) Document 03/22/18 01:00 WVM9238 (Rec: 03/22/18 01:17 AVQ8130 ICU-C25) Document 03/22/18 03:56 XPV9641 (Rec: 03/22/18 03:56 ALY7346 ICU-M33) Document 03/22/18 06:00 LKY9615 (Rec: 03/22/18 06:08 KYJ6294 ICU-M33) Document 03/22/18 07:00 FOE3486 (Rec: 03/22/18 09:01 PRT5301 ICU-M33) Document 03/22/18 08:00 VHM7296 (Rec: 03/22/18 09:01 NYY9627 ICU-M33) Document 03/22/18 09:00 EWK6295 (Rec: 03/22/18 09:02 ZFN1092 ICU-M33) Document 03/22/18 09:53 MKP3047 (Rec: 03/22/18 09:53 LBT2665 ICU-C16) Document 03/22/18 11:00 MHV5786 (Rec: 03/22/18 12:23 PEK3066 ICU-C16) Document 03/22/18 12:00 MBP1959 (Rec: 03/22/18 12:23 JGC9387 ICU-C16) Document 03/22/18 13:00 NIQ3731 (Rec: 03/22/18 13:22 WKF9917 ICU-C16) Document 03/22/18 13:57 BEY1702 (Rec: 03/22/18 13:58 WRZ7049 ICU-C16) Document 03/22/18 15:00 SFQ1094 (Rec: 03/22/18 15:07 ERI0552 ICU-C16) Document 03/22/18 16:00 WKP5718 (Rec: 03/22/18 16:18 AAJ1352 ICU-C16) Document 03/22/18 17:00 PMZ0962 (Rec: 03/22/18 18:08 TLV3755 ICU-M33) Document 03/22/18 18:00 UWU9730 (Rec: 03/22/18 18:08 ZOF0107 ICU-M33) Document 03/22/18 21:00 WCK3487 (Rec: 03/22/18 21:09 NLR7353 ICU-M33) Document 03/22/18 23:00 IZU7444 (Rec: 03/22/18 23:05 QSC1867 ICU-M33) Document 03/23/18 01:00 HMB7279 (Rec: 03/23/18 02:04 OID3518 ICU-C16) Document 03/23/18 02:00 UOP0965 (Rec: 03/23/18 02:04 IBI1798 ICU-C16) Document 03/23/18 04:00 PJR1895 (Rec: 03/23/18 04:15 FSQ4940 ICU-C16) Document 03/23/18 05:00 EPR2883 (Rec: 03/23/18 05:32 AMR2753 ICU-M33) Document 03/23/18 05:53 TRZ3650 (Rec: 03/23/18 05:53 TMN9973 ICU-M33) Document 03/23/18 07:58 ARC5715 (Rec: 03/23/18 07:58 VZK8831 ICU-M33) Document 03/23/18 08:00 NCO6198 (Rec: 03/23/18 10:30 QHD2321 ICU-C16) Document 03/23/18 09:26 MLP5413 (Rec: 03/23/18 09:26 JUR1236 ICU-M33) Document 03/23/18 10:00 YHN5118 (Rec: 03/23/18 10:03 AKK7914 ICU-C16) Document 03/23/18 12:16 NRF4270 (Rec: 03/23/18 12:16 ECL3433 ICU-M33) Document 03/23/18 13:14 WCW8726 (Rec: 03/23/18 13:14 KLX4712 ICU-C16) Document 03/23/18 13:55 HLV1267 (Rec: 03/23/18 13:56 RUW0029 ICU-M33) Document 03/23/18 17:01 RXP4305 (Rec: 03/23/18 17:01 KUI9026 ICU-M33) Document 03/23/18 18:15 PYO2927 (Rec: 03/23/18 18:15 MWV5890 ICU-M33) Document 03/23/18 18:34 GAI0119 (Rec: 03/23/18 18:35 JHI1253 ICU-M33) Document 03/23/18 19:00 JZU3772 (Rec: 03/23/18 19:48 ARJ6907 ICU-C16) Document 03/23/18 20:00 KTT5449 (Rec: 03/23/18 21:55 SWG3162 ICU-M33) Document 03/23/18 21:00 LXO7370 (Rec: 03/23/18 21:55 MLP3293 ICU-M33) Document 03/23/18 21:55 NBM0388 (Rec: 03/23/18 21:55 YTO5407 ICU-M33) Document 03/23/18 23:00 KJL2394 (Rec: 03/24/18 00:25 HVG4527 ICU-C16) Document 03/24/18 00:00 MSP6092 (Rec: 03/24/18 01:01 AGU2016 ICU-C16) Document 03/24/18 01:00 IDL5520 (Rec: 03/24/18 02:21 MWV0497 ICU-C16) Document 03/24/18 02:00 IHA0209 (Rec: 03/24/18 02:21 OZI4161 ICU-C16) Document 03/24/18 03:00 ZXE1211 (Rec: 03/24/18 03:20 ZLA7501 ICU-M33) Document 03/24/18 04:00 HAW3914 (Rec: 03/24/18 06:02 TBI0573 ICU-M33) Document 03/24/18 05:00 ORC9880 (Rec: 03/24/18 06:02 VRF3944 ICU-M33) Document 03/24/18 06:00 AMP2062 (Rec: 03/24/18 06:02 SEJ1577 ICU-M33) Document 03/24/18 07:31 TAV2906 (Rec: 03/24/18 07:31 GVI5842 ICU-M33) Document 03/24/18 08:00 OZN5375 (Rec: 03/24/18 08:02 WVE1423 ICU-C16) Document 03/24/18 10:24 WWM0458 (Rec: 03/24/18 10:24 RVH2500 ICU-C16) Document 03/24/18 12:33 VOF9381 (Rec: 03/24/18 12:33 XCZ0633 ICU-C16) Document 03/24/18 15:21 JGB4867 (Rec: 03/24/18 15:21 KZT3263 ICU-C16) Document 03/24/18 16:04 IHK8288 (Rec: 03/24/18 16:04 JXF8665 ICU-C16) Document 03/24/18 16:55 BIA9637 (Rec: 03/24/18 16:55 LXN3701 ICU-C16) Document 03/24/18 18:16 QAP1174 (Rec: 03/24/18 18:16 QXI9742 ICU-C16) Document 03/24/18 19:00 OAN0632 (Rec: 03/24/18 22:32 JLR1928 ICU-C16) Document 03/24/18 20:00 LEO4733 (Rec: 03/24/18 22:32 QPX1849 ICU-C16) Document 03/24/18 21:00 CKQ4033 (Rec: 03/24/18 22:32 IFU8954 ICU-C16) Document 03/24/18 22:00 WEK3042 (Rec: 03/24/18 22:32 CTD6656 ICU-C16) Document 03/24/18 23:00 WFB7807 (Rec: 03/24/18 23:26 YVN8664 ICU-C16) Document 03/25/18 00:00 TXE5136 (Rec: 03/25/18 00:38 YTE7942 ICU-M23) Document 03/25/18 01:00 TBD8872 (Rec: 03/25/18 01:42 QJX9272 ICU-M33) Document 03/25/18 01:42 NUX4317 (Rec: 03/25/18 01:42 KQG7148 ICU-M33) Document 03/25/18 03:00 NQG5822 (Rec: 03/25/18 03:12 AXO6914 ICU-M33) Document 03/25/18 04:00 ZIW8491 (Rec: 03/25/18 05:05 GXI5094 ICU-M33) Document 03/25/18 05:00 XXY2633 (Rec: 03/25/18 05:06 [id number] ICU-M33) Document 03/25/18 06:00 [id number] (Rec: 03/25/18 07:02 [id number] ICU-C16) Document 03/25/18 08:02 [id number] (Rec: 03/25/18 08:02 [id number] ICU-C10) Document 03/25/18 09:14 [id number] (Rec: 03/25/18 09:14 [id number] ICU-M33) Document 03/25/18 12:00 [id number] (Rec: 03/25/18 13:36 [id number] ICU-L03) Document 03/25/18 13:00 [id number] (Rec: 03/25/18 13:41 [id number] ICU-L03) Document 03/25/18 14:00 [id number] (Rec: 03/25/18 15:29 [id number] ICU-L03) Document 03/25/18 15:00 [id number] (Rec: 03/25/18 15:29 [id number] ICU-L03) Document 03/25/18 16:00 [id number] (Rec: 03/25/18 16:52 [id number] ICU-L03) Document 03/25/18 17:00 [id number] (Rec: 03/25/18 17:30 [id number] ICU-L03) Document 03/25/18 18:00 [id number] (Rec: 03/25/18 18:14 [id number] ICU-L03) Intake and Output Start: 03/25/18 18: 52 Freq: DAILY@0600,1400,2200 Status: Complete Protocol: Created 03/25/18 18:52 [id number] (Rec: 03/25/18 18:52 [id number] TELE-C02) Document 03/25/18 22:00 OAM6534 (Rec: 03/25/18 22:15 [id number] TELE-C09) Document 03/26/18 06:00 [id number] (Rec: 03/26/18 06:18 [id number] TELE-C11) Document 03/26/18 14:00 XHL1066 (Rec: 03/26/18 14:26 [id number] TELE-C11) Document 03/26/18 22:00 [id number] (Rec: 03/26/18 22:11 [id number] TELE-C01) Intake and Output Start: 03/26/18 08: 20 Freq: DAILY@0600,1400,2200 Status: Active Protocol: Created 03/26/18 08:20 [id number] (Rec: 03/26/18 08:20 [id number] TELE-C03) Document 03/26/18 14:00 [id number] (Rec: 03/26/18 14:26 [id number] TELE-C11) Document 03/26/18 22:00 [id number] (Rec: 03/26/18 22:50 [id number] TELE-C01) Document 03/27/18 06:00 OKY1090 (Rec: 03/27/18 06:38 [id number] TELE-C34) Document 03/27/18 13:29 [id number] (Rec: 03/27/18 13:30 [id number] TELE-C11) Document 03/27/18 22:00 [id number] (Rec: 03/27/18 22:41 COQ3585 TELE-C01) Document 03/28/18 06:00 KJS7917 (Rec: 03/28/18 06:43 ABH3039 TELE-C34) Document 03/28/18 10:21 VWF1157 (Rec: 03/28/18 10:24 WKH0345 TELE-C07) Document 03/28/18 14:00 [id number] (Rec: 03/28/18 15:08 [id number] TELE-C13) Document 03/28/18 22:00 [id number] (Rec: 03/28/18 23:04 LKE1548 TELE-C08) Document 03/29/18 06:00 OWF2323 (Rec: 03/29/18 06:20 [id number] TELE-C33) Document 03/29/18 14:00 [id number] (Rec: 03/29/18 14:28 TQQ1760 TELE-C11) Document 03/29/18 22:28 [id number] (Rec: 03/29/18 22:30 [id number] TELE-C11) Document 03/30/18 05:43 [id number] (Rec: 03/30/18 05:43 [id number] HOSP-C11) Document 03/30/18 14:00 NQM4080 (Rec: 03/30/18 14:50 [id number] TELE-C08) Document 03/30/18 22:00 [id number] (Rec: 03/30/18 22:30 [id number] TELE-C08) Document 03/31/18 05:34 [id number] (Rec: 03/31/18 05:34 [id number] TELE-C11) Document 03/31/18 12:20 [id number] (Rec: 03/31/18 12:20 [id number] TELE-C09) Document 03/31/18 13:59 [id number] (Rec: 03/31/18 13:59 [id number] TELE-C09) Eyes: No Scleral Icterus Neck: NL Appearance and Movements; NL JVP, No Thyroid Enlargement, Masses Cardiovascular: - - irreg Respiratory: Clear to Auscultation Abdominal: NL Sounds; No Tenderness; No Distention, No Hepatosplenomegaly, - Extremities: No Edema, No Clubbing, Cyanosis, - Neurological: NL Sensation - MARQUEZ. No tremor. Can say his first name, doesn't answer any other questions. - Assessment Assessment: 68 you male s/p cardiac arrest with COPD on O2, CHF and Afib eligible for hospice - Plan Consult Plan (MU): Hospice Plan: Spoke with daughter Federica [phone], she didn't realize I was from palliative care or she would have brought some other family members. We discussed MOLST form but she didn't want to sign it without discussing with her family. She did feel he didn't want to have CPR or be on the ventilator but he probably would want a trial of BIPAP. He has expressed to her that he didn't want to have CPR again or be intubated. She wasn't sure about feeding tube or IV fluids. We also discussed hospice either at the residence or at SNF. She was familiar with hospice since her sister being on hospice with metastatic breast cancer. She was on it for a month and it was a positive experience. She was tearful when I mentioned that her dad would be eligible for hospice. She didn't realize he was 6 months from dying. She was fine with SNF and did realize he would not be getting rehab. She wasn't sure yet about getting hospice involved wanted to discuss with other family members and wait to get him to the correction to see how he does. I did explain that MOLST form and hospice decisions could be changed at any time. KPS 30%, PPS 30% - Time On Unit Date of Evaluation: 03/31/18 Hospice Consult Time in: 02:00 Hospice Consult Time Out: 03:30 Hospice Consult Time Total: 90 > 50% of Time Spend In Counseling or Coordinating Care: Yes
--- NOTE | 2018-03-31 15:27 | PN ---
Subjective Date of Service: 03/31/18 Interval History: HOSPITALIST PROGRESS NOTE Patient seen and examined at bedside. Care reviewed and d/w Eduar Peacock RN. He's lethargic, opens eyes when touched, but did not talk to me. Family History: Unchanged from Admission Social History: Unchanged from Admission Past Medical History: Unchanged from Admission Objective Active Medications: Acetazolamide Sodium (Diamox Vial*) 500 mg IV PUSH DAILY [facility] Last Admin: 03/31/18 09:06 Dose: 500 mg Albuterol (Ventolin 2.5 Mg/3 Ml Neb.Alena*) 2.5 mg INH Q2H PRN PRN Reason: SOB/WHEEZING Heparin Sodium (Porcine) (Heparin Flush Picc/Ml/Cvc(*)) 1 - 3 ml FLUSH 0600, 1800 [facility]; Protocol Last Admin: 03/31/18 05:51 Dose: 2 ml Heparin Sodium (Porcine) (Heparin Vial(*)) 5,000 units SUBCUT Q8HR [facility] Last Admin: 03/31/18 13:14 Dose: 5,000 units Levetiracetam (Keppra Iv Premix*) 500 mg in 100 mls @ 400 mls/hr IVPB 0830, 2030 [facility] Last Admin: 03/31/18 09:13 Dose: 400 mls/hr Lorazepam (Ativan Tab(*)) 0.5 mg PO Q6H PRN PRN Reason: ANXIETY Metoprolol Tartrate (Lopressor Tab*) 50 mg PO Q12H [facility] Last Admin: 03/31/18 08:57 Dose: 50 mg Polyethylene Glycol/Electrolytes (Miralax*) 17 gm PO DAILY PRN PRN Reason: CONSTIPATION Last Admin: 03/28/18 11:29 Dose: 17 gm Prednisone (Deltasone Tab*) 20 mg PO DAILY [facility] Last Admin: 03/31/18 08:57 Dose: 20 mg Senna (Senokot Tab*) 1 tab PO BEDTIME [facility] Last Admin: 03/30/18 20:35 Dose: 1 tab Trazodone HCl (Desyrel Tab*) 25 mg PO BEDTIME [facility] Last Admin: 03/30/18 20:36 Dose: 25 mg Vital Signs - 8 hr 03/31/18 03/31/18 03/31/18 07:26 07:49 08:00 Temperature 97.3 F Pulse Rate 93 Respiratory 16 Rate Blood Pressure 126/91 (mmHg) O2 Sat by Pulse 97 97 Oximetry 03/31/18 10:57 Temperature 98.5 F Pulse Rate 102 Respiratory Rate Blood Pressure 137/75 (mmHg) O2 Sat by Pulse 94 Oximetry Oxygen Devices in Use Now: None Appearance: Elderly gentleman lying in bed in NAD. 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 During EMS evaluation became unresponsive, with respiratory/cardiac arrest ( asystole, Vfib, asystole, 5 min ACLS with ROSC in the ambulance. Prolonged ICU stay with acute on chronic respiratory failure, suspected anoxic encephalopathy , acute COPD exacerbation secondary to H. influenza pneumonia, Afib RVR, ORLY, and ischemic hepatitis. Extubated 04/03/18; did well after extubation, completed 7 days of Ceftriaxone. ORLY and ischemic hepatitis resolved. From a Neuro point of view he was felt to have mild acute hypoxic-ischemic encephalopathy and hypoactive delirium associated with encephalopathy. Transferred to medical floor 03/25/18. Possible seizure on 03/26/18 and Keppra IV continued. - Patient Problems (1) Encephalopathy Comment: - Due to possible anoxic brain damage vs drug effect (levetriacetam, steroids, other). - Ammonia level is normal. - Continue to taper steroids. - EEG 03/29 showed diffuse slowing, no epileptiform activity. (2) Seizure Comment: - No prior history of seizures; one episode witnessed by staff - no further episodes so far. -Likely due to anoxic brain injury. - D/w Neurology (Dr Schreiber) - recommended Kepra half-way (500 mg IV BID - transition to PO when able). (3) Metabolic alkalosis Comment: - [place] to be secondary to diuretics, very large neg fluid balance recently. - Started IV acetazolamide 500 mg IV bid on 03/29. CO2 down to 34 on 03/30, changed acetazolamide to 500 mg IV daily 03/30. - Check BMP. (4) Pneumonia due to hemophilus influenzae Comment: - Completed treatment. (5) Atrial fibrillation with RVR Comment: - Still has episodes of rapid HR - will increase metoprolol to 75mg BID with holding parameters. - Continue Tele for now. (6) Diastolic CHF Comment: - Stable. (7) Muscular deconditioning Comment: - Fariba lift currently - will need SNF. (8) DVT prophylaxis Comment: - SQ heparin. (9) Full code status Status and Disposition: Inpatient.
[2018-03-31 16:45] LABS: BUN/Creatinine Ratio 26.8 (8-20); Calcium 8.7 mg/dL (8.6-10.3); EGFR African American 79.4 (>60); EGFR Non-African American 65.6 (>60); Potassium 3.5 mmol/L (3.5-5.0)
[2018-03-31] MEDS: traZODone TAB* 50 MG TAB PO SCH (21:33)
[2018-03-31] MEDS: Senna TAB PO SCH (21:33)
[2018-04-01] MEDS: Metoprolol Tartrate TAB* 50 mg PO SCH ×2 (04:19→15:53)
[2018-04-01] MEDS: Heparin VIAL(*) 5000 UNITS/ML VIAL (FIVE THOUSAND) SUBCUT SCH ×3 (04:59→23:54)
[2018-04-01 05:23] LABS: BUN/Creatinine Ratio 26.7 (8-20); Calcium 8.9 mg/dL (8.6-10.3); EGFR African American 85.5 (>60); EGFR Non-African American 70.7 (>60); Potassium 3.1 mmol/L (3.5-5.0)
[2018-04-01 05:33] LABS: ABS Basophils 0.1 10^3/ul (0-0.2); ABS Eosinophils 0.1 10^3/ul (0-0.6); ABS Lymphocytes 1.3 10^3/ul (1.0-4.8); ABS Monocytes 0.5 10^3/ul (0-0.8); ABS Neutrophils 7.6 10^3/ul (1.5-7.7); ABS Nucleated RBC 0 10^3/ul; Eosinophil % 0.6 %; Hematocrit 40 % (42-52); Hemoglobin 12.9 g/dl (14.0-18.0); Lymphocyte % 13.1 %; Mean Corpuscular HGB Conc 32 g/dl (31-36); Mean Corpuscular Hemoglobin 31 pg (27-31); Mean Corpuscular Volume 97 fL (80-94); Mean Platelet Volume 8.9 fL (7.4-10.4); Nucleated Red Blood Cells % 0; Platelet Count 168 10^3/ul (150-450); Red Blood Count 4.13 10^6/ul (4.00-5.40); Red Cell Distribution Width 15 % (10.5-15); White Blood Count 9.6 10^3/ul (3.5-10.8)
[2018-04-01 08:09] LABS: Magnesium 1.7 mg/dL (1.9-2.7)
[2018-04-01] MEDS: levETIRAcetam 500 MG IVPREMIX* 500 MG/100 ML BAG IVPB SCH (09:24)
[2018-04-01] MEDS: predniSONE TAB* 10 MG PO SCH (09:24)
[2018-04-01] MEDS: KCL 10 MEQ/50 ML IVPREMIX* 10 MEQ/50 ML BAG IV SCH ×5 (09:37→14:30)
[2018-04-01] MEDS ORDERED: Magnesium Sulfate 2 GM IV* 2 GM/50 ML BAG IVPB ONE (11:17)
--- NOTE | 2018-04-01 15:12 | PN ---
Subjective Date of Service: 04/01/18 Interval History: HOSPITALIST PROGRESS NOTE Patient seen and examined at bedside. Care reviewed and d/w Eduar Peacock RN. He was in good spirits when I saw him earlier today. Had just been moved to a recliner, was alert and awake, smiling. Thought he was in "High school" and year is "1949". Offers no complaints. Later on called by RN because patient had a non witnessed fall and hit his head. Family History: Unchanged from Admission Social History: Unchanged from Admission Past Medical History: Unchanged from Admission Objective Active Medications: Albuterol (Ventolin 2.5 Mg/3 Ml Neb.Alena*) 2.5 mg INH Q2H PRN PRN Reason: SOB/WHEEZING Heparin Sodium (Porcine) (Heparin Flush Picc/Ml/Cvc(*)) 1 - 3 ml FLUSH 0600, 1800 [facility]; Protocol Last Admin: 04/01/18 05:20 Dose: 1 ml Heparin Sodium (Porcine) (Heparin Vial(*)) 5,000 units SUBCUT Q8HR [facility] Last Admin: 04/01/18 13:14 Dose: 5,000 units Levetiracetam (Keppra Iv Premix*) 500 mg in 100 mls @ 400 mls/hr IVPB 0830, 2030 [facility] Last Admin: 04/01/18 09:24 Dose: 400 mls/hr Lorazepam (Ativan Tab(*)) 0.5 mg PO Q6H PRN PRN Reason: ANXIETY Metoprolol Tartrate (Lopressor Tab*) 75 mg PO Q12H [facility] Last Admin: 04/01/18 04:19 Dose: 75 mg Polyethylene Glycol/Electrolytes (Miralax*) 17 gm PO DAILY PRN PRN Reason: CONSTIPATION Last Admin: 03/28/18 11:29 Dose: 17 gm Prednisone (Deltasone Tab*) 20 mg PO DAILY [facility] Last Admin: 04/01/18 09:24 Dose: 20 mg Senna (Senokot Tab*) 1 tab PO BEDTIME [facility] Last Admin: 03/31/18 21:33 Dose: 1 tab Trazodone HCl (Desyrel Tab*) 25 mg PO BEDTIME [facility] Last Admin: 03/31/18 21:33 Dose: 25 mg Vital Signs - 8 hr 04/01/18 04/01/18 04/01/18 07:40 08:00 11:38 Temperature 98.5 F 97.8 F Pulse Rate 88 54 Respiratory 20 20 20 Rate Blood Pressure 120/75 147/40 (mmHg) O2 Sat by Pulse 96 96 99 Oximetry 04/01/18 04/01/18 04/01/18 14:01 14:20 14:38 Temperature 98.0 F 97.7 F 97.4 F Pulse Rate 58 107 123 Respiratory 22 20 Rate Blood Pressure 116/67 109/69 118/73 (mmHg) O2 Sat by Pulse 99 100 98 Oximetry Oxygen Devices in Use Now: None Appearance: Elderly gentleman sitting up in a recliner in NAD. 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 During EMS evaluation became unresponsive, with respiratory/cardiac arrest ( asystole, Vfib, asystole, 5 min ACLS with ROSC in the ambulance. Prolonged ICU stay with acute on chronic respiratory failure, suspected anoxic encephalopathy , acute COPD exacerbation secondary to H. influenza pneumonia, Afib RVR, ORLY, and ischemic hepatitis. Extubated 04/03/18; did well after extubation, completed 7 days of Ceftriaxone. ORLY and ischemic hepatitis resolved. From a Neuro point of view he was felt to have mild acute hypoxic-ischemic encephalopathy and hypoactive delirium associated with encephalopathy. Transferred to medical floor 03/25/18. Possible seizure on 03/26/18 and Keppra IV continued. - Patient Problems (1) Fall Comment: - Not witnessed. - Check CT brain. (2) Encephalopathy Comment: - Due to possible anoxic brain damage vs drug effect (levetiracetam, steroids). - Ammonia level is normal. - Continue to taper steroids. - EEG 03/29 showed diffuse slowing, no epileptiform activity. (3) Seizure Comment: - No prior history of seizures; one episode witnessed by staff - no further episodes so far. -Likely due to anoxic brain injury. - D/w Neurology (Dr Schreiber) - recommended Kepra survey analyst (500 mg IV BID - transition to PO when able). (4) Metabolic alkalosis Comment: - [place] to be secondary to diuretics, very large neg fluid balance recently. - Started IV acetazolamide 500 mg IV bid on 03/29. CO2 down to 34 on 03/30, changed acetazolamide to 500 mg IV daily 03/30. - Check BMP. (5) Pneumonia due to hemophilus influenzae Comment: - Completed treatment. (6) Atrial fibrillation with RVR Comment: - Better controlled - continue metoprolol 75mg BID with holding parameters. - D/c Tele. (7) Diastolic CHF Comment: - Stable. (8) Muscular deconditioning Comment: - Fariba lift currently - will need SNF. (9) DVT prophylaxis Comment: - SQ heparin. (10) Full code status Status and Disposition: Inpatient.
[2018-04-01] MEDS: Potassium Chlor TAB* 20 MEQ TAB.ER PO SCH ×2 (15:53→23:54)
[2018-04-01] MEDS: Senna TAB PO SCH (23:36)
[2018-04-01] MEDS: levETIRAcetam TAB* 500 MG PO SCH (23:36)
[2018-04-01] MEDS: traZODone TAB* 50 MG TAB PO SCH (23:40)
[2018-04-02] MEDS: Potassium Chlor TAB* 20 MEQ TAB.ER PO SCH (03:53)
[2018-04-02] MEDS: Metoprolol Tartrate TAB* 50 mg PO SCH (05:16)
[2018-04-02] MEDS: Heparin VIAL(*) 5000 UNITS/ML VIAL (FIVE THOUSAND) SUBCUT SCH (05:35)
[2018-04-02 05:36] LABS: BUN/Creatinine Ratio 25.2 (8-20); Calcium 9.2 mg/dL (8.6-10.3); EGFR African American 87.4 (>60); EGFR Non-African American 72.3 (>60); Magnesium 2.2 mg/dL (1.9-2.7)
[2018-04-02] MEDS ORDERED: predniSONE TAB* 10 MG PO SCH (09:00)
[2018-04-02] MEDS: levETIRAcetam TAB* 500 MG PO SCH (09:25)
[2018-04-02 11:02] VITALS: BP 124/72
--- NOTE | 2018-04-02 12:44 | DS ---
CC: Dr. Ryan; Dr. Terry DISCHARGE SUMMARY: DATE OF ADMISSION: 03/17/18 DATE OF DISCHARGE: 04/02/18 PRIMARY CARE PROVIDER: Dr. Ryan. CHIEF CONSULTING NEUROLOGIST: Dr. Terry. DISCHARGE DIAGNOSES: 1. Cardiac arrest. 2. Respiratory arrest. 3. Haemophilus influenzae pneumonia. 4. Chronic obstructive pulmonary disease exacerbation. 5. Iqyhd-vh-cxofrfk upper respiratory failure. 6. Hypoxic encephalopathy. 7. New seizure disorder. 8. Atrial fibrillation with rapid ventricular rate. 9. Acute kidney injury. 10. Ischemic hepatitis. 11. Physical deconditioning. SECONDARY DIAGNOSES: 1. Chronic obstructive pulmonary disease, prior on home O2, but now saturating well on room air. 2. Atrial fibrillation. 3. Tobacco abuse. MEDICATION LIST: 1. Tudorza Pressair 400 mcg inhale daily. 2. Albuterol 2.5 mg inhale q.2 hours p.r.n. shortness of breath. 3. Symbicort 80/4.5 two puffs inhale b.i.d. 4. Heparin 5000 units subcutaneously q.8 hours for DVT prophylaxis until the patient is more mobile. 5. Keppra 500 mg p.o. q.12 hours. 6. Lorazepam 0.5 mg p.o. q.6 hours p.r.n. anxiety. 7. Magnesium oxide 400 mg p.o. daily. 8. Metoprolol tartrate 75 mg p.o. q.12 hours. 9. MiraLAX 17 g p.o. daily as needed for constipation. 10. Prednisone 10 mg p.o. daily for 3 more days, then stop. 11. Senna 1 tablet p.o. at bedtime. 12. Trazodone 25 mg p.o. at bedtime. 13. Potassium chloride 20 mEq p.o. daily. HOSPITAL COURSE: Mr. Beck is a 68-year-old male with a past medical history as stated above who called EMS on 03/17/18 for acute respiratory distress from home. The patient then went unresponsive, had respiratory arrest leading to cardiac arrest, witnessed by EMS while he was about to be transported. He was started on hypothermia protocol and his cardiac arrest included asystole, V fib asystole with 5 minutes of ACLS with return of spontaneous circulation in the ambulance. The patient was admitted to the intensive care unit and he had a prolonged ICU stay with zpraq-vq-ktotsee respiratory failure, suspected anoxic encephalopathy , acute COPD exacerbation secondary to Haemophilus influenzae pneumonia, atrial fibrillation with rapid ventricular rate, acute kidney injury, and ischemic hepatitis. The patient was extubated on 04/03/18 and he did well after extubation. At this point, he does not even require supplemental oxygen. His saturation has been greater than 95% on room air. The patient's sputum culture grew Haemophilus influenzae and he completed antibiotic therapy. Blood and urine cultures yielded no growth. The patient had CT scan encephalopathy while in ICU and he was followed by neurology. The impression was the patient had acute hypoxic/ischemic encephalopathy. The patient had started on levetiracetam for seizure prophylaxis and initially, the plan was to taper it down, but the patient was transferred to the medical floor and he had a witnessed seizure while on the medical floor. The case was discussed multiple times with neurology and the plan is for him to be on Keppra 500 mg p.o. q.12 hours indefinitely. He will need followup with neurology as outpatient. The patient also has a history of atrial fibrillation and his rate was uncontrolled on admission. It was found that the patient is not a candidate for anticoagulation at this time due to his high risk of falls. His rate is controlled now with metoprolol. The patient was seen by Speech Pathology and he is able to tolerate pureed diet with nectar thick liquids. He was also seen by Physical Therapy and the patient has difficulty following commands and at this point requires a Fariba lift for transfer. Clinically, his condition has improved, but the patient is very deconditioned and he will require further rehab. At this point, it is unclear how much his encephalopathy is going to clear and if he will be able to live independently like prior to admission. The patient is medically stable for discharge at this time. The patient was seen in consultation by palliative care (Dr. Cardozo) and she discussed goals of care with the patient's daughter, who at this time is not ready to fill up MOLST form as she wants to discuss with other family members. She felt that the patient would not want to be resuscitated again or to be on a ventilator, but would be agreeable with a trial of BiPAP, but at this point there is no MOLST form filled up, so the patient remains a full code and further conversations will need to be held, especially if his condition does not improve further and he cannot return to independent living as in the past. Daughter is familiar with the concept of hospice as her sister of metastatic breast cancer under their care. So, further conversations will need to be held in the future regarding his goals of care and code status. PHYSICAL EXAMINATION: Vital Signs: Temperature 97.7, heart rate 91, respiratory rate 20, oxygen saturation is 96% on room air, blood pressure is 119 /81. General: The patient is a pleasant elderly gentleman, confused, sitting up on the recliner in no acute distress. CVS: Normal S1 and S2. Regular rate and rhythm. Chest: Breath sounds bilaterally diminished. No added sounds. Extremities: No edema. Neuro: He is alert, awake, and oriented x1 to self only. Able to move all 4 extremities and he can follow some simple commands. DIET: We will liberalize diet to regular diet to increase p.o. intake. It should be pureed and nectar thick liquids. DISPOSITION: [facility]. STATUS IN THE HOSPITAL: Inpatient. CONDITION AT THE TIME OF TRANSFER: Fair. Please keep in mind this is a summarized version of this patient's complex and prolonged hospital stay. If you need more information, please feel free to call me at or please obtain the full medical record. Approximately 55 minutes were spent to complete this discharge. [id number]/CPS #: [id number] SHERMAN
== END 2018-04-02 12:25 | DRG 207 ==
LOC: ED 10:51 → ICU 11:09 → MEDTELE 03-25 18:49 → MED 04-01 20:04
PROVIDERS: ADMIT Internal Medicine Pulmonary Disease; ATTEND Internal Medicine
PROC: 0BH17EZ Insertion of Endotracheal Airway into Trachea, Via Natural or Artificial Opening (ICD-10-PCS; principal; 2018-03-17)
PROC: 5A1955Z Respiratory Ventilation, Greater than 96 Consecutive Hours (ICD-10-PCS; 2018-03-17)
PROC: 4A00X4Z Measurement of Central Nervous Electrical Activity, External Approach (ICD-10-PCS; 2018-03-18)
PROC: 0BP1XDZ Removal of Intraluminal Device from Trachea, External Approach (ICD-10-PCS; 2018-03-24)
DX: J96.01 Acute respiratory failure with hypoxia (principal); J14 Pneumonia due to Hemophilus influenzae; I46.9 Cardiac arrest, cause unspecified; I49.01 Ventricular fibrillation; I50.33 Acute on chronic diastolic (congestive) heart failure; G93.1 Anoxic brain damage, not elsewhere classified; N17.9 Acute kidney failure, unspecified; K92.2 Gastrointestinal hemorrhage, unspecified; E87.0 Hyperosmolality and hypernatremia; E87.3 Alkalosis; E46 Unspecified protein-calorie malnutrition; J96.02 Acute respiratory failure with hypercapnia; G40.909 Epilepsy, unspecified, not intractable, without status epilepticus; I48.91 Unspecified atrial fibrillation; K75.89 Other specified inflammatory liver diseases; J43.9 Emphysema, unspecified; F17.210 Nicotine dependence, cigarettes, uncomplicated; R31.9 Hematuria, unspecified; M54.9 Dorsalgia, unspecified; Z68.22 Body mass index [BMI] 22.0-22.9, adult; I11.0 Hypertensive heart disease with heart failure; R53.1 Weakness; Z82.49 Family history of ischemic heart disease and other diseases of the circulatory system; Z83.3 Family history of diabetes mellitus; Z80.3 Family history of malignant neoplasm of breast; Z80.1 Family history of malignant neoplasm of trachea, bronchus and lung; R74.0 Nonspecific elevation of levels of transaminase and lactic acid dehydrogenase [LDH]
CPT/HCPCS: 36415; 36600; 70450; 71045; 71275; 72070; 72100; 74018; 80048; 80053; 80162; 80202; 80307; 80320; 81003; 81015; 82140; 82330; 82436; 82550; 82553; 82607; 82746; 82803; 83605; 83735; 83880; 84100; 84134; 84146; 84484; 85014; 85018; 85025; 85027; 85060; 85384; 85610; 86710; 87040; 87070; 87077; 87086; 87185; 87205; 87641; 93005; 93306; 94002; 94003; 94640; 95816; 95822; 99285; A9270-GY; C1751; G0480; G8978-GP-CM; G8979-GP-CI; G8979-GP-CK; G8980-GP-CM; G8987-GO-CN; G8988-GO-CN; J0282; J0360; J0456; J0610; J0696; J1120; J1160; J1170; J1644; J1940; J2175; J2250; J2543; J2704; J2920; J2930; J3010; J3370; J3475; J3480; J3490; J7512; Q9967

== ENCOUNTER 2018-06-05 13:50 | Observation (INO) | payer MEDICARE ==
--- NOTE | 2018-06-05 15:03 | ED ---
Altered Mental Status - HPI Summary HPI Summary: HPI LIMITED DUE TO LEVEL 5 CAVEAT - AMS This patient is a 68 year old M brought in by ambulance to [facility] with a chief complaint of altered mental status that began one week ago. - History Of Current Complaint Chief Complaint: EDAltMentalStatus Stated Complaint: CONFUSION PER EMS Time Seen by Provider: 06/05/18 14:47 Hx Obtained From: Patient, EMS Hx From Patient Unobtainable Due To: Altered Mental Status - Allergies/Home Medications Allergies/Adverse Reactions: Allergies Allergy/AdvReac Type Severity Reaction Status Date / Time No Known Allergies Allergy Verified 07/11/15 11:13 PMH/Surg Hx/FS Hx/Imm Hx Previously Healthy: No - PMHx LIMITED DUE TO LEVEL 5 CAVEAT - AMS Endocrine/Hematology History: Denies: Hx Diabetes, Hx Thyroid Disease Cardiovascular History: Reports: Hx Atrial Fibrillation, Hx Congestive Heart Failure, Hx Hypertension, Other Cardiovascular Problems/Disorders - a fib Denies: Hx Peripheral Vascular Disease Respiratory History: Reports: Hx Chronic Obstructive Pulmonary Disease (COPD) - 2L home O2, Other Respiratory Problems/Disorders - emphysema Denies: Hx Asthma History: Denies: Hx Renal Disease Musculoskeletal History: Reports: Other Musculoskeletal History - baseline left leg weakness Denies: Hx Arthritis, Hx Osteoporosis Sensory History: Reports: Hx Contacts or Glasses Denies: Hx Hearing Aid Opthamlomology History: Reports: Hx Contacts or Glasses Neurological History: Denies: Hx Headaches, Hx Seizures, Hx Transient Ischemic Attacks (TIA) Psychiatric History: Denies: Hx Anxiety, Hx Depression - Surgical History Surgery Procedure, Year, and Place: right knee as a child Infectious Disease History: No Infectious Disease History: Denies: Traveled Outside the [place] in Last 30 Days - Family History Known Family History: Positive: Hypertension, Diabetes, Other - Lung cancer, breast cancer - Social History Alcohol Use: None Alcohol Amount: unable to obtain 03/17/18 Hx Substance Use: No Substance Use Type: Reports: None Substance Use Comment - Amount & Last Used: unable to obtain 03/17/18 Hx Tobacco Use: Yes Smoking Status (MU): Current Every Day Smoker Have You Smoked in the Last Year: Yes Review of Systems - ROS Summary Review of Systems Summary: ROS LIMITED DUE TO LEVEL 5 CAVEAT - AMS All Other Systems Reviewed And Are Negative: No Physical Exam - Summary Physical Exam Summary: PE LIMITED DUE TO LEVEL 5 CAVEAT - AMS Constitutional: Well-developed, Well-nourished, Alert. (-) Distressed Skin: Warm, Dry HENT: Normocephalic; Atraumatic Eyes: Conjunctiva normal Neck: Musculoskeletal ROM normal neck. (-) JVD, (-) Stridor, (-) Tracheal deviation Cardio: Rhythm regular, rate normal, Heart sounds normal; Intact distal pulses; The pedal pulses are 2+ and symmetric. Radial pulses are 2+ and symmetric. (-) Murmur Pulmonary/Chest wall: Effort normal. (-) Respiratory distress, (-) Wheezes, (-) Rales Abd: Soft. (-) Tenderness, (-) Distension, (-) Guarding, (-) Rebound Musculoskeletal: (-) Edema Lymph: (-) Cervical adenopathy Neuro: Alert, Disoriented (believes it to be a Wednesday in 2003), Strength normal, Cranial nerves II-XII are grossly intact. (-) Dysmetria, (-) Nystagmus, (-) Ataxia by finger to nose testing, (-) Sensory deficit. Psych: Mood and affect Normal Triage Information Reviewed: Yes Vital Signs On Initial Exam: Initial Vitals Temp Pulse Resp BP Pulse Ox 98.8 F 90 18 134/104 98 06/05/18 13:56 06/05/18 13:56 06/05/18 13:56 06/05/18 13:56 06/05/18 13:56 Vital Signs Reviewed: Yes Diagnostics - Vital Signs Vital Signs Temp Pulse Resp BP Pulse Ox 06/05/18 14:41 139 148/78 97 06/05/18 14:30 97 155/97 95 06/05/18 14:02 102 97 06/05/18 14:00 101 134/104 96 06/05/18 13:56 98.8 F 90 18 134/104 98 - Laboratory Result Diagrams: 06/05/18 14:58 06/05/18 14:58 Lab Statement: Any lab studies that have been ordered have been reviewed, and results considered in the medical decision making process. - CT Brain CT CT Interpretation Completed By: Radiologist Summary of CT Findings: Brain CT reveals, per radiologist, there is no evidence of intracranial mass or hemorrhage. ED physician has reviewed this radiology report. - EKG 1847 Cardiac Rate: Other Rate - RVR EKG Rhythm: Atrial Fibrillation - 194 BPM Summary of EKG Findings: An EKG taken at 1846 reveals AFib with RVR at 194 BPM. 2037 Cardiac Rate: Other Rate - RVR EKG Rhythm: Atrial Fibrillation - 187 BPM Summary of EKG Findings: An EKG taken at 2037 reveals AFib with RVR at 187 BPM. Altered Mental Statu Course/Dx - Course Course Of Treatment: This patient is a 68 year old M brought in by ambulance to [facility] with a chief complaint of altered mental status that began one week ago. Physical Exam Findings: Disoriented (believes it is a Wednesday in 2003). Paranoid illusions with [place] real [employer] intruding into his thoughts. He does not want them involved in his care. I am unable to reach his sister Federica. The phone number listed for his brother Nikhil is disconnected. Per medical records, the niece saw the patient today and the family states hes had issues since a cardiac/respiratory arrest in March. Per records, the patient has been by himself for the last week and he is resistant to medications and following orders. An EKG taken at 1846 reveals AFib with RVR at 194 BPM. An EKG taken at 2037 reveals AFib with RVR at [address] reveals, per radiologist, there is no evidence of intracranial mass or hemorrhage. Bloodwork and obtained. Per mental health [facility] resistance, Dr. Carter thinks the prednisone may be causing the symptoms. The patient will be held overnight. After assessment of the patients records, it was determined the patient is not currently on prednisone and he will be discharged home. Consult with Dr. Null (hospitalist) at 2049. He agrees to admit the patient for further evaluation. The patient is agreeable with this plan. - Diagnoses Provider Diagnoses: Paranoid delusion - Provider Notifications Discussed Care Of Patient With: Anurag Null Time Discussed With Above Provider: 20:50 Instructed by Provider To: Other - Consult with Dr. Null (hospitalist) at 2049. He agrees to admit the patient for further evaluation. Discharge - Sign-Out/Discharge Documenting (check all that apply): Patient Departure - [place] [facility] Patient Received Moderate/Deep Sedation with Procedure: No - Discharge Plan Condition: Stable Disposition: ADMITTED TO [facility] Patient Education Materials: Dementia (ED), Encephalopathy (DC) Referrals: Cameron Ryan MD [Primary Care Provider] - - Attestation Statements Document Initiated by Scribe: Yes Documenting Scribe: Sobeida Gonzalez Provider For Whom Scribe is Documenting (Include Credential): Dr. Patrice Cheema MD Scribe Attestation: ISobeida, scribed for Dr. Patrice Cheema MD on 06/05/18 at 2055. Status of Scribe Document: Ready
[2018-06-05 15:04] LABS: ABS Basophils 0.1 10^3/ul (0-0.2); ABS Eosinophils 0 10^3/ul (0-0.6); ABS Lymphocytes 1.8 10^3/ul (1.0-4.8); ABS Monocytes 0.9 10^3/ul (0-0.8); ABS Neutrophils 7.4 10^3/ul (1.5-7.7); ABS Nucleated RBC 0 10^3/ul; Eosinophil % 0.4 %; Hematocrit 42 % (36-46); Hemoglobin 14.1 g/dL (14.0-18.0); Lymphocyte % 17.7 %; Mean Corpuscular HGB Conc 34 g/dL (31-36); Mean Corpuscular Hemoglobin 32 pg (27-31); Mean Corpuscular Volume 95 fL (80-94); Mean Platelet Volume 8.9 fL (7.4-10.4); Nucleated Red Blood Cells % 0; Platelet Count 247 10^3/uL (150-450); Red Blood Count 4.43 10^6 /uL (4.18-5.48); Red Cell Distribution Width 13 % (10.5-15); White Blood Count 10.3 10^3/uL (3.5-10.8)
[2018-06-05 15:21] LABS: ALT 11 U/L (7-52); Albumin 3.7 g/dL (3.2-5.2); Albumin/Globulin Ratio 1.2 (1-3); Alkaline Phosphatase 77 U/L (34-104); BUN/Creatinine Ratio 15.3 (8-20); Blood Urea Nitrogen 21 mg/dL (6-24); CO2 Carbon Dioxide 29 mmol/L (22-32); Calcium 9.2 mg/dL (8.6-10.3); Chloride 105 mmol/L (101-111); EGFR African American 62.9 (>60); Globulin 3.2 g/dL (2-4); Glucose 106 mg/dL (70-100); Magnesium 1.9 mg/dL (1.9-2.7); Sodium 140 mmol/L (135-145); Total Protein 6.9 g/dL (6.4-8.9)
[2018-06-05 15:22] LABS: Troponin I 0.01 ng/mL (<0.04)
[2018-06-05 16:08] LABS: Alcohol < 10 mg/dL (<10)
[2018-06-05 16:17] LABS: AST 17 U/L (13-39); Anion Gap 6 mmol/L (2-11); Potassium 4.7 mmol/L (3.5-5.0)
[2018-06-05 16:23] LABS: TSH (Thyroid Stimulating Horm) 1.28 mcIU/mL (0.34-5.60)
[2018-06-05 19:18] LABS: Urine Appearance Clear; Urine Bilirubin Negative (Negative); Urine Blood Negative (Negative); Urine Color Yellow; Urine Glucose Negative (Negative); Urine Ketones Negative (Negative); Urine Nitrite Negative (Negative); Urine Protein Negative (Negative); Urine Urobilinogen Negative (Negative)
[2018-06-05 19:34] LABS: Urine Benzodiazepine Screen None Detected (None Detect); Urine Opiates Screen None Detected (None Detect)
[2018-06-05] MEDS ORDERED: Diltiazem IV push/loading dose 5 MG/ML 5 ML vial (25 mg) IV SLOW PU ONE (20:45)
[2018-06-05] MEDS ORDERED: Diltiazem TAB* 30 MG PO ONE (21:26)
[2018-06-05] MEDS ORDERED: Diltiazem IV VIAL* 125 MG in NS 0.9% 100 ML* 100 ML IVPB ONE (22:27)
[2018-06-05] MEDS ORDERED: NS 0.9% 100 ML* 100 ML ONE (22:38)
[2018-06-05] MEDS ORDERED: Albuterol 2.5 MG/3 ML NEB.SOL* (0.083%) INH PRN (22:56)
[2018-06-05] MEDS ORDERED: Rivaroxaban TAB(*) 20 MG TAB PO SCH (23:00)
--- NOTE | 2018-06-05 23:32 | ADMNOTE ---
Subjective Date of Service: 06/05/18 Interval History: HISTORY AND PHYSICAL PCP: Shelby SOURCES: skilled nursing record, patient, ER notes, past H&P/DC summary 2019 CC: palpitations HPI: Patient is 68 year old man with anoxic brain injury who was sent to ER by [facility] today due to change in mental status. The patient is a poor historian. Patient had pulmonary and V-fib arrest and ROSC on 03/17/18, was in ICU, then floor, discharged 04/05 with anoxic brain injury. There were discussions of hospice at that point. Son involved in care, but unreachable this evening in ER. In ER patient had mental health evaluation re delusions, fixation on "[employer] real [employer]" trying to run his life. Patient has known a-fib, not anticoagulated 2 months ago due to risk of falls. 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, h/o polio LT leg, PSH: none Review of Systems - Measurements Intake and Output: Intake and Output Last 24 Hours 06/03/18 06/04/18 06/05/18 06/06/18 06:59 06:59 06:59 06:59 Weight 65.771 kg - Review of Systems General Comments: patient not reliable for ROS, states he feels fine Objective Active Medications: Home Medications: Aclidinium Williams (Tudorza Karol Mdi(Nf)) puff INH DAILY CLARA Albuterol (Ventolin 2.5 Mg/3 Ml Neb.Alena*) 2.5 mg INH Q2H PRN PRN Reason: SOB/WHEEZING Budesonide/Formoterol Fumarate (Symbicort 80/4.5 (Nf)) 2 puff INH BID CLARA Levetiracetam (Keppra Tab*) 500 mg PO Q12H CLARA Magnesium Oxide (Magox 400 Tab*) 400 mg PO DAILY CLARA Metoprolol Tartrate (Lopressor Tab*) 75 mg PO Q12H CLARA Potassium Chloride (Klor Con Er Tab*) 20 meq PO DAILY CLARA Senna (Senokot Tab*) 1 tab PO BEDTIME CLARA Trazodone HCl (Desyrel Tab*) 25 mg PO BEDTIME CLRAA Vital Signs - 8 hr 06/05/18 06/05/18 06/05/18 21:00 22:00 22:01 Temperature Pulse Rate 139 91 105 Respiratory 21 22 15 Rate Blood Pressure 159/99 105/87 (mmHg) O2 Sat by Pulse 95 94 95 Oximetry 06/05/18 06/05/18 06/05/18 22:32 23:00 23:01 Temperature Pulse Rate 97 103 100 Respiratory 22 17 15 Rate Blood Pressure 151/88 119/76 (mmHg) O2 Sat by Pulse 94 97 95 Oximetry 06/05/18 23:09 Temperature 37.1 C Pulse Rate 115 Respiratory 18 Rate Blood Pressure 151/88 (mmHg) O2 Sat by Pulse 96 Oximetry Oxygen Devices in Use Now: None Appearance: alert, no distress Eyes: No Scleral Icterus Ears/Nose/Mouth/Throat: NL Teeth, Lips, Gums Neck: NL Appearance and Movements; NL JVP Respiratory: Symmetrical Chest Expansion and Respiratory Effort, - - diminished throughout Cardiovascular: - - tachy, irregular Abdominal: NL Sounds; No Tenderness; No Distention Lymphatic: No Cervical Adenopathy Extremities: No Edema Skin: No Rash or Ulcers Neurological: - - oriented to self, not date, does not know where he lives, knows he's in hospital Lines/Tubes/Other Access: Clean, Dry and Intact Peripheral IV Nutrition: Taking PO's Result Diagrams: 06/05/18 14:58 06/05/18 14:58 Additional Lab and Data: Laboratory Tests 06/05/18 06/05/18 06/05/18 14:47 14:58 14:58 Glucose 106 H Lactic Acid Magnesium 1.9 Ammonia 37 Troponin I 0.01 TSH 1.28 Urine Opiates Screen None detected U Benzodiazepines Scrn None detected Serum Alcohol < 10 06/05/18 14:58 Glucose Lactic Acid 1.9 Magnesium Ammonia Troponin I TSH Urine Opiates Screen U Benzodiazepines Scrn Serum Alcohol Diagnostic Imaging: CXR pending EKG Data: A-fib, Vrate 175 Assess/Plan/Problems-Billing Assessment: 68 yo man with recent anoxic brain injury, here with possible worsened confusion and atrial fibrillation with rapid ventricular response. - Patient Problems (1) Atrial fibrillation with RVR Current Visit: No Status: Acute Priority: High Code(s): I48.91 - UNSPECIFIED ATRIAL FIBRILLATION SNOMED Code(s): 513729120611913 Comment: - Patient started on diltiazem drip in ER, HR in 105 range, can be managed on telemetry. Started on oral diltiazem also - Continue oral metoprolol for rate control as well - I elected to start Xarelto for anticoagulation, as risk of stroke is significant. Can discuss falls, bleeding risk with family. (2) Encephalopathy Current Visit: No Status: Acute Code(s): G93.40 - ENCEPHALOPATHY, UNSPECIFIED SNOMED Code(s): 48240187 Comment: - Due to anoxic brain damage - Ammonia level is normal. - Mental health evaluation appreciated. - Will return to [facility] when stable (3) Seizure Current Visit: No Status: Chronic Code(s): R56.9 - UNSPECIFIED CONVULSIONS SNOMED Code(s): 65893509 Comment: - one episode witnessed by staff 03/26/18 - no further episodes so far. -Likely due to anoxic brain injury. - Continue with Keppra nursing home (500 mg PO BID). (4) DVT prophylaxis Current Visit: No Status: Acute Priority: Low Code(s): NWP8476 - SNOMED Code(s): 631196034 Comment: -Xarelto Status and Disposition: inpatient
[2018-06-06] MEDS: levETIRAcetam TAB* 500 MG PO SCH ×2 (00:50→11:48)
[2018-06-06] MEDS: Metoprolol Tartrate TAB* 25 MG PO SCH ×2 (00:50→11:48)
[2018-06-06] MEDS: Diltiazem TAB* 30 MG PO SCH ×2 (02:51→09:21)
[2018-06-06] MEDS ORDERED: Diltiazem TAB* 30 MG PO SCH (03:00)
[2018-06-06 07:48] VITALS: BP 108/50
[2018-06-06] MEDS ORDERED: Aclidinium POWDER MDI(NF) INH SCH (09:00)
[2018-06-06] MEDS ORDERED: Potassium Chlor TAB* 20 MEQ TAB.ER PO SCH (09:00)
[2018-06-06] MEDS ORDERED: Mometasone/Formoter 100/5 MDI INH SCH (09:00)
[2018-06-06] MEDS ORDERED: Magnesium Oxide TAB* 400 MG PO SCH (09:00)
[2018-06-06] MEDS ORDERED: Haloperidol INJ IV/IM* 5 MG/ML AMP IV SLOW PU PRN (11:12)
[2018-06-06] MEDS ORDERED: Metoprolol Tartrate TAB* 100 MG TAB PO SCH ×2 (11:25→12:00)
[2018-06-06] MEDS ORDERED: Haloperidol TAB* 2 MG PO PRN (11:27)
[2018-06-06] MEDS ORDERED: Metoprolol Tartrate TAB* 25 MG PO ONE (11:48)
[2018-06-06] MEDS ORDERED: PHENobarbital TAB(*) 30 MG PO SCH (12:00)
[2018-06-06] MEDS ORDERED: Haloperidol LIQ* 10 MG/5 ML UDC PO PRN (12:00)
[2018-06-06] MEDS ORDERED: Haloperidol TAB* 1 MG PO PRN (12:00)
[2018-06-06] MEDS ORDERED: Haloperidol TAB* 5 MG PO PRN (14:00)
[2018-06-06] MEDS ORDERED: Senna TAB PO SCH (21:00)
[2018-06-06] MEDS ORDERED: QUEtiapine TAB* 25 MG PO SCH (21:00)
[2018-06-06] MEDS ORDERED: CMC:Dabigatran CAP(NF) 150 MG CAP PO SCH (21:00)
[2018-06-06] MEDS ORDERED: traZODone TAB* 50 MG TAB PO SCH (21:00)
--- NOTE | 2018-06-06 22:50 | TRS ---
CC: [facility].* TRANSFER SUMMARY: DATE OF TRANSFER: 06/06/18 HISTORY OF PRESENT ILLNESS: This 68-year-old man who was transferred from [facility] due to altered mental status. He has anoxic brain injury. He was discharged to [facility] from [facility] in March of this year. He seemed to be in pretty stable condition until the last week or so, he became more agitated and confused, it reached a more or less crisis point today. His atrial fibrillation rate was high, I believe he has been in atrial fibrillation for some time. He was given various rate control agents. His CHADs-VASc score was felt to indicate he should be on anticoagulation. I do not see any real contraindication and he is being started on rivaroxaban. I have increased his metoprolol dose, which I believe may be adequate to control his ventricular rate, if not, the metoprolol could be increased further and/or a calcium channel digna could be added such as diltiazem. In terms of the patient's agitation, it might be advisable to switch him from levetiracetam to phenobarbital, which I have done. He will get 1 dose of phenobarbital 90 mg here and then should continue 90 mg every night starting tonight. Levels could be obtained in a week. He is also to be given haloperidol 2 mg p.o. one dose here. Depending on his state, you might consider starting him on quetiapine 25 mg h.s., which has been listed as a new medication, but he has not actually received this yet. All these medications seemed to be titrated to the clinical response. DISCHARGE DIAGNOSES: 1. Atrial fibrillation with rapid ventricular response. 2. Anoxic brain injury. 3. History of seizures. DISCHARGE MEDICATIONS: 1. Haloperidol 2 mg p.o. every 4 hours p.r.n. 2. Phenobarbital 90 mg q.h.s. 3. Metoprolol tartrate 100 mg b.i.d. 4. Quetiapine 25 mg h.s. 5. Rivaroxaban 20 mg h.s. 6. Budesonide/formoterol 80/4.5 two puffs b.i.d. 7. Magnesium oxide 400 mg daily. 8. Aclidinium 400 mcg by inhalation daily. 9. Albuterol 2.5 mg by nebulizer every 2 hours p.r.n. 10. Senna 1 tab h.s. CONDITION ON DISCHARGE: Stable. DISPOSITION ON DISCHARGE: Discharged to [facility]. [id number]/[facility] #: [id number] SHERMAN
== END 2018-06-06 14:35 ==
LOC: ED 13:50 → INTOOBSV 22:22 → MEDTELE 22:22 → INTOOBSV 06-06 11:30 → OBSVTOIN 06-06 11:30
PROVIDERS: ADMIT Internal Medicine; ATTEND Internal Medicine
DX: F06.2 Psychotic disorder with delusions due to known physiological condition (principal); G93.40 Encephalopathy, unspecified; I48.2 Chronic atrial fibrillation; F17.210 Nicotine dependence, cigarettes, uncomplicated; F22 Delusional disorders; G93.1 Anoxic brain damage, not elsewhere classified; G40.89 Other seizures; R00.2 Palpitations
CPT/HCPCS: 36415; 70450; 71045; 80053; 80177; 80307; 80320; 81003; 82140; 83605; 83735; 84443; 84484; 85025; 93005; 96374; 96375; 99285; A9270-GY; G0378; G0480

== ENCOUNTER 2018-11-10 20:53 | Emergency (ER) | payer MEDICARE, MEDICAID ==
[2018-11-10] MEDS ORDERED: predniSONE TAB* 20 MG PO ONE (21:45)
[2018-11-10] MEDS ORDERED: Albuterol/Ipratropium NEB.SOL* Albuterol 2.5 MG/Ipratropium 0.5 MG 3 ML INH ONE (21:45)
--- NOTE | 2018-11-10 22:00 | ED ---
Respiratory - HPI Summary HPI Summary: 68-year-old male presents today with shortness of breath and cough. At the [facility] he was apparently threatening other residents. He has history of anoxic brain injury. He currently denies any suicidal or homicidal ideation. He is confused and thinks that his mom is still alive when she . He states that he is feeling better after breathing treatment EMS gave him. He is a little bit still short of breath. Denies any chest pain or abdominal pain. No fevers. Denies any cough. He states he occasionally still smokes. Has a history of COPD. - History of Current Complaint Chief Complaint: EDRespiratoryDistress Stated Complaint: MHE AND RESP DISTRESS PER EMS Time Seen by Provider: 11/10/18 21:30 Pain Intensity: 0 - Allergy/Home Medications Allergies/Adverse Reactions: Allergies Allergy/AdvReac Type Severity Reaction Status Date / Time No Known Allergies Allergy Verified 06/05/18 22:32 Home Medications: Home Medications Acetaminophen TAB* [Tylenol TAB*] 650 mg PO Q6H PRN 11/10/18 [History Confirmed 11/10/18] Magnesium Oxide TAB* [MagOx 400 TAB*] 400 mg PO QAM 11/10/18 [History Confirmed 11/10/18] Metoprolol Tartrate TAB* [Lopressor TAB*] 100 mg PO BID 11/10/18 [History Confirmed 11/10/18] PMH/Surg Hx/FS Hx/Imm Hx Endocrine/Hematology History: Denies: Hx Diabetes, Hx Thyroid Disease Cardiovascular History: Reports: Hx Atrial Fibrillation, Hx Congestive Heart Failure, Hx Hypertension, Other Cardiovascular Problems/Disorders - a fib Denies: Hx Peripheral Vascular Disease Respiratory History: Reports: Hx Chronic Obstructive Pulmonary Disease (COPD) - 2L home O2, Other Respiratory Problems/Disorders - emphysema Denies: Hx Asthma History: Denies: Hx Renal Disease Musculoskeletal History: Reports: Other Musculoskeletal History - baseline left leg weakness Denies: Hx Arthritis, Hx Osteoporosis Sensory History: Denies: Hx Contacts or Glasses, Hx Hearing Aid Opthamlomology History: Denies: Hx Contacts or Glasses Neurological History: Denies: Hx Dementia, Hx Developmental Delay, Hx Headaches, Hx Seizures, Hx Transient Ischemic Attacks (TIA) Psychiatric History: Denies: Hx Anxiety, Hx Depression - Surgical History Surgery Procedure, Year, and Place: right knee as a child Infectious Disease History: No Infectious Disease History: Denies: Traveled Outside the [place] in Last 30 Days Comment Only: Hx Clostridium Difficile - unknown, Hx Hepatitis - unknown, Hx Human Immunodeficiency Virus (HIV) - unknown, Hx of Known/Suspected MRSA - unknown, Hx Shingles - unknown, Hx Tuberculosis - unknown - Family History Known Family History: Positive: Hypertension, Diabetes, Other - Lung cancer, breast cancer - Social History Alcohol Use: Rare Alcohol Amount: beer once in a great while as per pt. Hx Substance Use: No Substance Use Type: Reports: None Substance Use Comment - Amount & Last Used: unable to obtain 03/17/18 Hx Tobacco Use: Yes Smoking Status (MU): Current Some Day Smoker Type: Cigarettes Have You Smoked in the Last Year: Yes Review of Systems Negative: Fever Negative: Chest Pain Positive: Shortness Of Breath, Cough Negative: Abdominal Pain Negative: Anxious, Depressed All Other Systems Reviewed And Are Negative: Yes Physical Exam Triage Information Reviewed: Yes Vital Signs On Initial Exam: Initial Vitals Pulse Resp Pulse Ox 64 24 96 11/10/18 20:58 11/10/18 20:58 11/10/18 20:58 Vital Signs Reviewed: Yes Appearance: Positive: Well-Appearing Skin: Positive: Warm, Dry Head/Face: Positive: Normal Head/Face Inspection Eyes: Positive: Normal, EOMI, GIBSON, Conjunctiva Clear ENT: Positive: Normal ENT inspection, Pharynx normal, TMs normal Respiratory/Lung Sounds: Positive: Decreased Breath Sounds, Wheezes Cardiovascular: Positive: Normal, RRR Abdomen Description: Positive: Nontender, Soft Bowel Sounds: Positive: Present Musculoskeletal: Positive: Normal Neurological: Positive: Sensory/Motor Intact, CN Intact II-III. Negative: Alert , Oriented to Person Place, Time Psychiatric: Positive: Normal - [place] Coma Scale Best Eye Response: 4 - Spontaneous Best Motor Response: 6 - Obeys Commands Best Verbal Response: 4 - Confused Coma Scale Total: 14 Diagnostics - Vital Signs Vital Signs Temp Pulse Resp BP Pulse Ox 11/10/18 21:02 100.5 F 80 21 178/113 97 11/10/18 21:01 81 21 178/113 98 11/10/18 21:00 96 18 91 11/10/18 20:58 64 24 96 - Laboratory Result Diagrams: 11/10/18 22:37 11/10/18 22:37 Lab Statement: Any lab studies that have been ordered have been reviewed, and results considered in the medical decision making process. - Radiology chest Radiology Interpretation Completed By: ED Physician Summary of Radiographic Findings: no acute findings - EKG No standard instances Cardiac Rate: NL EKG Rhythm: Atrial Fibrillation EKG Comparison: No Significant Change Summary of EKG Findings: atrail fibrilliation Re-Evaluation - Re-Evaluation First Eval Re-Evaluation Time: 21:59 Comment: evulator asked same questions and patient again states no SI or HI. is not alert and orietated. Second Eval Re-Evaluation Time: 23:42 Change: Improved Comment: feeling better, lungs CTA Disposition - Course Course Of Treatment: 68-year-old male presents today with shortness of breath and cough. At the [facility] he was apparently threatening other residents. He has history of anoxic brain injury. He currently denies any suicidal or homicidal ideation. He is confused and thinks that his mom is still alive when she . He states that he is feeling better after breathing treatment EMS gave him. He is a little bit still short of breath. Denies any chest pain or abdominal pain. No fevers. Denies any cough. He states he occasionally still smokes. Has a history of COPD. On exam trace wheezing with decreased breath sounds heard. Is not oriented to time but is alert to person and place. As the patient is not oriented and denies any suicidal or homicidal ideation a mental health exam at this time would not be appropriate. Gave dosed Ativan for agitation. nurse discussed with sister and it was stated that he has recently moved into a new area of the [facility]. States he does have some baseline confusion but is due to his anoxic brain injury. We'll send back to [facility] suggesting that he is when necessary give Ativan as needed for agitation. copd could also be causing agitation. will have continue steroid at home. patient understand and agrees with plan. - Differential Dx - Cardiopulmonary Differential Diagnoses - Cardiopulmonary: Bronchitis, Exacerbation Of COPD, Lower Resp Infection - Diagnoses Provider Diagnoses: COPD (chronic obstructive pulmonary disease), Agitation Discharge ED - Sign-Out/Discharge Documenting (check all that apply): Patient Departure Patient Received Moderate/Deep Sedation with Procedure: No - Discharge Plan Condition: Good Disposition: HOME Patient Education Materials: COPD (Chronic Obstructive Pulmonary Disease) (ED) Referrals: Cameron Ryan MD [Primary Care Provider] - Additional Instructions: take prednisone 50mg daily for 4 days can use ativan 1mg as needed every 8 hours for agitation follow up with primary within 5 days Return to ED if develop any new or worsening symptoms - Billing Disposition and Condition Condition: GOOD Disposition: Home
[2018-11-10] MEDS ORDERED: LORazepam TAB(*) 1 MG PO ONE (22:29)
[2018-11-10 22:44] LABS: ABS Eosinophils 0.1 10^3/ul (0-0.6); ABS Lymphocytes 1.1 10^3/ul (1.0-4.8); ABS Monocytes 0.7 10^3/ul (0-0.8); Eosinophil % 1.1 %; Hematocrit 42 % (42-52); Hemoglobin 13.8 g/dL (14.0-18.0); Lymphocyte % 13.9 %; Mean Corpuscular HGB Conc 33 g/dL (31-36); Mean Corpuscular Hemoglobin 32 pg (27-31); Mean Corpuscular Volume 96 fL (80-94); Mean Platelet Volume 9.1 fL (7.4-10.4); Platelet Count 173 10^3/uL (150-450); Red Cell Distribution Width 14 % (10-15)
[2018-11-10 23:00] LABS: ALT 29 U/L (7-52); AST 24 U/L (13-39); Albumin 3.8 g/dL (3.2-5.2); Albumin/Globulin Ratio 1.3 (1-3); Alkaline Phosphatase 101 U/L (34-104); Anion Gap 3 mmol/L (2-11); BUN/Creatinine Ratio 20.7 (8-20); Blood Urea Nitrogen 30 mg/dL (6-24); C Reactive Protein 26.07 mg/L (<8.01); CO2 Carbon Dioxide 33 mmol/L (22-32); Calcium 8.6 mg/dL (8.6-10.3); Chloride 102 mmol/L (101-111); EGFR African American 58.9 (>60); EGFR Non-African American 48.7 (>60); Globulin 2.9 g/dL (2-4); Glucose 83 mg/dL (70-100); Potassium 4.2 mmol/L (3.5-5.0); Sodium 138 mmol/L (135-145); Total Protein 6.7 g/dL (6.4-8.9)
[2018-11-10 23:05] LABS: Acetaminophen < 15 mcg/mL; Alcohol < 10 mg/dL (<10); Salicylate < 2.50 mg/dL (<30)
[2018-11-10] MEDS ORDERED: Furosemide TAB* 20 MG PO ONE (23:08)
[2018-11-10 23:20] LABS: TSH (Thyroid Stimulating Horm) 0.92 mcIU/mL (0.34-5.60)
[2018-11-10 23:31] VITALS: BP 127/82
== END 2018-11-11 01:00 | disposition home or self-care (01) ==
LOC: ED 20:53
DX: J44.9 Chronic obstructive pulmonary disease, unspecified (principal); R45.1 Restlessness and agitation; I48.91 Unspecified atrial fibrillation; I11.0 Hypertensive heart disease with heart failure; I50.9 Heart failure, unspecified; F17.210 Nicotine dependence, cigarettes, uncomplicated; Z99.81 Dependence on supplemental oxygen; Z79.01 Long term (current) use of anticoagulants; Z79.899 Other long term (current) drug therapy
CPT/HCPCS: 36415; 71046; 80053; 80320; 80329; 83880; 84443; 84484; 85025; 86140; 93005; 99285; A9270-GY; G0480; J7512

== ENCOUNTER 2018-11-13 00:49 | Emergency (ER) | payer MEDICARE, MEDICAID ==
[2018-11-13 01:40] LABS: ABS Eosinophils 0.1 10^3/ul (0-0.6); ABS Lymphocytes 1.6 10^3/ul (1.0-4.8); ABS Monocytes 0.7 10^3/ul (0-0.8); ABS Neutrophils 5.9 10^3/ul (1.5-7.7); Eosinophil % 1.3 %; Hematocrit 45 % (42-52); Hemoglobin 15.1 g/dL (14.0-18.0); Lymphocyte % 19.6 %; Mean Corpuscular HGB Conc 33 g/dL (31-36); Mean Corpuscular Hemoglobin 32 pg (27-31); Mean Corpuscular Volume 95 fL (80-94); Mean Platelet Volume 9.1 fL (7.4-10.4); Nucleated Red Blood Cells % 0.1; Platelet Count 176 10^3/uL (150-450); Red Blood Count 4.77 10^6 /uL (4.18-5.48); Red Cell Distribution Width 14 % (10-15); White Blood Count 8.3 10^3/uL (3.5-10.8)
[2018-11-13 01:50] LABS: INR 1.12 (0.82-1.09)
--- NOTE | 2018-11-13 02:00 | ED ---
Head Injury - HPI Summary HPI Summary: This patient is a 68 year old M w hx dementia, afib on xarelto brought to [facility] by EMS with a chief complaint of fall due to slip at 0000 11/13/18, per triage. Patient fell when trying to ambulate at [place] without walker. No reported LOC. Patient reports chronic cough 2/2 COPD. Patient denies LOC, WEBBER, and any pain due to fall. Hx afib. Pt wears oxygen at home for COPD. Level 5 Caveat 2/2 dementia. - History Of Current Complaint Chief Complaint: EDFall Stated Complaint: FALL PER EMS Time Seen by Provider: 11/13/18 01:01 Hx Obtained From: Patient Mechanism Of Injury: Fall From A Standing Position Onset/Duration: Started Hours Ago, Still Present Pain Intensity: 0 Pain Scale Used: 0-10 Numeric Aggravating Factor(s): Other: - nothing Alleviating Factor(s): Other: - nothing Associated Signs And Symptoms: Other: - cough, denies WEBBER and any pain - Allergies/Home Medications Allergies/Adverse Reactions: Allergies Allergy/AdvReac Type Severity Reaction Status Date / Time No Known Allergies Allergy Verified 11/13/18 01:10 Home Medications: Home Medications LORazepam [Ativan 1 MG TAB] 1 mg PO BID 11/13/18 [History Confirmed 11/13/18] PMH/Surg Hx/FS Hx/Imm Hx Endocrine/Hematology History: Denies: Hx Diabetes, Hx Thyroid Disease Cardiovascular History: Reports: Hx Atrial Fibrillation, Hx Congestive Heart Failure, Hx Hypertension, Other Cardiovascular Problems/Disorders - a fib Denies: Hx Peripheral Vascular Disease Respiratory History: Reports: Hx Chronic Obstructive Pulmonary Disease (COPD) - 2L home O2, Other Respiratory Problems/Disorders - emphysema Denies: Hx Asthma History: Denies: Hx Renal Disease Musculoskeletal History: Reports: Other Musculoskeletal History - baseline left leg weakness Denies: Hx Arthritis, Hx Osteoporosis Sensory History: Denies: Hx Contacts or Glasses, Hx Hearing Aid Opthamlomology History: Denies: Hx Contacts or Glasses Neurological History: Denies: Hx Dementia, Hx Developmental Delay, Hx Headaches, Hx Seizures, Hx Transient Ischemic Attacks (TIA) Psychiatric History: Denies: Hx Anxiety, Hx Depression - Surgical History Surgery Procedure, Year, and Place: right knee as a child Infectious Disease History: Unable to Obtain/Confirm Infectious Disease History: Denies: Traveled Outside the [place] in Last 30 Days Comment Only: Hx Clostridium Difficile - unknown, Hx Hepatitis - unknown, Hx Human Immunodeficiency Virus (HIV) - unknown, Hx of Known/Suspected MRSA - unknown, Hx Shingles - unknown, Hx Tuberculosis - unknown - Family History Known Family History: Positive: Hypertension, Diabetes, Other - Lung cancer, breast cancer - Social History Alcohol Use: None Alcohol Amount: beer once in a great while as per pt. Hx Substance Use: No Substance Use Type: Reports: None Substance Use Comment - Amount & Last Used: unable to obtain 03/17/18 Hx Tobacco Use: Yes Smoking Status (MU): Current Some Day Smoker Type: Cigarettes Have You Smoked in the Last Year: Yes Review of Systems Positive: Cough Positive: Other - denies any pain due to fall Negative: Headache All Other Systems Reviewed And Are Negative: Yes Physical Exam - Summary Physical Exam Summary: Constitutional: Well-developed, Well-nourished, Alert. (-) Distressed Skin: Warm, Dry, 3 cm Laceration to the right eyebrow HENT: Normocephalic; midface stable Eyes: Conjunctiva normal Neck: Musculoskeletal ROM normal neck. No cervical spine tenderness. Cardio: Rhythm regular, rate normal, Heart sounds normal; Intact distal pulses; Radial pulses are 2+ and symmetric. (-) Murmur Pulmonary/Chest wall: Effort normal. (-) Respiratory distress, (-) Wheezes, (-) Rales Abd: Soft, (-) tenderness, (-) Distension, (-) Guarding, (-) Rebound Musculoskeletal: (-) Edema, no deformities, no TTP BUE or BLE. Lymph: (-) Cervical adenopathy Neuro: Alert, Oriented x2 (person place not time) Psych: Mood and affect Normal Triage Information Reviewed: Yes Vital Signs On Initial Exam: Initial Vitals Temp Pulse Resp BP Pulse Ox 97.8 F 83 18 137/90 98 11/13/18 01:01 11/13/18 01:01 11/13/18 01:01 11/13/18 01:01 11/13/18 01:01 Vital Signs Reviewed: Yes Procedures - Laceration/Wound Repair 1 Location: Other - right eyebrow Closure: SteriStrips - 3 Diagnostics - Vital Signs Vital Signs Temp Pulse Resp BP Pulse Ox 11/13/18 01:01 97.8 F 83 18 137/90 98 - Laboratory Lab Results: Lab Results 11/13/18 Range/Units 01:27 WBC 8.3 (3.5-10.8) 10^3/uL RBC 4.77 (4.18-5.48) 10^6 /uL Hgb 15.1 (14.0-18.0) g/dL Hct 45 (42-52) % MCV 95 H (80-94) fL MCH 32 H (27-31) pg MCHC 33 (31-36) g/dL RDW 14 (10-15) % Plt Count 176 (150-450) 10^3/uL MPV 9.1 (7.4-10.4) fL Neut % (Auto) 70.8 % Lymph % (Auto) 19.6 % Emery % (Auto) 7.9 % Eos % (Auto) 1.3 % Baso % (Auto) 0.4 % Absolute Neuts (auto) 5.9 (1.5-7.7) 10^3/ul Absolute Lymphs (auto) 1.6 (1.0-4.8) 10^3/ul Absolute Monos (auto) 0.7 (0-0.8) 10^3/ul Absolute Eos (auto) 0.1 (0-0.6) 10^3/ul Absolute Basos (auto) 0.0 (0-0.2) 10^3/ul Absolute Nucleated RBC 0.0 10^3/ul Nucleated RBC % 0.1 Result Diagrams: 11/13/18 01:27 11/13/18 01:27 Lab Statement: Any lab studies that have been ordered have been reviewed, and results considered in the medical decision making process. - Radiology Chest X-Ray Radiology Interpretation Completed By: ED Physician Summary of Radiographic Findings: Per ED physician,. hyperinflation of the lungs. Pending official report. - CT Cervical Spine CT CT Interpretation Completed By: Radiologist Summary of CT Findings: Per radiologist,. No cervical spine fracture or other acute traumatic CT pathology. ED physician has reviewed this imaging report. Brain CT CT Interpretation Completed By: Radiologist Summary of CT Findings: Per radiologist,. 1. There is stable age-related diffuse cerebral volume loss and chronic. microvascular ischemic disease. 2. No acute intracranial pathology. ED physician has reviewed this imaging report. - EKG 0241 Cardiac Rate: NL EKG Rhythm: Atrial Fibrillation Summary of EKG Findings: An EKG at 0241 reveals atrial fibrillation at 79 BPM, nml axis, nml intervals. No STEMI. No acute changes. Head Injury Course/Dx Course Of Treatment: 68 y/o male with history of dementia, atrial fibrillation on xarelto who presents with fall. Here he is at neurologic baseline which is alert and oriented 2, superficial laceration to the right eyebrow. Otherwise no signs of trauma. Well check a brain and C-spine CT, labs including a troponin and EKG given unwitnessed fall however suspect this is mechanical as patient was not using his walker. Patient denies complaints at this time. Will update his tetanus - Diagnoses Provider Diagnoses: Fall Discharge ED - Sign-Out/Discharge Documenting (check all that apply): Patient Departure - discharge Patient Received Moderate/Deep Sedation with Procedure: No - Discharge Plan Condition: Stable Disposition: HOME Patient Education Materials: Fall Prevention (ED) Referrals: Cameron Ryan MD [Primary Care Provider] - 3 Days () Additional Instructions: You were seen in the emergency department for a fall. Your brain and c spine CT did not show any new abnormalities. We repaired your laceration with steri strips. Please keep the area clean and dry You got a tetanus shot today. If any studies were not completed at the time of discharge you will be called with the relevant results. Please follow up with your primary care doctor in next 2-3 days and return to emergency department for worsening or concerning symptoms. It was a pleasure taking care of you today. - Billing Disposition and Condition Condition: STABLE Disposition: Home - Attestation Statements Document Initiated by Kumar: Yes Documenting Scribe: Rachel Gutierrez Provider For Whom Kumar is Documenting (Include Credential): Dr. Carlitos Bailon MD Scribe Attestation: Rachel Sanchez scribed for Dr. Carlitos Bailon MD on 11/13/18 at 0439. Scribe Documentation Reviewed: Yes Provider Attestation: The documentation as recorded by the Rachel yarbrough accurately reflects the service I personally performed and the decisions made by me, Dr. Carlitos Bailon MD Status of Scribe Document: Viewed
[2018-11-13 02:17] LABS: Albumin 3.9 g/dL (3.2-5.2); Albumin/Globulin Ratio 1.4 (1-3); BUN/Creatinine Ratio 22.9 (8-20); Calcium 9.2 mg/dL (8.6-10.3); EGFR African American 74.7 (>60); EGFR Non-African American 61.8 (>60); Globulin 2.7 g/dL (2-4); Potassium 4.4 mmol/L (3.5-5.0); Total Bilirubin 0.3 mg/dL (0.2-1.0); Total Protein 6.6 g/dL (6.4-8.9)
[2018-11-13 02:19] LABS: Troponin I 0.02 ng/mL (<0.04)
[2018-11-13] MEDS ORDERED: Tetan/Diph/Pertus SYR(Tdap)* 0.5 ML SYR(BOOSTRIX) use SYR contains LATEX IM ONE (02:56)
[2018-11-13 03:25] VITALS: BP 133/84
== END 2018-11-13 03:25 | disposition home or self-care (01) ==
LOC: ED 00:49
DX: Z04.3 Encounter for examination and observation following other accident (principal); Z23 Encounter for immunization; W01.0XXA Fall on same level from slipping, tripping and stumbling without subsequent striking against object, initial encounter; Y92.129 Unspecified place in nursing home as the place of occurrence of the external cause; I48.91 Unspecified atrial fibrillation; I11.0 Hypertensive heart disease with heart failure; I50.9 Heart failure, unspecified; J44.9 Chronic obstructive pulmonary disease, unspecified; F03.90 Unspecified dementia, unspecified severity, without behavioral disturbance, psychotic disturbance, mood disturbance, and anxiety; F17.210 Nicotine dependence, cigarettes, uncomplicated; Z79.01 Long term (current) use of anticoagulants; Z79.899 Other long term (current) drug therapy; Z99.81 Dependence on supplemental oxygen
CPT/HCPCS: 36415; 70450; 71046; 72125; 80053; 84484; 85025; 85610; 90471; 90715; 93005; 99284

== ENCOUNTER 2019-02-27 06:06 | Emergency (ER) | payer MEDICARE, MEDICAID ==
--- NOTE | 2019-02-27 06:31 | ED ---
Head Injury - HPI Summary HPI Summary: Patient is a 69-year-old male who presents emergency department for facial injury after a mechanical fall that occurred just prior to arrival. Patient resides [facility] and is history of dementia. Patient states he was walking out of his room and believes he tripped on the floor, fell and struck the left side of his face. Patient denies loss of consciousness. He complains of left- sided facial pain and laceration. He is anticoagulated with xarelto. Patient otherwise denies headache, neck pain, chest pain, shortness breath, abdominal pain. Symptoms are moderate in severity. No current modifying factors. - History Of Current Complaint Chief Complaint: EDFall Stated Complaint: FALL PER EMS Time Seen by Provider: 02/27/19 06:09 Hx Obtained From: Patient Pain Intensity: 0 - Allergies/Home Medications Allergies/Adverse Reactions: Allergies Allergy/AdvReac Type Severity Reaction Status Date / Time No Known Allergies Allergy Verified 02/27/19 06:13 Home Medications: Home Medications Acetaminophen [Tylenol Extra Strength] 1,000 mg PO Q8H PRN 02/27/19 [History Confirmed 02/27/19] Ipratropium/Albuterol Sulfate [Iprat-Albut 0.5-3(2.5) mg/3 ml] 3 ml INH QID PRN 02/27/19 [History Confirmed 02/27/19] PHENobarbital TAB(*) 32.4 mg PO QAM 02/27/19 [History Confirmed 02/27/19] Senna TAB 8.6 mg* [Senokot 8.6 mg TAB*] 2 tab PO BEDTIME 02/27/19 [History Confirmed 02/27/19] Sertraline* [Zoloft*] 25 mg PO DAILY 02/27/19 [History Confirmed 02/27/19] busPIRone TAB* [Buspar TAB *] 7.5 mg PO BID 02/27/19 [History Confirmed 02/27/19 ] PMH/Surg Hx/FS Hx/Imm Hx Previously Healthy: Yes Endocrine/Hematology History: Denies: Hx Diabetes, Hx Thyroid Disease Cardiovascular History: Reports: Hx Atrial Fibrillation, Hx Congestive Heart Failure, Hx Hypertension, Other Cardiovascular Problems/Disorders - a fib Denies: Hx Peripheral Vascular Disease Respiratory History: Reports: Hx Chronic Obstructive Pulmonary Disease (COPD) - 2L home O2, Other Respiratory Problems/Disorders - emphysema Denies: Hx Asthma History: Denies: Hx Renal Disease Musculoskeletal History: Reports: Other Musculoskeletal History - baseline left leg weakness Denies: Hx Arthritis, Hx Osteoporosis Sensory History: Denies: Hx Contacts or Glasses, Hx Hearing Aid Opthamlomology History: Denies: Hx Contacts or Glasses Neurological History: Denies: Hx Dementia, Hx Developmental Delay, Hx Headaches, Hx Seizures, Hx Transient Ischemic Attacks (TIA) Psychiatric History: Denies: Hx Anxiety, Hx Depression - Surgical History Surgery Procedure, Year, and Place: right knee as a child Infectious Disease History: No Infectious Disease History: Denies: Traveled Outside the [place] in Last 30 Days Comment Only: Hx Clostridium Difficile - unknown, Hx Hepatitis - unknown, Hx Human Immunodeficiency Virus (HIV) - unknown, Hx of Known/Suspected MRSA - unknown, Hx Shingles - unknown, Hx Tuberculosis - unknown - Family History Known Family History: Positive: Hypertension, Diabetes, Other - Lung cancer, breast cancer, Non-Contributory - Social History Occupation: Retired Lives: [facility] Alcohol Use: None Alcohol Amount: beer once in a great while as per pt. Hx Substance Use: No Substance Use Type: Reports: Marijuana Substance Use Comment - Amount & Last Used: unable to obtain 03/17/18 Hx Tobacco Use: Yes Smoking Status (MU): Former Smoker Type: Cigarettes Have You Smoked in the Last Year: Yes Review of Systems Eyes: Negative Negative: Photophobia, Blurred Vision ENT: Negative Negative: Epistaxis Cardiovascular: Negative Negative: Palpitations, Chest Pain Respiratory: Negative Negative: Shortness Of Breath, Cough Gastrointestinal: Negative Negative: Abdominal Pain Musculoskeletal: Negative Positive: Other - laceration to left face. abrasion to left elbow. Neurological: Negative Negative: Headache, Weakness, Paresthesia, Numbness, Syncope All Other Systems Reviewed And Are Negative: Yes Physical Exam Triage Information Reviewed: Yes Vital Signs On Initial Exam: Initial Vitals Temp Pulse Resp BP Pulse Ox 99.4 F 66 16 162/105 98 02/27/19 06:08 02/27/19 06:08 02/27/19 06:08 02/27/19 06:08 02/27/19 06:08 Vital Signs Reviewed: Yes Appearance: Positive: Well-Appearing - Pt. sitting up in bed in NAD. Answers most questions appropriately. Skin: Positive: Warm, Dry Head/Face: Positive: Other - Superficial abrasion noted superior to left eye. No active bleeding. Mild edema and ecchymosis. Eyes: Positive: Normal, EOMI, GIBSON, Conjunctiva Clear Neck: Positive: Supple, Nontender Respiratory/Lung Sounds: Positive: Clear to Auscultation, Breath Sounds Present Cardiovascular: Positive: Normal, RRR Abdomen Description: Positive: Nontender, Soft Musculoskeletal: Positive: Normal, Strength/ROM Intact, Other - Superficial abrasion over lateral elbow without bony tenderness. No pelvic pain. Neurological: Positive: Normal, Alert, Oriented to Person Place, Time, CN Intact II-III Psychiatric: Positive: Affect/Mood Appropriate Procedures - Sedation Patient Received Moderate/Deep Sedation with Procedure: No Diagnostics - Vital Signs Vital Signs Temp Pulse Resp BP Pulse Ox 02/27/19 06:08 99.4 F 66 16 162/105 98 - Laboratory Lab Statement: Any lab studies that have been ordered have been reviewed, and results considered in the medical decision making process. Head Injury Course/Dx Course Of Treatment: Pt. presenting after mechanical fall. Dementia at baseline. CT scan of head/face/neck negative for acute findings per radiology. Superifical abrasion to face cleaned. Pt. [place] and he is adamant that he does not want to return. Pt.'s nurse spoke with family and they state pt. says this frequently. Pt. will be dc back to [facility] and his brother will meet him there. Will f.u with pcp in 2-3 days and return to er if sxs change or worsen. - Diagnoses Differential Diagnosis/HQI/PQRI: Cerebral Contusion, Cervical Sprain, Concussion Without LOC, Contusion, Hematoma, Intracranial Bleed, Laceration, Orbital Fracture Provider Diagnoses: Fall, Facial contusion, Facial abrasion Discharge ED - Sign-Out/Discharge Documenting (check all that apply): Patient Departure - Discharge Plan Condition: Improved Disposition: HOME Patient Education Materials: Fall Prevention (ED), Facial Contusion (ED) Referrals: Cameron Ryan MD [Primary Care Provider] - Additional Instructions: Follow up with PCP in 2-3 days Keep wound clean and dry Return to ER if symptoms change or worsen - Billing Disposition and Condition Condition: IMPROVED Disposition: Home - Attestation Statements Provider Attestation: I was available for consultation for this patient. I did not evaluate the patient or participate in any medical decision making or disposition decisions unless I am specifically named in the chart as having consulted on the patient. If I have consulted on the patient, please see my own ED note on the patient encounter. Carlitos Bailon MD
[2019-02-27 10:44] VITALS: BP 152/95
[2019-02-27] MEDS ORDERED: LORazepam TAB(*) 1 MG PO ONE (13:10)
== END 2019-02-27 14:20 | disposition home or self-care (01) ==
LOC: ED 06:06
DX: S00.83XA Contusion of other part of head, initial encounter (principal); S00.81XA Abrasion of other part of head, initial encounter; I11.0 Hypertensive heart disease with heart failure; I48.91 Unspecified atrial fibrillation; I50.9 Heart failure, unspecified; W19.XXXA Unspecified fall, initial encounter; Y92.9 Unspecified place or not applicable; Z79.01 Long term (current) use of anticoagulants; Z79.899 Other long term (current) drug therapy
CPT/HCPCS: 70450; 70486; 72125; 99284; A9270-GY

== ENCOUNTER 2019-05-14 07:42 | Observation (INO) | payer MEDICARE, MEDICAID ==
[2019-05-14] MEDS ORDERED: LORazepam INJ* 2 MG/ML 1 ML VIAL IM ONE (07:50)
[2019-05-14] MEDS ORDERED: Lorazepam PYXIS KEY PRN (07:50)
[2019-05-14] MEDS ORDERED: Ziprasidone IM INJ* 20 MG/ML VIAL IM ONE (07:50)
[2019-05-14] MEDS ORDERED: Lorazepam PYXIS KEY ONE (07:53)
--- NOTE | 2019-05-14 07:57 | ED ---
Psychiatric Complaint - HPI Summary HPI Summary: 69 y/o male presented to [facility] after he claims police woke him up for reasons he does not understand. Per EMS, he was aggressive with staff at [facility] and believes he works there. He was able to tell he was in a hospital but per EMS believes the date is roughly 20 years ago and was swearing in the room. Patient was aggressive and agitated in the room, and was not receptive to suggestion of changing into hospital gown and getting blood drawn. He was asking Dr. Main to call his mother. Patient has history of dementia, GERD, COPD, and anoxic brain damage. Patient is a level 5 caveat secondary to dementia. - History Of Current Complaint Time Seen by Provider: 05/14/19 07:49 Hx Obtained From: Patient, EMS Hx From Patient Unobtainable Due To: Dementia Onset/Duration: Still Present Character: Angry Associated Signs And Symptoms: Positive: Hostile - Allergies/Home Medications Allergies/Adverse Reactions: Allergies Allergy/AdvReac Type Severity Reaction Status Date / Time No Known Allergies Allergy Verified 05/14/19 08:07 Home Medications: Home Medications Rivaroxaban TAB(*) [Xarelto 20 mg] 20 mg PO QPM tab 06/06/18 [Rx Confirmed ] QUEtiapine TAB* [Seroquel 25 MG TAB*] 12.5 mg PO QAM 06/29/18 [History Confirmed 05/14/19] Budesonide/Formote 160/4.5(NF) [Symbicort 160/4.5 (NF)] 2 puff INH BID #1 mdi [Rx Confirmed 05/14/19] Melatonin 3 mg PO BEDTIME PRN #30 tab 07/05/18 [Rx Confirmed 05/14/19] Magnesium Oxide TAB* [MagOx 400 TAB*] 400 mg PO QAM 11/10/18 [History Confirmed 05/14/19] Metoprolol Tartrate TAB* [Lopressor TAB*] 100 mg PO BID 11/10/18 [History Confirmed 05/14/19] LORazepam [Ativan 1 MG TAB] 0.5 mg PO BID 11/13/18 [History Confirmed 05/14/19] Acetaminophen [Tylenol Extra Strength] 1,000 mg PO Q8H PRN 02/27/19 [History Confirmed 05/14/19] Ipratropium/Albuterol Sulfate [Iprat-Albut 0.5-3(2.5) mg/3 ml] 3 ml INH QID PRN 02/27/19 [History Confirmed 05/14/19] PHENobarbital TAB(*) 32.4 mg PO QAM 02/27/19 [History Confirmed 05/14/19] Senna TAB 8.6 mg* [Senokot 8.6 mg TAB*] 2 tab PO BEDTIME 02/27/19 [History Confirmed 05/14/19] Sertraline* [Zoloft*] 50 mg PO QAM 02/27/19 [History Confirmed 05/14/19] busPIRone TAB* [Buspar TAB *] 7.5 mg PO BID 02/27/19 [History Confirmed 05/14/19 ] Biofreeze 05/14/19 [History] Digoxin TAB* [Lanoxin TAB*] 0.125 mg PO QAM 05/14/19 [History Confirmed 05/14/19 ] Diltiazem CD CAP* [Cardizem CD CAP*] 360 mg PO QAM 05/14/19 [History Confirmed 05/14/19] traMADol TAB* [Ultram*] 50 mg PO Q12H PRN 05/14/19 [History Confirmed 05/14/19] PMH/Surg Hx/FS Hx/Imm Hx Endocrine/Hematology History: Denies: Hx Diabetes, Hx Thyroid Disease Cardiovascular History: Reports: Hx Atrial Fibrillation, Hx Congestive Heart Failure, Hx Hypertension, Other Cardiovascular Problems/Disorders - a fib Denies: Hx Peripheral Vascular Disease Respiratory History: Reports: Hx Chronic Obstructive Pulmonary Disease (COPD) - 2L home O2, Other Respiratory Problems/Disorders - emphysema Denies: Hx Asthma History: Denies: Hx Renal Disease Musculoskeletal History: Reports: Other Musculoskeletal History - baseline left leg weakness Denies: Hx Arthritis, Hx Osteoporosis Sensory History: Denies: Hx Contacts or Glasses, Hx Hearing Aid Opthamlomology History: Denies: Hx Contacts or Glasses Neurological History: Denies: Hx Dementia, Hx Developmental Delay, Hx Headaches, Hx Seizures, Hx Transient Ischemic Attacks (TIA) Psychiatric History: Denies: Hx Anxiety, Hx Depression - Surgical History Surgery Procedure, Year, and Place: right knee as a child Infectious Disease History: Comment Only: Hx Clostridium Difficile - unknown, Hx Hepatitis - unknown, Hx Human Immunodeficiency Virus (HIV) - unknown, Hx of Known/Suspected MRSA - unknown, Hx Shingles - unknown, Hx Tuberculosis - unknown - Family History Known Family History: Positive: Hypertension, Diabetes, Other - Lung cancer, breast cancer - Social History Alcohol Use: None Alcohol Amount: beer once in a great while as per pt. Hx Substance Use: No Substance Use Type: Reports: Marijuana Substance Use Comment - Amount & Last Used: unable to obtain 03/17/18 Hx Tobacco Use: Yes Smoking Status (MU): Former Smoker Type: Cigarettes Have You Smoked in the Last Year: Yes - Additional Comments History Additional Comments: Patient is a level 5 caveat secondary to dementia. Review of Systems - ROS Summary Review of Systems Summary: Patient is a level 5 caveat secondary to dementia. Positive: Other - aggressive, agitated All Other Systems Reviewed And Are Negative: No Physical Exam - Summary Physical Exam Summary: VITAL SIGNS: Reviewed. GENERAL: Patient is a well-developed and nourished MALE who is lying comfortable in the stretcher. Patient is not in any acute respiratory distress. HEAD AND FACE: No signs of trauma. No ecchymosis, hematomas or skull depressions. No sinus tenderness. EYES: PERRLA, EOMI x 2, No injected conjunctiva, no nystagmus. EARS: Hearing grossly intact. Ear canals and tympanic membranes are within normal limits. MOUTH: Oropharynx within normal limits. NECK: Supple, trachea is midline, no adenopathy, no JVD, no carotid bruit, no c- spine tenderness, neck with full ROM. CHEST: Symmetric, no tenderness at palpation. LUNGS: Clear to auscultation bilaterally. No wheezing or crackles. CVS: Regular rate and rhythm, S1 and S2 present, no murmurs or gallops appreciated. ABDOMEN: Soft, non-tender. No signs of distention. No rebound, no guarding, and no masses palpated. Bowel sounds are normal. EXTREMITIES: FROM in all major joints, no edema, no cyanosis or clubbing. NEURO: Alert and oriented x 3. No acute neurological deficits. Speech is normal and follows commands. SKIN: Dry and warm. PSYCH: Demented, Unable to give good history, Delusional, Aggressive, Agitated, Not cooperative Triage Information Reviewed: Yes Vital Signs Reviewed: Yes Procedures - Sedation Patient Received Moderate/Deep Sedation with Procedure: No Diagnostics - Laboratory Result Diagrams: 05/14/19 08:10 05/14/19 08:10 Lab Statement: Any lab studies that have been ordered have been reviewed, and results considered in the medical decision making process. Re-Evaluation - Re-Evaluation First Eval Re-Evaluation Time: 09:17 Comment: Patient cleared by Dr. Main for MHE. Second Eval Re-Evaluation Time: 11:45 Comment: MHE by Dr. Garcia found that the patient can be discharged to home. Course/Dx - Course Assessment/Plan: 69 y/o male presented to [facility] after he claims police woke him up for reasons he does not understand. Per EMS, he was aggressive with staff at [facility] and believes he works there. He was able to tell he was in a hospital but per EMS believes the date is roughly 20 years ago and was swearing in the room. Patient was aggressive and agitated in the room, and was not receptive to suggestion of changing into hospital gown and getting blood drawn. He was asking Dr. Main to call his mother. Patient has history of dementia, GERD, COPD , and anoxic brain damage. Patient is a level 5 caveat secondary to dementia. Blood work w/o a significant abnormality. He is medically cleared. He is awaiting a MHE. Patient is hemodynamically stable and A+O x 3. Patient assets by Dr. Garcia and recommends discharge back to . [facility] [place] refuses to take patient back. print finishing worker recommends admission to hospitalist as observation. I discuss my physical exam and test results with Dr. Us from the hospitalist services and he agrees to admit the patient to his services. - Differential Dx/Clinical Impression Provider Diagnosis: Dementia - Physician Notifications Discussed Care Of Patient With: Kyleigh Us Time Discussed With Above Provider: 17:29 Instructed by Provider To: Other - Patient's case was discussed with Dr. Us, who accepts the patient for half-way admission. Discharge ED - Sign-Out/Discharge Documenting (check all that apply): Patient Departure - admit - Discharge Plan Condition: Stable Disposition: ADMITTED TO [facility] Referrals: [facility], [facility] [Other] ( VOICE MAIL LEFT FOR CONSTRUCTION MATERIALS TESTER WHO IS PATIENTS PROVIDER THAT SEROQUEL LEVEL IS LOW. PHONE NUMBER LEFT FOR CONSTRUCTION MATERIALS TESTER TO CALL BACK) Cameron Ryan MD [Primary Care Provider] - - Billing Disposition and Condition Condition: STABLE Disposition: Admitted to [facility] - Attestation Statements Document Initiated by Kumar: Yes Documenting Scribe: Landon Moody Provider For Whom Kumar is Documenting (Include Credential): Cameron Main MD Scribe Attestation: Landon Sanchez, scribed for Cameron Main MD on 05/14/19 at 1852. Scribe Documentation Reviewed: Yes Provider Attestation: The documentation as recorded by the Landon yarbrough accurately reflects the service I personally performed and the decisions made by Cameron sylvester MD Status of Scribe Document: Viewed
[2019-05-14 08:17] LABS: ABS Basophils 0.1 10^3/ul (0-0.2); ABS Eosinophils 0.1 10^3/ul (0-0.6); ABS Lymphocytes 1.4 10^3/ul (1.0-4.8); ABS Monocytes 0.8 10^3/ul (0-0.8); ABS Neutrophils 5.5 10^3/ul (1.5-7.7); Eosinophil % 0.8 %; Hematocrit 44 % (42-52); Lymphocyte % 18.1 %; Mean Corpuscular HGB Conc 34 g/dL (31-36); Mean Corpuscular Hemoglobin 33 pg (27-31); Mean Corpuscular Volume 96 fL (80-94); Mean Platelet Volume 8.4 fL (7.4-10.4); Platelet Count 200 10^3/uL (150-450); Red Blood Count 4.61 10^6 /uL (4.18-5.48); Red Cell Distribution Width 14 % (10-15); White Blood Count 7.8 10^3/uL (3.5-10.8)
[2019-05-14 08:33] LABS: ALT 23 U/L (7-52); AST 21 U/L (13-39); Albumin/Globulin Ratio 1.1 (1-3); Alkaline Phosphatase 102 U/L (34-104); Anion Gap 7 mmol/L (2-11); BUN/Creatinine Ratio 17.2 (8-20); Blood Urea Nitrogen 20 mg/dL (6-24); CO2 Carbon Dioxide 30 mmol/L (22-32); Calcium 9.6 mg/dL (8.6-10.3); Chloride 101 mmol/L (101-111); EGFR Non-African American 62.8 (>60); Globulin 3.5 g/dL (2-4); Glucose 92 mg/dL (70-100); Potassium 3.9 mmol/L (3.5-5.0); Sodium 138 mmol/L (135-145); Total Protein 7.5 g/dL (6.4-8.9)
[2019-05-14 09:10] LABS: Acetaminophen < 15 mcg/mL; Alcohol < 10 mg/dL (<10); Salicylate < 2.50 mg/dL (<30)
[2019-05-14 09:26] LABS: TSH (Thyroid Stimulating Horm) 2.01 mcIU/mL (0.34-5.60)
[2019-05-14 10:00] LABS: Urine Appearance Clear; Urine Bilirubin Negative (Negative); Urine Blood Negative (Negative); Urine Color Yellow; Urine Glucose Negative (Negative); Urine Ketones Negative (Negative); Urine Nitrite Negative (Negative); Urine Protein Negative (Negative); Urine Urobilinogen Negative (Negative)
[2019-05-14 10:20] LABS: Urine Benzodiazepine Screen None Detected (None Detect); Urine Opiates Screen None Detected (None Detect)
[2019-05-14] MEDS ORDERED: Ondansetron INJ* 2 MG/ML VIAL IV PRN (18:11)
[2019-05-14] MEDS ORDERED: Senna TAB 8.6 mg* TAB PO PRN (18:11)
[2019-05-14] MEDS ORDERED: Al Hydrox/Mg Hydrox/Simet LIQ* 30 ML UDC PO PRN (18:11)
[2019-05-14] MEDS ORDERED: Acetaminophen TAB* 325 MG PO PRN (18:11)
[2019-05-14] MEDS ORDERED: Albuterol/Ipratropium NEB.SOL* Albuterol 2.5 MG/Ipratropium 0.5 MG 3 ML INH PRN (18:15)
[2019-05-14] MEDS ORDERED: traMADol TAB* 50 MG PO PRN (18:15)
[2019-05-14] MEDS ORDERED: Melatonin 3 MG TAB PO PRN (18:15)
[2019-05-14] MEDS ORDERED: LORazepam INJ* 2 MG/ML 1 ML VIAL IV PUSH PRN (18:17)
[2019-05-14] MEDS ORDERED: busPIRone TAB* 10 MG PO SCH (21:00)
--- NOTE | 2019-05-14 21:08 | HP ---
ADMISSION HISTORY AND PHYSICAL: DATE OF ADMISSION: 05/14/19 PROVIDER: MISA Villarreal. ATTENDING PHYSICIAN WHILE IN THE HOSPITAL: Dr. Kyleigh Us * (dictated by MISA Villarreal) PRIMARY CARE PROVIDER: Physician at [facility]. CHIEF COMPLAINT: Altered mental status and agitation. HISTORY OF PRESENT ILLNESS: Yonas Beck is a 69-year-old white male with past medical history significant for anoxic brain injury, history of prior seizure, history of polio, COPD, atrial fibrillation, and GERD, who presented to the emergency department today via EMS, sent from [facility] due to significant agitation. When the patient arrived to the emergency department, he was agitated and an IM dose of Ativan was not calming him down and an IM dose of Geodon 20 mg was also given. By the time I evaluated the patient, he had eaten a meal and was quite calm, able to carry an appropriate conversation overall with absolutely zero signs of anxiety or agitation. For this reason, the emergency department asked for him to be sent back to [facility] and additionally even had Psychiatry team evaluate him, who agreed with his discharge from the emergency room back to [facility]. [facility] reportedly will not accept him back today. Social work and case management have been involved and advised an OBV admission to the hospital. The patient has no complaints. He overall is feeling himself. He appears to have a chronic cough. He tells me that he does not bring up any sputum. He denies any fevers or chills, difficulty breathing, chest pain, sore throat, abdominal pain, issues with urination or bowel movements. PAST MEDICAL HISTORY: 1. COPD. 2. History of one time seizure in the setting of recent anoxic brain injury. 3. Anoxic brain injury from pulmonary/ventricular fibrillation arrest in February 2018 with resulting memory deficits. 4. Atrial fibrillation, on anticoagulation. 5. GERD. 6. Anxiety/depression. PAST SURGICAL HISTORY: Left knee surgery. FAMILY HISTORY: Unobtainable. SOCIAL HISTORY: The patient resides at [facility]. He lives in the Dementia Unit, though as per admission, he does not have dementia, but has anoxic brain injury. He reportedly has 2 children. He states that he is from his ; however, he is a poor historian. 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 He has been smoking for 50 years approximately 1 pack per day. Denies alcohol use or drug use. HOME MEDICATIONS: 1. Tramadol 50 mg p.o. q.12 hours prn pain. 2. BuSpar 7.5 mg p.o. b.i.d. 3. Zoloft 50 mg p.o. q.a.m. 4. Senna two tabs p.o. at bedtime. 5. Xarelto 20 mg p.o. q.p.m. 6. Seroquel 12.5 mg p.o. q.a.m. 7. Phenobarbital 32.4 mg p.o. q.a.m. 8. Metoprolol Tartrate 100 mg p.o. b.i.d. 9. Methyl/Biofreeze 473 ml topical t.i.d. prn pain. 10. Melatonin 3 mg p.o. at bedtime prn insomnia. 11. Magnesium Oxide 400 mg p.o. q.a.m. 12. Ativan 0.5 mg p.o. b.i.d. 13. DuoNeb 3 ml inhaled q.i.d. prn shortness of breath/wheezing. 14. Diltiazem 360 mg p.o. q.a.m. 15. Digoxin 0.125 mg p.o. q.a.m. 16. Symbicort 160/4.5 two puffs inhaled b.i.d. 17. Tylenol 1,000 mg p.o. q.8 prn pain. ALLERGIES: No known drug allergies. REVIEW OF SYSTEMS: An 11-point review of systems was completed. All pertinent positives and negatives are above in the HPI. All other systems are negative. PHYSICAL EXAMINATION GENERAL: Thin, elderly white male, lying upright in hospital bed, appearing comfortable, in no acute distress. VITAL SIGNS: Temperature 99.4 degrees Fahrenheit, pulse 84, respiratory rate 18 , oxygen saturation 97% on room air and blood pressure 161/102, later 133/82. HEENT: Eyes: PERRLA. Sclerae anicteric. ENT: Mucous membranes are moist. LUNGS: Clear to auscultation throughout. CARDIO: Regular rate and rhythm without murmurs, rubs or gallops. ABDOMEN: Soft, nontender, nondistended without suprapubic tenderness. EXTREMITIES: No clubbing, cyanosis or edema. NEURO: The patient is alert and oriented to self and location. He is unable to tell me his own age, what year it is, and frequently he is unable to tell me where he lives and believes his mother is still alive. He is able to move all extremities. His face is symmetrical. SKIN: Warm, dry, and intact. PERTINENT STUDIES/LAB DATA: Labs: White blood cell count 7.8, hemoglobin 15, hematocrit 44, platelet count 200. Sodium 138, potassium 3.9, chloride 101, carbon dioxide 30, anion gap 7, BUN 20, creatinine 1.16, glucose 92, calcium 9.6. LFTs are unremarkable. TSH is 2.01. Urine entirely unremarkable. Serum alcohol less than 10. Urine drug screen showing presumptive positive for barbiturates, though he takes phenobarbital. ASSESSMENT AND PLAN: Yonas Beck is a 69-year-old white male with past medical history significant for anoxic brain injury with resulting memory loss issues; chronic obstructive pulmonary disease; gastroesophageal reflux disease; atrial fibrillation, on anticoagulation; history of prior seizure, who presents to the emergency department today from [facility] due to agitation, altered mental status and reported aggressive behavior. The patient will be admitted OBV for: 1. Altered mental status/aggressive behavior. The patient is now calm after receiving a dose of Geodon. It appears that he takes very small dose of Seroquel at home at [facility] and this is evidently not helping to manage his behavior. During recent hospitalizations in the recent years, he has no description of having behavior disturbance and this may be new, though it is unclear. I will increase his Seroquel to 25 mg p.o. b.i.d. Otherwise, I will continue his scheduled 0.5 mg p.o. b.i.d. of Ativan and I will order an IV p.r.n. Ativan for increased agitation. Social Work, Occupation Therapy and Physical Therapy have been consulted to assist with getting him back to [facility]. I do not believe a Psych consult is needed at this time. He is known to be altered at baseline due to his history of anoxic brain injury. 2. Chronic obstructive pulmonary disease. It appears that the patient has chronic cough and he tells me it is not worse than his baseline, though this may need to be confirmed. I will order a flutter valve to help with his sputum production. I will continue his home Symbicort inhaler and p.r.n. DuoNeb, though it appears that he should be on a LAMA inhaler and it would likely be a benefit for him to start that, so I will order that to receive in the hospital daily, starting tomorrow. I have no concern for acute exacerbation. 3. Atrial fibrillation. The patient is rate controlled. I will continue his home digoxin, diltiazem, metoprolol, and Xarelto. 4. Anxiety/depression. I will continue the patient's home Zoloft and BuSpar. 5. History of prior seizure. I will continue the patient's home phenobarbital. 6. FEN: The patient may have regular unrestricted diet. No need to replace electrolytes as they are within normal limits and no IV fluids are indicated. 7. DVT prophylaxis: The patient has a DVT risk score of 2 and I will order Lovenox. 8. Code status: The patient is DNR with okay trial period for intubation and his MOLST has been updated. 9. Early discharge planning: As previously mentioned, I have ordered PT/OT and Social Work to be involved with this patient as it appears there are issues getting him back to [facility] and hopefully this can be resolved. This case has been reviewed with my attending, Dr. Kyleigh Us; she agrees with the plan of care. TIME SPENT: Approximately 50 minutes was spent on this admission, approximately half of this time was spent at bedside evaluating the patient and discussing the plan of care. I have discussed this plan with his healthcare proxy, Federica Calderon, whose phone number is [phone] and she is his sister. MISA VILLARREAL [id number]/[facility] #: [id number]/CPS #: [id number] SHERMAN
[2019-05-14] MEDS: Metoprolol Tartrate TAB* 100 MG TAB PO SCH (21:25)
[2019-05-14] MEDS: QUEtiapine TAB* 25 MG PO SCH (21:25)
[2019-05-14] MEDS: LORazepam TAB(*) 1 MG PO SCH (21:25)
[2019-05-14] MEDS: Mometasone/Formoter 200/5 MDI INH SCH ×2 (21:58→23:01)
[2019-05-15] MEDS: Magnesium Oxide TAB* 400 MG PO SCH (07:37)
[2019-05-15] MEDS: busPIRone TAB* 5 MG PO SCH ×2 (07:38→21:17)
[2019-05-15] MEDS: Sertraline* 25 MG TAB PO SCH (07:38)
[2019-05-15] MEDS: PHENobarbital TAB(*) 30 MG PO SCH (07:39)
[2019-05-15] MEDS: LORazepam TAB(*) 1 MG PO SCH ×2 (07:39→21:19)
[2019-05-15] MEDS: Diltiazem CD CAP* 180 MG PO SCH (07:39)
[2019-05-15] MEDS: QUEtiapine TAB* 25 MG PO SCH ×2 (07:40→21:17)
[2019-05-15] MEDS: Metoprolol Tartrate TAB* 100 MG TAB PO SCH ×2 (07:40→21:17)
[2019-05-15] MEDS: Digoxin TAB* 0.125 MG PO SCH (07:50)
[2019-05-15] MEDS: Mometasone/Formoter 200/5 MDI INH SCH ×2 (08:01→19:31)
[2019-05-15] MEDS: SPIRIVA Respimat* (tiotropium) 2.5 mcg/inh Inhaler INH SCH (08:02)
--- NOTE | 2019-05-15 13:35 | HP ---
ADDENDUM TO HISTORY AND PHYSICAL DATE OF ADMISSION: 05/14/2019. HOME MEDICATIONS: 1. Tramadol 50 mg p.o. q.12 hours prn pain. 2. BuSpar 7.5 mg p.o. b.i.d. 3. Zoloft 50 mg p.o. q.a.m. 4. Senna two tabs p.o. at bedtime. 5. Xarelto 20 mg p.o. q.p.m. 6. Seroquel 12.5 mg p.o. q.a.m. 7. Phenobarbital 32.4 mg p.o. q.a.m. 8. Metoprolol Tartrate 100 mg p.o. b.i.d. 9. Methyl/Biofreeze 473 ml topical t.i.d. prn pain. 10. Melatonin 3 mg p.o. at bedtime prn insomnia. 11. Magnesium Oxide 400 mg p.o. q.a.m. 12. Ativan 0.5 mg p.o. b.i.d. 13. DuoNeb 3 ml inhaled q.i.d. prn shortness of breath/wheezing. 14. Diltiazem 360 mg p.o. q.a.m. 15. Digoxin 0.125 mg p.o. q.a.m. 16. Symbicort 160/4.5 two puffs inhaled b.i.d. 17. Tylenol 1,000 mg p.o. q.8 prn pain. ALLERGIES: No known drug allergies. MISA GRIMES [id number]/[facility] #: [id number] [facility] HOSPITALDonato
--- NOTE | 2019-05-15 14:49 | DS ---
CC: Primary Care Provider, [facility] * DISCHARGE SUMMARY: DATE OF ADMISSION: 05/14/19 DATE OF ANTICIPATED DISCHARGE: 05/16/19 PRIMARY CARE PROVIDER: A physician from [facility]. DISCHARGE DIAGNOSES: 1. Agitation. 2. Dementia. SECONDARY DIAGNOSES: 1. Chronic obstructive pulmonary disease, not oxygen dependent. 2. History of 1 seizure in the past in the setting of anoxic brain injury. 3. Anoxic brain injury from pulmonary/ventricular fibrillation arrest in February 2018 resulting in significant memory deficits. 4. Atrial fibrillation, on anticoagulation. 5. Gastroesophageal reflux disease. 6. Anxiety/depression. MEDICATIONS AT DISCHARGE: Include: 1. Acetaminophen on a p.r.n. basis. 2. BuSpar 7.5 mg b.i.d. 3. Digoxin 0.125 mg p.o. daily. 4. Cardizem CD 360 mg daily. 5. Albuterol inhaler on a p.r.n. basis. 6. Lorazepam 0.5 mg b.i.d. 7. Mag-Ox 400 mg daily. 8. Menthol 473 mL topical t.i.d. p.r.n. for pain. 9. Lopressor 100 mg b.i.d. 10. Phenobarbital 32.4 mg daily. 11. Senokot 2 tablets at bedtime. 12. Zoloft 50 mg q.a.m. 13. Tramadol 50 mg every 12 hours for pain. 14. Melatonin 3 mg at bedtime p.r.n. 15. Seroquel 25 mg b.i.d. 16. Xarelto 20 mg q.p.m. LABORATORY DATA AND STUDIES PERFORMED DURING THE HOSPITAL STAY: Unchanged from admission and please refer to admission report. Shortly, the patient had basically unremarkable CBC, complete metabolic panel as well as TSH. His urinalysis was all negative. His urine drug screen was positive for barbiturates likely due to phenobarbital. CONDITION AT DISCHARGE: Stable. DISPOSITION AT DISCHARGE: To [facility]. HOSPITALIZATION COURSE: Yonas Beck is a 69-year-old male with a history of anoxic brain injury, who was brought in from [facility] for agitation. The patient received a dose of Geodon IM in the emergency department. Furthermore, the patient's Seroquel dose was increased from 12.5 mg daily to 25 mg b.i.d. The patient's behavior had been compliant without any major issues and no recurrence of agitation throughout his hospital stay. Please note that this dictation is dictated the night prior to the patient's anticipated departure from the hospital, but so far no behavioral problems were noted. The patient is pleasantly disoriented on evaluation. He is planned to go back to [facility] in the morning. PHYSICAL EXAMINATION: At the time of dictation, blood pressure of 135/69, heart rate of 79 and irregular, respiratory rate 16, oxygen saturation 98% on room air, temperature 97.9. General: The patient is a very pleasant 69-year-old male, who is in no acute distress. The patient is alert and oriented to self only. HEENT: Head: Atraumatic, normocephalic. Eyes: Pupils are equal, reactive to light and accommodation. Oropharynx is clear. Mucosa moist. Neck : Supple. No JVD. No bruits bilaterally. Cardiovascular: Irregularly irregular rhythm. No murmur. Respiratory: Clear to auscultation bilaterally. Abdomen is soft, nontender. Bowel sounds present in all 4 quadrants. Extremities: There is no edema. Pulses are 2+ bilaterally. No clubbing or cyanosis. On neuro evaluation, speech is clear. Cranial nerves II through XII grossly intact. Motor strength is 5/5 bilaterally. Please note that this is a short summary of the patient's hospitalization. Please refer to further medical records for details. TIME SPENT: Approximately 35 minutes was spent on the patient's discharge. [id number]/[facility] #: [id number] SHERMAN
[2019-05-15] MEDS ORDERED: Rivaroxaban TAB(*) 20 MG TAB PO SCH (18:00)
[2019-05-16 08:17] VITALS: BP 102/71
[2019-05-16] MEDS: SPIRIVA Respimat* (tiotropium) 2.5 mcg/inh Inhaler INH SCH (08:28)
[2019-05-16] MEDS: Mometasone/Formoter 200/5 MDI INH SCH (08:30)
[2019-05-16] MEDS: Magnesium Oxide TAB* 400 MG PO SCH (09:11)
[2019-05-16] MEDS: Digoxin TAB* 0.125 MG PO SCH (09:11)
[2019-05-16] MEDS: Sertraline* 25 MG TAB PO SCH (09:11)
[2019-05-16] MEDS: QUEtiapine TAB* 25 MG PO SCH (09:11)
[2019-05-16] MEDS: busPIRone TAB* 5 MG PO SCH (09:12)
[2019-05-16] MEDS: Metoprolol Tartrate TAB* 100 MG TAB PO SCH (09:12)
[2019-05-16] MEDS: PHENobarbital TAB(*) 30 MG PO SCH (09:12)
[2019-05-16] MEDS: LORazepam TAB(*) 1 MG PO SCH (09:12)
[2019-05-16] MEDS: Diltiazem CD CAP* 180 MG PO SCH (09:13)
== END 2019-05-16 10:40 ==
LOC: ED 07:42 → MEDTELE 18:11
PROVIDERS: ADMIT Family Medicine; ATTEND Internal Medicine
DX: R45.1 Restlessness and agitation (principal); F03.90 Unspecified dementia, unspecified severity, without behavioral disturbance, psychotic disturbance, mood disturbance, and anxiety; J44.9 Chronic obstructive pulmonary disease, unspecified; G40.909 Epilepsy, unspecified, not intractable, without status epilepticus; I11.0 Hypertensive heart disease with heart failure; I50.9 Heart failure, unspecified; G93.1 Anoxic brain damage, not elsewhere classified; I48.91 Unspecified atrial fibrillation; K21.9 Gastro-esophageal reflux disease without esophagitis; F41.9 Anxiety disorder, unspecified; F32.9 Major depressive disorder, single episode, unspecified; R41.82 Altered mental status, unspecified; Z79.899 Other long term (current) drug therapy; Z79.01 Long term (current) use of anticoagulants; Z99.81 Dependence on supplemental oxygen; Z87.891 Personal history of nicotine dependence
CPT/HCPCS: 36415; 80053; 80307; 80320; 80329; 81003; 84443; 85025; 94640; 96372; 96374; 99285; A9270-GY; G0378; G0480; J2060; J3486; J3535

== ENCOUNTER 2019-06-11 04:18 | Emergency (ER) | payer MEDICARE, MEDICAID ==
--- NOTE | 2019-06-11 04:53 | ED ---
Psychiatric Complaint - HPI Summary HPI Summary: This pt is a 69 Y/O M BIBA to [facility]. He states that he was trying to see his son but hasnt heard from him earlier today. He states that the workers at [facility] told him he was a druggy and knocked over furniture saying that he did it instead. He states that the workers at [facility] hide the residents drugs and sell them to others. He states that he was trying to learn the truth when the workers turned on the pt. He states that the workers at [facility] are scum fuckers. He denies any CP, SOB, headaches, N/V , fevers, chills, and sore throat. He states that he has a PMHx of using drugs, specifically heroin. He has a PMHx of CHF, HTN, COPD, and depression. This pt is a poor historian and thus a level 5 caveat. Home Medications Medication Instructions Recorded Confirmed Type Rivaroxaban TAB(*) [Xarelto 20 mg] 20 mg PO QPM tab 06/06/18 06/11/19 Rx Budesonide/Formote 160/4.5(NF) 2 puff INH BID #1 mdi 07/05/18 06/11/19 Rx [Symbicort 160/4.5 (NF)] Magnesium Oxide TAB* [MagOx 400 400 mg PO QAM 11/10/18 06/11/19 History TAB*] Metoprolol Tartrate TAB* 100 mg PO BID 11/10/18 06/11/19 History [Lopressor TAB*] LORazepam [Ativan 1 MG TAB] 0.5 mg PO BID 11/13/18 06/11/19 History Acetaminophen [Tylenol Extra 1,000 mg PO BID 02/27/19 06/11/19 History Strength] PHENobarbital TAB(*) 32.4 mg PO QAM 02/27/19 06/11/19 History Senna TAB 8.6 mg* [Senokot 8.6 mg 2 tab PO BEDTIME 02/27/19 06/11/19 History TAB*] Sertraline* [Zoloft*] 50 mg PO QAM 02/27/19 06/11/19 History busPIRone TAB* [Buspar TAB *] 7.5 mg PO BID 02/27/19 06/11/19 History Digoxin TAB* [Lanoxin TAB*] 0.125 mg PO QAM 05/14/19 06/11/19 History Diltiazem CD CAP* [Cardizem CD 360 mg PO QAM 05/14/19 06/11/19 History CAP*] traMADol TAB* [Ultram*] 50 mg PO Q12H PRN 05/14/19 06/11/19 History Acetaminophen [Tylenol Extra 500 mg PO DAILY PRN 06/11/19 06/11/19 History Strength] Divalproex DR TAB(*) [Depakote DR 250 mg PO BID 06/11/19 06/11/19 History TAB(*)] QUEtiapine TAB* [Seroquel 25 MG 100 mg PO BID 06/11/19 06/11/19 History TAB*] guaiFENesin [Mucinex] 600 mg PO BID 06/11/19 06/11/19 History - History Of Current Complaint Chief Complaint: EDMentalHealth Time Seen by Provider: 06/11/19 04:51 Hx Obtained From: Patient, EMS Hx From Patient Unobtainable Due To: Dementia - level 5 caveat Onset/Duration: Still Present Timing: Constant Severity Initially: Moderate Severity Currently: Moderate Associated Signs And Symptoms: Positive: Hostile, Paranoid Behavior - Allergies/Home Medications Allergies/Adverse Reactions: Allergies Allergy/AdvReac Type Severity Reaction Status Date / Time No Known Allergies Allergy Verified 05/20/19 05:09 Home Medications: Home Medications Rivaroxaban TAB(*) [Xarelto 20 mg] 20 mg PO QPM tab 06/06/18 [Rx Confirmed ] Budesonide/Formote 160/4.5(NF) [Symbicort 160/4.5 (NF)] 2 puff INH BID #1 mdi [Rx Confirmed 06/11/19] Magnesium Oxide TAB* [MagOx 400 TAB*] 400 mg PO QAM 11/10/18 [History Confirmed 06/11/19] Metoprolol Tartrate TAB* [Lopressor TAB*] 100 mg PO BID 11/10/18 [History Confirmed 06/11/19] LORazepam [Ativan 1 MG TAB] 0.5 mg PO BID 11/13/18 [History Confirmed 06/11/19] Acetaminophen [Tylenol Extra Strength] 1,000 mg PO BID 02/27/19 [History Confirmed 06/11/19] PHENobarbital TAB(*) 32.4 mg PO QAM 02/27/19 [History Confirmed 06/11/19] Senna TAB 8.6 mg* [Senokot 8.6 mg TAB*] 2 tab PO BEDTIME 02/27/19 [History Confirmed 06/11/19] Sertraline* [Zoloft*] 50 mg PO QAM 02/27/19 [History Confirmed 06/11/19] busPIRone TAB* [Buspar TAB *] 7.5 mg PO BID 02/27/19 [History Confirmed 06/11/19 ] Digoxin TAB* [Lanoxin TAB*] 0.125 mg PO QAM 05/14/19 [History Confirmed 06/11/19 ] Diltiazem CD CAP* [Cardizem CD CAP*] 360 mg PO QAM 05/14/19 [History Confirmed 06/11/19] traMADol TAB* [Ultram*] 50 mg PO Q12H PRN 05/14/19 [History Confirmed 06/11/19] Acetaminophen [Tylenol Extra Strength] 500 mg PO DAILY PRN 06/11/19 [History Confirmed 06/11/19] Divalproex DR TAB(*) [Depakote DR TAB(*)] 250 mg PO BID 06/11/19 [History Confirmed 06/11/19] QUEtiapine TAB* [Seroquel 25 MG TAB*] 100 mg PO BID 06/11/19 [History Confirmed 06/11/19] guaiFENesin [Mucinex] 600 mg PO BID 06/11/19 [History Confirmed 06/11/19] PMH/Surg Hx/FS Hx/Imm Hx Previously Healthy: Yes - Pt has a Hx of dementia and is a level 5 caveat Endocrine/Hematology History: Denies: Hx Diabetes, Hx Thyroid Disease Cardiovascular History: Reports: Hx Atrial Fibrillation, Hx Cardiac Arrest - Feb, Hx Congestive Heart Failure, Hx Hypertension, Other Cardiovascular Problems/Disorders - a fib Denies: Hx Peripheral Vascular Disease Respiratory History: Reports: Hx Chronic Obstructive Pulmonary Disease (COPD) - 2L home O2, Other Respiratory Problems/Disorders - emphysema Denies: Hx Asthma GI History: Reports: Hx Gastroesophageal Reflux Disease History: Denies: Hx Renal Disease Musculoskeletal History: Reports: Other Musculoskeletal History - baseline left leg weakness Denies: Hx Arthritis, Hx Osteoporosis Sensory History: Denies: Hx Contacts or Glasses, Hx Hearing Aid Opthamlomology History: Denies: Hx Contacts or Glasses Neurological History: Reports: Hx Dementia, Hx Seizures - one-time in setting of hypoxic brain injury Denies: Hx Developmental Delay, Hx Headaches, Hx Transient Ischemic Attacks ( TIA) Psychiatric History: Reports: Hx Anxiety, Hx Depression Denies: Hx Eating Disorder, Hx Post Traumatic Stress Disorder, Hx Schizophrenia, Hx Bipolar Disorder, Hx Suicide Attempt - Cancer History Hx Chemotherapy: No Hx Radiation Therapy: No - Surgical History Surgery Procedure, Year, and Place: right knee as a child Infectious Disease History: Comment Only: Hx Clostridium Difficile - unknown, Hx Hepatitis - unknown, Hx Human Immunodeficiency Virus (HIV) - unknown, Hx of Known/Suspected MRSA - unknown, Hx Shingles - unknown, Hx Tuberculosis - unknown - Family History Known Family History: Positive: Hypertension, Diabetes, Other - Lung cancer, breast cancer, Non-Contributory - Social History Alcohol Use: None Alcohol Amount: beer once in a great while as per pt. Hx Substance Use: No Substance Use Type: Reports: Marijuana Substance Use Comment - Amount & Last Used: unable to obtain 03/17/18 Hx Tobacco Use: Yes Smoking Status (MU): Former Smoker Type: Cigarettes Have You Smoked in the Last Year: Yes Review of Systems - ROS Summary Review of Systems Summary: This pt is a level 5 caveat due to his Hx of dementia. Negative: Fever, Chills Negative: Sore Throat Negative: Chest Pain Negative: Shortness Of Breath Negative: Vomiting, Nausea Positive: Other - hostile towards staff All Other Systems Reviewed And Are Negative: Yes Physical Exam - Summary Physical Exam Summary: A full PE is unobtainable due to the pt's history of Dementia. Appearance: Well-appearing, Well-nourished male, lying in bed comfortable Skin: Warm, dry, no obvious rash Eyes: sclera anicteric, no conjunctival pallor ENT: mucous membranes moist Neck: deferred Respiratory: No signs of respiratory distress Cardiovascular: Appears well perfused, pulses are nml Abdomen: deferred Musculoskeletal: Moving all 4 extremities without obvious discomfort Neurological: Awake and alert, mentation is normal, speech is fluent and appropriate Psychiatric: affect is normal, does not appear anxious or depressed Triage Information Reviewed: Yes Vital Signs On Initial Exam: Temp Pulse Resp BP SpO2 FiO2 98.6 F 81 24 156/92 95 06/11/19 04:41 06/11/19 04:41 06/11/19 04:41 06/11/19 04:41 06/11/19 04:41 Vital Signs Reviewed: Yes Completion Of Physical Exam Limited Due To: Dementia Procedures - Sedation Patient Received Moderate/Deep Sedation with Procedure: No Course/Dx - Course Course Of Treatment: 69-year-old male presents from [facility] by ambulance for evaluation. Apparently, he became very agitated there. It was throwing hot coffee at the staff. Flipping tables over. Police were called. Initially upon arrival patient is cooperative. He does have history of TBI. History of dementia. poor historian. Patient has no significant findings on physical exam. workup shows no significant acute abnormalities. Patient is seen by mental health. Discussed with psychiatry on-call and patient was discharged back to intermediate with agitation. Follow-up with PCP. Follow-up sooner for any worsening symptoms. - Differential Dx/Clinical Impression Provider Diagnosis: Agitation - Physician Notifications Discussed Care Of Patient With: Luis M Carter Time Discussed With Above Provider: 05:56 Instructed by Provider To: Other - discharge home Patient Is Medically Stable For: Psych Evaluation - 0459, 06/11/2019 - Critical Care Time Critical Care Statement: Critical care time is provided exclusive of any time spent performing procedures. Discharge ED - Sign-Out/Discharge Documenting (check all that apply): Patient Departure - discharge - Discharge Plan Condition: Good Disposition: HOME Referrals: Cameron Ryan MD [Primary Care Provider] - - Billing Disposition and Condition Condition: GOOD Disposition: Home - Attestation Statements Document Initiated by Scribe: Yes Documenting Scribe: Javon Rangel Provider For Whom Scribe is Documenting (Include Credential): Crystal Sharif MD Scribe Attestation: Javon Sanchez, scribed for Crystal Sharif MD on 06/12/19 at 0431. Scribe Documentation Reviewed: Yes Provider Attestation: The documentation as recorded by the Javon yarbrough accurately reflects the service I personally performed and the decisions made by me, Crystal Sharif MD Status of Scribe Document: Viewed
[2019-06-11 06:20] VITALS: BP 140/82
--- OUTSIDE RECORDS SUMMARY | 2019-06-11 06:36 | XMS REPORT | Continuity of Care Document ---
:1950 External Reference #:[id number] Author Name Bertha Ryan PA-C (transmitted by agent of provider Liza Courtney) Address [address] [place] [address] Care Team Providers Name Role Phone Cameron Ryan III, MD - Internal Care Team Information Account Manager Relief Medicine Problems Active Problems Provider Date Chronic pulmonary heart disease Jam Vargas DO FACC Onset: 08/08/2015 Chronic pulmonary heart disease Jam Vargas DO FACC Onset: 08/08/2015 Atrial fibrillation Jam Vargas DO FACC Onset: 08/08/2015 Chronic obstructive lung disease DO MANUEL WhiteheadC Onset: 08/08/2015 Binocular vision disorder Karen Garcia M.D. Onset: 08/08/2015 Cardiomyopathy, unspecified Jam Vargas DO FACC Onset: 08/08/2015 Thrombocytopenic disorder Jam Vargas DO FACC Onset: 08/08/2015 Cardiogenic shock Kailyn Ca M.D. Onset: 08/08/2015 Hypoxemia Brittany Rodarte MD Onset: 09/19/2015 Encounter for screening for malignant Brittany Rodarte MD Onset: 09/19/2015 neoplasm of respiratory organs Acute and chronic respiratory failure Yas Alvarenga D.O. Onset: 10/06/2017 with hypercapnia Chronic obstructive pulmonary disease Yas Alvarenga D.O. Onset: 10/06/2017 with (acute) exacerbation Other symptoms and signs involving the Anurag Null M.D.,FACP Onset: musculoskeletal system Persistent atrial fibrillation Cameron Ryan M.D. Onset: 11/05/2017 Social History Type Date Description Comments Sex Unknown Tobacco Use Start: Unknown Patient is a current Rarely cigarette smoker, smokes some days ETOH Use Denies alcohol use ETOH Use Has consumed alcohol in the past Tobacco Use Start: Unknown Secondhand smoke Outdoors, occasional exposure Recreational Drug Use Formerly used Marijuana regularly Tobacco Use Start: Unknown Patient is a current smoker, smokes some days Smoking Status Reviewed: 12/14/17 Patient is a current smoker, smokes some days Exercise Type/Frequency Exercises regularly walks around his house; limited by fatigue/tiredness Allergies, Adverse Reactions, Alerts Description No Known Drug Allergies Medications Active Medications SIG Qnty Indications Ordering Date Provider Tramadol HCL Q12H Unknown 05/14/2019 50mg Tablets Digoxin Every Morning Unknown 05/14/2019 125mcg Tablets Diltiazem CD Every Morning Unknown 05/14/2019 180mg Caps ER 24HR Buspirone HCL Twice Daily Unknown 02/27/2019 15mg Tablets Ipratropium Four Times Daily Unknown 02/27/2019 [place]/Albuterol Sulfate 0.5-2.5(3)mg/3ML Solution Sertraline HCL Every Morning Unknown 02/27/2019 25mg Tablets Phenobarbital Every Morning Unknown 02/27/2019 32.4mg Tablets Senna Lax Bedtime Unknown 02/27/2019 8.6mg Tablets Lorazepam Twice Daily Unknown 11/13/2018 1mg Tablets Metoprolol Tartrate Twice Daily Unknown 11/10/2018 100mg Tablets Quetiapine Fumarate 25mg by mouth at Cameron E. 06/07/2018 25mg hs Shirley Ryan Tablets Metoprolol Succinate 1 by mouth every Cameron E. 06/07/2018 ER day Shirley Ryan 100mg Tablets ER 24HR Haloperidol 1 tab every 4 Cameron E. 06/07/2018 2mg Tablets hours for Shirley Ryan agitation. Lorazepam every 6 hours,prn 60tabs Cameron E. 04/04/2018 0.5mg Tablets Shirley Ryan Trazodone HCL 1/2 by mouth 30tabs Cameron E. 04/04/2018 50mg @hs(Rxd by [facility]) Shirley Ryan Tablets Potassium Chloride 1 by mouth every 90tabs Cameron E. 04/04/2018 [place] ER day,Rxd by JASON Ryan M.D. 20Meq Tablets ER Senna Laxative 1 by mouth every 30tabs Cameron Calixto 04/04/2018 8.6mg day,Rxd by [facility] Shirley Ryan Tablets Pulse Oximeter For COPD, pulmonary 1units J44.1 Cameron Calixto 11/05/2017 Finger hypertension; on Shirley Ryan Misc home oxygen Rx Proair HFA 2 puffs by mouth 1units Cameron Calixto 07/28/2017 108(90Base) four times a day Shirley Ryan mcg/Act Aerosol as needed Tudorza Pressair 1 puff twice a 2units Brittany Rodarte, 02/18/2016 day 400mcg/Act Aerosol Symbicort 2 puff twice a 20.4gm J44.9 Brittanymehrdad Rodarte, 09/19/2015 80-4.5mcg/Act day Aerosol Oxygen please use o2 at 1units J44.9 [facility] [place], 09/19/2015 Misc 2l/min at night Xarelto 1 by mouth every 90tabs Jam Vargas, 07/25/2015 20mg Tablets day DO FACC Digox 1 by mouth every 90tabs Jam Vargas, 125mcg Tablets day DO FACC Magnesium Oxide 1 by mouth every 90tabs Jam Vargas, 400mg day ( Giving an DO FACC Tablets OTC 250mg 1 1/2 tab po daily ) Immunizations CPT Code Status Date Vaccine Reaction Lot # 55996 Given 07/28/2017 Pneumococcal Conjugate No immediate reaction [id number] Vaccine 13 Valent For noted. Intramuscular Use 60271 Given 03/30/2016 Pneumonia Vaccine [id number] Given 03/30/2016 Influ Virus Vaccine, [id number] Quadrivalent, Split Virus, Im Fluzone not PF Vital Signs Date Vital Result Comment 12/14/2017 3:21pm Height 68 inches 5'8" Weight 137.06 lb Heart Rate 64 /min BP Systolic Sitting 114 mmHg Lue regular cuff BP Diastolic Sitting 74 mmHg Lue regular cuff Respiratory Rate 12 /min O2 % BldC Oximetry 98 % 2LPM BMI (Body Mass Index) 20.8 kg/m2 11/17/2017 8:44am Height 68 inches 5'8" Weight 141.75 lb with shoes Heart Rate 60 /min BP Systolic Sitting 128 mmHg Rue reg cuff BP Diastolic Sitting 80 mmHg Rue reg cuff BP Systolic Standing 102 mmHg Lue reg cuff BP Diastolic Standing 76 mmHg Lue reg cuff BP Systolic Lying Down 110 mmHg Lue reg cuff BP Diastolic Lying Down 82 mmHg Lue reg cuff Respiratory Rate 16 /min BMI (Body Mass Index) 21.6 kg/m2 Results Test Acquired Date Facility Test Result H/L Range Note CBC Auto 05/14/2019 [facility] White Blood 7.8 10^3/uL Normal 3.5-10.[address] [place] [address] [phone] Red Blood Count 4.61 10^6/uL Normal 4.18-5.48 Hemoglobin 15.0 g/dL Normal 14.0-18.0 Hematocrit 44 % Normal 42-52 Mean Corpuscular Volume 96 fL High 80-94 Mean Corpuscular Hemoglobin 33 pg High 27-31 Mean Corpuscular HGB Conc 34 g/dL Normal 31-36 Red Cell Distribution Width 14 % Normal 10-15 Platelet Count 200 10^3/uL Normal 150-450 Mean Platelet Volume 8.4 fL Normal 7.4-10.4 Abs Neutrophils 5.5 10^3/uL Normal 1.5-7.7 Abs Lymphocytes 1.4 10^3/uL Normal 1.0-4.8 Abs Monocytes 0.8 10^3/uL Normal 0-0.8 Abs Eosinophils 0.1 10^3/uL Normal 0-0.6 Abs Basophils 0.1 10^3/uL Normal 0-0.2 Abs Nucleated RBC 0.0 10^3/uL Granulocyte % 70.5 % Lymphocyte % 18.1 % Monocyte % 9.8 % Eosinophil % 0.8 % Basophil % 0.8 % Nucleated Red Blood Cells % 0.0 Comp Metabolic 05/14/2019 [facility] Sodium 138 mmol/L Normal 135-[address] [place] [address] [phone] Potassium 3.9 mmol/L Normal 3.5-5.0 Chloride 101 mmol/L Normal 101-111 Co2 Carbon Dioxide 30 mmol/L Normal 22-32 Anion Gap 7 mmol/L Normal 2-11 Glucose 92 mg/dL Normal 70-100 Blood Urea Nitrogen 20 mg/dL Normal 6-24 Creatinine 1.16 mg/dL Normal 0.67-1.17 BUN/Creatinine Ratio 17.2 Normal 8-20 Calcium 9.6 mg/dL Normal 8.6-10.3 Total Protein 7.5 g/dL Normal 6.4-8.9 Albumin 4.0 g/dL Normal 3.2-5.2 Globulin 3.5 g/dL Normal 2-4 Albumin/Globulin Ratio 1.1 Normal 1-3 Total Bilirubin 0.40 mg/dL Normal 0.2-1.0 Alkaline Phosphatase 102 U/L Normal 34-104 Alt 23 U/L Normal 7-52 Ast 21 U/L Normal 13-39 Egfr Non- 62.8 >60 Egfr 76.0 >60 1 Laboratory test 05/14/2019 [facility] Acetaminophen < 15 g/mL 2 finding [address] [place], [place] [id number] [phone] Alcohol < 10 mg/dL Normal <10 Salicylate < 2.50 mg/dL <30 TSH (Thyroid Stim Horm) 2.01 mcIU/mL Normal 0.34-5.60 Urinalysis Profile 05/14/2019 [facility] Urine Color Yellow [address] [place], [place] [id number] [phone] Urine Appearance Clear Urine Specific [facility] 1.010 Normal 1.010-1.030 Urine pH 7.0 Normal 5-9 Urine Urobilinogen Negative Negative Urine Ketones Negative Negative Urine Protein Negative Negative Urine Leukocytes Negative Negative Urine Blood Negative Negative Urine Nitrite Negative Negative Urine Bilirubin Negative Negative Urine Glucose Negative Negative Urine Drug 05/14/2019 [facility] Urine None Detected None Detect [facility] ED [facility] [address] [facility] [place] [address] Screen [phone] Urine Barbiturates Screen Presumptive Posi <SEE NOTE> Abnormal None Detect 3 Urine Benzodiazepine Screen None Detected None Detect Urine Cannabinoids Screen None Detected None Detect Urine Cocaine Screen None Detected None Detect Urine Opiates Screen None Detected None Detect Urine Phencyclidine Screen None Detected None Detect 4 1 Because ethnic data is not always readily available, this report includes an eGFR for both -Americans and non- Americans. The National Kidney Disease Education Program (NKDEP) does not endorse the use of the MDRD equation for patients that are not between the ages of 18 and 70, are , have extremes of body size, muscle mass, or nutritional status, or are non- or non-. According to the National Kidney Foundation, irrespective of diagnosis, the stage of the disease is based on the level of kidney function: Stage Description GFR(mL/min/1.73 m(2)) 1 Kidney damage with normal or decreased GFR 90 2 Kidney damage with mild decrease in GFR 60-89 3 Moderate decrease in GFR 30-59 4 Severe decrease in GFR 15-29 5 Kidney failure <15 (or dialysis) 2 Therapeutic concentration: <50 ug/mL Toxic concentration: >120 ug/mL 3 Presumptive Positive Presumptive positive results are unconfirmed. 4 The urine specimen was tested at the listed cutoffs: Drug class test level (ng/mL) Amphetamines 500 Barbiturates 200 Benzodiazepine metabolites 200 Cocaine metabolites 150 Cannabinoids 50 Opiates 300 Pcp 25 Specimen was received without chain of custody. Results should be used for medical purposes only. Procedures Date Code Description Status 07/24/2016 [id number] Colonoscopy Completed Medical Devices Description No Information Available Encounters Type Date Location Provider Dx Diagnosis Office Visit 05/14/2019 [facility] Bertha R41.82 Altered mental 9:54a Assoc,abdirahman Ryan PAAguedaC status, Hospitalists unspecified J44.9 Chronic obstructive pulmonary disease, unspecified I48.91 Unspecified atrial fibrillation F41.9 Anxiety disorder, unspecified F32.9 Major depressive disorder, single episode, unspecified Assessments Date Code Description Provider 05/14/2019 R41.82 Altered mental status, unspecified Bertha Abbie'elida, PA-C 05/14/2019 J44.9 Chronic obstructive pulmonary disease, Bertha O'elida, PA- C unspecified 05/14/2019 I48.91 Unspecified atrial fibrillation Bertha Leiva'elida PA-C 05/14/2019 F41.9 Anxiety disorder, unspecified Bertha O'elida, PA-C 05/14/2019 F32.9 Major depressive disorder, single episode, Bertha Abbie'elida , PA-C unspecified Plan of Treatment 12/14/2017 - Brittany Rodarte MDJ44.9 Chronic obstructive pulmonary disease, unspecifiedFollow up:2 [id number] Chronic respiratory failure, unspecified whether with hypoxia or [id number] Nicotine dependence, cigarettes, uncomplicated Functional Status Description No Information Available Mental Status Description No Information Available Referrals Description No Information Available
== END 2019-06-11 06:00 | disposition home or self-care (01) ==
LOC: ED 04:18
DX: R45.1 Restlessness and agitation (principal); Z87.891 Personal history of nicotine dependence; I25.2 Old myocardial infarction; I11.0 Hypertensive heart disease with heart failure; I50.9 Heart failure, unspecified; J44.9 Chronic obstructive pulmonary disease, unspecified; F32.9 Major depressive disorder, single episode, unspecified
CPT/HCPCS: 99285

== ENCOUNTER 2019-11-29 20:59 | Inpatient (IN) ==
[2019-11-29] MEDS ORDERED: NS 0.9% 1000 ml BAG 1,000 ML IV ONE ×2 (21:06→23:56)
[2019-11-29 21:54] LABS: ABS Basophils 0.1 10^3/ul (0-0.2); ABS Lymphocytes 0.4 10^3/ul (1.0-4.8); ABS Neutrophils 17.2 10^3/ul (1.5-7.7); Hematocrit 41 % (42-52); Hemoglobin 13.6 g/dL (14.0-18.0); Lymphocyte % 2.1 %; Mean Corpuscular HGB Conc 33 g/dL (31-36); Mean Corpuscular Hemoglobin 32 pg (27-31); Mean Corpuscular Volume 97 fL (80-94); Mean Platelet Volume 7.9 fL (7.4-10.4); Nucleated Red Blood Cells % 0.1; Platelet Count 268 10^3/uL (150-450); Red Blood Count 4.22 10^6 /uL (4.18-5.48); Red Cell Distribution Width 15 % (10-15); White Blood Count 18.7 10^3/uL (3.5-10.8)
[2019-11-29 22:15] LABS: Albumin 3.6 g/dL (3.2-5.2); Albumin/Globulin Ratio 0.8 (1-3); BUN/Creatinine Ratio 29.6 (8-20); C Reactive Protein 107.04 mg/L (<8.01); Calcium 9.4 mg/dL (8.6-10.3); EGFR African American 92.3 (>60); EGFR Non-African American 76.3 (>60); Globulin 4.6 g/dL (2-4); Potassium 4.6 mmol/L (3.5-5.0); Total Bilirubin 0.7 mg/dL (0.2-1.0); Total Protein 8.2 g/dL (6.4-8.9)
[2019-11-29] MEDS ORDERED: cefTRIAXone 1 gm/50 mL NS BAG 1 GM/50 ML BAG IV ONE (22:41)
[2019-11-29] MEDS ORDERED: Azithromycin 500 mg/250 ml NS 500 MG/250 ML BAG IVPB ONE (22:41)
[2019-11-29] MEDS ORDERED: Albuterol 0.5% CONC NEB.SOL 5 mg/ml 20 ml BOT INH ONE (23:42)
[2019-11-30] MEDS ORDERED: Vancomycin 1,000 MG in NS 0.9% 250 ml 250 ML IVPB ONE (03:20)
[2019-11-30] MEDS ORDERED: Piperacillin/Tazobac ADVAN 3.375 GM in NS 0.9% 100 ml BAG 100 ML IV ONE (03:21)
[2019-11-30] MEDS ORDERED: Zosyn per Pharmacy NOTE FOLLOW UP SCH (04:00)
[2019-11-30] MEDS ORDERED: Vancomycin per Pharmacy 1 EA NOTE FOLLOW UP SCH (04:00)
[2019-11-30] MEDS ORDERED: Albuterol/Ipratropium NEB.SOL (2.5/0.5 MG) 3 ML NEB.SOLN INH PRN (04:19)
[2019-11-30] MEDS ORDERED: Lactated Ringers 500 ml BAG 500 ML IV ONE ×2 (04:35→05:53)
[2019-11-30 04:40] LABS: Hematocrit 33 % (42-52); Mean Corpuscular HGB Conc 34 g/dL (31-36); Mean Corpuscular Hemoglobin 33 pg (27-31); Mean Corpuscular Volume 97 fL (80-94); Mean Platelet Volume 8.3 fL (7.4-10.4); Platelet Count 227 10^3/uL (150-450); Red Blood Count 3.39 10^6 /uL (4.18-5.48); Red Cell Distribution Width 15 % (10-15); White Blood Count 23.7 10^3/uL (3.5-10.8)
[2019-11-30 04:42] LABS: ABS Basophils 0.1 10^3/ul (0-0.2); ABS Lymphocytes 0.8 10^3/ul (1.0-4.8); ABS Monocytes 1.5 10^3/ul (0-0.8); ABS Neutrophils 21.3 10^3/ul (1.5-7.7); Lymphocyte % 3.2 %; Urine Appearance Clear; Urine Bilirubin Negative (Negative); Urine Blood Negative (Negative); Urine Color Yellow; Urine Glucose Negative (Negative); Urine Ketones Negative (Negative); Urine Nitrite Negative (Negative); Urine Protein Negative (Negative); Urine Specific Gravity 1.018 (1.010-1.030); Urine Urobilinogen Negative (Negative)
[2019-11-30 05:04] LABS: Albumin 2.9 g/dL (3.2-5.2); Albumin/Globulin Ratio 0.8 (1-3); BUN/Creatinine Ratio 27.1 (8-20); Calcium 8.2 mg/dL (8.6-10.3); EGFR African American 108.8 (>60); EGFR Non-African American 89.9 (>60); Globulin 3.5 g/dL (2-4); Magnesium 1.7 mg/dL (1.9-2.7); Phosphorus 2.6 mg/dL (2.5-5.0); Potassium 4.3 mmol/L (3.5-5.0); Total Bilirubin 0.6 mg/dL (0.2-1.0); Total Protein 6.4 g/dL (6.4-8.9)
[2019-11-30] MEDS ORDERED: Magnesium Sulfate IV 1GM/100ML 1 GM/100 ML BAG IV ONE (05:28)
[2019-11-30] MEDS ORDERED: Heparin 5000 UNITS/ML 1 mL VIAL SUBCUT SCH (06:00)
[2019-11-30] MEDS ORDERED: Norepinephrine 16MCG/ML IVPRE 4,000 MCG/250 ML BAG IV ONE (06:52)
[2019-11-30] MEDS ORDERED: Norepinephrine 16MCG/ML IVPRE 4,000 MCG/250 ML BAG IV SCH ×2 (07:00→10:05)
[2019-11-30] MEDS: ZOSYN 3.375 GM Q8H per EXTENDED INFUSION IV SCH ×2 (08:44→20:11)
[2019-11-30 09:32] LABS: Influenza A Molecular Negative (Negative); Influenza B Molecular Negative (Negative)
[2019-11-30] MEDS: Lactated Ringers 1000 ml BAG 1,000 ML IV SCH ×2 (11:18→20:41)
[2019-11-30] MEDS: Vancomycin 1000 MG in NS 0.9% 250 ML IVPB SCH ×2 (12:10→20:38)
[2019-12-01] MEDS: ZOSYN 3.375 GM Q8H per EXTENDED INFUSION IV SCH ×3 (00:52→16:03)
[2019-12-01] MEDS ORDERED: Furosemide 20 mg/2 ml IV VIAL ONE (03:07)
[2019-12-01] MEDS ORDERED: Metoprolol Tartrate 5 mg VIAL 5 ml VIAL (1 mg/ml) ONE (03:08)
[2019-12-01] MEDS ORDERED: Metoprolol Tartrate 5 mg VIAL 5 ml VIAL (1 mg/ml) IV ONE (03:11)
[2019-12-01] MEDS ORDERED: Furosemide 20 mg/2 ml IV VIAL IV SLOW PU ONE (03:23)
[2019-12-01] MEDS: Vancomycin 1000 MG in NS 0.9% 250 ML IVPB SCH ×2 (03:31→13:04)
[2019-12-01] MEDS ORDERED: Vancomycin Trough Check NOTE FOLLOW UP ONE ×2 (11:30→20:00)
[2019-12-01 12:25] LABS: ABS Basophils 0.1 10^3/ul (0-0.2); ABS Eosinophils 0.1 10^3/ul (0-0.6); ABS Lymphocytes 0.7 10^3/ul (1.0-4.8); ABS Monocytes 1.2 10^3/ul (0-0.8); Eosinophil % 1.3 %; Hematocrit 34 % (42-52); Hemoglobin 11.2 g/dL (14.0-18.0); Lymphocyte % 6.4 %; Mean Corpuscular HGB Conc 33 g/dL (31-36); Mean Corpuscular Hemoglobin 32 pg (27-31); Mean Corpuscular Volume 97 fL (80-94); Mean Platelet Volume 8.1 fL (7.4-10.4); Platelet Count 220 10^3/uL (150-450); Red Blood Count 3.49 10^6 /uL (4.18-5.48); Red Cell Distribution Width 14 % (10-15); White Blood Count 11.2 10^3/uL (3.5-10.8)
[2019-12-01 12:45] LABS: ALT 29 U/L (7-52); AST 24 U/L (13-39); Albumin 2.8 g/dL (3.2-5.2); Albumin/Globulin Ratio 0.8 (1-3); Alkaline Phosphatase 70 U/L (34-104); Anion Gap 3 mmol/L (2-11); BUN/Creatinine Ratio 19.4 (8-20); Blood Urea Nitrogen 18 mg/dL (6-24); CO2 Carbon Dioxide 32 mmol/L (22-32); Calcium 8.7 mg/dL (8.6-10.3); Chloride 101 mmol/L (101-111); EGFR African American 98.1 (>60); Globulin 3.6 g/dL (2-4); Glucose 89 mg/dL (70-100); Magnesium 1.9 mg/dL (1.9-2.7); Potassium 3.8 mmol/L (3.5-5.0); Sodium 136 mmol/L (135-145); Total Protein 6.4 g/dL (6.4-8.9)
[2019-12-01 19:26] LABS: % Iron Saturation 9 % (15-55); Iron 22 ug/dL (50-212); Total Iron Binding Capacity 238 mcg/dL (250-450); Transferrin 170 mg/dL (203-362); Unsaturated Iron Binding < 223 ug/dL
[2019-12-01 19:47] LABS: Ferritin 157.2 ng/mL (24-336)
[2019-12-01 19:51] LABS: Folate 10.85 ng/mL (>3.99)
[2019-12-01 19:52] LABS: Vitamin B12 444 pg/mL (180-914)
[2019-12-01] MEDS: Senna TAB 8.6 mg TAB PO SCH (20:02)
[2019-12-01] MEDS: cefTRIAXone 1 gm/50 mL NS BAG 1 GM/50 ML BAG IVPB SCH (23:53)
[2019-12-02 07:22] LABS: ABS Eosinophils 0.4 10^3/ul (0-0.6); ABS Monocytes 0.8 10^3/ul (0-0.8); ABS Neutrophils 5.3 10^3/ul (1.5-7.7); Eosinophil % 4.9 %; Hematocrit 32 % (42-52); Lymphocyte % 12.8 %; Mean Corpuscular HGB Conc 34 g/dL (31-36); Mean Corpuscular Hemoglobin 33 pg (27-31); Mean Corpuscular Volume 98 fL (80-94); Mean Platelet Volume 8.6 fL (7.4-10.4); Platelet Count 189 10^3/uL (150-450); Red Blood Count 3.29 10^6 /uL (4.18-5.48); Red Cell Distribution Width 15 % (10-15); White Blood Count 7.5 10^3/uL (3.5-10.8)
[2019-12-02 07:37] LABS: Albumin 2.7 g/dL (3.2-5.2); Albumin/Globulin Ratio 0.7 (1-3); BUN/Creatinine Ratio 19.5 (8-20); EGFR African American 105.9 (>60); EGFR Non-African American 87.5 (>60); Globulin 3.7 g/dL (2-4); Magnesium 1.9 mg/dL (1.9-2.7); Potassium 4.3 mmol/L (3.5-5.0); Total Bilirubin 0.4 mg/dL (0.2-1.0); Total Protein 6.4 g/dL (6.4-8.9)
[2019-12-02] MEDS ORDERED: Magnesium Sulfate IV 1GM/100ML 1 GM/100 ML BAG IV ONE (08:55)
[2019-12-02 11:11] LABS: Digoxin 0.9 ng/ml (0.8-2.0)
[2019-12-02] MEDS: Senna TAB 8.6 mg TAB PO SCH (21:46)
[2019-12-03] MEDS: cefTRIAXone 1 gm/50 mL NS BAG 1 GM/50 ML BAG IVPB SCH ×2 (00:02→23:35)
[2019-12-03 06:34] LABS: ABS Basophils 0.1 10^3/ul (0-0.2); ABS Eosinophils 0.3 10^3/ul (0-0.6); ABS Lymphocytes 0.9 10^3/ul (1.0-4.8); ABS Monocytes 0.7 10^3/ul (0-0.8); ABS Neutrophils 6.6 10^3/ul (1.5-7.7); Eosinophil % 3.9 %; Hematocrit 34 % (42-52); Hemoglobin 11.5 g/dL (14.0-18.0); Mean Corpuscular HGB Conc 34 g/dL (31-36); Mean Corpuscular Hemoglobin 33 pg (27-31); Mean Corpuscular Volume 97 fL (80-94); Platelet Count 222 10^3/uL (150-450); Red Blood Count 3.52 10^6 /uL (4.18-5.48); Red Cell Distribution Width 14 % (10-15); White Blood Count 8.6 10^3/uL (3.5-10.8)
[2019-12-03 06:43] LABS: Albumin 3.1 g/dL (3.2-5.2); Albumin/Globulin Ratio 0.7 (1-3); BUN/Creatinine Ratio 22.3 (8-20); Calcium 9.3 mg/dL (8.6-10.3); EGFR African American 96.9 (>60); Globulin 4.2 g/dL (2-4); Potassium 3.8 mmol/L (3.5-5.0); Total Bilirubin 0.4 mg/dL (0.2-1.0); Total Protein 7.3 g/dL (6.4-8.9)
[2019-12-03] MEDS: Iron Sucrose 200 MG in NS 0.9% 100 ml BAG 100 ML IVPB SCH (12:27)
[2019-12-03] MEDS: Senna TAB 8.6 mg TAB PO SCH (20:34)
[2019-12-04] MEDS: Iron Sucrose 200 MG in NS 0.9% 100 ml BAG 100 ML IVPB SCH (10:05)
[2019-12-04] MEDS: Senna TAB 8.6 mg TAB PO SCH (20:29)
[2019-12-04] MEDS: cefTRIAXone 1 gm/50 mL NS BAG 1 GM/50 ML BAG IVPB SCH (23:16)
[2019-12-05 07:31] LABS: ABS Basophils 0.1 10^3/ul (0-0.2); ABS Eosinophils 0.3 10^3/ul (0-0.6); ABS Lymphocytes 0.8 10^3/ul (1.0-4.8); ABS Monocytes 0.7 10^3/ul (0-0.8); ABS Neutrophils 3.7 10^3/ul (1.5-7.7); Hematocrit 35 % (42-52); Hemoglobin 11.9 g/dL (14.0-18.0); Lymphocyte % 14.5 %; Mean Corpuscular HGB Conc 34 g/dL (31-36); Mean Corpuscular Hemoglobin 33 pg (27-31); Mean Corpuscular Volume 96 fL (80-94); Mean Platelet Volume 8.2 fL (7.4-10.4); Nucleated Red Blood Cells % 0.1; Platelet Count 247 10^3/uL (150-450); Red Blood Count 3.62 10^6 /uL (4.18-5.48); Red Cell Distribution Width 14 % (10-15); White Blood Count 5.6 10^3/uL (3.5-10.8)
[2019-12-05 07:51] LABS: Albumin 2.8 g/dL (3.2-5.2); Albumin/Globulin Ratio 0.7 (1-3); EGFR African American 98.1 (>60); Globulin 4.1 g/dL (2-4); Potassium 4.5 mmol/L (3.5-5.0); Total Bilirubin 0.4 mg/dL (0.2-1.0); Total Protein 6.9 g/dL (6.4-8.9)
[2019-12-05] MEDS: Iron Sucrose 200 MG in NS 0.9% 100 ml BAG 100 ML IVPB SCH (08:32)
[2019-12-05 09:31] VITALS: BP 101/77
== END 2019-12-05 12:08 | DRG 871 ==
LOC: ED 20:59 → ICU 11-30 01:57 → MEDTELE 11-30 18:42
PROVIDERS: ADMIT Internal Medicine; ATTEND Student in an Organized Health Care Education/Training Program

== ENCOUNTER 2020-04-07 13:10 | Inpatient (IN) ==
[2020-04-07] MEDS ORDERED: NS 0.9% 1000 ml BAG 1,000 ML IV ONE ×3 (13:16→14:57)
[2020-04-07] MEDS ORDERED: Cefepime 2 GM in NS 0.9% 50 ML 50 ML IVPB ONE (13:18)
[2020-04-07] MEDS ORDERED: Levofloxacin 750 MG IVPREMIX 750 MG/150 ML BAG IVPB ONE (13:18)
[2020-04-07] MEDS ORDERED: Amiodarone 150 mg IVPREMIX 150 MG/100 ML BAG IV ONE (13:26)
[2020-04-07] MEDS ORDERED: Amiodarone 360 MG IVPREMIX 360 MG/200 ML BAG IV ONE (13:26)
[2020-04-07 13:34] LABS: ABS Basophils 0.1 10^3/ul (0-0.2); ABS Lymphocytes 0.9 10^3/ul (1.0-4.8); ABS Monocytes 1.3 10^3/ul (0-0.8); ABS Neutrophils 9.9 10^3/ul (1.5-7.7); Hematocrit 44 % (42-52); Hemoglobin 14.7 g/dL (14.0-18.0); Lymphocyte % 7.4 %; Mean Corpuscular HGB Conc 33 g/dL (31-36); Mean Corpuscular Hemoglobin 34 pg (27-31); Mean Corpuscular Volume 100 fL (80-94); Mean Platelet Volume 9.2 fL (7.4-10.4); Platelet Count 180 10^3/uL (150-450); Red Blood Count 4.39 10^6 /uL (4.18-5.48); Red Cell Distribution Width 15 % (10-15); White Blood Count 12.2 10^3/uL (3.5-10.8)
[2020-04-07] MEDS ORDERED: NS 0.9% 50 ML 50 ML ONE (13:35)
[2020-04-07 13:42] LABS: INR 1.49 (0.82-1.09)
[2020-04-07] MEDS ORDERED: CEFEPIME 2 GM in Dextrose 50 mL IV ONE (13:45)
[2020-04-07 13:53] LABS: ALT 60 U/L (7-52); Albumin 3.7 g/dL (3.2-5.2); Albumin/Globulin Ratio 0.8 (1-3); Alkaline Phosphatase 79 U/L (34-104); BUN/Creatinine Ratio 24.6 (8-20); Blood Urea Nitrogen 29 mg/dL (6-24); C Reactive Protein 103.79 mg/L (<8.01); CO2 Carbon Dioxide 32 mmol/L (22-32); Calcium 9.2 mg/dL (8.6-10.3); Chloride 98 mmol/L (101-111); EGFR African American 74.3 (>60); EGFR Non-African American 61.4 (>60); Globulin 4.5 g/dL (2-4); Glucose 100 mg/dL (70-100); Magnesium 2.1 mg/dL (1.9-2.7); Sodium 135 mmol/L (135-145); Total Protein 8.2 g/dL (6.4-8.9)
[2020-04-07 13:58] LABS: Troponin I 0.04 ng/mL (<0.03)
[2020-04-07 14:20] LABS: TSH Ultra Thyroid Stim Horm 5.52 mcIU/mL (0.34-5.60)
[2020-04-07] MEDS ORDERED: Piperacillin/Tazobac ADVAN 3.375 GM in NS 0.9% 100 ml BAG 100 ML IV ONE (14:51)
[2020-04-07] MEDS ORDERED: Furosemide 40 mg/4 ml IV VIAL IV ONE ×2 (14:52→16:23)
[2020-04-07 14:56] LABS: Anion Gap 5 mmol/L (2-11)
[2020-04-07] MEDS ORDERED: Zosyn per Pharmacy NOTE FOLLOW UP SCH (15:00)
[2020-04-07 15:37] LABS: Influenza A Molecular Negative (Negative); Influenza B Molecular Negative (Negative)
[2020-04-07] MEDS ORDERED: Albuterol HFA INHALER 8 gm MDI INH PRN (15:55)
[2020-04-07] MEDS ORDERED: Lorazepam PYXIS KEY PRN (16:23)
[2020-04-07] MEDS ORDERED: LORazepam 2 mg VIAL 1 ml IV PUSH PRN (16:23)
[2020-04-07] MEDS: Enoxaparin 80 MG/0.8 ML SYR SUBCUT SCH (16:36)
[2020-04-07] MEDS ORDERED: Hydrocortisone INJ 100 MG/2ML 2 ML VIAL IV ONE (17:00)
[2020-04-07] MEDS ORDERED: Furosemide 20 mg/2 ml IV VIAL IV ONE (17:00)
[2020-04-07] MEDS: Linezolid 600 MG IVPREMIX(*) 600 MG/300 ML BAG IVPB SCH (17:00)
[2020-04-07] MEDS ORDERED: Albuterol/Ipratropium RESP(NF) MDI (Combivent Respimat) INH SCH (17:00)
[2020-04-07] MEDS ORDERED: Digoxin IV 0.5 MG/2 ML AMP (0.25 MG/ML) IV SLOW PU ONE ×2 (17:04→19:02)
[2020-04-07] MEDS: Pantoprazole VIAL 40 MG VIAL IV SCH (17:08)
[2020-04-07] MEDS: Amiodarone 360 MG IVPREMIX 360 MG/200 ML BAG IV SCH (19:23)
[2020-04-07] MEDS: ZOSYN 3.375 GM Q8H per EXTENDED INFUSION IV SCH (20:23)
[2020-04-07 20:44] LABS: Troponin I 0.03 ng/mL (<0.03)
[2020-04-07] MEDS: Valproic Acid IV 375 MG in NS 0.9% 100 ml BAG 100 ML IVPB SCH (20:57)
[2020-04-08] MEDS: Hydrocortisone INJ 100 MG/2ML 2 ML VIAL IV SCH ×3 (00:01→16:10)
[2020-04-08] MEDS: Linezolid 600 MG IVPREMIX(*) 600 MG/300 ML BAG IVPB SCH ×2 (03:25→16:10)
[2020-04-08] MEDS: ZOSYN 3.375 GM Q8H per EXTENDED INFUSION IV SCH ×3 (04:49→20:36)
[2020-04-08] MEDS: Enoxaparin 80 MG/0.8 ML SYR SUBCUT SCH ×2 (04:49→16:10)
[2020-04-08 05:11] LABS: ABS Lymphocytes 0.7 10^3/ul (1.0-4.8); ABS Monocytes 0.8 10^3/ul (0-0.8); ABS Neutrophils 7.1 10^3/ul (1.5-7.7); Hematocrit 43 % (42-52); Hemoglobin 14.3 g/dL (14.0-18.0); Lymphocyte % 8.2 %; Mean Corpuscular HGB Conc 34 g/dL (31-36); Mean Corpuscular Hemoglobin 34 pg (27-31); Mean Corpuscular Volume 101 fL (80-94); Mean Platelet Volume 8.8 fL (7.4-10.4); Platelet Count 152 10^3/uL (150-450); Red Blood Count 4.23 10^6 /uL (4.18-5.48); Red Cell Distribution Width 16 % (10-15); White Blood Count 8.7 10^3/uL (3.5-10.8)
[2020-04-08 05:30] LABS: BUN/Creatinine Ratio 26.2 (8-20); Calcium 8.3 mg/dL (8.6-10.3); EGFR African American 83.2 (>60); EGFR Non-African American 68.7 (>60); Potassium 4.5 mmol/L (3.5-5.0)
[2020-04-08] MEDS: Amiodarone 360 MG IVPREMIX 360 MG/200 ML BAG IV SCH ×2 (06:11→17:48)
[2020-04-08] MEDS: Valproic Acid IV 375 MG in NS 0.9% 100 ml BAG 100 ML IVPB SCH ×2 (09:32→20:36)
[2020-04-08] MEDS: Amiodarone 400 mg TAB PO SCH ×2 (11:46→20:36)
[2020-04-08] MEDS ORDERED: Iohexol 350 (CONTRAST) 500 ML MDV IV ONE (12:50)
[2020-04-08] MEDS: Pantoprazole VIAL 40 MG VIAL IV SCH (16:10)
[2020-04-08] MEDS ORDERED: Metoprolol Tartrate 5 mg VIAL 5 ml VIAL (1 mg/ml) IV ONE (18:19)
[2020-04-09] MEDS: Hydrocortisone INJ 100 MG/2ML 2 ML VIAL IV SCH ×2 (00:55→09:11)
[2020-04-09] MEDS: Linezolid 600 MG IVPREMIX(*) 600 MG/300 ML BAG IVPB SCH (02:34)
[2020-04-09] MEDS: ZOSYN 3.375 GM Q8H per EXTENDED INFUSION IV SCH (04:16)
[2020-04-09] MEDS: Amiodarone 360 MG IVPREMIX 360 MG/200 ML BAG IV SCH (04:33)
[2020-04-09 04:44] LABS: ABS Lymphocytes 0.6 10^3/ul (1.0-4.8); ABS Monocytes 0.6 10^3/ul (0-0.8); ABS Neutrophils 8.7 10^3/ul (1.5-7.7); Hematocrit 38 % (42-52); Hemoglobin 12.8 g/dL (14.0-18.0); Lymphocyte % 5.9 %; Mean Corpuscular HGB Conc 34 g/dL (31-36); Mean Corpuscular Hemoglobin 34 pg (27-31); Mean Corpuscular Volume 101 fL (80-94); Mean Platelet Volume 9.6 fL (7.4-10.4); Platelet Count 146 10^3/uL (150-450); Red Blood Count 3.75 10^6 /uL (4.18-5.48); Red Cell Distribution Width 15 % (10-15); White Blood Count 9.9 10^3/uL (3.5-10.8)
[2020-04-09] MEDS ORDERED: Enoxaparin 80 MG/0.8 ML SYR SUBCUT SCH (05:00)
[2020-04-09] MEDS ORDERED: NS 0.9% 100 ml BAG 100 ML ONE (08:52)
[2020-04-09] MEDS: Amiodarone 400 mg TAB PO SCH (09:10)
[2020-04-09] MEDS: Valproic Acid IV 375 MG in NS 0.9% 100 ml BAG 100 ML IVPB SCH ×2 (09:19→21:03)
[2020-04-09] MEDS ORDERED: Metoprolol Tartrate 5 mg VIAL 5 ml VIAL (1 mg/ml) IV PRN (11:56)
[2020-04-09 14:57] LABS: Calcium 8.3 mg/dL (8.6-10.3); Potassium 3.5 mmol/L (3.5-5.0)
[2020-04-09 15:02] LABS: BUN/Creatinine Ratio 30.9 (8-20); EGFR African American 80.5 (>60); EGFR Non-African American 66.6 (>60)
[2020-04-09] MEDS: Neomycin/Polym/Bacit TOP OINT 15 GM TOPICAL SCH (21:03)
[2020-04-10] MEDS ORDERED: LORazepam 2 mg VIAL 1 ml IV PUSH ONE (02:17)
[2020-04-10] MEDS ORDERED: Lorazepam PYXIS KEY PRN (02:17)
[2020-04-10 06:18] LABS: ABS Lymphocytes 1.1 10^3/ul (1.0-4.8); ABS Monocytes 0.9 10^3/ul (0-0.8); ABS Neutrophils 6.6 10^3/ul (1.5-7.7); Hematocrit 41 % (42-52); Hemoglobin 13.9 g/dL (14.0-18.0); Lymphocyte % 12.6 %; Mean Corpuscular HGB Conc 34 g/dL (31-36); Mean Corpuscular Hemoglobin 34 pg (27-31); Mean Corpuscular Volume 101 fL (80-94); Mean Platelet Volume 9.1 fL (7.4-10.4); Platelet Count 161 10^3/uL (150-450); Red Blood Count 4.11 10^6 /uL (4.18-5.48); Red Cell Distribution Width 16 % (10-15); White Blood Count 8.6 10^3/uL (3.5-10.8)
[2020-04-10 06:38] LABS: EGFR African American 68.9 (>60); EGFR Non-African American 56.9 (>60); Magnesium 2.1 mg/dL (1.9-2.7); Potassium 3.5 mmol/L (3.5-5.0)
[2020-04-10] MEDS: Valproic Acid IV 375 MG in NS 0.9% 100 ml BAG 100 ML IVPB SCH (09:34)
[2020-04-10] MEDS: Neomycin/Polym/Bacit TOP OINT 15 GM TOPICAL SCH ×2 (09:35→20:20)
[2020-04-10 11:59] LABS: C Reactive Protein 72.24 mg/L (<8.01)
[2020-04-10] MEDS: Senna TAB 8.6 mg TAB PO SCH (20:20)
[2020-04-11 05:51] LABS: ABS Lymphocytes 1.5 10^3/ul (1.0-4.8); ABS Monocytes 0.6 10^3/ul (0-0.8); ABS Neutrophils 2.9 10^3/ul (1.5-7.7); Eosinophil % 0.8 %; Hematocrit 41 % (42-52); Hemoglobin 13.5 g/dL (14.0-18.0); Lymphocyte % 29.3 %; Mean Corpuscular HGB Conc 33 g/dL (31-36); Mean Corpuscular Hemoglobin 35 pg (27-31); Mean Corpuscular Volume 104 fL (80-94); Mean Platelet Volume 9.3 fL (7.4-10.4); Nucleated Red Blood Cells % 0.1; Platelet Count 136 10^3/uL (150-450); Red Blood Count 3.93 10^6 /uL (4.18-5.48); Red Cell Distribution Width 16 % (10-15); White Blood Count 5.1 10^3/uL (3.5-10.8)
[2020-04-11 06:05] LABS: BUN/Creatinine Ratio 31.3 (8-20); Calcium 8.5 mg/dL (8.6-10.3); EGFR Non-African American 75.2 (>60); Potassium 4.2 mmol/L (3.5-5.0)
[2020-04-11] MEDS: Neomycin/Polym/Bacit TOP OINT 15 GM TOPICAL SCH ×2 (07:55→20:25)
[2020-04-11] MEDS: Senna TAB 8.6 mg TAB PO SCH (20:25)
[2020-04-12] MEDS: Neomycin/Polym/Bacit TOP OINT 15 GM TOPICAL SCH ×2 (09:02→21:05)
[2020-04-12 13:13] LABS: ABS Eosinophils 0.1 10^3/ul (0-0.6); ABS Lymphocytes 1.5 10^3/ul (1.0-4.8); ABS Monocytes 0.8 10^3/ul (0-0.8); ABS Neutrophils 7.2 10^3/ul (1.5-7.7); Eosinophil % 1.3 %; Hematocrit 44 % (42-52); Hemoglobin 14.5 g/dL (14.0-18.0); Lymphocyte % 15.7 %; Mean Corpuscular HGB Conc 33 g/dL (31-36); Mean Corpuscular Hemoglobin 34 pg (27-31); Mean Corpuscular Volume 102 fL (80-94); Mean Platelet Volume 8.6 fL (7.4-10.4); Platelet Count 182 10^3/uL (150-450); Red Cell Distribution Width 15 % (10-15); White Blood Count 9.6 10^3/uL (3.5-10.8)
[2020-04-12 13:33] LABS: Albumin 2.9 g/dL (3.2-5.2); Calcium 8.6 mg/dL (8.6-10.3); Magnesium 1.9 mg/dL (1.9-2.7); Potassium 4.4 mmol/L (3.5-5.0); Total Bilirubin 0.5 mg/dL (0.2-1.0)
[2020-04-12 13:39] LABS: Albumin/Globulin Ratio 0.8 (1-3); BUN/Creatinine Ratio 31.6 (8-20); EGFR African American 123.4 (>60); Globulin 3.6 g/dL (2-4); Total Protein 6.5 g/dL (6.4-8.9)
[2020-04-12] MEDS: Senna TAB 8.6 mg TAB PO SCH (20:17)
[2020-04-13] MEDS ORDERED: Albuterol HFA INHALER 8 gm MDI INH PRN (00:22)
[2020-04-13 05:16] LABS: ABS Eosinophils 0.2 10^3/ul (0-0.6); ABS Lymphocytes 1.7 10^3/ul (1.0-4.8); ABS Monocytes 0.8 10^3/ul (0-0.8); ABS Neutrophils 6.2 10^3/ul (1.5-7.7); Eosinophil % 2.1 %; Hematocrit 41 % (42-52); Hemoglobin 13.6 g/dL (14.0-18.0); Lymphocyte % 19.1 %; Mean Corpuscular HGB Conc 34 g/dL (31-36); Mean Corpuscular Hemoglobin 34 pg (27-31); Mean Corpuscular Volume 100 fL (80-94); Mean Platelet Volume 8.3 fL (7.4-10.4); Platelet Count 167 10^3/uL (150-450); Red Blood Count 4.04 10^6 /uL (4.18-5.48); Red Cell Distribution Width 15 % (10-15); White Blood Count 8.9 10^3/uL (3.5-10.8)
[2020-04-13 05:37] LABS: BUN/Creatinine Ratio 29.3 (8-20); Calcium 8.4 mg/dL (8.6-10.3); EGFR African American 125.3 (>60); EGFR Non-African American 103.6 (>60); Magnesium 1.9 mg/dL (1.9-2.7); Potassium 4.5 mmol/L (3.5-5.0)
[2020-04-13] MEDS: Neomycin/Polym/Bacit TOP OINT 15 GM TOPICAL SCH ×2 (10:32→22:06)
[2020-04-13] MEDS: Senna TAB 8.6 mg TAB PO SCH (22:04)
[2020-04-14] MEDS: Neomycin/Polym/Bacit TOP OINT 15 GM TOPICAL SCH ×2 (09:39→21:57)
[2020-04-14] MEDS: NS 0.9% 1000 ml BAG 1,000 ML IV SCH (11:23)
[2020-04-14] MEDS: Nystatin TOP POWDER 15 GM BTL TOPICAL SCH ×2 (13:43→21:58)
[2020-04-14] MEDS: Senna TAB 8.6 mg TAB PO SCH (21:55)
[2020-04-15] MEDS: NS 0.9% 1000 ml BAG 1,000 ML IV SCH (00:42)
[2020-04-15 07:56] LABS: ABS Eosinophils 0.2 10^3/ul (0-0.6); ABS Lymphocytes 0.9 10^3/ul (1.0-4.8); ABS Monocytes 0.9 10^3/ul (0-0.8); ABS Neutrophils 5.8 10^3/ul (1.5-7.7); Eosinophil % 2.5 %; Hematocrit 44 % (42-52); Hemoglobin 14.9 g/dL (14.0-18.0); Lymphocyte % 11.2 %; Mean Corpuscular HGB Conc 34 g/dL (31-36); Mean Corpuscular Hemoglobin 34 pg (27-31); Mean Corpuscular Volume 100 fL (80-94); Mean Platelet Volume 7.9 fL (7.4-10.4); Nucleated Red Blood Cells % 0.1; Platelet Count 210 10^3/uL (150-450); Red Cell Distribution Width 15 % (10-15); White Blood Count 7.9 10^3/uL (3.5-10.8)
[2020-04-15 08:25] LABS: Calcium 8.6 mg/dL (8.6-10.3); Magnesium 1.8 mg/dL (1.9-2.7); Potassium 4.8 mmol/L (3.5-5.0)
[2020-04-15 08:31] LABS: BUN/Creatinine Ratio 26.1 (8-20); EGFR African American 104.2 (>60); EGFR Non-African American 86.1 (>60)
[2020-04-15] MEDS: Neomycin/Polym/Bacit TOP OINT 15 GM TOPICAL SCH ×2 (09:22→21:54)
[2020-04-15] MEDS: Nystatin TOP POWDER 15 GM BTL TOPICAL SCH ×3 (09:22→21:54)
[2020-04-15] MEDS ORDERED: Magnesium Sulfate IV 1GM/100ML 1 GM/100 ML BAG IV ONE (10:38)
[2020-04-15] MEDS ORDERED: Lorazepam PYXIS KEY PRN (14:09)
[2020-04-15] MEDS: Valproic Acid IV 375 MG in NS 0.9% 100 ml BAG 100 ML IVPB SCH (16:02)
[2020-04-15] MEDS: Metoprolol Tartrate 5 mg VIAL 5 ml VIAL (1 mg/ml) IV SCH ×2 (16:05→23:29)
[2020-04-15] MEDS: Enoxaparin 80 MG/0.8 ML SYR SUBCUT SCH (16:07)
[2020-04-15] MEDS: LORazepam 2 mg VIAL 1 ml IV PUSH SCH (21:52)
[2020-04-16] MEDS: Enoxaparin 80 MG/0.8 ML SYR SUBCUT SCH ×2 (02:49→15:30)
[2020-04-16] MEDS: Valproic Acid IV 375 MG in NS 0.9% 100 ml BAG 100 ML IVPB SCH ×2 (03:56→15:30)
[2020-04-16] MEDS: NS 0.9% 1000 ml BAG 1,000 ML IV SCH ×2 (04:31→19:03)
[2020-04-16] MEDS: Metoprolol Tartrate 5 mg VIAL 5 ml VIAL (1 mg/ml) IV SCH ×3 (05:26→17:45)
[2020-04-16] MEDS: Famotidine IV 10 MG/ML 2 ml VIAL (20 mg) IV SLOW PU SCH (09:33)
[2020-04-16] MEDS: PHENOBARBITAL IVPB SCH (09:34)
[2020-04-16] MEDS: NS 0.9% IVPB SCH (09:34)
[2020-04-16] MEDS: LORazepam 2 mg VIAL 1 ml IV PUSH SCH ×2 (09:34→19:44)
[2020-04-16] MEDS: Neomycin/Polym/Bacit TOP OINT 15 GM TOPICAL SCH ×2 (09:35→19:45)
[2020-04-16] MEDS: Nystatin TOP POWDER 15 GM BTL TOPICAL SCH ×3 (09:35→19:45)
[2020-04-17] MEDS: Metoprolol Tartrate 5 mg VIAL 5 ml VIAL (1 mg/ml) IV SCH ×3 (00:33→11:14)
[2020-04-17] MEDS: Enoxaparin 80 MG/0.8 ML SYR SUBCUT SCH ×2 (03:01→15:21)
[2020-04-17] MEDS: Valproic Acid IV 375 MG in NS 0.9% 100 ml BAG 100 ML IVPB SCH ×2 (03:36→16:38)
[2020-04-17 07:10] LABS: ABS Eosinophils 0.2 10^3/ul (0-0.6); ABS Lymphocytes 0.9 10^3/ul (1.0-4.8); ABS Monocytes 0.6 10^3/ul (0-0.8); ABS Neutrophils 3.1 10^3/ul (1.5-7.7); Eosinophil % 3.7 %; Hematocrit 44 % (42-52); Hemoglobin 15.1 g/dL (14.0-18.0); Lymphocyte % 19.6 %; Mean Corpuscular HGB Conc 34 g/dL (31-36); Mean Corpuscular Hemoglobin 34 pg (27-31); Mean Corpuscular Volume 100 fL (80-94); Mean Platelet Volume 8.1 fL (7.4-10.4); Platelet Count 226 10^3/uL (150-450); Red Blood Count 4.43 10^6 /uL (4.18-5.48); Red Cell Distribution Width 15 % (10-15); White Blood Count 4.8 10^3/uL (3.5-10.8)
[2020-04-17 07:40] LABS: Calcium 8.7 mg/dL (8.6-10.3); EGFR African American 101.5 (>60); EGFR Non-African American 83.9 (>60); Potassium 4.3 mmol/L (3.5-5.0)
[2020-04-17] MEDS: D5LR 1000 ml BAG 1,000 ML IV SCH ×2 (08:36→20:04)
[2020-04-17] MEDS: PHENOBARBITAL IVPB SCH (09:10)
[2020-04-17] MEDS: Famotidine IV 10 MG/ML 2 ml VIAL (20 mg) IV SLOW PU SCH (09:10)
[2020-04-17] MEDS: NS 0.9% IVPB SCH (09:10)
[2020-04-17] MEDS: Neomycin/Polym/Bacit TOP OINT 15 GM TOPICAL SCH ×2 (09:12→20:09)
[2020-04-17] MEDS: Nystatin TOP POWDER 15 GM BTL TOPICAL SCH ×3 (09:12→20:04)
[2020-04-17] MEDS: LORazepam 2 mg VIAL 1 ml IV PUSH SCH (09:21)
[2020-04-17] MEDS ORDERED: Senna TAB 8.6 mg TAB PO PRN (16:42)
[2020-04-17] MEDS ORDERED: LORazepam 2 mg VIAL 1 ml IV PUSH ONE (16:48)
[2020-04-17] MEDS ORDERED: Lorazepam PYXIS KEY ONE (16:53)
[2020-04-18] MEDS: D5LR 1000 ml BAG 1,000 ML IV SCH ×2 (05:55→12:37)
[2020-04-18] MEDS: Nystatin TOP POWDER 15 GM BTL TOPICAL SCH ×3 (07:57→20:17)
[2020-04-18] MEDS: Neomycin/Polym/Bacit TOP OINT 15 GM TOPICAL SCH ×2 (07:57→20:17)
[2020-04-18] MEDS ORDERED: Metoprolol Tartrate 5 mg VIAL 5 ml VIAL (1 mg/ml) IV ONE (22:09)
[2020-04-19] MEDS: Neomycin/Polym/Bacit TOP OINT 15 GM TOPICAL SCH ×2 (08:28→20:54)
[2020-04-19] MEDS: Nystatin TOP POWDER 15 GM BTL TOPICAL SCH ×3 (10:06→20:53)
[2020-04-19 17:10] LABS: BUN/Creatinine Ratio 9.8 (8-20); Calcium 9.1 mg/dL (8.6-10.3); EGFR African American 113.1 (>60); EGFR Non-African American 93.4 (>60); Magnesium 1.6 mg/dL (1.9-2.7); Potassium 4.3 mmol/L (3.5-5.0)
[2020-04-20] MEDS: Nystatin TOP POWDER 15 GM BTL TOPICAL SCH (09:44)
[2020-04-20] MEDS: Neomycin/Polym/Bacit TOP OINT 15 GM TOPICAL SCH (09:44)
[2020-04-20 12:38] VITALS: BP 132/78
== END 2020-04-20 14:30 | DRG 871 ==
LOC: ED 13:10 → ICU 14:36 → SUATTDRO 14:36 → MEDTELE 04-09 13:26
PROVIDERS: ADMIT Internal Medicine; ATTEND Internal Medicine

== ENCOUNTER 2020-05-22 11:03 | Inpatient (IN) ==
[2020-05-22] MEDS ORDERED: cefTRIAXone 1 gm/50 mL NS BAG 1 GM/50 ML BAG IV ONE (11:25)
[2020-05-22] MEDS ORDERED: Albuterol HFA INHALER 8 gm MDI INH ONE (11:31)
[2020-05-22] MEDS ORDERED: NS 0.9% 1000 ml BAG 1,000 ML IV ONE ×2 (11:32→12:35)
[2020-05-22 11:55] LABS: ABS Lymphocytes 0.6 10^3/ul (1.0-4.8); ABS Monocytes 0.2 10^3/ul (0-0.8); ABS Neutrophils 5.3 10^3/ul (1.5-7.7); Eosinophil % 0.2 %; Hematocrit 43 % (42-52); Hemoglobin 14.2 g/dL (14.0-18.0); Lymphocyte % 9.5 %; Mean Corpuscular HGB Conc 33 g/dL (31-36); Mean Corpuscular Hemoglobin 34 pg (27-31); Mean Corpuscular Volume 103 fL (80-94); Nucleated Red Blood Cells % 0.1; Red Cell Distribution Width 15 % (10-15); White Blood Count 6.1 10^3/uL (3.5-10.8)
[2020-05-22 12:00] LABS: Troponin I 0.01 ng/mL (<0.03)
[2020-05-22 12:06] LABS: ALT 28 U/L (7-52); Alkaline Phosphatase 76 U/L (34-104); BUN/Creatinine Ratio 28.1 (8-20); Blood Urea Nitrogen 36 mg/dL (6-24); C Reactive Protein 36.08 mg/L (<8.01); CO2 Carbon Dioxide 37 mmol/L (22-32); Calcium 9.6 mg/dL (8.6-10.3); Chloride 99 mmol/L (101-111); EGFR African American 67.6 (>60); EGFR Non-African American 55.9 (>60); Globulin 4.2 g/dL (2-4); Glucose 85 mg/dL (70-100); Sodium 143 mmol/L (135-145); Total Protein 8.2 g/dL (6.4-8.9)
[2020-05-22 12:07] LABS: Anion Gap 7 mmol/L (2-11)
[2020-05-22 12:23] LABS: Influenza A Molecular Negative (Negative); Influenza B Molecular Negative (Negative)
[2020-05-22] MEDS ORDERED: Diltiazem IV push/loading dose 5 MG/ML 5 ML vial (25 mg) IV SLOW PU ONE (12:43)
[2020-05-22 12:59] LABS: Activated Partial Thrombo Time 30.1 seconds (26.0-38.0); INR 1.34 (0.82-1.09)
[2020-05-22] MEDS ORDERED: Diltiazem (ADVAN VIAL) 100 MG/100 ML ADDV.BAG IV SCH (13:00)
[2020-05-22 13:03] LABS: Mean Platelet Volume 9.7 fL (7.4-10.4); Platelet Count 162 10^3/uL (150-450)
[2020-05-22] MEDS ORDERED: Tetan/Diph/Pertus SYR(Tdap) 0.5 ML SYR(BOOSTRIX) use SYR contains LATEX IM ONE (13:36)
[2020-05-22 13:42] LABS: Potassium Redraw 4.6 mmol/L (3.5-5.0)
[2020-05-22 14:26] LABS: Urine Appearance Clear; Urine Bilirubin Negative (Negative); Urine Blood Negative (Negative); Urine Color Straw; Urine Glucose Negative (Negative); Urine Ketones Negative (Negative); Urine Nitrite Negative (Negative); Urine Protein Negative (Negative); Urine Specific Gravity 1.006 (1.002-1.030); Urine Urobilinogen Negative (Negative)
[2020-05-22] MEDS ORDERED: Albuterol HFA INHALER 8 gm MDI INH PRN (16:52)
[2020-05-22] MEDS ORDERED: Lorazepam PYXIS KEY PRN (19:04)
[2020-05-22] MEDS ORDERED: Haloperidol 5 mg/ml SDV IV/IM 5 MG/ML AMP IM PRN ×2 (20:44→21:23)
[2020-05-22] MEDS ORDERED: Ziprasidone IM 20 mg VIAL 1 ml VIAL IM ONE (21:23)
[2020-05-22] MEDS: Senna TAB 8.6 mg TAB PO SCH ×2 (21:30→22:53)
[2020-05-23 06:09] LABS: ABS Lymphocytes 1.4 10^3/ul (1.0-4.8); ABS Monocytes 0.6 10^3/ul (0-0.8); ABS Neutrophils 3.5 10^3/ul (1.5-7.7); Eosinophil % 0.7 %; Hematocrit 44 % (42-52); Hemoglobin 14.9 g/dL (14.0-18.0); Lymphocyte % 24.5 %; Mean Corpuscular HGB Conc 34 g/dL (31-36); Mean Corpuscular Hemoglobin 34 pg (27-31); Mean Corpuscular Volume 102 fL (80-94); Mean Platelet Volume 8.9 fL (7.4-10.4); Nucleated Red Blood Cells % 0.1; Platelet Count 166 10^3/uL (150-450); Red Blood Count 4.33 10^6 /uL (4.18-5.48); Red Cell Distribution Width 16 % (10-15); White Blood Count 5.6 10^3/uL (3.5-10.8)
[2020-05-23 06:23] LABS: BUN/Creatinine Ratio 28.9 (8-20); Calcium 9.5 mg/dL (8.6-10.3); EGFR African American 72.2 (>60); EGFR Non-African American 59.6 (>60); Magnesium 2.1 mg/dL (1.9-2.7)
[2020-05-23 07:17] LABS: Potassium 4.2 mmol/L (3.5-5.0)
[2020-05-23] MEDS ORDERED: Perflutren Lipid Microsphere 3 ML VIAL ONE (08:11)
[2020-05-23] MEDS: SPIRIVA Respimat (tiotropium) 2.5 mcg/inh Inhaler INH SCH (08:45)
[2020-05-23] MEDS ORDERED: LORazepam 2 mg VIAL 1 ml IM SCH (09:00)
[2020-05-23] MEDS ORDERED: AZITHROMYCIN 500 MG TAB PO SCH (09:00)
[2020-05-23 09:37] LABS: Folate 12.36 ng/mL (5.90-24.80)
[2020-05-23] MEDS: Metoprolol Tartrate 5 mg VIAL 5 ml VIAL (1 mg/ml) IV PRN (10:04)
[2020-05-23] MEDS: cefTRIAXone 1 gm/50 mL NS BAG 1 GM/50 ML BAG IVPB SCH (11:16)
[2020-05-23] MEDS: Senna TAB 8.6 mg TAB PO SCH (20:46)
[2020-05-24] MEDS ORDERED: Metoprolol Tartrate 5 mg VIAL 5 ml VIAL (1 mg/ml) IV PRN ×2 (01:26→17:24)
[2020-05-24] MEDS: Metoprolol Tartrate 5 mg VIAL 5 ml VIAL (1 mg/ml) IV PRN (01:36)
[2020-05-24 06:16] LABS: Hematocrit 44 % (42-52); Hemoglobin 14.7 g/dL (14.0-18.0); Mean Corpuscular HGB Conc 34 g/dL (31-36); Mean Corpuscular Hemoglobin 34 pg (27-31); Mean Corpuscular Volume 101 fL (80-94); Mean Platelet Volume 8.7 fL (7.4-10.4); Platelet Count 183 10^3/uL (150-450); Red Blood Count 4.31 10^6 /uL (4.18-5.48); Red Cell Distribution Width 15 % (10-15); White Blood Count 6.9 10^3/uL (3.5-10.8)
[2020-05-24 06:32] LABS: BUN/Creatinine Ratio 32.1 (8-20); Calcium 9.3 mg/dL (8.6-10.3); EGFR African American 78.9 (>60); EGFR Non-African American 65.2 (>60); Potassium 4.3 mmol/L (3.5-5.0)
[2020-05-24] MEDS: SPIRIVA Respimat (tiotropium) 2.5 mcg/inh Inhaler INH SCH (07:48)
[2020-05-24] MEDS: cefTRIAXone 1 gm/50 mL NS BAG 1 GM/50 ML BAG IVPB SCH (11:24)
[2020-05-24] MEDS: Senna TAB 8.6 mg TAB PO SCH (19:40)
[2020-05-25] MEDS ORDERED: hydrALAZINE 20 mg/ml 1 ML Vial IV IV SLOW PU PRN (05:01)
[2020-05-25 08:22] LABS: BUN/Creatinine Ratio 35.8 (8-20); Calcium 9.3 mg/dL (8.6-10.3); EGFR African American 84.1 (>60); EGFR Non-African American 69.5 (>60); Potassium 4.2 mmol/L (3.5-5.0)
[2020-05-25] MEDS: SPIRIVA Respimat (tiotropium) 2.5 mcg/inh Inhaler INH SCH (08:34)
[2020-05-25 08:42] LABS: Hematocrit 43 % (42-52); Hemoglobin 14.2 g/dL (14.0-18.0); Mean Corpuscular HGB Conc 33 g/dL (31-36); Mean Corpuscular Hemoglobin 34 pg (27-31); Mean Corpuscular Volume 102 fL (80-94); Mean Platelet Volume 9.1 fL (7.4-10.4); Platelet Count 182 10^3/uL (150-450); Red Blood Count 4.23 10^6 /uL (4.18-5.48); Red Cell Distribution Width 15 % (10-15); White Blood Count 5.8 10^3/uL (3.5-10.8)
[2020-05-25] MEDS ORDERED: LORazepam 2 mg VIAL 1 ml IV PUSH ONE (12:57)
[2020-05-25] MEDS ORDERED: Lorazepam PYXIS KEY PRN (12:57)
[2020-05-25] MEDS: cefTRIAXone 1 gm/50 mL NS BAG 1 GM/50 ML BAG IVPB SCH (13:25)
[2020-05-25] MEDS ORDERED: Lactated Ringers 500 ml BAG 500 ML IV SCH (14:00)
[2020-05-25] MEDS: Azithromycin SUSP ORALSYR 20 MG/ML (100 MG/5 ML) PO SCH (17:59)
[2020-05-25] MEDS: Senna TAB 8.6 mg TAB PO SCH (21:24)
[2020-05-26] MEDS ORDERED: LORazepam 2 mg VIAL 1 ml IV PUSH ONE (05:12)
[2020-05-26] MEDS ORDERED: LORazepam 2 mg VIAL 1 ml ONE (05:15)
[2020-05-26] MEDS: SPIRIVA Respimat (tiotropium) 2.5 mcg/inh Inhaler INH SCH (07:23)
[2020-05-26] MEDS: cefTRIAXone 1 gm/50 mL NS BAG 1 GM/50 ML BAG IVPB SCH (11:36)
[2020-05-26 13:09] LABS: BUN/Creatinine Ratio 37.4 (8-20); Calcium 8.9 mg/dL (8.6-10.3); EGFR Non-African American 75.2 (>60); Potassium 4.3 mmol/L (3.5-5.0)
[2020-05-26] MEDS: Azithromycin SUSP ORALSYR 20 MG/ML (100 MG/5 ML) PO SCH (14:22)
[2020-05-26] MEDS ORDERED: Azithromycin SUSP ORALSYR 20 MG/ML (100 MG/5 ML) PO ONE (15:30)
[2020-05-26] MEDS: Senna TAB 8.6 mg TAB PO SCH (19:52)
[2020-05-27 06:03] LABS: BUN/Creatinine Ratio 33.7 (8-20); Calcium 9.7 mg/dL (8.6-10.3); EGFR Non-African American 76.1 (>60); Potassium 4.3 mmol/L (3.5-5.0)
[2020-05-27] MEDS: SPIRIVA Respimat (tiotropium) 2.5 mcg/inh Inhaler INH SCH (07:29)
[2020-05-27] MEDS ORDERED: LORazepam 2 mg VIAL 1 ml IV PUSH ONE ×4 (08:30→19:47)
[2020-05-27] MEDS ORDERED: Lorazepam PYXIS KEY PRN ×4 (08:30→19:46)
[2020-05-27] MEDS ORDERED: LORazepam 2 mg VIAL 1 ml ONE ×3 (08:33→09:55)
[2020-05-27] MEDS ORDERED: Haloperidol 5 mg/ml SDV IV/IM 5 MG/ML AMP ONE ×2 (10:18→14:08)
[2020-05-27] MEDS ORDERED: Haloperidol 5 mg/ml SDV IV/IM 5 MG/ML AMP IV SLOW PU ONE ×2 (10:19→14:08)
[2020-05-27] MEDS: Senna TAB 8.6 mg TAB PO SCH (19:55)
[2020-05-28] MEDS ORDERED: Haloperidol 5 mg/ml SDV IV/IM 5 MG/ML AMP IM ONE ×2 (00:20→00:47)
[2020-05-28] MEDS ORDERED: Haloperidol 5 mg/ml SDV IV/IM 5 MG/ML AMP ONE ×2 (00:21→00:50)
[2020-05-28] MEDS ORDERED: Ziprasidone IM 20 mg VIAL 1 ml VIAL IM ONE (05:17)
[2020-05-28 07:15] LABS: CO2 Carbon Dioxide 29 mmol/L (22-32); Calcium 9.7 mg/dL (8.6-10.3); Chloride 98 mmol/L (101-111); Sodium 136 mmol/L (135-145)
[2020-05-28 07:20] LABS: BUN/Creatinine Ratio 28.7 (8-20); Blood Urea Nitrogen 25 mg/dL (6-24); EGFR African American 105.6 (>60); EGFR Non-African American 87.3 (>60); Glucose 78 mg/dL (70-100)
[2020-05-28 08:52] LABS: Anion Gap 9 mmol/L (2-11)
[2020-05-28] MEDS ORDERED: Lorazepam PYXIS KEY PRN (08:53)
[2020-05-28] MEDS ORDERED: LORazepam 2 mg VIAL 1 ml IV PUSH ONE (08:54)
[2020-05-28] MEDS: SPIRIVA Respimat (tiotropium) 2.5 mcg/inh Inhaler INH SCH (09:26)
[2020-05-28] MEDS ORDERED: Morphine ER 30 mg TAB ** extended release PO PRN (11:13)
[2020-05-28] MEDS ORDERED: Ziprasidone IM 20 mg VIAL 1 ml VIAL IM PRN ×2 (16:15→16:17)
[2020-05-28] MEDS: Morphine ORAL CONCENTRATE 5 MG/0.25 ML ORAL.SYRIN SL PRN (18:26)
[2020-05-28] MEDS: Senna TAB 8.6 mg TAB PO SCH (19:51)
[2020-05-29] MEDS: Morphine ORAL CONCENTRATE 5 MG/0.25 ML ORAL.SYRIN SL PRN (01:18)
[2020-05-29] MEDS: SPIRIVA Respimat (tiotropium) 2.5 mcg/inh Inhaler INH SCH (07:44)
[2020-05-29 08:52] LABS: BUN/Creatinine Ratio 27.9 (8-20); Calcium 9.5 mg/dL (8.6-10.3); EGFR African American 79.7 (>60); EGFR Non-African American 65.9 (>60); Potassium 4.5 mmol/L (3.5-5.0)
[2020-05-29] MEDS: Senna TAB 8.6 mg TAB PO SCH (19:43)
[2020-05-30] MEDS ORDERED: Haloperidol 5 mg/ml SDV IV/IM 5 MG/ML AMP IM PRN (04:52)
[2020-05-30] MEDS: SPIRIVA Respimat (tiotropium) 2.5 mcg/inh Inhaler INH SCH (07:02)
[2020-05-30 10:19] LABS: BUN/Creatinine Ratio 28.7 (8-20); Blood Urea Nitrogen 31 mg/dL (6-24); CO2 Carbon Dioxide 38 mmol/L (22-32); Calcium 9.7 mg/dL (8.6-10.3); Chloride 97 mmol/L (101-111); EGFR African American 82.3 (>60); Glucose 105 mg/dL (70-100); Sodium 138 mmol/L (135-145)
[2020-05-30 10:24] LABS: Anion Gap 3 mmol/L (2-11)
[2020-05-30] MEDS: Morphine ORAL CONCENTRATE 5 MG/0.25 ML ORAL.SYRIN SL PRN (10:26)
[2020-05-30] MEDS ORDERED: Ziprasidone IM 20 mg VIAL 1 ml VIAL IM PRN (11:50)
[2020-05-30] MEDS: Senna TAB 8.6 mg TAB PO SCH (20:40)
[2020-05-31] MEDS: SPIRIVA Respimat (tiotropium) 2.5 mcg/inh Inhaler INH SCH (08:31)
[2020-05-31] MEDS: Enoxaparin 40 MG/0.4 ML SYR SUBCUT SCH (17:50)
[2020-05-31] MEDS: Senna TAB 8.6 mg TAB PO SCH (20:13)
[2020-06-01] MEDS ORDERED: Ziprasidone IM 20 mg VIAL 1 ml VIAL IM ONE (05:02)
[2020-06-01] MEDS: SPIRIVA Respimat (tiotropium) 2.5 mcg/inh Inhaler INH SCH (07:16)
[2020-06-01] MEDS: Enoxaparin 40 MG/0.4 ML SYR SUBCUT SCH (17:14)
[2020-06-01] MEDS: Ziprasidone IM 20 mg VIAL 1 ml VIAL IM PRN (17:35)
[2020-06-01] MEDS: Senna TAB 8.6 mg TAB PO SCH (22:28)
[2020-06-02] MEDS: SPIRIVA Respimat (tiotropium) 2.5 mcg/inh Inhaler INH SCH (07:43)
[2020-06-02] MEDS: Morphine ORAL CONCENTRATE 5 MG/0.25 ML ORAL.SYRIN SL PRN (14:09)
[2020-06-02] MEDS: Enoxaparin 40 MG/0.4 ML SYR SUBCUT SCH (18:30)
[2020-06-02] MEDS: Senna TAB 8.6 mg TAB PO SCH (19:50)
[2020-06-03] MEDS: Morphine ORAL CONCENTRATE 5 MG/0.25 ML ORAL.SYRIN SL PRN (03:22)
[2020-06-03] MEDS ORDERED: Zosyn per Pharmacy NOTE FOLLOW UP SCH (05:00)
[2020-06-03] MEDS ORDERED: Piperacillin/Tazobac ADVAN 3.375 GM in NS 0.9% 100 ml BAG 100 ML IV ONE (05:00)
[2020-06-03] MEDS: Albuterol/Ipratropium NEB.SOL (2.5/0.5 MG) 3 ML NEB.SOLN INH PRN (05:05)
[2020-06-03] MEDS: NS 0.9% 1000 ml BAG 2,000 ML IV SCH ×2 (05:30→06:02)
[2020-06-03 05:46] LABS: ABS Basophils 0.1 10^3/ul (0-0.2); ABS Eosinophils 0.1 10^3/ul (0-0.6); ABS Monocytes 1.2 10^3/ul (0-0.8); ABS Neutrophils 6.7 10^3/ul (1.5-7.7); Eosinophil % 0.8 %; Hematocrit 45 % (42-52); Hemoglobin 14.6 g/dL (14.0-18.0); Lymphocyte % 11.5 %; Mean Corpuscular HGB Conc 33 g/dL (31-36); Mean Corpuscular Hemoglobin 34 pg (27-31); Mean Corpuscular Volume 104 fL (80-94); Mean Platelet Volume 9.4 fL (7.4-10.4); Nucleated Red Blood Cells % 0.1; Platelet Count 156 10^3/uL (150-450); Red Blood Count 4.28 10^6 /uL (4.18-5.48); Red Cell Distribution Width 16 % (10-15)
[2020-06-03 06:10] LABS: Albumin 3.4 g/dL (3.2-5.2); Calcium 8.4 mg/dL (8.6-10.3); Potassium 4.7 mmol/L (3.5-5.0); Total Bilirubin 0.6 mg/dL (0.2-1.0)
[2020-06-03 06:16] LABS: Albumin/Globulin Ratio 0.9 (1-3); BUN/Creatinine Ratio 24.3 (8-20); C Reactive Protein 96.92 mg/L (<8.01); EGFR African American 86.9 (>60); EGFR Non-African American 71.8 (>60); Globulin 3.9 g/dL (2-4); Total Protein 7.3 g/dL (6.4-8.9)
[2020-06-03 07:03] LABS: Urine Appearance Clear; Urine Bilirubin Negative (Negative); Urine Blood Negative (Negative); Urine Color Yellow; Urine Glucose Negative (Negative); Urine Ketones Negative (Negative); Urine Nitrite Negative (Negative); Urine Protein Negative (Negative); Urine Specific Gravity 1.024 (1.002-1.030); Urine Urobilinogen Negative (Negative)
[2020-06-03] MEDS: SPIRIVA Respimat (tiotropium) 2.5 mcg/inh Inhaler INH SCH ×2 (08:24→08:49)
[2020-06-03] MEDS: ZOSYN 3.375 GM Q8H per EXTENDED INFUSION IV SCH ×2 (09:28→17:40)
[2020-06-03] MEDS ORDERED: NS 0.9% 1000 ml BAG 1,000 ML IV SCH (09:45)
[2020-06-03] MEDS: Ziprasidone IM 20 mg VIAL 1 ml VIAL IM PRN (19:17)
[2020-06-03] MEDS: Senna TAB 8.6 mg TAB PO SCH (20:31)
[2020-06-04] MEDS: ZOSYN 3.375 GM Q8H per EXTENDED INFUSION IV SCH (02:01)
[2020-06-04] MEDS: SPIRIVA Respimat (tiotropium) 2.5 mcg/inh Inhaler INH SCH (07:27)
[2020-06-04] MEDS: Amoxicillin/Clavul 500/125 TAB (Augmentin 500 mg tab) PO SCH ×2 (09:10→20:17)
[2020-06-04] MEDS: Ziprasidone IM 20 mg VIAL 1 ml VIAL IM PRN (16:43)
[2020-06-04] MEDS: Senna TAB 8.6 mg TAB PO SCH (20:17)
[2020-06-05] MEDS: Morphine ORAL CONCENTRATE 5 MG/0.25 ML ORAL.SYRIN SL PRN ×3 (06:00→17:54)
[2020-06-05] MEDS: SPIRIVA Respimat (tiotropium) 2.5 mcg/inh Inhaler INH SCH (07:15)
[2020-06-05] MEDS: Amoxicillin/Clavul 500/125 TAB (Augmentin 500 mg tab) PO SCH ×2 (08:26→21:35)
[2020-06-05] MEDS: Polyethylene Glycol 3350 17 GM PACKET PO PRN (14:54)
[2020-06-05] MEDS ORDERED: Ziprasidone IM 20 mg VIAL 1 ml VIAL IM PRN (15:04)
[2020-06-05] MEDS: Senna TAB 8.6 mg TAB PO SCH (21:35)
[2020-06-06] MEDS: SPIRIVA Respimat (tiotropium) 2.5 mcg/inh Inhaler INH SCH (08:05)
[2020-06-06] MEDS: Morphine ORAL CONCENTRATE 5 MG/0.25 ML ORAL.SYRIN SL PRN ×3 (08:49→20:15)
[2020-06-06] MEDS: Amoxicillin/Clavul 500/125 TAB (Augmentin 500 mg tab) PO SCH ×2 (08:53→22:22)
[2020-06-06] MEDS: Senna TAB 8.6 mg TAB PO SCH (22:23)
[2020-06-07] MEDS: Morphine ORAL CONCENTRATE 5 MG/0.25 ML ORAL.SYRIN SL PRN ×2 (06:21→18:17)
[2020-06-07] MEDS: SPIRIVA Respimat (tiotropium) 2.5 mcg/inh Inhaler INH SCH (07:11)
[2020-06-07] MEDS: Amoxicillin/Clavul 500/125 TAB (Augmentin 500 mg tab) PO SCH (08:19)
[2020-06-07] MEDS: Polyethylene Glycol 3350 17 GM PACKET PO PRN (18:18)
[2020-06-07] MEDS: Albuterol/Ipratropium NEB.SOL (2.5/0.5 MG) 3 ML NEB.SOLN INH PRN (19:01)
[2020-06-07] MEDS ORDERED: Lorazepam PYXIS KEY PRN (19:29)
[2020-06-07] MEDS: LORazepam 2 mg VIAL 1 ml IV PUSH PRN (19:48)
[2020-06-08] MEDS: Amoxicillin/Clavul 500/125 TAB (Augmentin 500 mg tab) PO SCH ×3 (02:02→22:01)
[2020-06-08] MEDS: Senna TAB 8.6 mg TAB PO SCH ×2 (02:05→22:03)
[2020-06-08] MEDS: SPIRIVA Respimat (tiotropium) 2.5 mcg/inh Inhaler INH SCH (07:21)
[2020-06-08] MEDS: Morphine ORAL CONCENTRATE 5 MG/0.25 ML ORAL.SYRIN SL PRN (13:30)
[2020-06-08] MEDS: LORazepam 2 mg VIAL 1 ml IV PUSH PRN (13:44)
[2020-06-09] MEDS: SPIRIVA Respimat (tiotropium) 2.5 mcg/inh Inhaler INH SCH (07:15)
[2020-06-09] MEDS: Morphine ORAL CONCENTRATE 5 MG/0.25 ML ORAL.SYRIN SL PRN (09:06)
[2020-06-09] MEDS: Amoxicillin/Clavul 500/125 TAB (Augmentin 500 mg tab) PO SCH ×2 (10:57→21:08)
[2020-06-09] MEDS: Albuterol/Ipratropium NEB.SOL (2.5/0.5 MG) 3 ML NEB.SOLN INH PRN (11:17)
[2020-06-09] MEDS: Senna TAB 8.6 mg TAB PO SCH (21:08)
[2020-06-10] MEDS: Morphine ORAL CONCENTRATE 5 MG/0.25 ML ORAL.SYRIN SL PRN ×4 (05:33→21:46)
[2020-06-10] MEDS: SPIRIVA Respimat (tiotropium) 2.5 mcg/inh Inhaler INH SCH (07:10)
[2020-06-10] MEDS: Amoxicillin/Clavul 500/125 TAB (Augmentin 500 mg tab) PO SCH ×2 (08:34→22:00)
[2020-06-10] MEDS: Senna TAB 8.6 mg TAB PO SCH (21:48)
[2020-06-11] MEDS: SPIRIVA Respimat (tiotropium) 2.5 mcg/inh Inhaler INH SCH (07:21)
[2020-06-11] MEDS: Amoxicillin/Clavul 500/125 TAB (Augmentin 500 mg tab) PO SCH ×2 (09:06→22:10)
[2020-06-11] MEDS: Morphine ORAL CONCENTRATE 5 MG/0.25 ML ORAL.SYRIN SL PRN ×2 (09:55→12:59)
[2020-06-11] MEDS: Senna TAB 8.6 mg TAB PO SCH (22:09)
[2020-06-12] MEDS: SPIRIVA Respimat (tiotropium) 2.5 mcg/inh Inhaler INH SCH (07:39)
[2020-06-12] MEDS: Amoxicillin/Clavul 500/125 TAB (Augmentin 500 mg tab) PO SCH ×2 (09:02→21:07)
[2020-06-12] MEDS: LORazepam 2 mg VIAL 1 ml IV PUSH PRN (10:52)
[2020-06-12] MEDS: Albuterol/Ipratropium NEB.SOL (2.5/0.5 MG) 3 ML NEB.SOLN INH PRN (10:53)
[2020-06-12] MEDS: Morphine ORAL CONCENTRATE 5 MG/0.25 ML ORAL.SYRIN SL PRN ×2 (10:56→20:53)
[2020-06-12] MEDS: Senna TAB 8.6 mg TAB PO SCH (21:14)
[2020-06-13] MEDS: SPIRIVA Respimat (tiotropium) 2.5 mcg/inh Inhaler INH SCH (08:10)
[2020-06-13] MEDS: Morphine ORAL CONCENTRATE 5 MG/0.25 ML ORAL.SYRIN SL PRN (09:42)
[2020-06-13] MEDS: Amoxicillin/Clavul 500/125 TAB (Augmentin 500 mg tab) PO SCH (09:52)
[2020-06-13] MEDS: Senna TAB 8.6 mg TAB PO SCH (21:38)
[2020-06-14] MEDS: SPIRIVA Respimat (tiotropium) 2.5 mcg/inh Inhaler INH SCH (07:19)
[2020-06-14] MEDS: Polyethylene Glycol 3350 17 GM PACKET PO PRN (08:38)
[2020-06-14] MEDS: Morphine ORAL CONCENTRATE 5 MG/0.25 ML ORAL.SYRIN SL PRN ×2 (10:41→14:41)
[2020-06-14] MEDS: LORazepam 2 mg VIAL 1 ml IV PUSH PRN (14:47)
[2020-06-14] MEDS: Senna TAB 8.6 mg TAB PO SCH (19:39)
[2020-06-15] MEDS: Morphine ORAL CONCENTRATE 5 MG/0.25 ML ORAL.SYRIN SL PRN ×3 (04:04→17:29)
[2020-06-15] MEDS: SPIRIVA Respimat (tiotropium) 2.5 mcg/inh Inhaler INH SCH (07:18)
[2020-06-15 20:30] VITALS: BP 114/95
[2020-06-16] MEDS: Senna TAB 8.6 mg TAB PO SCH ×2 (02:21→20:37)
[2020-06-16] MEDS: SPIRIVA Respimat (tiotropium) 2.5 mcg/inh Inhaler INH SCH (07:41)
[2020-06-16] MEDS: Morphine ORAL CONCENTRATE 5 MG/0.25 ML ORAL.SYRIN SL PRN (13:43)
[2020-06-17] MEDS: SPIRIVA Respimat (tiotropium) 2.5 mcg/inh Inhaler INH SCH (08:02)
[2020-06-17] MEDS: Morphine ORAL CONCENTRATE 5 MG/0.25 ML ORAL.SYRIN SL PRN ×2 (15:58→23:23)
[2020-06-17] MEDS: Senna TAB 8.6 mg TAB PO SCH (23:25)
[2020-06-18] MEDS: SPIRIVA Respimat (tiotropium) 2.5 mcg/inh Inhaler INH SCH (07:55)
[2020-06-18] MEDS ORDERED: Haloperidol 5 mg/ml SDV IV/IM 5 MG/ML AMP IV SLOW PU ONE (20:31)
[2020-06-18] MEDS: Senna TAB 8.6 mg TAB PO SCH (20:31)
[2020-06-18] MEDS ORDERED: Morphine 2 MG/ML SYRINGE ONE (23:09)
[2020-06-18] MEDS: Morphine 2 MG/ML SYRINGE IV PRN (23:12)
[2020-06-19] MEDS: Morphine 2 MG/ML SYRINGE IV PRN ×4 (04:18→21:51)
[2020-06-19] MEDS: SPIRIVA Respimat (tiotropium) 2.5 mcg/inh Inhaler INH SCH (07:56)
[2020-06-19] MEDS: Senna TAB 8.6 mg TAB PO SCH (21:57)
[2020-06-20] MEDS: Morphine 2 MG/ML SYRINGE IV PRN ×3 (00:12→15:49)
[2020-06-20] MEDS: SPIRIVA Respimat (tiotropium) 2.5 mcg/inh Inhaler INH SCH (07:26)
[2020-06-20] MEDS: Senna TAB 8.6 mg TAB PO SCH (20:39)
[2020-06-21] MEDS: SPIRIVA Respimat (tiotropium) 2.5 mcg/inh Inhaler INH SCH (07:34)
[2020-06-21] MEDS: Morphine 2 MG/ML SYRINGE IV PRN (14:36)
[2020-06-21] MEDS: Senna TAB 8.6 mg TAB PO SCH (19:42)
[2020-06-22] MEDS: Morphine 2 MG/ML SYRINGE IV PRN ×3 (07:35→18:08)
[2020-06-22] MEDS: SPIRIVA Respimat (tiotropium) 2.5 mcg/inh Inhaler INH SCH (07:59)
[2020-06-22] MEDS: Senna TAB 8.6 mg TAB PO SCH (19:43)
[2020-06-23] MEDS: SPIRIVA Respimat (tiotropium) 2.5 mcg/inh Inhaler INH SCH (08:13)
[2020-06-23] MEDS: Morphine 2 MG/ML SYRINGE IV PRN ×2 (13:46→19:50)
[2020-06-23] MEDS: Senna TAB 8.6 mg TAB PO SCH (19:55)
[2020-06-24] MEDS: Morphine 2 MG/ML SYRINGE IV PRN (01:46)
[2020-06-24] MEDS: SPIRIVA Respimat (tiotropium) 2.5 mcg/inh Inhaler INH SCH (07:23)
[2020-06-24] MEDS: Senna TAB 8.6 mg TAB PO SCH (20:04)
[2020-06-25] MEDS: SPIRIVA Respimat (tiotropium) 2.5 mcg/inh Inhaler INH SCH (07:22)
[2020-06-25] MEDS: Senna TAB 8.6 mg TAB PO SCH (19:56)
[2020-06-26] MEDS: SPIRIVA Respimat (tiotropium) 2.5 mcg/inh Inhaler INH SCH (08:22)
[2020-06-26] MEDS: Senna TAB 8.6 mg TAB PO SCH (19:59)
[2020-06-27] MEDS: SPIRIVA Respimat (tiotropium) 2.5 mcg/inh Inhaler INH SCH (07:15)
[2020-06-27] MEDS: Senna TAB 8.6 mg TAB PO SCH (21:43)
[2020-06-28] MEDS: SPIRIVA Respimat (tiotropium) 2.5 mcg/inh Inhaler INH SCH (07:24)
[2020-06-28] MEDS ORDERED: Lorazepam PYXIS KEY PRN (08:38)
[2020-06-28] MEDS: LORazepam 2 mg VIAL 1 ml IV PUSH PRN (10:11)
[2020-06-28] MEDS: Senna TAB 8.6 mg TAB PO SCH (23:00)
[2020-06-29] MEDS: LORazepam 2 mg VIAL 1 ml IV PUSH PRN (04:42)
[2020-06-29] MEDS: SPIRIVA Respimat (tiotropium) 2.5 mcg/inh Inhaler INH SCH ×2 (08:04→08:09)
[2020-06-30] MEDS: Senna TAB 8.6 mg TAB PO SCH (02:30)
[2020-06-30] MEDS: SPIRIVA Respimat (tiotropium) 2.5 mcg/inh Inhaler INH SCH (07:46)
[2020-06-30] MEDS ORDERED: LORazepam 2 mg VIAL 1 ml IV PUSH PRN (13:16)
[2020-06-30] MEDS: Morphine ORAL CONCENTRATE 5 MG/0.25 ML ORAL.SYRIN SL PRN ×3 (13:56→18:16)
[2020-06-30] MEDS: Atropine 1% (ORAL/SL) 15 ML BTL SL PRN ×2 (15:00→17:31)
== END 2020-06-30 20:00 | disposition expired | DRG 871 ==
LOC: ED 11:03 → MED 15:20
PROVIDERS: ADMIT Internal Medicine; ATTEND Internal Medicine